=== PATIENT | female | born 1945 | race African-American/Black ===

== ENCOUNTER 2017-04-30 15:54 | Inpatient (IN) | payer OTHER ==
[~2017-04-30] VITALS: Ht 167.6 cm; Wt 57.2 kg
[2017-04-30 18:45] VITALS: BP 140/44; PULSE 41; TEMP 36.5; O2SAT 94
[2017-04-30 19:00] VITALS: BP 134/41; PULSE 39; O2SAT 93
--- NOTE | 2017-04-30 19:41 | History and Physical ---
History & Physical Date & Time of Service: Apr 30, 2017 at 19:41 Chief Complaint: Respiratory Failure Primary Care Physician: Alan Kelley M.D. History of Present Illness Source: patient Mrs Nicole Up is a 71 year old female with CKD, on dialysis, CHF, hypertension , and history of aortic valve replacement 3 years ago who initially presented to [facility] on 04/29/17, and was transferred to our facility by ambulance this evening. She reports she initially presented to the hospital after having two days of fatigue, shortness of breath, and just "not feeling right". She reports the shortness of breath started gradually, was more noticeable when walking around, and she would walk about 50 feet before feeling short of breath , to the point where she had to stop the rest. She denied any chest pain during that time. The fatigue occurred on its own throughout the day over the weekend, and she felt she could not get up to do the activities she usually does. Yesterday, she noticed her chest had a very heavy sensation, which concerned her , so she went to the hospital. She denied fevers, chills, abdominal pain, or leg swelling at this time. At [facility], she was found to be bradycardic, which she reports is new for her. She denies any syncopal events from this. She was told she needed a pacemaker, but cardiology there said she could be managed medically. She was transferred here for further evaluation by both Pulmonary and Cardiology. She also reports a 1 year history of cough, which is non-productive, which has been going on for a year after she got a flu shot. She did not get a flu shot this year. Per records, the pt had a PET CT scan which showed inflammation changes on the chest wall. She had a CT scan which showed concern for pneumonia vs malignancy in the right middle lobe. The patient denies any previous history of lung cancer. Currently, she reports feeling ok. She denies shortness of breath, chest pain, but reports the fatigue is still persistent. Past Medical/Surgical History PMHx: - Hypertension - End-stage renal failure, on dialysis - usually this is Mon/Sat/Fri, due to holiday she is Sun//Fri but missed it today - Congestive heart failure - Type 2 DM, on Lantus 4 units at night - Depression / Anxiety - Hypothyroidism PSHx: - Aortic valve replacement 3 years ago Family History No pertinent FHx Social History Lives at home with her , is the primary caregiver for her son who is quadriplegic. 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 She has never smoked. She used to primarily drink beer, but stopped drinking 25 years ago. She ambulates independently, feels she is doing ok at home since she has caregivers for her son. Allergies Coded Allergies: Fentanyl (Verified Allergy, Intermediate, HIVES, 04/30/17) Home Medications Scheduled Amiodarone Hcl (Cordarone), 200 MG PO DAILY Amlodipine (Norvasc), 10 MG PO BID Aspirin (Aspirin Ec), 81 MG PO DAILY Atorvastatin (Lipitor), 20 MG PO DAILY Benzonatate (Tessalon Perles), 100 MG PO TID Calcium Acetate (Phoslo 667 Mg), 1 CAP PO TIDM Cholecalciferol (Vitamin D3), 1 TAB PO DAILY Citalopram (Citalopram Hydrobromide), 1.5 TAB PO DAILY Clopidogrel (Plavix), 75 MG PO DAILY Furosemide (Lasix), 40 MG PO HS Furosemide (Lasix), 80 MG PO DAILY Hydralazine Hcl (Apresoline), 25 MG PO TID Insulin Glargine (Lantus), 4 UNITS SC QPM Levothyroxine Sodium (Synthroid), 50 MCG PO DAILY Lorazepam (Ativan), 1 MG PO BID Metoprolol Tartrate (Lopressor) (Lopressor), 25 MG PO BID Montelukast Sodium (Montelukast Sodium), 1 TAB PO DAILY Review of Systems See HPI for pertinent positives & negatives. A total of 10 systems reviewed and were otherwise negative. Physical Exam Vital Signs VS per EMR. On monitoring, her HR was ranging from 40 - 44. General Appearance: WD/WN, no apparent distress Head: normocephalic, atraumatic Eyes: normal inspection, PERRL ENT: hearing grossly normal Neck: supple, no JVD Respiratory/Chest: + crackles (faint crackles L base. No wheeze or rales.) Cardiovascular: regular rate, rhythm, no murmur, normal peripheral pulses Abdomen/GI: normal bowel sounds, non tender, soft Back: normal inspection, no CVA tenderness, no muscle spasm Extremities/Musculoskelatal: no calf tenderness, normal capillary refill, no pedal edema Neurologic/Psych: alert, normal mood/affect, normal reflexes, oriented x 3 Skin: warm/dry, no rash Diagnostics Laboratory Results Results Past 24 Hours Test 04/30/17 19:33 Range/Units Microbiology Results 04/30/17 MRSA DNA Surveillance Screen, Ordered Pending Diagnostic Radiology Pending final radiologist report. Has consolidation to L base and RML. Impression Assessment and Plan 71 yo F, primarily transferred here for further evaluation / treatment of right middle lobe consolidation with bronchoscopy, also has bradycardia. RML Consolidation - effusion vs infection vs neoplasm - Pulmonary consult. - NPO after midnight in case of bronchoscopy tomorrow. Pt is weary / hesitant since she was told she would need a pacemaker prior to this procedure. Agrees to prepare for it regardless and discuss w/Pulm in AM. Bradycardia - Cardiology consult - Hold anti-hypertensives for now End stage renal disease, on dialysis - Nephrology consult for dialysis tomorrow CHF - Unclear of her home medication dose - Lasix listed in computer but unclear if pt takes it, will defer to day team. Hypertension - Will hold her metoprolol, hydralazine, and amlodipine tonight - PRN Hydralazine IV for SBP > 170 or DBP > 110 Hx of TIA - Holding aspirin and plavix in case of bronch tomorrow Hypothyroidism - Continue Synthroid 50mcg Code status: Full Dispo: Admitted to ICU VTE: SCDs Resident Physician Supervision Note: Pt seen independently in the ICU following discussion with resident. I discussed the case with the resident and agree with the findings and plan as documented in the note. Any exceptions or clarifications are listed here: 71 y/o F Hx ESRD, CHF, HTN - initially presented to [facility] with bradycardia and SOB - imaging was obtained and a CT was suspicious for a RML malignancy. She was transferred directly to the ICU at [facility] and will likely undergo AM bronchoscopy. She is bradycardic on admission although she does not appear to have any related symptoms OE Pt had received a sedative - somnolent at time of eval S1,2 cole/reg CTA - no clear crackles or wheezing NT, ND, bS+ No CCE P: Pt to be evaluated by pulmonology and will likely undergo bronchoscopy/biopsy for her suspected mass We will contact the dialysis service if she is to remain in the hospital She will be evaluated by cardiology for her bradycardia - her B caleb has been held in the interim which will hopefully lead to improvement She can likely be transferred to telemetry if he is stable post-procedure Documented By: Joseph Thomas Level of Care Critical Care Resuscitation Status FULL RESUSCITATION VTE Prophylaxis VTE Risk Assessment Done? Y/N: Yes Risk Level: Moderate Resident Tracking Resident Involvement: Resident Care Provided Care Provided: Adult Hospital Medicine
[2017-04-30] MEDS ORDERED: MoRPHine SULFATE 2 MG/ML CARP IV PRN (19:45)
[2017-04-30] MEDS ORDERED: LORAZEPAM 2 MG/ML 1 ML VIAL IV PRN (19:45)
[2017-04-30] MEDS ORDERED: CLOP1TAB15 PO (19:55)
--- NOTE | 2017-04-30 19:57 | Critical Care Consultation ---
Critical Care Consultation Date of Consultation: Apr 30, 2017. Attending Physician: Joseph Thomas M.D. Reason for Consultation: Bradycardia & Increased Shortness of breath History of Present Illness Patient is a 71-year-old -Mac[place] female who transferred from [facility] this evening for bradycardia. While patient denies prior knowledge of bradycardic events. I do note outpatient EKG on 12/05/2016, that demonstrated a heart rate of 44. Upon speaking with her her main complaint is a progressively getting shortness of breath. She states that she has never smoked but has had significant exposure by both her (quit 30 years ago) and son (current smoker, though now outside home). She states that for the past year she has had a dry nagging cough, with occasional coughing fits but mainly complains of wheezing and shortness of breath when laying on her left side at night. She states that she is seen a progressive decline in the last 3 weeks at which point she was placed on 2 L nasal cannula home oxygen. She describes 3 different units in her home however, does not use any limb while transitioning about the house. Her most recent incident that led her to hospitalization began on Saturday when she was a day late for her normally scheduled hemodialysis. Patient states that while descending her 13 steps she fell due to shortness of breath. She states that she just could not get her legs under her and was having trouble moving about her home. She described an incident of using the restroom where she had to stop midway back to her room due to shortness of breath. She states that at times she finds herself leaning forward to help breathing. According to a home pulse ox, she was in the 70 percentile at one point on Saturday. On Saturday she stated that she made it to her living room and did not move about much. She relented and went to bed by 4: 30 PM only to wake up and feel short of breath again on Saturday. At this time she told her that she needed to go to the hospital immediately. She did state that during this period time she was having right-sided chest pressure that was radiating to her back. She did attempt to use prescribed nebulizer treatments without relief. [facility] patient was found to be bradycardic in the 40s with a bumped troponin of 0.06. Otherwise patient's past medical history is positive for end-stage renal disease requiring dialysis Saturday. Aortic valve replacement 3 years ago, diabetes mellitus, hypertension, hypothyroidism, past medical history of hep C. He states many years ago she was a heavy beer drinker, but is probably been 20+ years since her last drink. She denies any illicit drug use, smoking history, or current alcohol use. As for other possible in-home pulmonary triggers, patient does state that she does have mold/mildew in her basement; but does not go to that area of her home. She states that with this recent decline in pulmonary status; linens and window treatments have been removed and washed to reduce dust and smoke residue in the home. Patient has 2 dogs, these are not recent additions to the family. Patient underwent a 6 minute walking test in March 2017 with desaturations at 87% at 2 minutes and required 2 L supplemental oxygen prior to ambulating an additional minute. Per outpatient records from Dr. Palafox had ordered pulmonary function tests for 12/2016; however I do not see completion of this order. PET scan (04/13/17) of her pulmonary nodules demonstrated no suspicion of hypermetabolic foci. Persisting cough has been treated using Benadryl, Tessalon Perles, Singulair, cough medicine with codeine. Patient denies relief using any of these medications. Patient denies current malaise, weakness, change in vision, lightheadedness or dizziness. Patient denies feeling short of breath at rest, chest pain, palpitations, awareness of tachyarrhythmia. The patient denies current nausea/ vomiting/diarrhea. Denies change in bowel or bladder habits. Denies numbness or tingling of all extremities. 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 Cough Depression Hypertension Long QT Surgical history: Bilateral cataracts 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 Umbilical hernia repair Aortic valve replacement Biopsy of the kidney, right breast and axillary node, and liver Family History Noncontributory Social History Smoking Status: Never Smoker (significant secondhand exposure secondary to and son's smoking history) Smokeless Tobacco Use: No Alcohol Use: none (20+ years ago, heavy beer use) Drug Use: none Marital Status: Housing Status: lives with significant other (75-year-old and quadriplegic son) 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) Allergies Coded Allergies: Fentanyl (Verified Allergy, Intermediate, HIVES, 04/30/17) Home Medications Scheduled Amiodarone Hcl (Cordarone), 200 MG PO DAILY Amlodipine (Norvasc), 10 MG PO BID Aspirin (Aspirin Ec), 81 MG PO DAILY Atorvastatin (Lipitor), 20 MG PO DAILY Benzonatate (Tessalon Perles), 100 MG PO TID Calcium Acetate (Phoslo 667 Mg), 1 CAP PO TIDM Cholecalciferol (Vitamin D3), 1 TAB PO DAILY Citalopram (Citalopram Hydrobromide), 1.5 TAB PO DAILY Clopidogrel (Plavix), 75 MG PO DAILY Furosemide (Lasix), 40 MG PO HS Furosemide (Lasix), 80 MG PO DAILY Hydralazine Hcl (Apresoline), 25 MG PO TID Insulin Glargine (Lantus), 4 UNITS SC QPM Levothyroxine Sodium (Synthroid), 50 MCG PO DAILY Lorazepam (Ativan), 1 MG PO BID Metoprolol Tartrate (Lopressor) (Lopressor), 25 MG PO BID Montelukast Sodium (Montelukast Sodium), 1 TAB PO DAILY Current Inpatient Medications Current Inpatient Medications Medications (Trade) Dose Ordered Sig/Janice Route Start Time Stop Time Status Last Admin Dose Admin Acetaminophen (Tylenol Tab) 650 mg Q4H PRN PO 04/30/17 19:45 05/30/17 19:44 Lorazepam (Ativan Inj) 0.5 mg Q4H PRN IV 04/30/17 19:45 05/30/17 19:44 Morphine Sulfate (MoRPHine SULFATE INJ) 2 mg Q2H PRN IV 04/30/17 19:45 05/14/17 19:44 Lorazepam 0.5 mg/ Syringe 1 ml @ 1 mls/min Q4H PRN IV 04/30/17 20:00 05/30/17 19:59 Review of Systems 12 systems reviewed and negative other than previously mentioned in the HPI. Physical Exam Vital Signs - as noted Laboratory Data - as noted Physical Exam: General - NAD, 4L nasal cannula in place, speaking without dyspnea Eyes - PERRL, EOMI No icterus, gaze conjugate ENT - Mucosa moist, no lesions or candidiasis Neck - Supple, trachea midline, no masses or lymphadenopathy, no JVD or bruits Lungs - No paradoxical chest wall movement, clear to auscultation bilaterally, no wheezes, rales, or rhonchi Heart - Bradycardia @ 44bpm, Systolic murmur 3/6 present, No rubs, clicks, or gallops appreciated Abdomen - BS present, no bruits noted, tympanic to percussion, soft, nontender, nondistended, no organomegaly Extremities - No edema, pedal pulses intact Neuro - A&OX4 Strength extremities equal and appropriate bilaterally Reflexes: Bicep, patellar, and plantar normal and equal CN:PERRL, EOMI, no facial asymmetry, uvula/tongue midline Laboratory Results Last 24 Hours Test 04/30/17 19:48 Diagnostic Results CHEST ONE VIEW PORTABLE CLINICAL HISTORY: Evaluate for pleural effusion. COMPARISON STUDY: Chest radiograph and chest CT April 29, 2017. FINDINGS: A prosthetic aortic valve is noted. Moderate cardiomegaly is noted. Small right pleural effusion is present. Mild interstitial thickening is noted with mild bilateral airspace opacities. There is no pneumothorax. IMPRESSION: 1. No significant change in mild interstitial thickening and bilateral airspace opacities which favor pulmonary edema. Pneumonia could appear similar although is considered less likely. 2. Small right pleural effusion. Electronically signed by: Zev Hooks M.D. 04/30/2017 8:55 PM Dictated Date/Time: 04/30/2017 8:53 PM Assessment & Plan (1) Dyspnea (2) Hypothyroidism (3) Diabetes (4) Diastolic CHF (5) Pulmonary nodules (6) History of CVA (cerebrovascular accident) (7) Hypertension (8) On home oxygen therapy (9) Pleural effusion (10) Chronic kidney disease (11) Hemodialysis patient (12) Bradycardia Reason Critically Ill: Patient is an 71-year-old female who is transferred to the ICU for bradycardia and increased dyspnea x 2 days with weakness and fall reported. Pt is alert and a good historian. She reports improvement of symptoms since hospitalization. PLAN: CV: * Bradycardia without symptomatic complaint @ 44 bpm * Prior outpt EKG demonstrates similar rate and rhythm * Recheck Troponin; trend if indicated * Cardiology consulted; appreciate Dr. Mcwilliams's input * Consulted for possible need for pacemaker * Known diastolic dysfunction, AVR, * Will continue home Amiodarone and Lasix tx * Hold all rate lowering medications; such as Metoprolol and Amlodipine * ASA and Plavix held currently; Resume when appropriate * Monitor on telemetry Resp: * Supplemental oxygen as required * 4L nasal cannula with adequate saturations currently, wean as indicated * Follows with Dr. Palafox; Pulmonology * Continue Outpt regimen * Singulair 10mg Daily * Outpt PFTs not yet complete, encouraged upon discharge * Possible Bronch with Sputum Culture tomorrow * No wheezing on exam, monitor for change in respiratory status * Pt full code in event of respiratory distress/arrest * Monitor on telemetry Fluids/Renal: * Chronic Kidney Disease * GFR: 6 ( Stage 5) * Cockcroft-Gault/CrCl: 7ml/min * Nephrology Consulted: Appreciate Dr. Pham's Input * Pt missed HD: Electrolytes and Fluids stable at this time * Pt urinates 1-2/day. None today * Bladder scanned for 17mL after pt could not urinate * Monitor. * No mclean at this time. Pt tolerated bedside commode. O2 dipped to 90% * Avoid Nephro toxic agents * Continue Renale replacement medications * No fluids at this time, pt eating & drinking ID: * No signs/sx of infection at this time: No current indication for Abx * Dry nagging cough, afebrile * 1 pt for age: CURB-66 * No leukocytosis * Check Procalcitonin * Trend Fever Curve Neuro: * Denies pain * Ativan 1mg BID Continue * A&O x 4 * Monitor for changes, no unilateral changes noted on exam GI/Nutrition: * Pt eating/drinking * AST/ALT: 50/42 * No indication for GI prophylaxis Heme: * Anemia of Chronic Dz * H&H: 10.3/32.0; Plts: 213' * No reports/signs of gross bleeding, * Daily CBC * DVT Prophylaxis: * Heparin 5k units q12h * SCDs Ordered Endocrine: * Diabetes: Diet Controlled * Accu-Checks per protocol, started insulin infusion for 2 blood sugars greater than 180 * Hemoglobin A1C 09/10/16: 5.5 * Lantus 4u HS * Hypothyroidism: * TSH 09/10/16 1.39 * Continue Levothyroxine 50mcg CCT: 0 Minutes; Level 3 Inpt Consult Billing. This time is exclusive of all separately billable procedures. Thank you for involving us in the care of this patient. Please refer to Dr. Khurram Jama addendum for further recommendations. I have personally evaluated and examined this patient. I agree with assessment and plan of Jonathon Morales PA-C. Pacer pads placed upon arrival, await cardiology consultation; however hemodynamically stable during transportation from [facility]
[2017-04-30] MEDS ORDERED: ATOR-54 PO (19:59)
[2017-04-30 20:00] VITALS: BP 144/54; PULSE 41; O2SAT 95
[2017-04-30] MEDS ORDERED: LORAZEPAM INJ 0.5 MG in SYRINGE 0.75 ML IV PRN (20:00)
[2017-04-30 20:01] LABS: BASO % 1.8 %; COMPLETE YES; EOS % 4.8 %; IG% 0.2 %; LYMPH % 16.9 %; LYMPH ABS # 0.96 K/uL (1.2-3.4); MEAN CELL VOLUME 82.9 fL (80-100); MEAN CORPUSCULAR HEMOGLOBIN 26.7 pg (25-34); MEAN CORPUSCULAR HGB CONC 32.2 g/dl (32-36); MEAN PLATELET VOLUME 9.5 fL (7.4-10.4); MONO % 13.1 %; NEUT % 63.2 %; PLATELET COUNT 213 K/uL (130-400); RED BLOOD COUNT 3.86 M/uL (4.2-5.4); WHITE BLOOD COUNT 5.67 K/uL (4.8-10.8)
[2017-04-30 20:12] LABS: INR 1.3 (0.9-1.1); PROTHROMBIN TIME (PATIENT) 13.7 SECONDS (9.0-12.0)
[2017-04-30] MEDS ORDERED: ATV/1 PO (20:15)
[2017-04-30] MEDS ORDERED: INSDGI SC (20:15)
[2017-04-30] MEDS ORDERED: BENZ100C84 PO (20:15)
[2017-04-30] MEDS ORDERED: METO25TA56 PO (20:15)
[2017-04-30] MEDS ORDERED: MONT1TAB5 PO (20:15)
[2017-04-30] MEDS ORDERED: CALC667C4 PO (20:15)
[2017-04-30] MEDS ORDERED: LEVO50TA PO (20:15)
[2017-04-30] MEDS ORDERED: AMIO200T4 PO (20:15)
[2017-04-30] MEDS ORDERED: HYDR-4717 PO (20:15)
[2017-04-30] MEDS ORDERED: AMLO-114 PO (20:15)
[2017-04-30] MEDS ORDERED: FURO80TA63 PO (20:15)
[2017-04-30] MEDS ORDERED: ASPI81TA28 PO (20:15)
[2017-04-30] MEDS ORDERED: CITA40TA4 PO (20:15)
[2017-04-30] MEDS ORDERED: CHOL1000 PO (20:15)
[2017-04-30] MEDS ORDERED: FRS/40 PO (20:15)
[2017-04-30 20:16] VITALS: BP 140/44; PULSE 49; TEMP 36.5; O2SAT 96; Ht 167.6 cm; Wt 57.2 kg
[2017-04-30 20:32] LABS: ALB/GLOB RATIO 0.9 (0.9-2); ALKALINE PHOSPHATASE 78 U/L (45-117); ALT/SGPT 42 U/L (12-78); AST/SGOT 50 U/L (15-37); BLOOD UREA NITROGEN 55 mg/dl (7-18); BUN/CREATININE RATIO 7.8 (10-20); CALCIUM 9.3 mg/dl (8.5-10.1); CARBON DIOXIDE 23 mmol/L (21-32); CHLORIDE 94 mmol/L (98-107); CREATININE 6.95 mg/dl (0.60-1.20); GLUCOSE 129 mg/dl (70-99); POTASSIUM 4.4 mmol/L (3.5-5.1); SODIUM 130 mmol/L (136-145)
[2017-04-30] MEDS ORDERED: PATIENT'S HEIGHT AND/OR WEIGHT NEEDED SCH (20:45)
[2017-04-30] MEDS ORDERED: HydrALAZINE HCL 20 MG/ML VIAL IV. PRN (20:45)
--- NOTE | 2017-04-30 20:56 | DIAGNOSTIC IMAGING REPORT ---
CHEST ONE VIEW PORTABLE CLINICAL HISTORY: Evaluate for pleural effusion. COMPARISON STUDY: Chest radiograph and chest CT April 29, 2017. FINDINGS: A prosthetic aortic valve is noted. Moderate cardiomegaly is noted. Small right pleural effusion is present. Mild interstitial thickening is noted with mild bilateral airspace opacities. There is no pneumothorax. IMPRESSION: 1. No significant change in mild interstitial thickening and bilateral airspace opacities which favor pulmonary edema. Pneumonia could appear similar although is considered less likely. 2. Small right pleural effusion. Electronically signed by: Zev Hooks M.D. 04/30/2017 8:55 PM Dictated Date/Time: 04/30/2017 8:53 PM
[2017-04-30 21:00] VITALS: BP 154/84; PULSE 45; O2SAT 93
[2017-04-30] MEDS ORDERED: GLUCAGON FOR INJ 1 MG VIAL SQ PRN (21:00)
[2017-04-30] MEDS ORDERED: GLUCOSE 40% GEL 15 GM TUBE PO PRN (21:00)
[2017-04-30] MEDS ORDERED: DEXTROSE 50% 50 ML SYR IV PRN (21:00)
[2017-04-30] MEDS ORDERED: GLUCOSE 10 TABS/TUBE PO PRN (21:00)
[2017-04-30] MEDS: FUROSEMIDE 40 MG TAB PO SCH (21:35)
[2017-04-30] MEDS: LORAZEPAM 1 MG TAB PO SCH (21:35)
[2017-04-30] MEDS: INSULIN GLARGINE SOLOSTAR 100 UNITS/ML 3 ML PEN SC SCH (21:36)
[2017-04-30 23:59] VITALS: O2SAT 94
[2017-05-01] VITALS (22 sets, daily range): BP systolic 124–156; BP diastolic 44–81; PULSE 41–60; TEMP 36.5–36.9; O2SAT 93–99
[2017-05-01 05:48] LABS: BASO % 2.3 %; BASO ABS # 0.12 K/uL (0-0.2); COMPLETE YES; EOS % 5.5 %; HEMATOCRIT 29.9 % (37-47); IG% 0.4 %; LYMPH % 16.1 %; LYMPH ABS # 0.84 K/uL (1.2-3.4); MEAN CELL VOLUME 81.5 fL (80-100); MEAN CORPUSCULAR HEMOGLOBIN 27.2 pg (25-34); MEAN CORPUSCULAR HGB CONC 33.4 g/dl (32-36); MEAN PLATELET VOLUME 9.8 fL (7.4-10.4); MONO % 10.3 %; NEUT % 65.4 %; PLATELET COUNT 211 K/uL (130-400); RED BLOOD COUNT 3.67 M/uL (4.2-5.4); WHITE BLOOD COUNT 5.23 K/uL (4.8-10.8)
[2017-05-01] MEDS: LEVOTHYROXINE 50 MCG TAB PO SCH (05:52)
[2017-05-01 06:44] LABS: BUN/CREATININE RATIO 7.7 (10-20); CALCIUM 9.3 mg/dl (8.5-10.1); CREATININE 7.61 mg/dl (0.60-1.20); INR 1.3 (0.9-1.1); MAGNESIUM 2.1 mg/dl (1.8-2.4); PHOSPHORUS 6.8 mg/dl (2.5-4.9); POTASSIUM 4.2 mmol/L (3.5-5.1); PROTHROMBIN TIME (PATIENT) 13.6 SECONDS (9.0-12.0); THYROID STIMULATING HORMONE 0.423 uIu/ml (0.300-4.500)
[2017-05-01] MEDS: CHOLECALCIFEROL 1000 INTER.UNIT TAB PO SCH (07:53)
[2017-05-01] MEDS: ATORVASTATIN 20 MG TAB PO SCH (07:53)
[2017-05-01] MEDS: LORAZEPAM 1 MG TAB PO SCH ×2 (07:55→21:21)
[2017-05-01] MEDS: CITALOPRAM 40 MG TAB PO SCH (07:55)
[2017-05-01] MEDS: AMIODARONE 200 MG TAB PO SCH (07:55)
[2017-05-01] MEDS: CALCIUM ACETATE 667MG GELCAP PO SCH ×4 (07:55→17:25)
[2017-05-01] MEDS: HEPARIN SOD 5000 UNIT/0.5 ML CARP SQ SCH ×2 (07:56→21:26)
--- NOTE | 2017-05-01 09:48 | Pulmonary Consultation ---
History General Date of Service: May 01, 2017. Stated Complaint: Respiratory Failure HPI The patient is a 71 year old female who presents to [facility] with complaints of Respiratory Failure. The patient's primary care provider is Alan Kelley M.D.. Mrs. Up is a 71-year-old -[place] female with past medical history of end-stage renal disease on hemodialysis for the last 4 years. She also has history of hypertension, hypothyroidism, diabetes Type II, nonalcoholic steatohepatitis who presents as a direct admit from [facility]. Per patient she has had a chronic dry nonproductive cough for the last year. She states that on Saturday, she noticed that cough was more productive with whitish to yellowish sputum, associated with chest heaviness. She also noticed that she had nausea with 1 episode of nonbilious nonbloody vomitus. She had episode of fall on Saturday due bilateral lower extremity weakness and dyspnea. Apparently, missed dialysis due to change in days for holiday. When she presented to [facility] on Saturday04/30/2017, she was noted to bradycardic. She denies any diarrhea or genitourinary symptoms. She still makes urine. She denies fevers, chills, shortness of breath at rest, lightheadedness, dizziness, syncope, orthopnea, paroxysmal nocturnal dyspnea or lower extremity edema. Patient states that her son is a quadriplegic for who she is a primary caregiver had a recent upper respiratory infection. She states that she follows with Dr. Palafox in pulmonary clinic at [facility] on Tuesdays. She has been on 2L/min nasal canula for prn use after 6MWT showed desaturations to 87% with exertion. PFT is still pending. She had a PET scan done which showed after CT chest showed opacification of RML concerning for malignancy vs infectious etiology. PET scan (04/13/17) of her pulmonary nodules demonstrated no suspicion of hypermetabolic foci. She denies any rhinitis/sinusitis, GERD and is not an ACEI. She denies any nocturnal symptoms of chest tightness or wheezing. She states that she has noticed that for the last year she has not been able to vacuum the house due to dyspnea, but is able to perform all other activities of daily living. She denies any joint pains, skin rashes, but has had alopecia for the last year. She denies any history or family history of pulmonary embolism, has no history of coagulopathy and has not had any extended recent travel. She has had about 25 unintentional weight loss over the last year. She denies any changes in appetite. Persisting cough has been treated using Benadryl, Tessalon Perles, Singulair, cough medicine with codeine. Patient denies relief using any of these medications. She is a lifetime nonsmoker, but has secondhand smoke exposure from , who quit 30 years ago. Son still smokes, outside the home. She denies any recent known exposures to pet/birds, has two dogs. 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 She denies any occupational/ environmental exposures to fumes, organic or inorganic materials. Patient admitted to ICU for symptomatic bradycardia. Vital signs since admission show a MAXIMUM TEMPERATURE of 36.8, blood pressure 127/61 to 141/78 pulse between 41-45, respiratory rate between 14-20, saturating between 93-99% on 4 L nasal cannula. Chest x-ray showed mild interstitial thickening and bilateral airspace opacities which favor pulmonary edema. On my evaluation this morning, patient states that she is feeling well. She is sitting on edge of bed and denies any symptoms, other then feeling generalized malaise and fatigue. She denies any dyspnea or shortness of breath, still has intermittent dry cough. She denies any chest pain. Historian: patient Onset: last week Severity: moderate Complaint Status: improved Review of Systems Constitutional: reports: as stated in HPI Eyes: reports: as stated in HPI ENT: reports: as stated in HPI Cardiovascular: reports: as stated in HPI Respiratory: reports: as stated in HPI Gastrointestinal: reports: as stated in HPI Genitourinary - Female: reports: as stated in HPI Musculoskeletal: reports: as stated in HPI Integumentary: reports: as stated in HPI Neurologic: reports: as stated in HPI Psychiatric: reports: as stated in HPI Endocrine: as stated in HPI Hematologic / Lymphatic: as stated in HPI Allergic / Immunologic: no symptoms All Other Symptoms All Other Systems: Reviewed and Negative Past Medical History Past Medical History: Medical Problems: Bradycardia Pleural effusion Chronic DVT right upper extremity End-stage renal disease requiring hemodialysis Type 2 diabetes History of torsades de pointes Enlarged Mediastinal and hilar lymph nodes Right lung nodule (6mm) Left upper lobe lung nodule (5mm) History of stroke; without residual to right side History of cirrhosis secondary to hepatitis C Diastolic heart dysfunction (LVEF 65) Mild mitral and tricuspid regurgitation Fatty liver 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 Cough Depression Hypertension Long QT Surgical history: Bilateral cataracts Appendectomy hl7 interface developer surgery Umbilical hernia repair Aortic valve replacement Biopsy of the kidney, right breast and axillary node, and liver Past Surgical History: AV fistula TAVR Family History Father--aortic aneursym Mother-DM, HTN, HLD Son-quadriplegia, MRSA Social History See HPI Hx Tobacco Use In Past Year?: No Smoking Status: Never Smoker Marital status: Occupational Status: retired Allergies Coded Allergies: Fentanyl (Verified Allergy, Intermediate, HIVES, 04/30/17) Current Medications Reported Home Medications Medications Dose Route/Sig Max Daily Dose Days Date Category Montelukast Sodium 10 Mg Tab 1 Tab PO DAILY 30 04/30/17 Reported Lopressor (Metoprolol Tartrate) 25 Mg Tab 25 Mg PO BID 04/30/17 Reported Ativan (Lorazepam) 1 Mg Tab 1 Mg PO BID 04/30/17 Reported Synthroid (Levothyroxine Sodium) 50 Mcg Tab 50 Mcg PO DAILY 04/30/17 Reported Lantus (Insulin Glargine) 100 Unit/Ml Inj 4 Units SC QPM 04/30/17 Reported Apresoline (Hydralazine Hcl) 50 Mg Tab 25 Mg PO TID 04/30/17 Reported Lasix (Furosemide) 80 Mg Tab 80 Mg PO DAILY 04/30/17 Reported Lasix (Furosemide) 40 Mg Tab 40 Mg PO HS 04/30/17 Reported Citalopram Hydrobromide (Citalopram) 40 Mg Tab 1.5 Tab PO DAILY 90 04/30/17 Reported Phoslo 667 Mg (Calcium Acetate) 667 Mg Cap 1 Cap PO TIDM 04/30/17 Reported Vitamin D3 (Cholecalciferol) 1,000 Unit Tab 1 Tab PO DAILY 30 04/30/17 Reported Tessalon Perles (Benzonatate) 100 Mg Cap 100 Mg PO TID 04/30/17 Reported Aspirin Ec (Aspirin) 81 Mg Tab 81 Mg PO DAILY 04/30/17 Reported Norvasc (Amlodipine Besylate) 10 Mg Tab 10 Mg PO BID 04/30/17 Reported Cordarone (Amiodarone Hcl) 200 Mg Tab 200 Mg PO DAILY 04/30/17 Reported Lipitor (Atorvastatin) 20 Mg Tab 20 Mg PO DAILY 04/30/17 Reported Plavix (Clopidogrel Bisulfate) 75 Mg Tab 75 Mg PO DAILY 04/30/17 Reported Physical Physical Exam Vital Signs: Date Time Temp Pulse Resp B/P (MAP) Pulse Ox O2 Delivery O2 Flow Rate FiO2 05/01/17 06:00 45 14 127/61 (83) 93 Nasal Cannula 4.0 05/01/17 04:00 93 Nasal Cannula 4.0 05/01/17 04:00 36.5 43 19 136/49 (78) 93 Nasal Cannula 4.0 05/01/17 02:00 41 18 141/55 (83) 93 Nasal Cannula 4.0 05/01/17 00:01 36.6 43 16 137/81 (99) 94 Nasal Cannula 4.0 04/30/17 23:59 94 Nasal Cannula 4.0 04/30/17 21:00 45 20 154/84 (107) 93 Nasal Cannula 4.0 04/30/17 20:16 36.5 49 20 140/44 96 Nasal Cannula 4.0 04/30/17 20:00 41 20 144/54 (84) 95 Nasal Cannula 4.0 04/30/17 19:00 39 20 134/41 (72) 93 Nasal Cannula 4.0 04/30/17 18:45 36.5 41 20 140/44 (76) 94 Nasal Cannula 4.0 General Appearance: WD/WN, NO APPARENT DISTRESS, other (appears tired) Head: NORMOCEPHALIC Eyes: PERRLA, NO DISCHARGE, EOMI, SCLERAE NORMAL ENT: NORMAL THROAT EXAM, poor dentition Neck: NORMAL RANGE OF MOTION, NO TENDERNESS, TRACHEA MIDLINE, NO STRIDOR Respiratory: CLEAR TO AUSCULTATION Cardiovasular: REGULAR RATE/RHYTHM, NORMAL S1S2, NO M/G/R Abdomen: NON TENDER, NORMAL BOWEL SOUNDS Back: NORMAL INSPECTION, NO MIDLINE TENDERNESS, NO CVA TENDERNESS Upper Extremities: NO EDEMA, NO DEFORMITY, NORMAL ROM, other (no cyanosis, no clubbing, RUE AV fistula) Lower Extremities: NO EDEMA, NO DEFORMITY, NORMAL ROM Pulses: dorsalis pedis (R) (2+), dorsalis pedis (L) (2+) Neuro: ALERT, ORIENTED x 3, NORMAL MOTOR EXAM, NORMAL SENSATION, NORMAL CEREBELLAR EXAM, NORMAL SPEECH, NORMAL MEMORY Psychiatric: NORMAL AFFECT, NO SUICIDAL IDEATION, CONTRACTS FOR SAFETY Diagnostics Labs Results Past 24 Hours Test 04/30/17 19:48 04/30/17 20:48 05/01/17 05:33 05/01/17 06:03 Range/Units White Blood Count 5.67 5.23 4.8-10.8 K/uL Red Blood Count 3.86 3.67 4.2-5.4 M/uL Hemoglobin 10.3 10.0 12.0-16.0 g/dL Hematocrit 32.0 29.9 37-47 % Mean Corpuscular Volume 82.9 81.5 80-100 fL Mean Corpuscular Hemoglobin 26.7 27.2 25-34 pg Mean Corpuscular Hemoglobin Concent 32.2 33.4 32-36 g/dl Platelet Count 213 211 130-400 K/uL Mean Platelet Volume 9.5 9.8 7.4-10.4 fL Neutrophils (%) (Auto) 63.2 65.4 % Lymphocytes (%) (Auto) 16.9 16.1 % Monocytes (%) (Auto) 13.1 10.3 % Eosinophils (%) (Auto) 4.8 5.5 % Basophils (%) (Auto) 1.8 2.3 % Neutrophils # (Auto) 3.59 3.42 1.4-6.5 K/uL Lymphocytes # (Auto) 0.96 0.84 1.2-3.4 K/uL Monocytes # (Auto) 0.74 0.54 0.11-0.59 K/uL Eosinophils # (Auto) 0.27 0.29 0-0.5 K/uL Basophils # (Auto) 0.10 0.12 0-0.2 K/uL RDW Standard Deviation 54.4 52.3 36.4-46.3 fL RDW Coefficient of Variation 18.0 17.5 11.5-14.5 % Immature Granulocyte % (Auto) 0.2 0.4 % Immature Granulocyte # (Auto) 0.01 0.02 0.00-0.02 K/uL Prothrombin Time 13.7 13.6 9.0-12.0 SECONDS Prothromb Time International Ratio 1.3 1.3 0.9-1.1 Sodium Level 130 132 136-145 mmol/L Potassium Level 4.4 4.2 3.5-5.1 mmol/L Chloride Level 94 96 98-107 mmol/L Carbon Dioxide Level 23 23 21-32 mmol/L Anion Gap 12.0 13.0 3-11 mmol/L Blood Urea Nitrogen 55 59 7-18 mg/dl Creatinine 6.95 7.61 0.60-1.20 mg/dl Estimated GFR () 6.3 5.7 Estimated GFR (Non- 5.5 4.9 BUN/Creatinine Ratio 7.8 7.7 10-20 Random Glucose 129 88 70-99 mg/dl Calcium Level 9.3 9.3 8.5-10.1 mg/dl Total Bilirubin 0.4 0.4 0.2-1 mg/dl Direct Bilirubin 0.2 0.2 0-0.2 mg/dl Aspartate Amino Transf (AST/SGOT) 50 50 15-37 U/L Alanine Aminotransferase (ALT/SGPT) 42 44 12-78 U/L Alkaline Phosphatase 78 73 45-117 U/L Total Protein 7.1 6.7 6.4-8.2 gm/dl Albumin 3.4 3.3 3.4-5.0 gm/dl Globulin 3.7 2.5-4.0 gm/dl Albumin/Globulin Ratio 0.9 0.9-2 Bedside Glucose 158 98 70-90 mg/dl Est Creatinine Clear Calc Drug Dose 6.1 ml/min Phosphorus Level 6.8 2.5-4.9 mg/dl Magnesium Level 2.1 1.8-2.4 mg/dl Troponin I 0.132 0-0.045 ng/ml Procalcitonin 0.17 0-0.5 ng/ml Thyroid Stimulating Hormone (TSH) 0.423 0.300-4.500 uIu/ml Free Thyroxine 1.12 0.80-1.60 ng/dl Microbiology Results 04/30/17 MRSA DNA Surveillance Screen - Final, Complete Specimen Negative for MRSA by DNA Probe Diagnostic Radiology CHEST ONE VIEW PORTABLE 04/30/2017 CLINICAL HISTORY: Evaluate for pleural effusion. COMPARISON STUDY: Chest radiograph and chest CT April 29, 2017. FINDINGS: A prosthetic aortic valve is noted. Moderate cardiomegaly is noted. Small right pleural effusion is present. Mild interstitial thickening is noted with mild bilateral airspace opacities. There is no pneumothorax. IMPRESSION: 1. No significant change in mild interstitial thickening and bilateral airspace opacities which favor pulmonary edema. Pneumonia could appear similar although is considered less likely. Impression Assessment and Plan Dyspnea Acute on chronic hypoxic respiratory failure Bradycardia ESRD on HD Diastolic dysfunction Pleural effusions Patient shortness of breath and dyspnea is multifactorial in nature. She has end-stage renal disease on dialysis and missed dialysis sessions. She has diastolic dysfunction and may have component of pulmonary hypertension. She may have had upper respiratory infection exposure from her son which precipitated worsening of cough and lethargy however this seems to have resolved over the last few days. Most recent imaging shows evidence of pulmonary edema as well as small pleural effusions suggestive of diastolic CHF, although she does not appear overloaded from physical exam. She has anemia of chronic disease and has symptomatic bradycardia which are likely contributing. Recommendations Continue supplemental oxygen to maintain an SaO2 above 92%. Recommend cardiology consult for evaluation for pacemaker as this may be a strong contributor to her symptoms. Recommend TTE with bubble study to rule out pulmonary hypertension. Can also consider VQ scan to rule out chronic thromboembolic PH. Will also send ROBYN, ANCA, RF, ESR, CRP to rule out connective tissue disorders. I do not feel that bronchoscopy is warranted at this time until underlying cardiac issues are addressed. Continue with bronchodilators when necessary. She should have full PFT done as an outpatient. She should also has polysomnography done which may be contributing to lethargy. Lastly, amiodarone pulmonary toxicity is a consideration for chronic cough, dyspnea and CT changes, but this remains a diagnosis of exclusion. Continue with dialysis per nephrology. I appreciate the consult.
--- NOTE | 2017-05-01 11:19 | CARDIOLOGY CONSULTATION REPORT ---
DATE OF CONSULTATION: 04/30/2017 REASON FOR CONSULTATION: 1. Bradycardia. 2. Question need for pacemaker. HISTORY OF PRESENT ILLNESS: Mrs. Up is a very pleasant 71-year-old -[place] female with a past history of type 2 diabetes mellitus with complications, end-stage renal disease on hemodialysis, hypertension, dyslipidemia, LVH with diastolic dysfunction, hypothyroidism, autoimmune hepatitis, symptomatic PVCs, prior CVA, depression, anemia of chronic disease, aortic stenosis status post TAVR 4 years ago, minimal CAD on pre TAVR cardiac catheterization, question prolonged QT, and a history of wide complex tachycardia associated with unresponsiveness February 2017 (possibly torsades de pointes) who was admitted acutely to [facility] on 04/29/2017 complaining of generalized weakness, shortness of breath, and a very persistent cough. Admittedly, the patient has had a cough for the past year, although in recent months she has been admitted with cough, shortness of breath, and hypoxemia associated with respiratory failure. Because her gore inserter is on staff here, she was transferred to [facility] on 04/30/2017. Since being hospitalized, she has been noted to have a persistent bradycardia on telemetry monitoring with heart rates predominantly in the mid 40s, although her slowest heart rate was 39 beats per minute. She does have heart rate variability when she moves around, and her bradycardia does not appear to be new. She has had several hospitalizations and EKGs with consistent bradycardia in the 40s, usually sinus bradycardia, but occasionally junctional bradycardia. At the present time, the patient offers no complaints. She feels that her breathing is at baseline, and her cough has settled down. She has not had any lightheadedness, positional lightheadedness, syncope, loss of consciousness or any profound dizzy spells. Her shortness is improved today despite a heart rate in the 40s at rest. She feels like her usual self. Thus far her metoprolol and amlodipine has been held. She is also maintained on amiodarone 200 mg a day, and that was given today. MEDICATIONS: 1. Singulair 10 mg a day. 2. Amiodarone 200 mg daily. 3. Lipitor 20 mg daily. 4. Vitamin D 1000 units daily. 5. Celexa 60 mg daily. 6. Heparin 5000 unites subcutaneous injection q. 12 hours. 7. PhosLo 667 mg t.i.d. 8. Levothyroxine 50 mcg daily. 9. Lasix 40 mg at bed time. 10. Lantus insulin 4 units subcutaneous injection q.p.m. 11. Lorazepam 1 mg b.i.d. 12. Hydralazine 10 mg IV q. 8 hours p.r.n. for elevated blood pressure. 13. Lorazepam 0.5 mg IV q. 4 hours p.r.n. for anxiety. 14. Tylenol p.r.n. 15. Morphine sulfate 2 mg IV q. 2 hours p.r.n. for pain. ALLERGIES: FENTANYL. PAST MEDICAL HISTORY: 1. Insulin requiring type 2 diabetes mellitus. 2. Aortic stenosis status post TAVR 4 years ago. 3. Minimal CAD on pre TAVR cardiac catheterization 4 years ago. 4. Hypertension. 5. Dyslipidemia. 6. Hypothyroidism. 7. Normal LV systolic function on echocardiogram June 2016. 8. History of long QT interval. 9. Symptomatic PVCs. 10. History of CVA. 11. Lung nodule, workup is currently underway. 12. Hypertensive heart disease. 13. History of diastolic CHF. 14. History of respiratory failure. 15. End-stage renal disease on hemodialysis. 16. History of depression. 17. Anemia associated with chronic kidney disease. 18. Autoimmune hepatitis. 19. History of wide complex tachycardia associated with unresponsiveness, possibly torsades as reported in chart. We did not have any of those rhythm stripes available for review. 20. History of chronic DVT, right upper extremity. 21. Chronic cough. 22. Fatty liver. 23. History of bilateral cataracts. 24. Appendectomy. 25. History of C section. 26. History of hand surgery. 27. Umbilical hernia repair. 28. History of kidney biopsy. SOCIAL HISTORY: The patient is and lives with her . She has a newly quadriplegic son that she cares for. 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 She is a lifelong nonsmoker, but has significant secondhand smoke exposure. She previously drank beer, but has had none in the past 1 year. She does not use any [id number] or illicit drugs. FAMILY HISTORY: Is not contributory. PHYSICAL EXAMINATION: VITAL SIGNS: Temperature is 36.8 degrees Celsius, pulse is 43 and regular, respiratory rate is 16 and unlabored, blood pressure is 141/78. SpO2 is 99% on 4 liters of oxygen via nasal cannula. GENERAL: The patient is in no acute distress. HEENT: Head is atraumatic, normocephalic. EOMs intact. Sclerae are anicteric. Face is symmetric. No perioral cyanosis. Mucous membranes are moist. NECK: Without JVD. Jugular venous pressure is at the level of the clavicle sitting upright. CHEST AND LUNGS: Scattered crackles, some clear with coughing. No obvious wheezes. CARDIOVASCULAR SYSTEM: S1 and S2 are regular, bradycardic, at a rate of approximately 43 beats per minute. There is a grade 2/6 basal systolic murmur best heard over right second intercostal space, this radiates to the suprasternal notch and left sternal border. No diastolic murmur appreciated. PMI is nondisplaced. No lifts, heaves, or thrills. No abdominal, aortic or renal bruits. ABDOMEN: Bowel sounds present. No masses, organomegaly, or tenderness. EXTREMITIES: Without edema. Intact dorsalis pedis and posterior tibial pulses bilaterally. Normal radial pulses bilaterally. NEUROLOGIC: The patient is awake, alert and oriented. Pleasant and cooperative. Answers questions appropriately. Speech is clear. Normal movement in all 4 extremities. Gait pattern not assessed. EKG on admission shows sinus bradycardia at the rate of 45 beats per minute, voltage criteria for LVH, nonspecific T wave abnormality. Corrected QT interval is 460 milliseconds. Single PVC is present. No prior tracings for comparison. Telemetry monitoring in the ICU shows predominantly sinus bradycardia with rates ranging between 39 beats per minute and 60 beats per minute. No significant pauses. No ventricular arrhythmias. LABORATORY DATA: White blood cell count is 5.23, hemoglobin is 10.0 g/dL, hematocrit 29.9%, platelet count 211,000. INR is 1.3. Sodium is 132 mmol/L, potassium 4.2 mmol/L, BUN is 59 mg/dL, creatinine is 7.61 mg/dL, random glucose is 88 mg/dL. Magnesium level is normal at 2.1 mg/dL. Troponin I 0.132 ng/mL. TSH is 0.423 uIU/mL with a free T4 of 1.12 ng/dL. Amiodarone level is pending. ASSESSMENT: 1. Bradycardia, appears to be chronic. 2. History of wide complex tachycardia associated with unresponsiveness. Possibly torsades de pointes. 3. History of aortic stenosis status post transcatheter aortic valve replacement 4 years ago. 4. Minimal coronary artery disease on pre transcatheter aortic valve replacement cardiac catheterization 4 years ago. 5. History of left ventricular hypertrophy with diastolic congestive heart failure. 6. Insulin requiring type 2 diabetes mellitus. 7. Hypertension. 8. Dyslipidemia. 9. History of long QT internal. 10. History of symptomatic premature ventricular contractions. 11. Hypothyroidism. 12. Autoimmune hepatitis. 13. End-stage renal disease on dialysis. 14. Anemia. 15. History of depression. 16. Lung nodules. 17. History of acute respiratory failure. PLAN: 1. The patient presented with progressive shortness of breath, cough, and fatigue over the past several days. She initially was admitted to [facility], and subsequently transferred to [facility] for further pulmonology care with Dr. Palafox. The patient has been persistently bradycardic throughout this hospitalization (at least some of which is medication induced), but she appears to have some elevation in her heart rate with activities, and does not have any symptoms suggestive of profound bradycardia. She has not had any lightheaded spells, dizzy spells, or weak spells. Although, she was short of breath on admission, she feels back to baseline at the present time despite having a peristent sinus bradycardia with heart rates in the 40s. Additionally, we have evidence that she had slow heart rates in the past during various hospitalizations. I doubt that her bradycardia is a new finding anyway. 2. Would recommend holding metoprolol and amlodipine. 3. Would recommend continuing amiodarone 200 mg for the time being. We would check a serum amiodarone level. 4. Continue monitoring on telemetry. 5. The patient may be transferred to telemetry unit from the ICU as her condition has improved. 6. Recommend going forward with further evaluation of lung nodules including bronchoscopy. 7. Continue long-term statin therapy. 8. Continue usual allergy/aspirin regimen. 9. Continue hemodialysis on maintenance schedule. 10. Continue to monitor daily laboratories including electrolytes, renal function and serum magnesium level. 11. Continue to observe for the time being. She does not appear to need a pacemaker at this time. 12. We discussed this case with Dr. Muhammad who will also meet with the patient a little bit later on. Attending: Pt seen and examined. Agree with above. Narendra Muhammad MD [facility]
--- NOTE | 2017-05-01 12:09 | Nephrology Consultation ---
Nephrology Consultation Date & Providers Date of Consultation: May 01, 2017. Primary Care Provider: Alan Kelley M.D. Referring Provider: Reason for Consultation Management of end-stage renal disease on hemodialysis while in hospital. History of Present Illness Nicole is a 71-year-old female with past medical history significant for end- stage renal disease on hemodialysis, bradycardia, Hypertension admitted to the hospital with shortness of breath and persistent bradycardia. Nephrologic consult was requested to manage hemodialysis while in hospital. Electronic medical records were reviewed in detail during patient's visit. Nicole initially presented to [facility] with weakness and progressive shortness of breath. She was found to have bradycardia and transferred to [facility] for further evaluation management. Since admission she has been persistently bradycardic with heart rate around 40-46. Shortness of breath improve significantly. No chest pain. Blood pressure has been well controlled. She was continued on amiodarone, metoprolol and amlodipine was discontinued. Has history of aortic stenosis status post TVAR before and noncritical coronary artery disease. Has history of diastolic dysfunction. She was recently found to have lung nodule, workup is underway. 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 Her last dialysis was last Saturday. She still makes some urine. Has anemia and secondary hyperparathyroidism being managed at the dialysis unit. Currently she denies any shortness of breath or chest pain. Blood pressure well controlled. She is a nonsmoker. Allergies Coded Allergies: Fentanyl (Verified Allergy, Intermediate, HIVES, 04/30/17) Inpatient Medications Current Inpatient Medications Medications (Trade) Dose Ordered Sig/Janice Route Start Time Stop Time Status Last Admin Dose Admin Acetaminophen (Tylenol Tab) 650 mg Q4H PRN PO 04/30/17 19:45 05/30/17 19:44 Lorazepam (Ativan Inj) 0.5 mg Q4H PRN IV 04/30/17 19:45 05/30/17 19:44 Morphine Sulfate (MoRPHine SULFATE INJ) 2 mg Q2H PRN IV 04/30/17 19:45 05/14/17 19:44 Lorazepam 0.5 mg/ Syringe 1 ml @ 1 mls/min Q4H PRN IV 04/30/17 20:00 05/30/17 19:59 Amiodarone HCl (Cordarone Tab) 200 mg DAILY PO 05/01/17 09:00 05/31/17 08:59 Atorvastatin Calcium (Lipitor Tab) 20 mg DAILY PO 05/01/17 09:00 05/31/17 08:59 05/01/17 07:53 20 MG Calcium Acetate (Phoslo Cap) 667 mg TIDM PO 05/01/17 07:15 05/31/17 07:14 05/01/17 07:55 667 MG Cholecalciferol (Vitamin D Tab) 1,000 inter.unit DAILY PO 05/01/17 09:00 05/31/17 08:59 05/01/17 07:53 1,000 INTER.UNIT Citalopram Hydrobromide (celeXA TAB) 60 mg DAILY PO 05/01/17 09:00 05/31/17 08:59 05/01/17 07:55 60 MG Furosemide (Lasix Tab) 40 mg HS PO 04/30/17 21:00 05/30/17 20:59 04/30/17 21:35 40 MG Insulin Glargine (Lantus Solostar Pen) 4 units QPM SC 04/30/17 21:00 05/30/17 20:59 04/30/17 21:36 4 UNITS Levothyroxine Sodium (Synthroid Tab) 50 mcg DAILYBB PO 05/01/17 06:00 05/31/17 05:59 Lorazepam (Ativan Tab) 1 mg BID PO 04/30/17 21:00 05/30/17 20:59 05/01/17 07:55 1 MG Montelukast Sodium (Singulair Tab) 10 mg QPM PO 05/01/17 21:00 05/31/17 20:59 Hydralazine HCl (HydrALAZINE INJ) 10 mg Q8H PRN IV. 04/30/17 20:45 05/30/17 20:44 Glucose (Glucose 40% Gel) 15-30 GRAMS 15 GRAMS... UD PRN PO 04/30/17 21:00 05/30/17 20:59 Glucose (Glucose Chew Tab) 4-8 Tablets 4 Tabl... UD PRN PO 04/30/17 21:00 05/30/17 20:59 Dextrose (Dextrose 50% 50ML Syringe) 25-50ML OF 50% DW IV FOR... UD PRN IV 04/30/17 21:00 05/30/17 20:59 Glucagon (Glucagon Inj) 1 mg UD PRN SQ 04/30/17 21:00 05/30/17 20:59 Heparin Sodium (Porcine) (Heparin Sq 5000 Unit/0.5ml) 5,000 unit Q12 SQ 05/01/17 09:00 05/31/17 08:59 05/01/17 07:56 5,000 UNIT Social History Smoking Status: Never Smoker Smokeless Tobacco Use: No Alcohol Use: none Drug Use: none Marital Status: Occupation: retired Review of Systems A complete review of systems was performed. Pertinent positives are noted above. All other systems are negative. Physical Exam Date Time Temp Pulse Resp B/P (MAP) Pulse Ox O2 Delivery O2 Flow Rate FiO2 05/01/17 09:45 36.5 45 16 138/48 (78) 93 Nasal Cannula 4.0 05/01/17 08:00 Nasal Cannula 4.0 05/01/17 08:00 36.8 41 20 141/78 (99) 99 Nasal Cannula 4.0 05/01/17 06:00 45 14 127/61 (83) 93 Nasal Cannula 4.0 05/01/17 04:00 93 Nasal Cannula 4.0 05/01/17 04:00 36.5 43 19 136/49 (78) 93 Nasal Cannula 4.0 05/01/17 02:00 41 18 141/55 (83) 93 Nasal Cannula 4.0 05/01/17 00:01 36.6 43 16 137/81 (99) 94 Nasal Cannula 4.0 04/30/17 23:59 94 Nasal Cannula 4.0 04/30/17 21:00 45 20 154/84 (107) 93 Nasal Cannula 4.0 04/30/17 20:16 36.5 49 20 140/44 96 Nasal Cannula 4.0 04/30/17 20:00 41 20 144/54 (84) 95 Nasal Cannula 4.0 04/30/17 19:00 39 20 134/41 (72) 93 Nasal Cannula 4.0 04/30/17 18:45 36.5 41 20 140/44 (76) 94 Nasal Cannula 4.0 GENERAL: Elderly female AAA x 3, pleasant, healthy-appearing, not in any distress. HEENT: Atraumatic, normocephalic. NECK: Supple, no JVD, no carotid bruit appreciated. ENT: No sinus tenderness MOUTH and THROAT: Moist oral mucosa, no oral ulcer or pharyngeal erythema RESPIRATORY: Normal breathing efforts, no accessory muscle use, clear to auscultation bilaterally, no wheezes or rales. CARDIOVASCULAR: S1, S2 normal, rate rhythm regular. ABDOMEN: Soft, nontender, positive bowel sound. MUSCULOSKELETAL: No CVA tenderness. No joint swelling, erythema or tenderness. Normal range of motion. SKIN: No skin rash EXTREMITY: No lower extremity edema. 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 NEURO: No gross focal neurological deficit, speech fluent. PSYCHIATRY: Normal mood and judgment Laboratory Results Last 24 Hours Test 04/30/17 19:48 04/30/17 20:48 05/01/17 05:33 05/01/17 06:03 White Blood Count 5.67 K/uL 5.23 K/uL Red Blood Count 3.86 M/uL 3.67 M/uL Hemoglobin 10.3 g/dL 10.0 g/dL Hematocrit 32.0 % 29.9 % Mean Corpuscular Volume 82.9 fL 81.5 fL Mean Corpuscular Hemoglobin 26.7 pg 27.2 pg Mean Corpuscular Hemoglobin Concent 32.2 g/dl 33.4 g/dl Platelet Count 213 K/uL 211 K/uL Mean Platelet Volume 9.5 fL 9.8 fL Neutrophils (%) (Auto) 63.2 % 65.4 % Lymphocytes (%) (Auto) 16.9 % 16.1 % Monocytes (%) (Auto) 13.1 % 10.3 % Eosinophils (%) (Auto) 4.8 % 5.5 % Basophils (%) (Auto) 1.8 % 2.3 % Neutrophils # (Auto) 3.59 K/uL 3.42 K/uL Lymphocytes # (Auto) 0.96 K/uL 0.84 K/uL Monocytes # (Auto) 0.74 K/uL 0.54 K/uL Eosinophils # (Auto) 0.27 K/uL 0.29 K/uL Basophils # (Auto) 0.10 K/uL 0.12 K/uL RDW Standard Deviation 54.4 fL 52.3 fL RDW Coefficient of Variation 18.0 % 17.5 % Immature Granulocyte % (Auto) 0.2 % 0.4 % Immature Granulocyte # (Auto) 0.01 K/uL 0.02 K/uL Prothrombin Time 13.7 SECONDS 13.6 SECONDS Prothromb Time International Ratio 1.3 1.3 Sodium Level 130 mmol/L 132 mmol/L Potassium Level 4.4 mmol/L 4.2 mmol/L Chloride Level 94 mmol/L 96 mmol/L Carbon Dioxide Level 23 mmol/L 23 mmol/L Anion Gap 12.0 mmol/L 13.0 mmol/L Blood Urea Nitrogen 55 mg/dl 59 mg/dl Creatinine 6.95 mg/dl 7.61 mg/dl Estimated GFR () 6.3 5.7 Estimated GFR (Non- 5.5 4.9 BUN/Creatinine Ratio 7.8 7.7 Random Glucose 129 mg/dl 88 mg/dl Calcium Level 9.3 mg/dl 9.3 mg/dl Total Bilirubin 0.4 mg/dl 0.4 mg/dl Direct Bilirubin 0.2 mg/dl 0.2 mg/dl Aspartate Amino Transf (AST/SGOT) 50 U/L 50 U/L Alanine Aminotransferase (ALT/SGPT) 42 U/L 44 U/L Alkaline Phosphatase 78 U/L 73 U/L Total Protein 7.1 gm/dl 6.7 gm/dl Albumin 3.4 gm/dl 3.3 gm/dl Globulin 3.7 gm/dl Albumin/Globulin Ratio 0.9 Bedside Glucose 158 mg/dl 98 mg/dl Est Creatinine Clear Calc Drug Dose 6.1 ml/min Phosphorus Level 6.8 mg/dl Magnesium Level 2.1 mg/dl Troponin I 0.132 ng/ml Procalcitonin 0.17 ng/ml Thyroid Stimulating Hormone (TSH) 0.423 uIu/ml Free Thyroxine 1.12 ng/dl Test 05/01/17 10:38 Impression (1) End stage renal disease on dialysis (2) Secondary hyperparathyroidism of renal origin (3) Anemia (4) Diastolic CHF (5) Hypertension Luis A Is a 71-year-old female with 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 at [place]. Last dialysis was 3 days ago and she missed dialysis yesterday. Currently electrolyte and volume status acceptable. Blood pressure acceptable. She presented to the hospital with progressive shortness of breath and weakness. She was found to be bradycardic. Currently her shortness of breath totally resolved. She is being continued on amiodarone, metoprolol and amlodipine was discontinued. She was also recently found to have lung nodule, workup underway, pulmonary consulted for further management. Recommendations --plan for hemodialysis this afternoon with 3 K bath for 3 hours --next dialysis will be Saturday as her regular schedule --continue on renal diet --Nephrocaps 1 capsule daily --continue on PhosLo as phosphate binder --will give Epogen 4000 units today during dialysis --avoid IV fluid Thank you for allowing me to participate in your patient's care. It was a pleasure to see Nicole
[2017-05-01] MEDS ORDERED: EPOETIN ALFA 4000 UNITS/ML VIAL IV SCH (14:00)
--- NOTE | 2017-05-01 17:45 | Family Medicine Progress Note ---
Progress Note Date of Service May 01, 2017. Subjective Pt evaluation today including: conversation w/ patient, physical exam, chart review, lab review, review of studies Pain: patient denies any pain this morning Voiding: no voiding problems, no incontinence Patient is resting comfortably in bed this morning sitting upright. She denies any shortness of breath or chest pain at this time. She states that she has been having an ongoing cough for the last year that has been progressing. She is normally on 2L of oxygen at home and has required 4L over the last few weeks. She also has been coughing up yellow/clear sputum during this time. Constitutional: No fever, No chills, No sweats Respiratory: + cough, + sputum, + wheezing, No shortness of breath Cardiovascular: No chest pain, No palpitations Abdomen: No pain, No nausea, No vomiting, No diarrhea, No constipation Neurologic: No memory loss, No weakness Medications Current Inpatient Medications Medications (Trade) Dose Ordered Sig/Janice Route Start Time Stop Time Status Last Admin Dose Admin Acetaminophen (Tylenol Tab) 650 mg Q4H PRN PO 04/30/17 19:45 05/30/17 19:44 Lorazepam (Ativan Inj) 0.5 mg Q4H PRN IV 04/30/17 19:45 05/30/17 19:44 Morphine Sulfate (MoRPHine SULFATE INJ) 2 mg Q2H PRN IV 04/30/17 19:45 05/14/17 19:44 Lorazepam 0.5 mg/ Syringe 1 ml @ 1 mls/min Q4H PRN IV 04/30/17 20:00 05/30/17 19:59 Amiodarone HCl (Cordarone Tab) 200 mg DAILY PO 05/01/17 09:00 05/31/17 08:59 Atorvastatin Calcium (Lipitor Tab) 20 mg DAILY PO 05/01/17 09:00 05/31/17 08:59 05/01/17 07:53 20 MG Calcium Acetate (Phoslo Cap) 667 mg TIDM PO 05/01/17 07:15 05/31/17 07:14 05/01/17 13:27 667 MG Cholecalciferol (Vitamin D Tab) 1,000 inter.unit DAILY PO 05/01/17 09:00 05/31/17 08:59 05/01/17 07:53 1,000 INTER.UNIT Citalopram Hydrobromide (celeXA TAB) 60 mg DAILY PO 05/01/17 09:00 05/31/17 08:59 05/01/17 07:55 60 MG Furosemide (Lasix Tab) 40 mg HS PO 04/30/17 21:00 05/30/17 20:59 04/30/17 21:35 40 MG Insulin Glargine (Lantus Solostar Pen) 4 units QPM SC 04/30/17 21:00 05/30/17 20:59 04/30/17 21:36 4 UNITS Levothyroxine Sodium (Synthroid Tab) 50 mcg DAILYBB PO 05/01/17 06:00 05/31/17 05:59 Lorazepam (Ativan Tab) 1 mg BID PO 04/30/17 21:00 05/30/17 20:59 05/01/17 07:55 1 MG Montelukast Sodium (Singulair Tab) 10 mg QPM PO 05/01/17 21:00 05/31/17 20:59 Hydralazine HCl (HydrALAZINE INJ) 10 mg Q8H PRN IV. 04/30/17 20:45 05/30/17 20:44 Glucose (Glucose 40% Gel) 15-30 GRAMS 15 GRAMS... UD PRN PO 04/30/17 21:00 05/30/17 20:59 Glucose (Glucose Chew Tab) 4-8 Tablets 4 Tabl... UD PRN PO 04/30/17 21:00 05/30/17 20:59 Dextrose (Dextrose 50% 50ML Syringe) 25-50ML OF 50% DW IV FOR... UD PRN IV 04/30/17 21:00 05/30/17 20:59 Glucagon (Glucagon Inj) 1 mg UD PRN SQ 04/30/17 21:00 05/30/17 20:59 Heparin Sodium (Porcine) (Heparin Sq 5000 Unit/0.5ml) 5,000 unit Q12 SQ 05/01/17 09:00 05/31/17 08:59 05/01/17 07:56 5,000 UNIT Epoetin Ravi (Procrit Inj) 4,000 units TODAY@1400 IV 05/01/17 14:00 05/01/17 23:59 05/01/17 13:23 4,000 UNITS Vitamin B Complex/ Vit C/Folic Acid (Nephrocaps) 1 cap QAM PO 05/02/17 09:00 06/01/17 08:59 Objective Vital Signs Date Time Temp Pulse Resp B/P (MAP) Pulse Ox O2 Delivery O2 Flow Rate FiO2 05/01/17 15:29 36.5 50 16 136/46 (76) 97 Nasal Cannula 4.0 05/01/17 14:55 36.9 54 140/55 (83) 05/01/17 14:15 58 141/53 05/01/17 14:00 60 147/58 05/01/17 13:45 58 151/53 05/01/17 13:30 57 156/56 05/01/17 13:15 57 153/57 05/01/17 13:00 56 145/54 05/01/17 12:45 55 150/60 05/01/17 12:30 Nasal Cannula 4.0 05/01/17 12:30 53 150/57 05/01/17 12:15 50 124/61 05/01/17 12:00 50 144/52 05/01/17 11:45 48 153/68 05/01/17 11:30 46 141/54 05/01/17 11:04 36.8 46 133/65 (87) 05/01/17 09:45 36.5 45 16 138/48 (78) 93 Nasal Cannula 4.0 05/01/17 08:00 Nasal Cannula 4.0 05/01/17 08:00 36.8 41 20 141/78 (99) 99 Nasal Cannula 4.0 05/01/17 06:00 45 14 127/61 (83) 93 Nasal Cannula 4.0 05/01/17 04:00 93 Nasal Cannula 4.0 05/01/17 04:00 36.5 43 19 136/49 (78) 93 Nasal Cannula 4.0 05/01/17 02:00 41 18 141/55 (83) 93 Nasal Cannula 4.0 05/01/17 00:01 36.6 43 16 137/81 (99) 94 Nasal Cannula 4.0 04/30/17 23:59 94 Nasal Cannula 4.0 04/30/17 21:00 45 20 154/84 (107) 93 Nasal Cannula 4.0 04/30/17 20:16 36.5 49 20 140/44 96 Nasal Cannula 4.0 04/30/17 20:00 41 20 144/54 (84) 95 Nasal Cannula 4.0 04/30/17 19:00 39 20 134/41 (72) 93 Nasal Cannula 4.0 04/30/17 18:45 36.5 41 20 140/44 (76) 94 Nasal Cannula 4.0 Physical Exam General Appearance: WD/WN, no apparent distress Eyes: normal inspection, sclerae normal Neck: supple, no carotid bruits Respiratory/Chest: chest non-tender, no accessory muscle use, + pertinent finding (right middle/lower lobe decreased breath sounds) Cardiovascular: regular rate, rhythm, no edema, no gallop, + systolic murmur Abdomen: normal bowel sounds, non tender, soft Neurologic/Psychiatric: alert, normal mood/affect, oriented x 3 Laboratory Results Results Past 24 Hours Test 04/30/17 19:48 04/30/17 20:48 05/01/17 05:33 05/01/17 06:03 Range/Units White Blood Count 5.67 5.23 4.8-10.8 K/uL Red Blood Count 3.86 3.67 4.2-5.4 M/uL Hemoglobin 10.3 10.0 12.0-16.0 g/dL Hematocrit 32.0 29.9 37-47 % Mean Corpuscular Volume 82.9 81.5 80-100 fL Mean Corpuscular Hemoglobin 26.7 27.2 25-34 pg Mean Corpuscular Hemoglobin Concent 32.2 33.4 32-36 g/dl Platelet Count 213 211 130-400 K/uL Mean Platelet Volume 9.5 9.8 7.4-10.4 fL Neutrophils (%) (Auto) 63.2 65.4 % Lymphocytes (%) (Auto) 16.9 16.1 % Monocytes (%) (Auto) 13.1 10.3 % Eosinophils (%) (Auto) 4.8 5.5 % Basophils (%) (Auto) 1.8 2.3 % Neutrophils # (Auto) 3.59 3.42 1.4-6.5 K/uL Lymphocytes # (Auto) 0.96 0.84 1.2-3.4 K/uL Monocytes # (Auto) 0.74 0.54 0.11-0.59 K/uL Eosinophils # (Auto) 0.27 0.29 0-0.5 K/uL Basophils # (Auto) 0.10 0.12 0-0.2 K/uL RDW Standard Deviation 54.4 52.3 36.4-46.3 fL RDW Coefficient of Variation 18.0 17.5 11.5-14.5 % Immature Granulocyte % (Auto) 0.2 0.4 % Immature Granulocyte # (Auto) 0.01 0.02 0.00-0.02 K/uL Prothrombin Time 13.7 13.6 9.0-12.0 SECONDS Prothromb Time International Ratio 1.3 1.3 0.9-1.1 Sodium Level 130 132 136-145 mmol/L Potassium Level 4.4 4.2 3.5-5.1 mmol/L Chloride Level 94 96 98-107 mmol/L Carbon Dioxide Level 23 23 21-32 mmol/L Anion Gap 12.0 13.0 3-11 mmol/L Blood Urea Nitrogen 55 59 7-18 mg/dl Creatinine 6.95 7.61 0.60-1.20 mg/dl Estimated GFR () 6.3 5.7 Estimated GFR (Non- 5.5 4.9 BUN/Creatinine Ratio 7.8 7.7 10-20 Random Glucose 129 88 70-99 mg/dl Calcium Level 9.3 9.3 8.5-10.1 mg/dl Total Bilirubin 0.4 0.4 0.2-1 mg/dl Direct Bilirubin 0.2 0.2 0-0.2 mg/dl Aspartate Amino Transf (AST/SGOT) 50 50 15-37 U/L Alanine Aminotransferase (ALT/SGPT) 42 44 12-78 U/L Alkaline Phosphatase 78 73 45-117 U/L Total Protein 7.1 6.7 6.4-8.2 gm/dl Albumin 3.4 3.3 3.4-5.0 gm/dl Globulin 3.7 2.5-4.0 gm/dl Albumin/Globulin Ratio 0.9 0.9-2 Bedside Glucose 158 98 70-90 mg/dl Est Creatinine Clear Calc Drug Dose 6.1 ml/min Phosphorus Level 6.8 2.5-4.9 mg/dl Magnesium Level 2.1 1.8-2.4 mg/dl Troponin I 0.132 0-0.045 ng/ml Procalcitonin 0.17 0-0.5 ng/ml Thyroid Stimulating Hormone (TSH) 0.423 0.300-4.500 uIu/ml Free Thyroxine 1.12 0.80-1.60 ng/dl Test 05/01/17 10:38 05/01/17 11:34 05/01/17 16:27 Range/Units Bedside Glucose 94 124 70-90 mg/dl Microbiology Results 04/30/17 MRSA DNA Surveillance Screen - Final, Complete Specimen Negative for MRSA by DNA Probe Assessment and Plan Patient is a 71 year old female that was seen by Dr Palafox at [facility] and transferred to [facility] due to multiple issues including chronic cough with questionable findings on imaging including possible pneumonia/ pulm nodules, Dialysis management, and bradycardia 1) Chronic Cough - CXR: Right sided effusion/ consolidation - effusion vs infection vs neoplasm - Oxygen supplementation to maintain O2 > 92% - Pulmonary consult --> Do not recommend bronchoscopy at this time. Recommend first adressing bradycardia and consider bronchoscopy/ further management as an outpatient 2) Bradycardia - Currently asymptomatic - Discontinue home metoprolol and amlodipine - Cardiology recommends continuing amiodarone 200 mg --> Will check amiodarone level - No pacemaker placement indicated at this time --> Continue medical management for the time being 3) End stage renal disease, on dialysis - Nephrology consulted - Hemodialysis performed this afternoon -> Epogen 4000 units given during dialysis - Next Dialysis will be Saturday (resume normal schedule) - Avoid IV fluids - BMP and Mag level daily 4) Chronic Diastolic CHF - Lasix 40mg PO daily (Home medication) 5) Hypertension - Will hold her metoprolol, hydralazine, and amlodipine tonight - PRN Hydralazine IV for SBP > 170 or DBP > 110 6) Hx of TIA - Resume Aspirin and Plavix 7) Hypothyroidism - Continue Synthroid 50mcg Code status: Full Dispo: Admitted to ICU VTE: SCDs Resident Tracking Resident Involvement: Resident Care Provided Care Provided: Adult Hospital Medicine
--- NOTE | 2017-05-01 18:48 | DIAGNOSTIC IMAGING REPORT ---
CT SCAN OF THE CHEST WITHOUT IV CONTRAST CLINICAL HISTORY: Respiratory failure. COMPARISON STUDY: Chest CT dated 04/29/2017. Chest x-ray dated 04/30/2017. TECHNIQUE: CT scan of the thorax was performed from the thoracic inlet to the upper abdomen. Images are reviewed in the axial, sagittal, and coronal planes. IV contrast was not administered for this examination as per the referring clinician. Note that the examination was performed in suboptimal fashion without IV contrast. A dose lowering technique was utilized adhering to the principles of ALARA. CT DOSE: 320.12 mGy.cm FINDINGS: Thyroid: The thyroid gland is markedly enlarged and heterogeneous. Thoracic aorta: Postoperative change is noted in the ascending thoracic aorta. There is advanced atherosclerotic calcification of the thoracic aorta, which is normal in caliber and demonstrates bovine variant arch anatomy. Heart: The heart is markedly enlarged and without pericardial effusion. The mitral annulus is densely calcified. Postoperative change is seen at the aortic valve. Lungs and pleural spaces: There is a small to moderate right pleural effusion with right lower lobe airspace consolidation. Trace pleural effusion is seen on the left. Patchy groundglass opacities are present throughout the remainder of both lungs. Mild intralobular septal thickening is observed. The trachea and central airways are clear. Foci of linear atelectasis versus scarring are present in both lungs. A 4 mm left apical pulmonary nodule is seen on image #54. Mediastinum: There is mediastinal lymphadenopathy. A pretracheal node measures at least 2.2 cm in short axis. Bernadette: Not well assessed without IV contrast. Axillae: There are mildly enlarged right axillary lymph nodes. The largest node is seen on image #68 and measures 2.5 x 2.0 cm. No left axillary adenopathy is seen. Upper abdomen: Partially visualized upper abdominal viscera is within normal limits. Skeletal structures: The skeletal structures are osteopenic. Mild degenerative change is seen throughout the thoracic spine. No lytic or blastic bony lesions are seen. Soft tissues: There is marked edema identified within the right breast in the right chest wall which is asymmetric to the left. There is significant dermal thickening in the right breast. IMPRESSION: 1. Cardiomegaly with evidence of pulmonary artery hypertension. 2. There are small to moderate right and trace left pleural effusions with right basilar consolidation. The appearance suggests pneumonia. Clinical correlation will be required. 3. Additional patchy groundglass change is seen throughout the remainder of both lungs. There is also intralobular septal thickening. This likely represents congestive failure with interstitial edema. Again, clinical correlation will be required. 4. There is markedly asymmetric soft tissue edema and dermal thickening in the right breast as compared to the left. There are also enlarged right axillary lymph nodes. There is nonspecific, and could represent mastitis versus unilateral upper extremity edema. Inflammatory breast cancer could also have this appearance and clinical correlation will be required. 5. Mediastinal lymphadenopathy is identified. 6. There is an indeterminant but low suspicion 4 mm left apical pulmonary nodule. This can be followed if clinically warranted. 7. Additional findings as above. Please refer to below summary of Fleischner criteria recommendations for follow-up of incidental CT nodules ([place]ando [place], Guidelines for management of small pulmonary nodules detected on CT scans: A statement from the Fleischner Society, Radiology [id number]: [phone].) SOLID NODULES Solitary nodule size: <6 mm * low risk patients: no follow-up needed * high risk patients: optional CT at 12 months Solitary nodule size: 6-8 mm * low risk patients: follow-up at 6-12 months, then consider further follow-up at 18-24 months * high risk patients: initial follow-up CT at 6-12 months and then at 18-24 months if no change Solitary nodule size: >8 mm * either low or high risk patients - consider follow-up CT at 3 months, and/or CT-PET, and/or biopsy Multiple nodules size: <6 mm * low risk patients: no routine follow-up * high risk patients: optional CT at 12 months Multiple nodules size: 6-8 mm * low risk patients: follow-up at 3-6 months, then consider further follow-up at 18-24 months * high risk patients: follow-up at 3-6 months, then at 18-24 months if no change Multiple nodules size: >8 mm * low risk patients: follow-up at 3-6 months, then consider further follow-up at 18-24 months * high risk patients: follow-up at 3-6 months, then at 18-24 months if no change Note: newly detected indeterminate nodule in persons 35 years of age or older. * low risk patients: minimal or absent history of smoking and/or other known risk factors * high risk patients: history of smoking or of other known risk factors (e.g. first degree relative with lung cancer, or exposure to asbestos, radon, uranium) * if a nodule up to 8 mm is partly solid or is ground glass further follow-up is required after 24 months to exclude possible slow growing adenocarcinoma (LAURIE) SUBSOLID NODULES Solitary pure ground-glass nodule * nodule size <6 mm - no CT follow-up required * nodule size >=6 mm - follow-up CT at 6-12 months, then every 2 years until 5 years Solitary part-solid nodule * nodule size <6 mm - no CT follow-up required * nodule size >=6 mm - follow-up CT at 3-6 months. If unchanged, and solid component remains <6 mm, then annual follow-up for 5 years Multiple subsolid nodules * nodule size <6 mm - follow-up CT at 3-6 months, consider further follow-up at 2 and 4 years if stable * nodule size >=6 mm - follow-up CT at 3-6 months, subsequent management based on the most suspicious nodule(s) Electronically signed by: Joe Wayne M.D. 05/01/2017 6:46 PM Dictated Date/Time: 05/01/2017 6:36 PM
--- NOTE | 2017-05-01 20:41 | Critical Care Progress Note ---
Critical Care Progress Note Date of Service May 01, 2017. Attending Dr. Jama Subjective This is a 71-year-old -[place] female transferred to [facility] yesterday from [facility] for reported respiratory failure. Patient had a PET/CT scan on April 13, 2017 which showed inflammatory changes. CT scan of the chest showed a pulmonary nodule. Patient had shortness of breath for several days accompanied by a chronic cough of greater than one year. Patient had presented [facility] and was found to be bradycardic in the 30s and 40s. On arrival at [facility], patient was in no apparent distress. Oxygenation was adequate with nasal cannula. Heart rate was at 47 with some ectopy on telemetry. A cardiology consult as well as a pulmonary consult were placed. Patient was seen by both services today. At this time it is felt that there is no need for pacemaker as amlodipine and metoprolol are being held. Pulmonary is deferring on bronchoscopy at this time pending resolution of cardiac issues. Patient was seen at bedside status post dialysis. She had no acute complaints. She denies shortness of breath or chest pain. She was unaware of any arrhythmias or bradycardia. She had no syncope or presyncope. She had no dizziness or lightheadedness. She had no acute complaints. I did discuss plan with specialists and confirmed findings on their notes. Objective GENERAL : No acute distress EYES: No icterus, gaze conjugate NOSE: No evidence of epistaxis MOUTH: No lesions or candidiasis NECK: Supple LUNGS: CTA B/L, no wheezes, rales or rhonchi HEART: Regular, rate controlled ABDOMEN: Soft, NT, ND, BS Present EXTREMITIES: No LE edema, pedal pulses intact NEURO: A&OX3 Current SOFA Score SOFA Score Response (Comments) Value Platelets (x10) > 150 0 Bilirubin (mg/dL) < 1.2 0 Maile Coma Score 15 0 Level of Hypotension No Hypotension 0 Creatinine (mg/dL) > 5.0 4 Total 4 Assessment & Plan DYSPNEA No respiratory distress Oxygenation adequate with supplemental oxygen Pulmonary consulted - Appreciate Dr. Gruber's input Procalcitonin negative Continue supplemental oxygen at home rate Ambulate as tolerated Patient has no complaints today Outpatient PFTs No bronchoscopy planned at this time per Dr. Gruber ? PNEUMONIA Patient with no productive cough or sputum No fever, chills, rigors No hemoptysis CT scan showed patchy groundglass changes in both lungs with intralobar septal thickening with right basilar consolidation Although this could represent a pneumonia clinical findings do not support pneumonia In addition laboratory findings showed no leukocytosis and a negative Pro calcitonin No antibiotics at this time but continue to monitor clinically BRADYCARDIA Rate of 47 on telemetry today with no arrhythmias Cardiology consulted - appreciate their input No indication for pacemaker at this time Amlodipine as well as metoprolol held Continue amiodarone for history of paradoxical atrial fibrillation Normal sinus rhythm on telemetry this morning PLEURAL EFFUSION Pulmonary consulted No indication for thoracentesis at this time as effusion is relatively small on CT scan Further management by pulmonary PULMONARY NODULE CT scan shows an indeterminate but low suspicion for millimeter left apical pulmonary nodule Place pulmonary nodule consult History of breast cancer There is evidence of mediastinal lymphadenopathy with some bilateral small pleural effusions No bronchoscopy this time per Dr. Gruber Patient to continue to follow with Dr. Palafox END-STAGE RENAL DISEASE Creatinine 7.61 Hemodialysis Saturday Nephrology consulted Dialysis today AV fistula right upper extremity - continue limb restriction ENDOCRINE History of diabetes mellitus type 2 insulin-dependent Continue Lantus and sliding scale insulin History of hypothyroidism - continue levothyroxine HISTORY OF TIA No residual neurological deficits per patient No clinical findings of neurological deficit Continue clopidogrel and aspirin DVT PROPHYLAXIS Continue heparin subq Q12H CCT: 0 minutes. Level I inpatient bill Follow-up: * Outpatient follow-up with Dr. Palafox at the pulmonary clinic at [facility] * Referral made to pulmonary nodule clinic - follow up per protocol * Further consideration for bronchoscopy for diagnostic purposes per pulmonary service Thank you for including us in the care of this patient. Please refer to Dr. Jama's addendum for further recommendations I have personally evaluated and examined this patient. I agree with assessment and plan of Ailyn Dawson PA-C. Consults & Procedures Consultants: Cardiology Pulmonary Procedures: Infusion of IV medications CT chest without contrast Chest x-ray Data Medications: Current Inpatient Medications Medications (Trade) Dose Ordered Sig/Janice Route Start Time Stop Time Status Last Admin Dose Admin Acetaminophen (Tylenol Tab) 650 mg Q4H PRN PO 04/30/17 19:45 05/30/17 19:44 Lorazepam (Ativan Inj) 0.5 mg Q4H PRN IV 04/30/17 19:45 05/30/17 19:44 Morphine Sulfate (MoRPHine SULFATE INJ) 2 mg Q2H PRN IV 04/30/17 19:45 05/14/17 19:44 Lorazepam 0.5 mg/ Syringe 1 ml @ 1 mls/min Q4H PRN IV 04/30/17 20:00 05/30/17 19:59 Amiodarone HCl (Cordarone Tab) 200 mg DAILY PO 05/01/17 09:00 05/31/17 08:59 Atorvastatin Calcium (Lipitor Tab) 20 mg DAILY PO 05/01/17 09:00 05/31/17 08:59 05/01/17 07:53 20 MG Calcium Acetate (Phoslo Cap) 667 mg TIDM PO 05/01/17 07:15 05/31/17 07:14 05/01/17 17:25 667 MG Cholecalciferol (Vitamin D Tab) 1,000 inter.unit DAILY PO 05/01/17 09:00 05/31/17 08:59 05/01/17 07:53 1,000 INTER.UNIT Citalopram Hydrobromide (celeXA TAB) 60 mg DAILY PO 05/01/17 09:00 05/31/17 08:59 05/01/17 07:55 60 MG Furosemide (Lasix Tab) 40 mg HS PO 04/30/17 21:00 05/30/17 20:59 04/30/17 21:35 40 MG Insulin Glargine (Lantus Solostar Pen) 4 units QPM SC 04/30/17 21:00 05/30/17 20:59 04/30/17 21:36 4 UNITS Levothyroxine Sodium (Synthroid Tab) 50 mcg DAILYBB PO 05/01/17 06:00 05/31/17 05:59 Lorazepam (Ativan Tab) 1 mg BID PO 04/30/17 21:00 05/30/17 20:59 05/01/17 07:55 1 MG Montelukast Sodium (Singulair Tab) 10 mg QPM PO 05/01/17 21:00 05/31/17 20:59 Hydralazine HCl (HydrALAZINE INJ) 10 mg Q8H PRN IV. 04/30/17 20:45 05/30/17 20:44 Glucose (Glucose 40% Gel) 15-30 GRAMS 15 GRAMS... UD PRN PO 04/30/17 21:00 05/30/17 20:59 Glucose (Glucose Chew Tab) 4-8 Tablets 4 Tabl... UD PRN PO 04/30/17 21:00 05/30/17 20:59 Dextrose (Dextrose 50% 50ML Syringe) 25-50ML OF 50% DW IV FOR... UD PRN IV 04/30/17 21:00 05/30/17 20:59 Glucagon (Glucagon Inj) 1 mg UD PRN SQ 04/30/17 21:00 05/30/17 20:59 Heparin Sodium (Porcine) (Heparin Sq 5000 Unit/0.5ml) 5,000 unit Q12 SQ 05/01/17 09:00 05/31/17 08:59 05/01/17 07:56 5,000 UNIT Epoetin Ravi (Procrit Inj) 4,000 units TODAY@1400 IV 05/01/17 14:00 05/01/17 23:59 05/01/17 13:23 4,000 UNITS Vitamin B Complex/ Vit C/Folic Acid (Nephrocaps) 1 cap QAM PO 05/02/17 09:00 06/01/17 08:59 Aspirin (Ecotrin Tab) 81 mg DAILY PO 05/02/17 09:00 06/01/17 08:59 Clopidogrel Bisulfate (plAVix TAB) 75 mg DAILY PO 05/02/17 09:00 06/01/17 08:59 I & O: 24-Hour Column 05/02/17 08:00 Intake Total 100 ml Output Total 1000 ml Balance -900 ml Vital Signs: Date Time Temp Pulse Resp B/P (MAP) Pulse Ox O2 Delivery O2 Flow Rate FiO2 05/01/17 19:20 36.7 53 18 133/44 (73) 97 Room Air 2.0 05/01/17 16:00 Nasal Cannula 4.0 05/01/17 15:29 36.5 50 16 136/46 (76) 97 Nasal Cannula 4.0 05/01/17 14:55 36.9 54 140/55 (83) 05/01/17 14:15 58 141/53 05/01/17 14:00 60 147/58 05/01/17 13:45 58 151/53 05/01/17 13:30 57 156/56 05/01/17 13:15 57 153/57 05/01/17 13:00 56 145/54 05/01/17 12:45 55 150/60 05/01/17 12:30 Nasal Cannula 4.0 05/01/17 12:30 53 150/57 05/01/17 12:15 50 124/61 05/01/17 12:00 50 144/52 05/01/17 11:45 48 153/68 05/01/17 11:30 46 141/54 05/01/17 11:04 36.8 46 133/65 (87) 05/01/17 09:45 36.5 45 16 138/48 (78) 93 Nasal Cannula 4.0 05/01/17 08:00 Nasal Cannula 4.0 05/01/17 08:00 36.8 41 20 141/78 (99) 99 Nasal Cannula 4.0 05/01/17 06:00 45 14 127/61 (83) 93 Nasal Cannula 4.0 05/01/17 04:00 93 Nasal Cannula 4.0 05/01/17 04:00 36.5 43 19 136/49 (78) 93 Nasal Cannula 4.0 05/01/17 02:00 41 18 141/55 (83) 93 Nasal Cannula 4.0 05/01/17 00:01 36.6 43 16 137/81 (99) 94 Nasal Cannula 4.0 04/30/17 23:59 94 Nasal Cannula 4.0 04/30/17 21:00 45 20 154/84 (107) 93 Nasal Cannula 4.0 04/30/17 20:16 36.5 49 20 140/44 96 Nasal Cannula 4.0 04/30/17 20:00 41 20 144/54 (84) 95 Nasal Cannula 4.0 Laboratory Results: Last 24 Hours Test 04/30/17 20:48 05/01/17 05:33 05/01/17 06:03 05/01/17 10:38 Bedside Glucose 158 mg/dl 98 mg/dl White Blood Count 5.23 K/uL Red Blood Count 3.67 M/uL Hemoglobin 10.0 g/dL Hematocrit 29.9 % Mean Corpuscular Volume 81.5 fL Mean Corpuscular Hemoglobin 27.2 pg Mean Corpuscular Hemoglobin Concent 33.4 g/dl Platelet Count 211 K/uL Mean Platelet Volume 9.8 fL Neutrophils (%) (Auto) 65.4 % Lymphocytes (%) (Auto) 16.1 % Monocytes (%) (Auto) 10.3 % Eosinophils (%) (Auto) 5.5 % Basophils (%) (Auto) 2.3 % Neutrophils # (Auto) 3.42 K/uL Lymphocytes # (Auto) 0.84 K/uL Monocytes # (Auto) 0.54 K/uL Eosinophils # (Auto) 0.29 K/uL Basophils # (Auto) 0.12 K/uL RDW Standard Deviation 52.3 fL RDW Coefficient of Variation 17.5 % Immature Granulocyte % (Auto) 0.4 % Immature Granulocyte # (Auto) 0.02 K/uL Prothrombin Time 13.6 SECONDS Prothromb Time International Ratio 1.3 Sodium Level 132 mmol/L Potassium Level 4.2 mmol/L Chloride Level 96 mmol/L Carbon Dioxide Level 23 mmol/L Anion Gap 13.0 mmol/L Blood Urea Nitrogen 59 mg/dl Creatinine 7.61 mg/dl Est Creatinine Clear Calc Drug Dose 6.1 ml/min Estimated GFR () 5.7 Estimated GFR (Non- 4.9 BUN/Creatinine Ratio 7.7 Random Glucose 88 mg/dl Calcium Level 9.3 mg/dl Phosphorus Level 6.8 mg/dl Magnesium Level 2.1 mg/dl Total Bilirubin 0.4 mg/dl Direct Bilirubin 0.2 mg/dl Aspartate Amino Transf (AST/SGOT) 50 U/L Alanine Aminotransferase (ALT/SGPT) 44 U/L Alkaline Phosphatase 73 U/L Troponin I 0.132 ng/ml Total Protein 6.7 gm/dl Albumin 3.3 gm/dl Procalcitonin 0.17 ng/ml Thyroid Stimulating Hormone (TSH) 0.423 uIu/ml Free Thyroxine 1.12 ng/dl Test 05/01/17 11:34 05/01/17 16:27 Bedside Glucose 94 mg/dl 124 mg/dl
[2017-05-01] MEDS: FUROSEMIDE 40 MG TAB PO SCH (21:22)
[2017-05-01] MEDS: MONTELUKAST SOD 10 MG TAB PO SCH (21:22)
[2017-05-01] MEDS: INSULIN GLARGINE SOLOSTAR 100 UNITS/ML 3 ML PEN SC SCH (21:25)
[2017-05-02] VITALS (9 sets, daily range): BP systolic 132–165; BP diastolic 42–75; PULSE 50–56; TEMP 36.6–37.1; O2SAT 91–98
[2017-05-02 05:56] LABS: BASO % 1.4 %; BASO ABS # 0.09 K/uL (0-0.2); COMPLETE YES; EOS % 6.5 %; HEMATOCRIT 31.6 % (37-47); IG% 0.3 %; MEAN CELL VOLUME 83.4 fL (80-100); MEAN CORPUSCULAR HEMOGLOBIN 26.4 pg (25-34); MEAN CORPUSCULAR HGB CONC 31.6 g/dl (32-36); MEAN PLATELET VOLUME 9.8 fL (7.4-10.4); MONO % 10.1 %; NEUT % 62.7 %; PLATELET COUNT 224 K/uL (130-400); RED BLOOD COUNT 3.79 M/uL (4.2-5.4); WHITE BLOOD COUNT 6.33 K/uL (4.8-10.8)
[2017-05-02] MEDS: LEVOTHYROXINE 50 MCG TAB PO SCH (06:00)
[2017-05-02 06:03] LABS: INR 1.3 (0.9-1.1); PROTHROMBIN TIME (PATIENT) 13.8 SECONDS (9.0-12.0)
[2017-05-02 06:44] LABS: BUN/CREATININE RATIO 6.4 (10-20); CALCIUM 8.8 mg/dl (8.5-10.1); CREATININE 5.85 mg/dl (0.60-1.20); PHOSPHORUS 3.6 mg/dl (2.5-4.9); POTASSIUM 3.9 mmol/L (3.5-5.1)
[2017-05-02] MEDS: CLOPIDOGREL BISULFATE 75 MG TAB PO SCH (07:57)
[2017-05-02] MEDS: ASPIRIN 81 MG ECTAB PO SCH (07:57)
[2017-05-02] MEDS: LORAZEPAM 1 MG TAB PO SCH ×2 (07:57→20:48)
[2017-05-02] MEDS: CITALOPRAM 40 MG TAB PO SCH (07:57)
[2017-05-02] MEDS: NEPHROCAPS PO SCH (07:58)
[2017-05-02] MEDS: CALCIUM ACETATE 667MG GELCAP PO SCH ×3 (07:58→17:32)
[2017-05-02] MEDS: ATORVASTATIN 20 MG TAB PO SCH (07:58)
[2017-05-02] MEDS: CHOLECALCIFEROL 1000 INTER.UNIT TAB PO SCH (07:59)
[2017-05-02] MEDS: AMIODARONE 200 MG TAB PO SCH (08:00)
[2017-05-02] MEDS: HEPARIN SOD 5000 UNIT/0.5 ML CARP SQ SCH ×2 (08:04→20:51)
--- NOTE | 2017-05-02 09:10 | Cardiology Follow-Up ---
Subjective Date of Service: May 02, 2017. Pt evaluation today including: conversation w/ patient, physical exam, lab review, review of studies, review of inpatient medication list History of Present Illness She feels well today, she is not having lightheadedness or dizziness and is not aware of her heart rhythm. Social History Smoking Status: Never Smoker History of Alcohol Use: No Review of Systems Respiratory: + cough, + sputum, No shortness of breath Cardiac: No chest pain, No palpitations Medications Cardiovascular: Item Value Date Time Aspirin 81 mg 05/02/17 0900 (Ecotrin Tab) DAILY/PO 05/02/17 0757 Clopidogrel 75 mg 05/02/17 0900 Bisulfate DAILY/PO 05/02/17 075 (plAVix TAB) Amiodarone HCl 200 mg 05/01/17 0900 (Cordarone Tab) DAILY/PO Atorvastatin 20 mg 05/01/17 0900 Calcium DAILY/PO 05/02/17 0758 (Lipitor Tab) Furosemide 40 mg 04/30/172099 (Lasix Tab) HS/PO 05/01/172121 Objective Vital Signs Past 12 Hours Date Time Temp Pulse Resp B/P (MAP) Pulse Ox O2 Delivery O2 Flow Rate FiO2 05/02/17 08:00 Nasal Cannula 2.0 05/02/17 07:34 36.9 50 16 138/42 (74) 93 Nasal Cannula 4.0 05/02/17 04:22 37.0 50 18 152/51 (84) 92 Nasal Cannula 2.0 05/02/17 04:00 Nasal Cannula 2.0 05/02/17 00:21 37.1 54 18 132/45 (74) 91 Nasal Cannula 2.0 05/02/17 00:00 Nasal Cannula 2.0 Last Recorded Weight-Kilograms: 58.800 Physical Exam Constitutional: Level of Distress: NAD Lungs: Auscultation: breath sounds normal Cardiovascular: Heart Auscultation: RRR, bradycardia Extremities: no edema Data Laboratory Results: Last 24 Hours Test 05/01/17 10:38 05/01/17 11:34 05/01/17 16:27 05/01/17 20:26 Bedside Glucose 94 mg/dl 124 mg/dl 198 mg/dl Test 05/02/17 05:30 05/02/17 07:45 White Blood Count 6.33 K/uL Red Blood Count 3.79 M/uL Hemoglobin 10.0 g/dL Hematocrit 31.6 % Mean Corpuscular Volume 83.4 fL Mean Corpuscular Hemoglobin 26.4 pg Mean Corpuscular Hemoglobin Concent 31.6 g/dl Platelet Count 224 K/uL Mean Platelet Volume 9.8 fL Neutrophils (%) (Auto) 62.7 % Lymphocytes (%) (Auto) 19.0 % Monocytes (%) (Auto) 10.1 % Eosinophils (%) (Auto) 6.5 % Basophils (%) (Auto) 1.4 % Neutrophils # (Auto) 3.97 K/uL Lymphocytes # (Auto) 1.20 K/uL Monocytes # (Auto) 0.64 K/uL Eosinophils # (Auto) 0.41 K/uL Basophils # (Auto) 0.09 K/uL RDW Standard Deviation 53.6 fL RDW Coefficient of Variation 18.0 % Immature Granulocyte % (Auto) 0.3 % Immature Granulocyte # (Auto) 0.02 K/uL Prothrombin Time 13.8 SECONDS Prothromb Time International Ratio 1.3 Sodium Level 131 mmol/L Potassium Level 3.9 mmol/L Chloride Level 95 mmol/L Carbon Dioxide Level 26 mmol/L Anion Gap 10.0 mmol/L Blood Urea Nitrogen 37 mg/dl Creatinine 5.85 mg/dl Est Creatinine Clear Calc Drug Dose 8.4 ml/min Estimated GFR () 7.8 Estimated GFR (Non- 6.7 BUN/Creatinine Ratio 6.4 Random Glucose 75 mg/dl Calcium Level 8.8 mg/dl Phosphorus Level 3.6 mg/dl Magnesium Level 2.0 mg/dl Total Bilirubin 0.4 mg/dl Direct Bilirubin 0.2 mg/dl Aspartate Amino Transf (AST/SGOT) 41 U/L Alanine Aminotransferase (ALT/SGPT) 45 U/L Alkaline Phosphatase 71 U/L Total Protein 6.7 gm/dl Albumin 3.1 gm/dl Bedside Glucose 78 mg/dl Telemetry reviewed: Her heart rate has gradually increased since admission, currently in the mid 50s. Assessment and Plan #1. Bradycardia: On admission she was on metoprolol 25 mg twice a day as well as amiodarone 200 mg daily. Her bradycardia may well be due to medications, although component of sinus node dysfunction cannot be excluded. Her heart rate has improved to some extent with discontinuation of beta-blockade, and at this point I think her heart rate is acceptable and I would continue the current dose of amiodarone. I don't know that she needs to stay in for monitoring of her rhythm, but as long she is in the hospital I would recommend keeping her on telemetry. Thank you for allowing me to participate in her care.
--- NOTE | 2017-05-02 10:25 | Nephrology Progress Note ---
Nephrology Progress Note Date of Service May 02, 2017. Chief Complaint F/U for end-stage renal disease on hemodialysis while in hospital. Subjective Nicole was seen and examined in her room this am. Denies any further SOB. No CP. BP, volume status stable. Had HD yesterday with 1 L UF. Review of Systems A complete review of systems was performed. Pertinent positives are noted above. All other systems are negative. Vital Signs Last 8 Hrs Date Time Temp Pulse Resp B/P (MAP) Pulse Ox O2 Delivery O2 Flow Rate FiO2 05/02/17 08:00 Nasal Cannula 2.0 05/02/17 07:34 36.9 50 16 138/42 (74) 93 Nasal Cannula 4.0 05/02/17 04:22 37.0 50 18 152/51 (84) 92 Nasal Cannula 2.0 05/02/17 04:00 Nasal Cannula 2.0 Last Recorded Weight Weight (Kilograms): 58.800 Physical Exam GENERAL: Middle-aged female , AAA x 3, pleasant not in any distress. NECK: Supple, no JVD. RESPIRATORY: Normal breathing efforts, no accessory muscle use, clear to auscultation bilaterally, no wheezes or rales. CARDIOVASCULAR: S1, S2 normal, rate rhythm regular. EXTREMITY: No lower extremity edema NEURO: speech fluent. PSYCHIATRY: Normal mood and judgment Social History Smokeless Tobacco Use: No Alcohol Use: none Drug Use: none Marital Status: Occupation: retired Laboratory Results Past 24 Hours 05/02/17 05:30 Red Blood Count 3.79, Mean Corpuscular Volume 83.4, Mean Corpuscular Hemoglobin 26.4, Mean Corpuscular Hemoglobin Concent 31.6, Mean Platelet Volume 9.8, Neutrophils (%) (Auto) 62.7, Lymphocytes (%) (Auto) 19.0, Monocytes (%) (Auto) 10.1, Eosinophils (%) (Auto) 6.5, Basophils (%) (Auto) 1.4, Neutrophils # (Auto ) 3.97, Lymphocytes # (Auto) 1.20, Monocytes # (Auto) 0.64, Eosinophils # (Auto ) 0.41, Basophils # (Auto) 0.09 05/02/17 05:30 Test 05/01/17 10:38 05/01/17 11:34 05/01/17 16:27 05/01/17 20:26 Bedside Glucose 94 mg/dl (70-90) 124 mg/dl (70-90) 198 mg/dl (70-90) Test 05/02/17 05:30 05/02/17 07:45 White Blood Count 6.33 K/uL (4.8-10.8) Red Blood Count 3.79 M/uL (4.2-5.4) Hemoglobin 10.0 g/dL (12.0-16.0) Hematocrit 31.6 % (37-47) Mean Corpuscular Volume 83.4 fL (80-100) Mean Corpuscular Hemoglobin 26.4 pg (25-34) Mean Corpuscular Hemoglobin Concent 31.6 g/dl (32-36) Platelet Count 224 K/uL (130-400) Mean Platelet Volume 9.8 fL (7.4-10.4) Neutrophils (%) (Auto) 62.7 % Lymphocytes (%) (Auto) 19.0 % Monocytes (%) (Auto) 10.1 % Eosinophils (%) (Auto) 6.5 % Basophils (%) (Auto) 1.4 % Neutrophils # (Auto) 3.97 K/uL (1.4-6.5) Lymphocytes # (Auto) 1.20 K/uL (1.2-3.4) Monocytes # (Auto) 0.64 K/uL (0.11-0.59) Eosinophils # (Auto) 0.41 K/uL (0-0.5) Basophils # (Auto) 0.09 K/uL (0-0.2) RDW Standard Deviation 53.6 fL (36.4-46.3) RDW Coefficient of Variation 18.0 % (11.5-14.5) Immature Granulocyte % (Auto) 0.3 % Immature Granulocyte # (Auto) 0.02 K/uL (0.00-0.02) Prothrombin Time 13.8 SECONDS (9.0-12.0) Prothromb Time International Ratio 1.3 (0.9-1.1) Anion Gap 10.0 mmol/L (3-11) Est Creatinine Clear Calc Drug Dose 8.4 ml/min Estimated GFR () 7.8 Estimated GFR (Non- 6.7 BUN/Creatinine Ratio 6.4 (10-20) Calcium Level 8.8 mg/dl (8.5-10.1) Phosphorus Level 3.6 mg/dl (2.5-4.9) Magnesium Level 2.0 mg/dl (1.8-2.4) Total Bilirubin 0.4 mg/dl (0.2-1) Direct Bilirubin 0.2 mg/dl (0-0.2) Aspartate Amino Transf (AST/SGOT) 41 U/L (15-37) Alanine Aminotransferase (ALT/SGPT) 45 U/L (12-78) Alkaline Phosphatase 71 U/L (45-117) Total Protein 6.7 gm/dl (6.4-8.2) Albumin 3.1 gm/dl (3.4-5.0) Bedside Glucose 78 mg/dl (70-90) Allergies Coded Allergies: Fentanyl (Verified Allergy, Intermediate, HIVES, 04/30/17) Medications Current Inpatient Medications Medications (Trade) Dose Ordered Sig/Janice Route Start Time Stop Time Status Last Admin Dose Admin Acetaminophen (Tylenol Tab) 650 mg Q4H PRN PO 04/30/17 19:45 05/30/17 19:44 Lorazepam (Ativan Inj) 0.5 mg Q4H PRN IV 04/30/17 19:45 05/30/17 19:44 Morphine Sulfate (MoRPHine SULFATE INJ) 2 mg Q2H PRN IV 04/30/17 19:45 05/14/17 19:44 Lorazepam 0.5 mg/ Syringe 1 ml @ 1 mls/min Q4H PRN IV 04/30/17 20:00 05/30/17 19:59 Amiodarone HCl (Cordarone Tab) 200 mg DAILY PO 05/01/17 09:00 05/31/17 08:59 Atorvastatin Calcium (Lipitor Tab) 20 mg DAILY PO 05/01/17 09:00 05/31/17 08:59 05/02/17 07:58 20 MG Calcium Acetate (Phoslo Cap) 667 mg TIDM PO 05/01/17 07:15 05/31/17 07:14 05/02/17 07:58 667 MG Cholecalciferol (Vitamin D Tab) 1,000 inter.unit DAILY PO 05/01/17 09:00 05/31/17 08:59 05/02/17 07:59 1,000 INTER.UNIT Citalopram Hydrobromide (celeXA TAB) 60 mg DAILY PO 05/01/17 09:00 05/31/17 08:59 05/02/17 07:57 60 MG Furosemide (Lasix Tab) 40 mg HS PO 04/30/17 21:00 05/30/17 20:59 05/01/17 21:22 40 MG Insulin Glargine (Lantus Solostar Pen) 4 units QPM SC 04/30/17 21:00 05/30/17 20:59 05/01/17 21:25 4 UNITS Levothyroxine Sodium (Synthroid Tab) 50 mcg DAILYBB PO 05/01/17 06:00 05/31/17 05:59 05/02/17 06:00 50 MCG Lorazepam (Ativan Tab) 1 mg BID PO 04/30/17 21:00 05/30/17 20:59 05/02/17 07:57 1 MG Montelukast Sodium (Singulair Tab) 10 mg QPM PO 05/01/17 21:00 05/31/17 20:59 05/01/17 21:22 10 MG Hydralazine HCl (HydrALAZINE INJ) 10 mg Q8H PRN IV. 04/30/17 20:45 05/30/17 20:44 Glucose (Glucose 40% Gel) 15-30 GRAMS 15 GRAMS... UD PRN PO 04/30/17 21:00 05/30/17 20:59 Glucose (Glucose Chew Tab) 4-8 Tablets 4 Tabl... UD PRN PO 04/30/17 21:00 05/30/17 20:59 Dextrose (Dextrose 50% 50ML Syringe) 25-50ML OF 50% DW IV FOR... UD PRN IV 04/30/17 21:00 05/30/17 20:59 Glucagon (Glucagon Inj) 1 mg UD PRN SQ 04/30/17 21:00 05/30/17 20:59 Heparin Sodium (Porcine) (Heparin Sq 5000 Unit/0.5ml) 5,000 unit Q12 SQ 05/01/17 09:00 05/31/17 08:59 05/02/17 08:04 5,000 UNIT Vitamin B Complex/ Vit C/Folic Acid (Nephrocaps) 1 cap QAM PO 05/02/17 09:00 06/01/17 08:59 05/02/17 07:58 1 CAP Aspirin (Ecotrin Tab) 81 mg DAILY PO 05/02/17 09:00 06/01/17 08:59 05/02/17 07:57 81 MG Clopidogrel Bisulfate (plAVix TAB) 75 mg DAILY PO 05/02/17 09:00 06/01/17 08:59 05/02/17 07:57 75 MG Impression (1) End stage renal disease on dialysis (2) Secondary hyperparathyroidism of renal origin (3) Anemia (4) Diastolic CHF (5) Hypertension Luis A Is a 71-year-old female with 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 Last dialysis was 3 days ago and she missed dialysis yesterday. Currently electrolyte and volume status acceptable. Blood pressure acceptable. She presented to the hospital with progressive shortness of breath and weakness. She was found to be bradycardic. Currently her shortness of breath totally resolved. She is being continued on amiodarone, metoprolol and amlodipine was discontinued. She was also recently found to have lung nodule, workup underway, pulmonary consulted for further management. Recommendations - overall doing well, asymptomatic. --next dialysis will be tomorrow as her regular schedule, will try to increase UF and challenge EDW --continue on renal diet --Nephrocaps 1 capsule daily, PhosLo as phosphate binder --Epogen 4000 units given on 05/01/17 --avoid IV fluid Will follow
--- NOTE | 2017-05-02 12:10 | Pulmonology Progress Note ---
Pulmonary Progress Note Date of Service May 02, 2017. Attending Dr. Gruber Subjective Patient seen and examined at bedside. She is sitting on side of bed. She did not sleep well overnight. She is feeling tired. She denies any chest pain, shortness of breath or palpitations. She still has dry intermittent cough. She is status post 1 L of ultrafiltration yesterday. Objective Vital signs reviewed. MAXIMUM TEMPERATURE 37.1, blood pressure 132/45 to 152/51 , pulse 50-54, respiratory rate 16-18, pulse oximetry 91-93 on 2-4 L nasal cannula. Gen.: Awake alert oriented 3, pleasant, in no acute distress, no respiratory distress or use of accessory muscles of respiration. CVS, S1-S2, bradycardic, systolic murmur. Lungs: Decreased breath sounds at bilateral bases associated crackles otherwise good air entry bilaterally Abdomen, soft, nontender, nondistended, bowel sounds positive Extremities: Right upper extremity AV fistula intact, palpable thrill, no extremity edema Labs reviewed. Imaging reviewed. CT SCAN OF THE CHEST WITHOUT IV CONTRAST CLINICAL HISTORY: Respiratory failure. COMPARISON STUDY: Chest CT dated 04/29/2017. Chest x-ray dated 04/30/2017. TECHNIQUE: CT scan of the thorax was performed from the thoracic inlet to the upper abdomen. Images are reviewed in the axial, sagittal, and coronal planes. IV contrast was not administered for this examination as per the referring clinician. Note that the examination was performed in suboptimal fashion without IV contrast. A dose lowering technique was utilized adhering to the principles of ALARA. CT DOSE: 320.12 mGy.cm FINDINGS: Thyroid: The thyroid gland is markedly enlarged and heterogeneous. Thoracic aorta: Postoperative change is noted in the ascending thoracic aorta. There is advanced atherosclerotic calcification of the thoracic aorta, which is normal in caliber and demonstrates bovine variant arch anatomy. Heart: The heart is markedly enlarged and without pericardial effusion. The mitral annulus is densely calcified. Postoperative change is seen at the aortic valve. Lungs and pleural spaces: There is a small to moderate right pleural effusion with right lower lobe airspace consolidation. Trace pleural effusion is seen on the left. Patchy groundglass opacities are present throughout the remainder of both lungs. Mild intralobular septal thickening is observed. The trachea and central airways are clear. Foci of linear atelectasis versus scarring are present in both lungs. A 4 mm left apical pulmonary nodule is seen on image #[id number]. Mediastinum: There is mediastinal lymphadenopathy. A pretracheal node measures at least 2.2 cm in short axis. Bernadette: Not well assessed without IV contrast. Axillae: There are mildly enlarged right axillary lymph nodes. The largest node is seen on image #[id number] and measures 2.5 x 2.0 cm. No left axillary adenopathy is seen. Upper abdomen: Partially visualized upper abdominal viscera is within normal limits. Skeletal structures: The skeletal structures are osteopenic. Mild degenerative change is seen throughout the thoracic spine. No lytic or blastic bony lesions are seen. Soft tissues: There is marked edema identified within the right breast in the right chest wall which is asymmetric to the left. There is significant dermal thickening in the right breast. IMPRESSION: 1. Cardiomegaly with evidence of pulmonary artery hypertension. 2. There are small to moderate right and trace left pleural effusions with right basilar consolidation. The appearance suggests pneumonia. Clinical correlation will be required. 3. Additional patchy groundglass change is seen throughout the remainder of both lungs. There is also intralobular septal thickening. This likely represents congestive failure with interstitial edema. Again, clinical correlation will be required. 4. There is markedly asymmetric soft tissue edema and dermal thickening in the right breast as compared to the left. There are also enlarged right axillary lymph nodes. There is nonspecific, and could represent mastitis versus unilateral upper extremity edema. Inflammatory breast cancer could also have this appearance and clinical correlation will be required. 5. Mediastinal lymphadenopathy is identified. 6. There is an indeterminant but low suspicion 4 mm left apical pulmonary nodule. This can be followed if clinically warranted. Medication reviewed. Assessment & Plan Dyspnea Acute on chronic hypoxic respiratory failure Bradycardia ESRD on HD Diastolic dysfunction Bilateral pleural effusions Right lower lobe pneumonia 4 mm left apical pulmonary nodule Mediastinal lymphadenopathy Axillary lymphadenopathy Ms. Up appears to be improving from a respiratory standpoint she saturating well on between 0-2 L nasal cannula. Nonetheless she still complains of chronic nonproductive cough. CT chest done last evening shows a right lower lobe pneumonia as well as ground glass opacities and interseptal thickening suggestive of pulmonary edema. Bilateral pleural effusions are also consistent with diastolic dysfunction. She does not appear fluid overloaded from physical exam. Previous right middle lobe opacification seen on previous CT and PET scan no longer present. She does have a new pulmonary nodule in the left apical region of 4 mm. Recommendations At the current time I would treat for hospital-acquired pneumonia as patient has had recent hospitalization within the last month. I would add vancomycin as well as cefepime for now. Continue with hemodialysis per nephrology with goal to remove more fluid. I feel that the pleural effusions are met most likely secondary to CHF versus fluid overload. However if they do not resolve, consider thoracentesis. Discussed this option with patient however she would prefer to continue with conservative management at this time. Recommend TTE with bubble study to rule out pulmonary hypertension. Can also consider VQ scan to rule out chronic thromboembolic PH. Follow-up ROBYN, ANCA, RF, ESR, CRP to rule out connective tissue disorders. Continue with bronchodilators when necessary. I do not feel that bronchoscopy is warranted at this time. However, should be considered if pneumonia does not resolve. Mediastinal lymphadenopathy is most likely reactive. Left upper lobe nodule should be followed up in one year. She does not have any history of smoking and is relatively low risk patient. She should have full PFT done as an outpatient. She should also has polysomnography done , has JED may be contributing to lethargy. Lastly, amiodarone pulmonary toxicity is a consideration for chronic cough, dyspnea and CT changes, but this remains a diagnosis of exclusion. I will defer Axillary lymphadenopathy to management of primary team. Data Medications: Current Inpatient Medications Medications (Trade) Dose Ordered Sig/Janice Route Start Time Stop Time Status Last Admin Dose Admin Acetaminophen (Tylenol Tab) 650 mg Q4H PRN PO 04/30/17 19:45 05/30/17 19:44 Lorazepam (Ativan Inj) 0.5 mg Q4H PRN IV 04/30/17 19:45 05/30/17 19:44 Morphine Sulfate (MoRPHine SULFATE INJ) 2 mg Q2H PRN IV 04/30/17 19:45 05/14/17 19:44 Lorazepam 0.5 mg/ Syringe 1 ml @ 1 mls/min Q4H PRN IV 04/30/17 20:00 05/30/17 19:59 Amiodarone HCl (Cordarone Tab) 200 mg DAILY PO 05/01/17 09:00 05/31/17 08:59 Atorvastatin Calcium (Lipitor Tab) 20 mg DAILY PO 05/01/17 09:00 05/31/17 08:59 05/02/17 07:58 20 MG Calcium Acetate (Phoslo Cap) 667 mg TIDM PO 05/01/17 07:15 05/31/17 07:14 05/02/17 11:36 667 MG Cholecalciferol (Vitamin D Tab) 1,000 inter.unit DAILY PO 05/01/17 09:00 05/31/17 08:59 05/02/17 07:59 1,000 INTER.UNIT Citalopram Hydrobromide (celeXA TAB) 60 mg DAILY PO 05/01/17 09:00 05/31/17 08:59 05/02/17 07:57 60 MG Furosemide (Lasix Tab) 40 mg HS PO 04/30/17 21:00 05/30/17 20:59 05/01/17 21:22 40 MG Insulin Glargine (Lantus Solostar Pen) 4 units QPM SC 04/30/17 21:00 05/30/17 20:59 05/01/17 21:25 4 UNITS Levothyroxine Sodium (Synthroid Tab) 50 mcg DAILYBB PO 05/01/17 06:00 05/31/17 05:59 05/02/17 06:00 50 MCG Lorazepam (Ativan Tab) 1 mg BID PO 04/30/17 21:00 05/30/17 20:59 05/02/17 07:57 1 MG Montelukast Sodium (Singulair Tab) 10 mg QPM PO 05/01/17 21:00 05/31/17 20:59 05/01/17 21:22 10 MG Hydralazine HCl (HydrALAZINE INJ) 10 mg Q8H PRN IV. 04/30/17 20:45 05/30/17 20:44 Glucose (Glucose 40% Gel) 15-30 GRAMS 15 GRAMS... UD PRN PO 04/30/17 21:00 05/30/17 20:59 Glucose (Glucose Chew Tab) 4-8 Tablets 4 Tabl... UD PRN PO 04/30/17 21:00 05/30/17 20:59 Dextrose (Dextrose 50% 50ML Syringe) 25-50ML OF 50% DW IV FOR... UD PRN IV 04/30/17 21:00 05/30/17 20:59 Glucagon (Glucagon Inj) 1 mg UD PRN SQ 04/30/17 21:00 05/30/17 20:59 Heparin Sodium (Porcine) (Heparin Sq 5000 Unit/0.5ml) 5,000 unit Q12 SQ 05/01/17 09:00 05/31/17 08:59 05/02/17 08:04 5,000 UNIT Vitamin B Complex/ Vit C/Folic Acid (Nephrocaps) 1 cap QAM PO 05/02/17 09:00 06/01/17 08:59 05/02/17 07:58 1 CAP Aspirin (Ecotrin Tab) 81 mg DAILY PO 05/02/17 09:00 06/01/17 08:59 05/02/17 07:57 81 MG Clopidogrel Bisulfate (plAVix TAB) 75 mg DAILY PO 05/02/17 09:00 06/01/17 08:59 05/02/17 07:57 75 MG Vital Signs: Date Time Temp Pulse Resp B/P (MAP) Pulse Ox O2 Delivery O2 Flow Rate FiO2 05/02/17 08:00 Nasal Cannula 2.0 05/02/17 07:34 36.9 50 16 138/42 (74) 93 Nasal Cannula 4.0 05/02/17 04:22 37.0 50 18 152/51 (84) 92 Nasal Cannula 2.0 05/02/17 04:00 Nasal Cannula 2.0 05/02/17 00:21 37.1 54 18 132/45 (74) 91 Nasal Cannula 2.0 05/02/17 00:00 Nasal Cannula 2.0 05/01/17 20:00 Nasal Cannula 2.0 05/01/17 19:20 36.7 53 18 133/44 (73) 97 Room Air 2.0 05/01/17 16:00 Nasal Cannula 4.0 05/01/17 15:29 36.5 50 16 136/46 (76) 97 Nasal Cannula 4.0 05/01/17 14:55 36.9 54 140/55 (83) 05/01/17 14:15 58 141/53 05/01/17 14:00 60 147/58 05/01/17 13:45 58 151/53 05/01/17 13:30 57 156/56 05/01/17 13:15 57 153/57 05/01/17 13:00 56 145/54 05/01/17 12:45 55 150/60 05/01/17 12:30 Nasal Cannula 4.0 05/01/17 12:30 53 150/57 05/01/17 12:15 50 124/61 05/01/17 12:00 50 144/52 Laboratory Results: Last 24 Hours Test 05/01/17 16:27 05/01/17 20:26 05/02/17 05:30 05/02/17 07:45 Bedside Glucose 124 mg/dl 198 mg/dl 78 mg/dl White Blood Count 6.33 K/uL Red Blood Count 3.79 M/uL Hemoglobin 10.0 g/dL Hematocrit 31.6 % Mean Corpuscular Volume 83.4 fL Mean Corpuscular Hemoglobin 26.4 pg Mean Corpuscular Hemoglobin Concent 31.6 g/dl Platelet Count 224 K/uL Mean Platelet Volume 9.8 fL Neutrophils (%) (Auto) 62.7 % Lymphocytes (%) (Auto) 19.0 % Monocytes (%) (Auto) 10.1 % Eosinophils (%) (Auto) 6.5 % Basophils (%) (Auto) 1.4 % Neutrophils # (Auto) 3.97 K/uL Lymphocytes # (Auto) 1.20 K/uL Monocytes # (Auto) 0.64 K/uL Eosinophils # (Auto) 0.41 K/uL Basophils # (Auto) 0.09 K/uL RDW Standard Deviation 53.6 fL RDW Coefficient of Variation 18.0 % Immature Granulocyte % (Auto) 0.3 % Immature Granulocyte # (Auto) 0.02 K/uL Prothrombin Time 13.8 SECONDS Prothromb Time International Ratio 1.3 Sodium Level 131 mmol/L Potassium Level 3.9 mmol/L Chloride Level 95 mmol/L Carbon Dioxide Level 26 mmol/L Anion Gap 10.0 mmol/L Blood Urea Nitrogen 37 mg/dl Creatinine 5.85 mg/dl Est Creatinine Clear Calc Drug Dose 8.4 ml/min Estimated GFR () 7.8 Estimated GFR (Non- 6.7 BUN/Creatinine Ratio 6.4 Random Glucose 75 mg/dl Calcium Level 8.8 mg/dl Phosphorus Level 3.6 mg/dl Magnesium Level 2.0 mg/dl Total Bilirubin 0.4 mg/dl Direct Bilirubin 0.2 mg/dl Aspartate Amino Transf (AST/SGOT) 41 U/L Alanine Aminotransferase (ALT/SGPT) 45 U/L Alkaline Phosphatase 71 U/L Total Protein 6.7 gm/dl Albumin 3.1 gm/dl Test 05/02/17 11:34 Bedside Glucose 153 mg/dl
[2017-05-02] MEDS ORDERED: VANCOMYCIN CONSULT ACTIVE PRN (14:00)
[2017-05-02] MEDS ORDERED: CEFEPIME CONSULT ACTIVE PRN ×2 (14:00)
--- NOTE | 2017-05-02 14:18 | Pharmacy Progress Note ---
Pharmacy Abx Initial Consult Date of Service May 02, 2017. Pharmacy Dosing Scope Date of Consult: 05/02/17 Consultation requested by: Dr. Gruber Pharmacy is consulted to initiate Vancomycin and Cefepime IV dosing therapy, order appropriate labs and adjust drug dose/frequency. Subjective The patient is a 71 year old female admitted on Apr 30, 2017 at 19:39 with SOB, pt PMH signifcant for CKD on HD, DM, recent hospital stay last month. Objective Height (Feet): 5 Height (Inches): 6.00 Weight (Kilograms): 58.800 Vital Signs (Past 12Hrs) Vital Signs Past 12 Hours Date Time Temp Pulse Resp B/P (MAP) Pulse Ox O2 Delivery O2 Flow Rate FiO2 05/02/17 13:30 56 18 140/42 (74) 96 Nasal Cannula 2.0 05/02/17 12:00 Nasal Cannula 2.0 05/02/17 08:00 Nasal Cannula 2.0 05/02/17 07:34 36.9 50 16 138/42 (74) 93 Nasal Cannula 4.0 05/02/17 04:22 37.0 50 18 152/51 (84) 92 Nasal Cannula 2.0 05/02/17 04:00 Nasal Cannula 2.0 Lab Results (24Hrs) Test 04/30/17 19:48 05/01/17 05:33 05/01/17 10:38 05/02/17 05:30 Globulin 3.7 Albumin/Globulin Ratio 0.9 White Blood Count 5.23 6.33 Red Blood Count 3.67 3.79 Hemoglobin 10.0 10.0 Hematocrit 29.9 31.6 Mean Corpuscular Volume 81.5 83.4 Mean Corpuscular Hemoglobin 27.2 26.4 Mean Corpuscular Hemoglobin Concent 33.4 31.6 Platelet Count 211 224 Mean Platelet Volume 9.8 9.8 Neutrophils (%) (Auto) 65.4 62.7 Lymphocytes (%) (Auto) 16.1 19.0 Monocytes (%) (Auto) 10.3 10.1 Eosinophils (%) (Auto) 5.5 6.5 Basophils (%) (Auto) 2.3 1.4 Neutrophils # (Auto) 3.42 3.97 Lymphocytes # (Auto) 0.84 1.20 Monocytes # (Auto) 0.54 0.64 Eosinophils # (Auto) 0.29 0.41 Basophils # (Auto) 0.12 0.09 RDW Standard Deviation 52.3 53.6 RDW Coefficient of Variation 17.5 18.0 Immature Granulocyte % (Auto) 0.4 0.3 Immature Granulocyte # (Auto) 0.02 0.02 Prothrombin Time 13.6 13.8 Prothrombin Time INR 1.3 1.3 Sodium Level 132 131 Potassium Level 4.2 3.9 Chloride Level 96 95 Carbon Dioxide Level 23 26 Anion Gap 13.0 10.0 Blood Urea Nitrogen 59 37 Creatinine 7.61 5.85 Est Creatinine Clear Calc Drug Dose 6.1 8.4 Estimated GFR () 5.7 7.8 Estimated GFR (Non- 4.9 6.7 BUN/Creatinine Ratio 7.7 6.4 Random Glucose 88 75 Calcium Level 9.3 8.8 Phosphorus Level 6.8 3.6 Magnesium Level 2.1 2.0 Total Bilirubin 0.4 0.4 Direct Bilirubin 0.2 0.2 Aspartate Amino Transferase (AST) 50 41 Alanine Aminotransferase (ALT) 44 45 Alkaline Phosphatase 73 71 Troponin I 0.132 Total Protein 6.7 6.7 Albumin 3.3 3.1 Procalcitonin 0.17 Thyroid Stimulating Hormone (TSH) 0.423 Free Thyroxine 1.12 Amiodarone Level Pending Desmethylamiodarone Level Pending Test 05/02/17 07:45 05/02/17 11:34 POC Glucose 78 153 Micro Results Date/Time Source Procedure Growth Status 04/30/17 19:15 Nasal MRSA DNA Surveillance Screen - Final Specimen Negative for MRSA by DNA Probe Complete Risk Factors for Resistance * Recent hospitalization - direct admit from [facility] * Chronic dialysis within the past 30 days Assessment & Plan Assessment 71 year old female admitted with HAP on HD for CKD, pt had HD yesterday and will have it again tomorrow. Plan Vancomycin and Cefepime IV for treatment of HAP Vancomycin IV * Loading dose: 1000 mg (20 mg/kg) x 1 today at 1500 * Goal trough level for pulmonary source : 15 to 20 mcg/mL * Random level ordered for 05/03/17 with AM labs - NOTE Pt to have HD tomorrow * A less than traditional dose and extended dosing interval have been selected due to CKD; will dose empirically based on random Vancomycin levels. Cefepime * 1000mg IV for day one then 500mg IV daily for adult pt on HD Pharmacy will continue to follow and will adjust dose/frequency as necessary. Thank you.
[2017-05-02] MEDS ORDERED: CEFEPIME IV 1,000 MG in SYRINGE 0 ML IV SCH (14:30)
--- NOTE | 2017-05-02 14:44 | Family Medicine Progress Note ---
Progress Note Date of Service May 02, 2017. Subjective Pt evaluation today including: conversation w/ patient, physical exam, chart review, lab review, review of studies Pain: No pain reported Voiding: no voiding problems, no incontinence Patient resting comfortably in bed this morning and denies any shortness of breath, fevers, or chills. Is tired but has not slept well in the hospital. No acute complaints overnight. Constitutional: No fever, No chills, No sweats Respiratory: + cough, No sputum, No wheezing, No shortness of breath Cardiovascular: No chest pain, No palpitations Abdomen: No pain, No nausea, No vomiting, No diarrhea, No constipation Neurologic: No weakness, No numbness/tingling Medications Current Inpatient Medications Medications (Trade) Dose Ordered Sig/Janice Route Start Time Stop Time Status Last Admin Dose Admin Acetaminophen (Tylenol Tab) 650 mg Q4H PRN PO 04/30/17 19:45 05/30/17 19:44 Lorazepam (Ativan Inj) 0.5 mg Q4H PRN IV 04/30/17 19:45 05/30/17 19:44 Morphine Sulfate (MoRPHine SULFATE INJ) 2 mg Q2H PRN IV 04/30/17 19:45 05/14/17 19:44 Lorazepam 0.5 mg/ Syringe 1 ml @ 1 mls/min Q4H PRN IV 04/30/17 20:00 05/30/17 19:59 Amiodarone HCl (Cordarone Tab) 200 mg DAILY PO 05/01/17 09:00 05/31/17 08:59 Atorvastatin Calcium (Lipitor Tab) 20 mg DAILY PO 05/01/17 09:00 05/31/17 08:59 05/02/17 07:58 20 MG Calcium Acetate (Phoslo Cap) 667 mg TIDM PO 05/01/17 07:15 05/31/17 07:14 05/02/17 11:36 667 MG Cholecalciferol (Vitamin D Tab) 1,000 inter.unit DAILY PO 05/01/17 09:00 05/31/17 08:59 05/02/17 07:59 1,000 INTER.UNIT Citalopram Hydrobromide (celeXA TAB) 60 mg DAILY PO 05/01/17 09:00 05/31/17 08:59 05/02/17 07:57 60 MG Furosemide (Lasix Tab) 40 mg HS PO 04/30/17 21:00 05/30/17 20:59 05/01/17 21:22 40 MG Insulin Glargine (Lantus Solostar Pen) 4 units QPM SC 04/30/17 21:00 05/30/17 20:59 05/01/17 21:25 4 UNITS Levothyroxine Sodium (Synthroid Tab) 50 mcg DAILYBB PO 05/01/17 06:00 05/31/17 05:59 05/02/17 06:00 50 MCG Lorazepam (Ativan Tab) 1 mg BID PO 04/30/17 21:00 05/30/17 20:59 05/02/17 07:57 1 MG Montelukast Sodium (Singulair Tab) 10 mg QPM PO 05/01/17 21:00 05/31/17 20:59 05/01/17 21:22 10 MG Hydralazine HCl (HydrALAZINE INJ) 10 mg Q8H PRN IV. 04/30/17 20:45 05/30/17 20:44 Glucose (Glucose 40% Gel) 15-30 GRAMS 15 GRAMS... UD PRN PO 04/30/17 21:00 05/30/17 20:59 Glucose (Glucose Chew Tab) 4-8 Tablets 4 Tabl... UD PRN PO 04/30/17 21:00 05/30/17 20:59 Dextrose (Dextrose 50% 50ML Syringe) 25-50ML OF 50% DW IV FOR... UD PRN IV 04/30/17 21:00 05/30/17 20:59 Glucagon (Glucagon Inj) 1 mg UD PRN SQ 04/30/17 21:00 05/30/17 20:59 Heparin Sodium (Porcine) (Heparin Sq 5000 Unit/0.5ml) 5,000 unit Q12 SQ 05/01/17 09:00 05/31/17 08:59 05/02/17 08:04 5,000 UNIT Vitamin B Complex/ Vit C/Folic Acid (Nephrocaps) 1 cap QAM PO 05/02/17 09:00 06/01/17 08:59 05/02/17 07:58 1 CAP Aspirin (Ecotrin Tab) 81 mg DAILY PO 05/02/17 09:00 06/01/17 08:59 05/02/17 07:57 81 MG Clopidogrel Bisulfate (plAVix TAB) 75 mg DAILY PO 05/02/17 09:00 06/01/17 08:59 05/02/17 07:57 75 MG Cefepime HCl (Consult) 1 ea UD PRN N/A 05/02/17 14:00 06/01/17 13:59 Vancomycin HCl (Consult) 1 ea UD PRN N/A 05/02/17 14:00 06/01/17 13:59 Cefepime HCl 500 mg/Syringe 5.5 ml @ 5.5 mls/min DAILY@1400 IV 05/03/17 14:00 05/08/17 14:00 Vancomycin HCl 1000 mg/Sodium Chloride 270 ml @ 125 mls/hr TODAY@1500 ONCE IV 05/02/17 15:00 05/02/17 17:09 Objective Vital Signs Date Time Temp Pulse Resp B/P (MAP) Pulse Ox O2 Delivery O2 Flow Rate FiO2 05/02/17 13:30 56 18 140/42 (74) 96 Nasal Cannula 2.0 05/02/17 12:00 Nasal Cannula 2.0 05/02/17 08:00 Nasal Cannula 2.0 05/02/17 07:34 36.9 50 16 138/42 (74) 93 Nasal Cannula 4.0 05/02/17 04:22 37.0 50 18 152/51 (84) 92 Nasal Cannula 2.0 05/02/17 04:00 Nasal Cannula 2.0 05/02/17 00:21 37.1 54 18 132/45 (74) 91 Nasal Cannula 2.0 05/02/17 00:00 Nasal Cannula 2.0 05/01/17 20:00 Nasal Cannula 2.0 05/01/17 19:20 36.7 53 18 133/44 (73) 97 Room Air 2.0 05/01/17 16:00 Nasal Cannula 4.0 05/01/17 15:29 36.5 50 16 136/46 (76) 97 Nasal Cannula 4.0 05/01/17 14:55 36.9 54 140/55 (83) Physical Exam General Appearance: WD/WN, no apparent distress Eyes: normal inspection, sclerae normal Neck: supple, no carotid bruits Respiratory/Chest: chest non-tender, no respiratory distress, no accessory muscle use, + crackles (at the bases) Cardiovascular: + bradycardia, + systolic murmur Abdomen: normal bowel sounds, non tender, soft Extremities: non-tender, no pedal edema, no calf tenderness Neurologic/Psychiatric: alert, normal mood/affect, oriented x 3 Laboratory Results Results Past 24 Hours Test 05/01/17 16:27 05/01/17 20:26 05/02/17 05:30 05/02/17 07:45 Range/Units Bedside Glucose 124 198 78 70-90 mg/dl White Blood Count 6.33 4.8-10.8 K/uL Red Blood Count 3.79 4.2-5.4 M/uL Hemoglobin 10.0 12.0-16.0 g/dL Hematocrit 31.6 37-47 % Mean Corpuscular Volume 83.4 80-100 fL Mean Corpuscular Hemoglobin 26.4 25-34 pg Mean Corpuscular Hemoglobin Concent 31.6 32-36 g/dl Platelet Count 224 130-400 K/uL Mean Platelet Volume 9.8 7.4-10.4 fL Neutrophils (%) (Auto) 62.7 % Lymphocytes (%) (Auto) 19.0 % Monocytes (%) (Auto) 10.1 % Eosinophils (%) (Auto) 6.5 % Basophils (%) (Auto) 1.4 % Neutrophils # (Auto) 3.97 1.4-6.5 K/uL Lymphocytes # (Auto) 1.20 1.2-3.4 K/uL Monocytes # (Auto) 0.64 0.11-0.59 K/uL Eosinophils # (Auto) 0.41 0-0.5 K/uL Basophils # (Auto) 0.09 0-0.2 K/uL RDW Standard Deviation 53.6 36.4-46.3 fL RDW Coefficient of Variation 18.0 11.5-14.5 % Immature Granulocyte % (Auto) 0.3 % Immature Granulocyte # (Auto) 0.02 0.00-0.02 K/uL Prothrombin Time 13.8 9.0-12.0 SECONDS Prothromb Time International Ratio 1.3 0.9-1.1 Sodium Level 131 136-145 mmol/L Potassium Level 3.9 3.5-5.1 mmol/L Chloride Level 95 98-107 mmol/L Carbon Dioxide Level 26 21-32 mmol/L Anion Gap 10.0 3-11 mmol/L Blood Urea Nitrogen 37 7-18 mg/dl Creatinine 5.85 0.60-1.20 mg/dl Est Creatinine Clear Calc Drug Dose 8.4 ml/min Estimated GFR () 7.8 Estimated GFR (Non- 6.7 BUN/Creatinine Ratio 6.4 10-20 Random Glucose 75 70-99 mg/dl Calcium Level 8.8 8.5-10.1 mg/dl Phosphorus Level 3.6 2.5-4.9 mg/dl Magnesium Level 2.0 1.8-2.4 mg/dl Total Bilirubin 0.4 0.2-1 mg/dl Direct Bilirubin 0.2 0-0.2 mg/dl Aspartate Amino Transf (AST/SGOT) 41 15-37 U/L Alanine Aminotransferase (ALT/SGPT) 45 12-78 U/L Alkaline Phosphatase 71 45-117 U/L Total Protein 6.7 6.4-8.2 gm/dl Albumin 3.1 3.4-5.0 gm/dl Test 05/02/17 11:34 Range/Units Bedside Glucose 153 70-90 mg/dl Assessment and Plan Patient is a 71 year old female that was seen by Dr Palafox at [facility] and transferred to [facility] due to multiple issues including chronic cough with questionable findings on imaging including possible pneumonia/ pulm nodules, Dialysis management, and bradycardia 1) Hospital Acquired Pneumonia - Chest CT shows a right sided pneumonia - Vancomycin + Cefepime IV - CXR: Right sided effusion/ consolidation - effusion vs infection vs neoplasm - Oxygen supplementation to maintain O2 > 92% - Pulmonary consult --> Do not recommend bronchoscopy at this time. Recommend first adressing bradycardia and consider bronchoscopy/ further management as an outpatient 2) Bradycardia - Currently asymptomatic - Discontinue home metoprolol and amlodipine - Cardiology recommends continuing amiodarone 200 mg --> Will check amiodarone level - No pacemaker placement indicated at this time --> Continue medical management for the time being 3) End stage renal disease, on dialysis - CT scan shows fluid overload --> Increase ultrafiltrate tomorrow during dialysis - Nephrology consulted - Hemodialysis performed yesterday -> Epogen 4000 units given during dialysis - Avoid IV fluids - BMP and Mag level daily 4) Chronic Diastolic CHF - Lasix 40mg PO daily (Home medication) 5) Hypertension - Will hold her metoprolol, hydralazine, and amlodipine tonight - PRN Hydralazine IV for SBP > 170 or DBP > 110 6) Hx of TIA - Resume Aspirin and Plavix 7) Hypothyroidism - Continue Synthroid 50mcg Code status: Full Dispo: Admitted to ICU VTE: SCDs Resident Tracking Resident Involvement: Resident Care Provided Care Provided: Adult Hospital Medicine
[2017-05-02] MEDS ORDERED: VANCOMYCIN INJ 1,000 MG in SODIUM CHLORIDE 0.9% 250ML 250 ML IV ONE (15:00)
[2017-05-02] MEDS: MONTELUKAST SOD 10 MG TAB PO SCH (20:48)
[2017-05-02] MEDS: FUROSEMIDE 40 MG TAB PO SCH (20:48)
[2017-05-02] MEDS: INSULIN GLARGINE SOLOSTAR 100 UNITS/ML 3 ML PEN SC SCH (20:51)
--- NOTE | 2017-05-02 22:27 | Progress Note ---
Post ICU Progress Note Date & Time May 02, 2017 at 22:16 Vital Signs Vital Signs Past 12 Hours Date Time Temp Pulse Resp B/P (MAP) Pulse Ox O2 Delivery O2 Flow Rate FiO2 05/02/17 20:34 36.8 51 18 160/64 (96) 98 05/02/17 20:00 96 Nasal Cannula 2.0 05/02/17 16:14 36.9 55 16 152/75 (100) 96 05/02/17 16:00 96 Nasal Cannula 2.0 05/02/17 13:30 56 18 140/42 (74) 96 Nasal Cannula 2.0 05/02/17 12:00 Nasal Cannula 2.0 Notes Mental Status: alert / awake, participated in evaluation Nausea / Vomiting: adequately controlled Pain: adequately controlled Airway Patency, RR, SpO2: stable & adequate (Improved: Now on 2L Nasal Cannula) BP & HR: stable & adequate (Improved in the 50's) Nicole Up is a 71-year-old -[place] female who transferred to [facility] from [facility] for possible symptomatic bradycardia with consideration for pacemaker. Patient was admitted to the ICU with a heart rate of 44 without symptoms of bradycardia. Patient had been undergoing close pulmonary follow-up for increasing episodes of dyspnea and requirement of home oxygen. While in the ICU overnight patient did not require intubation or invasive monitoring. She remained stable on 4 L nasal cannula and was downgraded to telemetry the following day. Pulmonary continues to follow patient care and has multiple connective tissue labs outstanding. Bronchoscopy has been postponed secondary to continued bradycardia. Patient continues to be worked up for malignancy as well. Upon visiting her this evening patient was resting on 2 L nasal cannula, her prescribed home amount. She has no complaints of chest pain, continued lightheadedness or dizziness, weakness, dyspnea at rest. She did state that she had walked the halls today and has been given permission by the hospitalist team to ambulate as needed. She is happy with her care and is looking forward to discharge in the near future. Consider outpatient follow up in 1 to 2 weeks with: Dr. Palafox (Pulmonology) and Dr. Warren MD (Primary Care) Repeat imaging needed: Would recommend repeat chest x-ray to monitor for improvement of pulmonary status versus CHF versus fluid overload Follow up cultures: Not during this acute admission Reviewed progress notes, labs, and inpatient medication list Continue current management Additional recommendations: N/A Patient is stable thus critical care will sign off at this time. Thank you for including us in the care of this patient and please feel free to reconsult as needed Consults & Procedures Consultants: Cardiology: Dr. Ramirez Pulmonary: Dr. Gruber Nephrology: Dr. Pham Lung Nodule Program Procedures: Infusion of IV medications CT chest without contrast Chest x-ray
[2017-05-03] VITALS (19 sets, daily range): BP systolic 123–169; BP diastolic 49–83; PULSE 53–64; TEMP 36.3–37.2; O2SAT 90–98
[2017-05-03 05:57] LABS: BASO % 0.9 %; BASO ABS # 0.05 K/uL (0-0.2); COMPLETE YES; EOS % 8.4 %; HEMATOCRIT 31.5 % (37-47); IG% 0.2 %; LYMPH % 13.1 %; LYMPH ABS # 0.76 K/uL (1.2-3.4); MEAN CELL VOLUME 83.6 fL (80-100); MEAN CORPUSCULAR HEMOGLOBIN 27.1 pg (25-34); MEAN CORPUSCULAR HGB CONC 32.4 g/dl (32-36); MEAN PLATELET VOLUME 10.1 fL (7.4-10.4); MONO % 8.8 %; NEUT % 68.6 %; PLATELET COUNT 228 K/uL (130-400); RED BLOOD COUNT 3.77 M/uL (4.2-5.4); WHITE BLOOD COUNT 5.81 K/uL (4.8-10.8)
[2017-05-03 06:05] LABS: INR 1.2 (0.9-1.1); PROTHROMBIN TIME (PATIENT) 12.5 SECONDS (9.0-12.0)
[2017-05-03] MEDS: LEVOTHYROXINE 50 MCG TAB PO SCH (06:08)
[2017-05-03 06:45] LABS: BUN/CREATININE RATIO 6.3 (10-20); C-REACTIVE PROTEIN 0.67 mg/dl (0-0.29); CALCIUM 9.3 mg/dl (8.5-10.1); CREATININE 7.53 mg/dl (0.60-1.20); MAGNESIUM 1.9 mg/dl (1.8-2.4); PHOSPHORUS 4.1 mg/dl (2.5-4.9)
[2017-05-03 06:48] LABS: IMMUNOGLOBULN M 35.1 mg/dL (40-230); RHEUMATOID FACTOR < 10.0 U/mL (0-15)
[2017-05-03] MEDS: AMIODARONE 200 MG TAB PO SCH (07:43)
[2017-05-03] MEDS: CALCIUM ACETATE 667MG GELCAP PO SCH ×3 (07:45→17:25)
[2017-05-03] MEDS: CITALOPRAM 40 MG TAB PO SCH (07:45)
[2017-05-03] MEDS: LORAZEPAM 1 MG TAB PO SCH ×2 (07:45→20:38)
[2017-05-03] MEDS: CHOLECALCIFEROL 1000 INTER.UNIT TAB PO SCH (07:45)
[2017-05-03] MEDS: NEPHROCAPS PO SCH (07:45)
[2017-05-03] MEDS: CLOPIDOGREL BISULFATE 75 MG TAB PO SCH (07:45)
[2017-05-03] MEDS: ATORVASTATIN 20 MG TAB PO SCH (07:45)
[2017-05-03] MEDS: ASPIRIN 81 MG ECTAB PO SCH (07:45)
[2017-05-03] MEDS: HEPARIN SOD 5000 UNIT/0.5 ML CARP SQ SCH ×2 (07:50→20:42)
--- NOTE | 2017-05-03 10:42 | Nephrology Progress Note ---
Nephrology Progress Note Date of Service May 03, 2017. Chief Complaint F/U for end-stage renal disease on hemodialysis while in hospital. Silvano Rivera was seen and examined during HD this am. Tolerating HD well, denies SOB, CP. BP stable. Review of Systems A complete review of systems was performed. Pertinent positives are noted above. All other systems are negative. Vital Signs Last 8 Hrs Date Time Temp Pulse Resp B/P (MAP) Pulse Ox O2 Delivery O2 Flow Rate FiO2 05/03/17 07:45 Nasal Cannula 2.0 05/03/17 07:32 36.3 64 18 169/83 (111) 97 Nasal Cannula 3.0 05/03/17 06:59 37.2 58 20 150/63 (92) 90 05/03/17 04:30 36.8 56 18 144/54 (84) 93 Last Recorded Weight Weight (Kilograms): 57.800 Physical Exam GENERAL: Middle-aged female , AAA x 3, pleasant not in any distress. NECK: Supple, no JVD. RESPIRATORY: Normal breathing efforts, no accessory muscle use, clear to auscultation bilaterally, no wheezes or rales. CARDIOVASCULAR: S1, S2 normal, rate rhythm regular. EXTREMITY: No lower extremity edema NEURO: speech fluent. PSYCHIATRY: Normal mood and judgment Social History Smokeless Tobacco Use: No Alcohol Use: none Drug Use: none Marital Status: Occupation: retired Laboratory Results Past 24 Hours 05/03/17 05:30 Red Blood Count 3.77, Mean Corpuscular Volume 83.6, Mean Corpuscular Hemoglobin 27.1, Mean Corpuscular Hemoglobin Concent 32.4, Mean Platelet Volume 10.1, Neutrophils (%) (Auto) 68.6, Lymphocytes (%) (Auto) 13.1, Monocytes (%) (Auto) 8.8, Eosinophils (%) (Auto) 8.4, Basophils (%) (Auto) 0.9, Neutrophils # (Auto) 3.99, Lymphocytes # (Auto) 0.76, Monocytes # (Auto) 0.51, Eosinophils # (Auto) 0.49, Basophils # (Auto) 0.05 05/03/17 05:30 Test 05/02/17 11:34 05/02/17 16:25 05/02/17 20:15 05/03/17 05:30 Bedside Glucose 153 mg/dl (70-90) 148 mg/dl (70-90) 133 mg/dl (70-90) White Blood Count 5.81 K/uL (4.8-10.8) Red Blood Count 3.77 M/uL (4.2-5.4) Hemoglobin 10.2 g/dL (12.0-16.0) Hematocrit 31.5 % (37-47) Mean Corpuscular Volume 83.6 fL (80-100) Mean Corpuscular Hemoglobin 27.1 pg (25-34) Mean Corpuscular Hemoglobin Concent 32.4 g/dl (32-36) Platelet Count 228 K/uL (130-400) Mean Platelet Volume 10.1 fL (7.4-10.4) Neutrophils (%) (Auto) 68.6 % Lymphocytes (%) (Auto) 13.1 % Monocytes (%) (Auto) 8.8 % Eosinophils (%) (Auto) 8.4 % Basophils (%) (Auto) 0.9 % Neutrophils # (Auto) 3.99 K/uL (1.4-6.5) Lymphocytes # (Auto) 0.76 K/uL (1.2-3.4) Monocytes # (Auto) 0.51 K/uL (0.11-0.59) Eosinophils # (Auto) 0.49 K/uL (0-0.5) Basophils # (Auto) 0.05 K/uL (0-0.2) RDW Standard Deviation 55.4 fL (36.4-46.3) RDW Coefficient of Variation 18.3 % (11.5-14.5) Immature Granulocyte % (Auto) 0.2 % Immature Granulocyte # (Auto) 0.01 K/uL (0.00-0.02) Erythrocyte Sedimentation Rate 18 mm/hr (0-21) Prothrombin Time 12.5 SECONDS (9.0-12.0) Prothromb Time International Ratio 1.2 (0.9-1.1) Anion Gap 10.0 mmol/L (3-11) Est Creatinine Clear Calc Drug Dose 6.5 ml/min Estimated GFR () 5.8 Estimated GFR (Non- 5.0 BUN/Creatinine Ratio 6.3 (10-20) Calcium Level 9.3 mg/dl (8.5-10.1) Phosphorus Level 4.1 mg/dl (2.5-4.9) Magnesium Level 1.9 mg/dl (1.8-2.4) Total Bilirubin 0.5 mg/dl (0.2-1) Direct Bilirubin 0.1 mg/dl (0-0.2) Aspartate Amino Transf (AST/SGOT) 26 U/L (15-37) Alanine Aminotransferase (ALT/SGPT) 38 U/L (12-78) Alkaline Phosphatase 75 U/L (45-117) C-Reactive Protein 0.67 mg/dl (0-0.29) Total Protein 6.5 gm/dl (6.4-8.2) Albumin 3.0 gm/dl (3.4-5.0) Random Vancomycin Level 14.6 mcg/ml Immunoglobulin G 971.0 mg/dL (700-1600) Immunoglobulin A 135.0 mg/dL (70-400) Immunoglobulin M 35.1 mg/dL (40-230) Rheumatoid Factor < 10.0 U/mL (0-15) Test 05/03/17 07:25 Bedside Glucose 99 mg/dl (70-90) Allergies Coded Allergies: Fentanyl (Verified Allergy, Intermediate, HIVES, 04/30/17) Medications Current Inpatient Medications Medications (Trade) Dose Ordered Sig/Janice Route Start Time Stop Time Status Last Admin Dose Admin Acetaminophen (Tylenol Tab) 650 mg Q4H PRN PO 04/30/17 19:45 05/30/17 19:44 Lorazepam (Ativan Inj) 0.5 mg Q4H PRN IV 04/30/17 19:45 05/30/17 19:44 Morphine Sulfate (MoRPHine SULFATE INJ) 2 mg Q2H PRN IV 04/30/17 19:45 05/14/17 19:44 Lorazepam 0.5 mg/ Syringe 1 ml @ 1 mls/min Q4H PRN IV 04/30/17 20:00 05/30/17 19:59 Amiodarone HCl (Cordarone Tab) 200 mg DAILY PO 05/01/17 09:00 05/31/17 08:59 Atorvastatin Calcium (Lipitor Tab) 20 mg DAILY PO 05/01/17 09:00 05/31/17 08:59 05/03/17 07:45 20 MG Calcium Acetate (Phoslo Cap) 667 mg TIDM PO 05/01/17 07:15 05/31/17 07:14 05/03/17 07:45 667 MG Cholecalciferol (Vitamin D Tab) 1,000 inter.unit DAILY PO 05/01/17 09:00 05/31/17 08:59 05/03/17 07:45 1,000 INTER.UNIT Citalopram Hydrobromide (celeXA TAB) 60 mg DAILY PO 05/01/17 09:00 05/31/17 08:59 05/03/17 07:45 60 MG Furosemide (Lasix Tab) 40 mg HS PO 04/30/17 21:00 05/30/17 20:59 05/02/17 20:48 40 MG Insulin Glargine (Lantus Solostar Pen) 4 units QPM SC 04/30/17 21:00 05/30/17 20:59 05/02/17 20:51 4 UNITS Levothyroxine Sodium (Synthroid Tab) 50 mcg DAILYBB PO 05/01/17 06:00 05/31/17 05:59 05/03/17 06:08 50 MCG Lorazepam (Ativan Tab) 1 mg BID PO 04/30/17 21:00 05/30/17 20:59 05/03/17 07:45 1 MG Montelukast Sodium (Singulair Tab) 10 mg QPM PO 05/01/17 21:00 05/31/17 20:59 05/02/17 20:48 10 MG Hydralazine HCl (HydrALAZINE INJ) 10 mg Q8H PRN IV. 04/30/17 20:45 05/30/17 20:44 Glucose (Glucose 40% Gel) 15-30 GRAMS 15 GRAMS... UD PRN PO 04/30/17 21:00 05/30/17 20:59 Glucose (Glucose Chew Tab) 4-8 Tablets 4 Tabl... UD PRN PO 04/30/17 21:00 05/30/17 20:59 Dextrose (Dextrose 50% 50ML Syringe) 25-50ML OF 50% DW IV FOR... UD PRN IV 04/30/17 21:00 05/30/17 20:59 Glucagon (Glucagon Inj) 1 mg UD PRN SQ 04/30/17 21:00 05/30/17 20:59 Heparin Sodium (Porcine) (Heparin Sq 5000 Unit/0.5ml) 5,000 unit Q12 SQ 05/01/17 09:00 05/31/17 08:59 05/03/17 07:50 5,000 UNIT Vitamin B Complex/ Vit C/Folic Acid (Nephrocaps) 1 cap QAM PO 05/02/17 09:00 06/01/17 08:59 05/03/17 07:45 1 CAP Aspirin (Ecotrin Tab) 81 mg DAILY PO 05/02/17 09:00 06/01/17 08:59 05/03/17 07:45 81 MG Clopidogrel Bisulfate (plAVix TAB) 75 mg DAILY PO 05/02/17 09:00 06/01/17 08:59 05/03/17 07:45 75 MG Cefepime HCl (Consult) 1 ea UD PRN N/A 05/02/17 14:00 06/01/17 13:59 Vancomycin HCl (Consult) 1 ea UD PRN N/A 05/02/17 14:00 06/01/17 13:59 Cefepime HCl 500 mg/Syringe 5.5 ml @ 5.5 mls/min DAILY@1400 IV 05/03/17 14:00 05/08/17 14:00 Impression (1) End stage renal disease on dialysis (2) Secondary hyperparathyroidism of renal origin (3) Anemia (4) Diastolic CHF (5) Hypertension Luis A Is a 71-year-old female with 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 Last dialysis was 3 days ago and she missed dialysis yesterday. Currently electrolyte and volume status acceptable. Blood pressure acceptable. She presented to the hospital with progressive shortness of breath and weakness. She was found to be bradycardic. Currently her shortness of breath totally resolved. She is being continued on amiodarone, metoprolol and amlodipine was discontinued. She was also recently found to have lung nodule, workup underway, pulmonary consulted for further management. Recommendations - overall doing well, asymptomatic, tolerating dialysis, will try to increase UF to reach EDW 55 Kg --continue on renal diet --Nephrocaps 1 capsule daily, PhosLo as phosphate binder --Epogen 4000 units given on 05/01/17 --avoid IV fluid Will follow
--- NOTE | 2017-05-03 11:01 | ECHOCARDIOGRAM REPORT ---
*NOTICE TO RECEIVING LIBERTARIAN AGENCY This information is strictly Confidential and protected under [place] law. [place] law prohibits you from making any further disclosure of this information unless further disclosure is expressly permitted by the written consent of the person to whom it pertains or is authorized by law. A general authorization for the release of medical or other information is not sufficient for this purpose. Hospital accepts no responsibility if the information is made available to any other person, INCLUDING THE PATIENT. Interpretation Summary * Name: BRITNEY URBANO Study Date: 05/02/2017 01:26 PM BP: 138/42 mmHg * Patient Location: [facility]\S\N289\S\2 HR: 50 * : 1945 (M/d/yyyy) Gender: Female Height: 66 in * Age: 71 yrs Ethnicity: [place] Weight: 129 lb * Ordering Physician: Kate Gruber * Referring Physician: No Doctor, Assigned * Performed By: Sophia Mitchell RDCS * * Reason For Study: Pulmonary hypertension * BSA: 1.7 m2 * -- Conclusions -- * 1. Normal LV size, mild concentric LVH. * 2. Normal LV systolic function. LVEF 65-70%. No regional wall motion abnormalities. * 3. Borderline dilated RV with normal RV function. * 4. Well-seated, Bryce TAVR with mild to moderate paravalvular and valvular aortic regurgitation. Elevated transvalvular gradients (PV 4.0, MG 39.7). * 5. Severe mitral annular calcification with mild mitral stenosis and mild mitral regurgitation. * 6. Grade II diastolic dysfunction. * 7. Pulmonary hypertension. Est PASP 45-50 mmHg. Dilated IVC. Est RA 15 mmHg. * 8. No prior studies for comparison. Procedure Details * A complete two-dimensional transthoracic echocardiogram was performed (2D, M-mode, Doppler and color flow Doppler). Left Ventricle * The left ventricle is grossly normal size. * There is mild concentric left ventricular hypertrophy. * Ejection Fraction = 65-70%. * No regional wall motion abnormalities noted. Right Ventricle * The right ventricle is borderline dilated. * The right ventricular systolic function is normal as assessed by tricuspid annular plane systolic excursion (TAPSE) (normal >1.5 cm). Atria * The left atrium is severely dilated. * Right atrial size is normal. * No ASD detected; PFO is not assessed. Mitral Valve * The mitral valve leaflets appear thickened, but open well. * There is severe mitral annular calcification. * There is mild mitral stenosis. * There is mild mitral regurgitation. Tricuspid Valve * The tricuspid valve is not well visualized, but is grossly normal. * There is mild tricuspid regurgitation. Aortic Valve * Bryce TAVR in place. Mild paravalvular and valvular regurgitation. Elevated transvalvular velocities (PV 4.0, MG 39.7) Pulmonic Valve * The pulmonary valve is inadequately visualized, but the Doppler data is adequate for interpretation. * Pulmonic stenosis is absent. * Trace pulmonic valvular regurgitation. Great Vessels * The aortic root and proximal ascending aorta are normal sized. Pericardium/Pleural * There is no pericardial effusion. Left Ventricular Diastolic Function * Diastolic dysfunction, Grade II, consistent with elevated left atrial pressure. MMode 2D Measurements and Calculations IVSd 0.99 cm LVIDd 5.5 cm LVIDs 3.2 cm LVPWd 1.3 cm IVS/LVPW 0.77 FS 42.5 % EDV(Teich) 148.2 ml ESV(Teich) 40.1 ml EF(Teich) 73.0 % EDV(cubed) 167.5 ml ESV(cubed) 31.9 ml EF(cubed) 81.0 % LV mass(C)d 252.9 grams LV mass(C)dI 152.3 grams/m\S\2 SV(Teich) 108.1 ml SI(Teich) 65.1 ml/m\S\2 SV(cubed) 135.6 ml SI(cubed) 81.7 ml/m\S\2 Ao root diam 2.9 cm Ao root area 6.8 cm\S\2 asc Aorta Diam 1.9 cm LVOT diam 1.8 cm LVOT area 2.5 cm\S\2 LVAd ap4 25.6 cm\S\2 LVLd ap4 6.5 cm EDV(MOD-sp4) 82.8 ml EDV(sp4-el) 85.1 ml LVAs ap4 11.6 cm\S\2 LVLs ap4 5.5 cm ESV(MOD-sp4) 22.0 ml ESV(sp4-el) 20.7 ml EF(MOD-sp4) 73.5 % EF(sp4-el) 75.6 % LVAd ap2 37.1 cm\S\2 LVLd ap2 9.1 cm EDV(MOD-sp2) 124.9 ml EDV(sp2-el) 128.1 ml LVAs ap2 17.6 cm\S\2 LVLs ap2 6.9 cm ESV(MOD-sp2) 35.4 ml ESV(sp2-el) 37.9 ml EF(MOD-sp2) 71.6 % EF(sp2-el) 70.4 % LVLd %diff 28.6 % EDV(MOD-bp) 120.9 ml LVLs %diff 19.9 % ESV(MOD-bp) 30.2 ml EF(MOD-bp) 75.1 % SV(MOD-sp4) 60.8 ml SI(MOD-sp4) 36.7 ml/m\S\2 SV(MOD-sp2) 89.5 ml SI(MOD-sp2) 53.9 ml/m\S\2 SV(MOD-bp) 90.8 ml SI(MOD-bp) 54.7 ml/m\S\2 SV(sp4-el) 64.4 ml SI(sp4-el) 38.8 ml/m\S\2 SV(sp2-el) 90.2 ml SI(sp2-el) 54.4 ml/m\S\2 Doppler Measurements and Calculations MV E max michell 206.5 cm/sec MV A max mihcell 89.2 cm/sec MV E/A 2.3 MV V2 max 230.8 cm/sec MV max PG 21.5 mmHg MV V2 mean 105.5 cm/sec MV mean PG 5.7 mmHg MV V2 VTI 71.4 cm MV P1/2t max michell 201.6 cm/sec MV P1/2t 145.2 msec MVA(P1/2t) 1.5 cm\S\2 MV dec slope 406.7 cm/sec\S\2 MV dec time 0.42 sec Ao V2 max 404.3 cm/sec Ao max PG 65.4 mmHg Ao max PG (full) 61.8 mmHg Ao V2 mean 298.2 cm/sec Ao mean PG 39.7 mmHg Ao V2 VTI 114.4 cm LORY(V,A) 0.58 cm\S\2 LORY(V,D) 0.58 cm\S\2 AI max michell 319.1 cm/sec AI max PG 40.7 mmHg AI dec slope 196.7 cm/sec\S\2 AI P1/2t 475.2 msec LV V1 max PG 3.6 mmHg LV V1 max 94.5 cm/sec SV(Ao) 782.2 ml SI(Ao) 471.2 ml/m\S\2 PA V2 max 97.7 cm/sec PA max PG 3.8 mmHg PA acc slope 503.5 cm/sec\S\2 PA acc time 0.10 sec PI end-d michell 122.2 cm/sec TR max michell 282.3 cm/sec PA pr(Accel) 33.1 mmHg
--- NOTE | 2017-05-03 12:04 | Pulmonology Progress Note ---
Pulmonary Progress Note Date of Service May 03, 2017. Attending Subjective Patient seen and examined during HD. She less coughing today. She denies SOB, chest pain. She is still feeling tired. Objective Vital signs reviewed. MAXIMUM TEMPERATURE 37.2, blood pressure 126/51-169/83, pulse 53-64, respiratory rate 18-20, pulse oximetry 90-97 on 2- 3 L nasal cannula. Gen.: Awake alert oriented 3, pleasant, in no acute distress, no respiratory distress or use of accessory muscles of respiration. CVS, S1-S2, regular rate and rhythm, systolic murmur. Lungs: Decreased breath sounds at bilateral bases associated crackles otherwise good air entry bilaterally Abdomen, soft, nontender, nondistended, bowel sounds positive Extremities: Right upper extremity AV fistula intact, palpable thrill, no extremity edema Labs reviewed. Amiodarone level pending Imaging reviewed. Transthoracic echocardiogram 05/03/2017 * -- Conclusions -- * 1. Normal LV size, mild concentric LVH. * 2. Normal LV systolic function. LVEF 65-70%. No regional wall motion abnormalities. * 3. Borderline dilated RV with normal RV function. * 4. Well-seated, Bryce TAVR with mild to moderate paravalvular and valvular aortic regurgitation. Elevated transvalvular gradients (PV 4.0, MG 39.7). * 5. Severe mitral annular calcification with mild mitral stenosis and mild mitral regurgitation. * 6. Grade II diastolic dysfunction. * 7. Pulmonary hypertension. Est PASP 45-50 mmHg. Dilated IVC. Est RA 15 mmHg. * 8. No prior studies for comparison. CT SCAN OF THE CHEST WITHOUT IV CONTRAST 05/01/2017 CLINICAL HISTORY: Respiratory failure. COMPARISON STUDY: Chest CT dated 04/29/2017. Chest x-ray dated 04/30/2017. TECHNIQUE: CT scan of the thorax was performed from the thoracic inlet to the upper abdomen. Images are reviewed in the axial, sagittal, and coronal planes. IV contrast was not administered for this examination as per the referring clinician. Note that the examination was performed in suboptimal fashion without IV contrast. A dose lowering technique was utilized adhering to the principles of ALARA. CT DOSE: 320.12 mGy.cm FINDINGS: Thyroid: The thyroid gland is markedly enlarged and heterogeneous. Thoracic aorta: Postoperative change is noted in the ascending thoracic aorta. There is advanced atherosclerotic calcification of the thoracic aorta, which is normal in caliber and demonstrates bovine variant arch anatomy. Heart: The heart is markedly enlarged and without pericardial effusion. The mitral annulus is densely calcified. Postoperative change is seen at the aortic valve. Lungs and pleural spaces: There is a small to moderate right pleural effusion with right lower lobe airspace consolidation. Trace pleural effusion is seen on the left. Patchy groundglass opacities are present throughout the remainder of both lungs. Mild intralobular septal thickening is observed. The trachea and central airways are clear. Foci of linear atelectasis versus scarring are present in both lungs. A 4 mm left apical pulmonary nodule is seen on image #[id number]. Mediastinum: There is mediastinal lymphadenopathy. A pretracheal node measures at least 2.2 cm in short axis. Bernadette: Not well assessed without IV contrast. Axillae: There are mildly enlarged right axillary lymph nodes. The largest node is seen on image #68 and measures 2.5 x 2.0 cm. No left axillary adenopathy is seen. Upper abdomen: Partially visualized upper abdominal viscera is within normal limits. Skeletal structures: The skeletal structures are osteopenic. Mild degenerative change is seen throughout the thoracic spine. No lytic or blastic bony lesions are seen. Soft tissues: There is marked edema identified within the right breast in the right chest wall which is asymmetric to the left. There is significant dermal thickening in the right breast. IMPRESSION: 1. Cardiomegaly with evidence of pulmonary artery hypertension. 2. There are small to moderate right and trace left pleural effusions with right basilar consolidation. The appearance suggests pneumonia. Clinical correlation will be required. 3. Additional patchy groundglass change is seen throughout the remainder of both lungs. There is also intralobular septal thickening. This likely represents congestive failure with interstitial edema. Again, clinical correlation will be required. 4. There is markedly asymmetric soft tissue edema and dermal thickening in the right breast as compared to the left. There are also enlarged right axillary lymph nodes. There is nonspecific, and could represent mastitis versus unilateral upper extremity edema. Inflammatory breast cancer could also have this appearance and clinical correlation will be required. 5. Mediastinal lymphadenopathy is identified. 6. There is an indeterminant but low suspicion 4 mm left apical pulmonary nodule. This can be followed if clinically warranted. Medication reviewed. Assessment & Plan Dyspnea Acute on chronic hypoxic respiratory failure Bradycardia ESRD on HD Diastolic dysfunction Bilateral pleural effusions Right lower lobe pneumonia 4 mm left apical pulmonary nodule Mediastinal lymphadenopathy Axillary lymphadenopathy Ms. Walker appears to be improving from a respiratory standpoint she saturating well on between 0-2 L nasal cannula. She has less coughing today, since starting steroids and antibiotics. TTE shows grade 2 diastolic dysfunction with pulmonary hypertension. Recommendations At the current time I would treat for hospital-acquired pneumonia as patient has had recent hospitalization within the last month. Continue with vancomycin as well as cefepime for now. Continue with hemodialysis per nephrology with goal to remove more fluid. I feel that the pleural effusions are met most likely secondary to CHF versus fluid overload. However if they do not resolve, consider thoracentesis. Discussed this option with patient however she would prefer to continue with conservative management at this time. Can also consider VQ scan to rule out chronic thromboembolic PH. Follow-up ROBYN, ANCA, RF, ESR, CRP to rule out connective tissue disorders. Continue with bronchodilators when necessary. I do not feel that bronchoscopy is warranted at this time. However, should be considered if pneumonia does not resolve. Mediastinal lymphadenopathy is most likely reactive. Left upper lobe nodule should be followed up in one year. She does not have any history of smoking and is relatively low risk patient. She should have full PFT done as an outpatient. She should also has polysomnography done , has JED may be contributing to lethargy. Lastly, amiodarone pulmonary toxicity is a consideration for chronic cough, dyspnea and CT changes, but this remains a diagnosis of exclusion. I will defer Axillary lymphadenopathy to management of primary team. Data Medications: Current Inpatient Medications Medications (Trade) Dose Ordered Sig/Janice Route Start Time Stop Time Status Last Admin Dose Admin Acetaminophen (Tylenol Tab) 650 mg Q4H PRN PO 04/30/17 19:45 05/30/17 19:44 Lorazepam (Ativan Inj) 0.5 mg Q4H PRN IV 04/30/17 19:45 05/30/17 19:44 Morphine Sulfate (MoRPHine SULFATE INJ) 2 mg Q2H PRN IV 04/30/17 19:45 05/14/17 19:44 Lorazepam 0.5 mg/ Syringe 1 ml @ 1 mls/min Q4H PRN IV 04/30/17 20:00 05/30/17 19:59 Amiodarone HCl (Cordarone Tab) 200 mg DAILY PO 05/01/17 09:00 05/31/17 08:59 Atorvastatin Calcium (Lipitor Tab) 20 mg DAILY PO 05/01/17 09:00 05/31/17 08:59 05/03/17 07:45 20 MG Calcium Acetate (Phoslo Cap) 667 mg TIDM PO 05/01/17 07:15 05/31/17 07:14 05/03/17 07:45 667 MG Cholecalciferol (Vitamin D Tab) 1,000 inter.unit DAILY PO 05/01/17 09:00 05/31/17 08:59 05/03/17 07:45 1,000 INTER.UNIT Citalopram Hydrobromide (celeXA TAB) 60 mg DAILY PO 05/01/17 09:00 05/31/17 08:59 05/03/17 07:45 60 MG Furosemide (Lasix Tab) 40 mg HS PO 04/30/17 21:00 05/30/17 20:59 05/02/17 20:48 40 MG Insulin Glargine (Lantus Solostar Pen) 4 units QPM SC 04/30/17 21:00 05/30/17 20:59 05/02/17 20:51 4 UNITS Levothyroxine Sodium (Synthroid Tab) 50 mcg DAILYBB PO 05/01/17 06:00 05/31/17 05:59 05/03/17 06:08 50 MCG Lorazepam (Ativan Tab) 1 mg BID PO 04/30/17 21:00 05/30/17 20:59 05/03/17 07:45 1 MG Montelukast Sodium (Singulair Tab) 10 mg QPM PO 05/01/17 21:00 05/31/17 20:59 05/02/17 20:48 10 MG Hydralazine HCl (HydrALAZINE INJ) 10 mg Q8H PRN IV. 04/30/17 20:45 05/30/17 20:44 Glucose (Glucose 40% Gel) 15-30 GRAMS 15 GRAMS... UD PRN PO 04/30/17 21:00 05/30/17 20:59 Glucose (Glucose Chew Tab) 4-8 Tablets 4 Tabl... UD PRN PO 04/30/17 21:00 05/30/17 20:59 Dextrose (Dextrose 50% 50ML Syringe) 25-50ML OF 50% DW IV FOR... UD PRN IV 04/30/17 21:00 05/30/17 20:59 Glucagon (Glucagon Inj) 1 mg UD PRN SQ 04/30/17 21:00 05/30/17 20:59 Heparin Sodium (Porcine) (Heparin Sq 5000 Unit/0.5ml) 5,000 unit Q12 SQ 05/01/17 09:00 05/31/17 08:59 05/03/17 07:50 5,000 UNIT Vitamin B Complex/ Vit C/Folic Acid (Nephrocaps) 1 cap QAM PO 05/02/17 09:00 06/01/17 08:59 05/03/17 07:45 1 CAP Aspirin (Ecotrin Tab) 81 mg DAILY PO 05/02/17 09:00 06/01/17 08:59 05/03/17 07:45 81 MG Clopidogrel Bisulfate (plAVix TAB) 75 mg DAILY PO 05/02/17 09:00 06/01/17 08:59 05/03/17 07:45 75 MG Cefepime HCl (Consult) 1 ea UD PRN N/A 05/02/17 14:00 06/01/17 13:59 Vancomycin HCl (Consult) 1 ea UD PRN N/A 05/02/17 14:00 06/01/17 13:59 Cefepime HCl 500 mg/Syringe 5.5 ml @ 5.5 mls/min DAILY@1400 IV 05/03/17 14:00 05/08/17 14:00 Vital Signs: Date Time Temp Pulse Resp B/P (MAP) Pulse Ox O2 Delivery O2 Flow Rate FiO2 05/03/17 11:45 55 135/52 05/03/17 11:30 57 137/57 05/03/17 11:15 55 126/51 05/03/17 11:00 55 139/56 05/03/17 10:45 54 136/56 05/03/17 10:30 55 139/52 05/03/17 10:15 53 132/51 05/03/17 09:55 36.7 57 138/59 (85) 05/03/17 07:45 Nasal Cannula 2.0 05/03/17 07:32 36.3 64 18 169/83 (111) 97 Nasal Cannula 3.0 05/03/17 06:59 37.2 58 20 150/63 (92) 90 05/03/17 04:30 36.8 56 18 144/54 (84) 93 05/02/17 22:55 36.6 56 18 165/65 (98) 93 05/02/17 20:34 36.8 51 18 160/64 (96) 98 05/02/17 20:00 96 Nasal Cannula 2.0 05/02/17 16:14 36.9 55 16 152/75 (100) 96 05/02/17 16:00 96 Nasal Cannula 2.0 05/02/17 13:30 56 18 140/42 (74) 96 Nasal Cannula 2.0 05/02/17 12:00 Nasal Cannula 2.0 Laboratory Results: Last 24 Hours Test 05/02/17 16:25 05/02/17 20:15 05/03/17 05:30 05/03/17 07:25 Bedside Glucose 148 mg/dl 133 mg/dl 99 mg/dl White Blood Count 5.81 K/uL Red Blood Count 3.77 M/uL Hemoglobin 10.2 g/dL Hematocrit 31.5 % Mean Corpuscular Volume 83.6 fL Mean Corpuscular Hemoglobin 27.1 pg Mean Corpuscular Hemoglobin Concent 32.4 g/dl Platelet Count 228 K/uL Mean Platelet Volume 10.1 fL Neutrophils (%) (Auto) 68.6 % Lymphocytes (%) (Auto) 13.1 % Monocytes (%) (Auto) 8.8 % Eosinophils (%) (Auto) 8.4 % Basophils (%) (Auto) 0.9 % Neutrophils # (Auto) 3.99 K/uL Lymphocytes # (Auto) 0.76 K/uL Monocytes # (Auto) 0.51 K/uL Eosinophils # (Auto) 0.49 K/uL Basophils # (Auto) 0.05 K/uL RDW Standard Deviation 55.4 fL RDW Coefficient of Variation 18.3 % Immature Granulocyte % (Auto) 0.2 % Immature Granulocyte # (Auto) 0.01 K/uL Erythrocyte Sedimentation Rate 18 mm/hr Prothrombin Time 12.5 SECONDS Prothromb Time International Ratio 1.2 Sodium Level 128 mmol/L Potassium Level 4.0 mmol/L Chloride Level 94 mmol/L Carbon Dioxide Level 24 mmol/L Anion Gap 10.0 mmol/L Blood Urea Nitrogen 48 mg/dl Creatinine 7.53 mg/dl Est Creatinine Clear Calc Drug Dose 6.5 ml/min Estimated GFR () 5.8 Estimated GFR (Non- 5.0 BUN/Creatinine Ratio 6.3 Random Glucose 95 mg/dl Calcium Level 9.3 mg/dl Phosphorus Level 4.1 mg/dl Magnesium Level 1.9 mg/dl Total Bilirubin 0.5 mg/dl Direct Bilirubin 0.1 mg/dl Aspartate Amino Transf (AST/SGOT) 26 U/L Alanine Aminotransferase (ALT/SGPT) 38 U/L Alkaline Phosphatase 75 U/L C-Reactive Protein 0.67 mg/dl Total Protein 6.5 gm/dl Albumin 3.0 gm/dl Random Vancomycin Level 14.6 mcg/ml Immunoglobulin G 971.0 mg/dL Immunoglobulin A 135.0 mg/dL Immunoglobulin M 35.1 mg/dL Rheumatoid Factor < 10.0 U/mL Test 05/03/17 11:55
--- NOTE | 2017-05-03 13:06 | Family Medicine Progress Note ---
Progress Note Date of Service May 03, 2017. Subjective Pt evaluation today including: conversation w/ patient, physical exam, chart review, lab review, review of studies Voiding: no voiding problems, no incontinence Patient is resting comfortably in bed this morning with no acute complaints overnight. She denies any shortness of breath, chest pain, or any other acute complaints. Constitutional: + fatigue, No fever, No chills Respiratory: + cough, No sputum, No shortness of breath Cardiovascular: No chest pain, No palpitations Abdomen: No pain, No nausea, No vomiting, No diarrhea, No constipation Endo: No fatigue Medications Current Inpatient Medications Medications (Trade) Dose Ordered Sig/Janice Route Start Time Stop Time Status Last Admin Dose Admin Acetaminophen (Tylenol Tab) 650 mg Q4H PRN PO 04/30/17 19:45 05/30/17 19:44 Lorazepam (Ativan Inj) 0.5 mg Q4H PRN IV 04/30/17 19:45 05/30/17 19:44 Morphine Sulfate (MoRPHine SULFATE INJ) 2 mg Q2H PRN IV 04/30/17 19:45 05/14/17 19:44 Lorazepam 0.5 mg/ Syringe 1 ml @ 1 mls/min Q4H PRN IV 04/30/17 20:00 05/30/17 19:59 Amiodarone HCl (Cordarone Tab) 200 mg DAILY PO 05/01/17 09:00 05/31/17 08:59 Atorvastatin Calcium (Lipitor Tab) 20 mg DAILY PO 05/01/17 09:00 05/31/17 08:59 05/03/17 07:45 20 MG Calcium Acetate (Phoslo Cap) 667 mg TIDM PO 05/01/17 07:15 05/31/17 07:14 05/03/17 07:45 667 MG Cholecalciferol (Vitamin D Tab) 1,000 inter.unit DAILY PO 05/01/17 09:00 05/31/17 08:59 05/03/17 07:45 1,000 INTER.UNIT Citalopram Hydrobromide (celeXA TAB) 60 mg DAILY PO 05/01/17 09:00 05/31/17 08:59 05/03/17 07:45 60 MG Furosemide (Lasix Tab) 40 mg HS PO 04/30/17 21:00 05/30/17 20:59 05/02/17 20:48 40 MG Insulin Glargine (Lantus Solostar Pen) 4 units QPM SC 04/30/17 21:00 05/30/17 20:59 05/02/17 20:51 4 UNITS Levothyroxine Sodium (Synthroid Tab) 50 mcg DAILYBB PO 05/01/17 06:00 05/31/17 05:59 05/03/17 06:08 50 MCG Lorazepam (Ativan Tab) 1 mg BID PO 04/30/17 21:00 05/30/17 20:59 05/03/17 07:45 1 MG Montelukast Sodium (Singulair Tab) 10 mg QPM PO 05/01/17 21:00 05/31/17 20:59 05/02/17 20:48 10 MG Hydralazine HCl (HydrALAZINE INJ) 10 mg Q8H PRN IV. 04/30/17 20:45 05/30/17 20:44 Glucose (Glucose 40% Gel) 15-30 GRAMS 15 GRAMS... UD PRN PO 04/30/17 21:00 05/30/17 20:59 Glucose (Glucose Chew Tab) 4-8 Tablets 4 Tabl... UD PRN PO 04/30/17 21:00 05/30/17 20:59 Dextrose (Dextrose 50% 50ML Syringe) 25-50ML OF 50% DW IV FOR... UD PRN IV 04/30/17 21:00 05/30/17 20:59 Glucagon (Glucagon Inj) 1 mg UD PRN SQ 04/30/17 21:00 05/30/17 20:59 Heparin Sodium (Porcine) (Heparin Sq 5000 Unit/0.5ml) 5,000 unit Q12 SQ 05/01/17 09:00 05/31/17 08:59 05/03/17 07:50 5,000 UNIT Vitamin B Complex/ Vit C/Folic Acid (Nephrocaps) 1 cap QAM PO 05/02/17 09:00 06/01/17 08:59 05/03/17 07:45 1 CAP Aspirin (Ecotrin Tab) 81 mg DAILY PO 05/02/17 09:00 06/01/17 08:59 05/03/17 07:45 81 MG Clopidogrel Bisulfate (plAVix TAB) 75 mg DAILY PO 05/02/17 09:00 06/01/17 08:59 05/03/17 07:45 75 MG Cefepime HCl (Consult) 1 ea UD PRN N/A 05/02/17 14:00 06/01/17 13:59 Vancomycin HCl (Consult) 1 ea UD PRN N/A 05/02/17 14:00 06/01/17 13:59 Cefepime HCl 500 mg/Syringe 5.5 ml @ 5.5 mls/min DAILY@1400 IV 05/03/17 14:00 05/08/17 14:00 Objective Vital Signs Date Time Temp Pulse Resp B/P (MAP) Pulse Ox O2 Delivery O2 Flow Rate FiO2 05/03/17 12:00 55 130/54 05/03/17 11:45 55 135/52 05/03/17 11:30 57 137/57 05/03/17 11:15 55 126/51 05/03/17 11:00 55 139/56 05/03/17 10:45 54 136/56 05/03/17 10:30 55 139/52 05/03/17 10:15 53 132/51 05/03/17 09:55 36.7 57 138/59 (85) 05/03/17 07:45 Nasal Cannula 2.0 05/03/17 07:32 36.3 64 18 169/83 (111) 97 Nasal Cannula 3.0 05/03/17 06:59 37.2 58 20 150/63 (92) 90 05/03/17 04:30 36.8 56 18 144/54 (84) 93 05/02/17 22:55 36.6 56 18 165/65 (98) 93 05/02/17 20:34 36.8 51 18 160/64 (96) 98 05/02/17 20:00 96 Nasal Cannula 2.0 05/02/17 16:14 36.9 55 16 152/75 (100) 96 05/02/17 16:00 96 Nasal Cannula 2.0 05/02/17 13:30 56 18 140/42 (74) 96 Nasal Cannula 2.0 Physical Exam General Appearance: WD/WN, no apparent distress Eyes: normal inspection, sclerae normal Respiratory/Chest: chest non-tender, lungs clear, normal breath sounds, + crackles (mild at bases) Cardiovascular: + bradycardia, + systolic murmur Abdomen: normal bowel sounds, non tender, soft Extremities: no pedal edema, no calf tenderness Neurologic/Psychiatric: alert, normal mood/affect, oriented x 3 Laboratory Results Results Past 24 Hours Test 05/02/17 16:25 05/02/17 20:15 05/03/17 05:30 05/03/17 07:25 Range/Units Bedside Glucose 148 133 99 70-90 mg/dl White Blood Count 5.81 4.8-10.8 K/uL Red Blood Count 3.77 4.2-5.4 M/uL Hemoglobin 10.2 12.0-16.0 g/dL Hematocrit 31.5 37-47 % Mean Corpuscular Volume 83.6 80-100 fL Mean Corpuscular Hemoglobin 27.1 25-34 pg Mean Corpuscular Hemoglobin Concent 32.4 32-36 g/dl Platelet Count 228 130-400 K/uL Mean Platelet Volume 10.1 7.4-10.4 fL Neutrophils (%) (Auto) 68.6 % Lymphocytes (%) (Auto) 13.1 % Monocytes (%) (Auto) 8.8 % Eosinophils (%) (Auto) 8.4 % Basophils (%) (Auto) 0.9 % Neutrophils # (Auto) 3.99 1.4-6.5 K/uL Lymphocytes # (Auto) 0.76 1.2-3.4 K/uL Monocytes # (Auto) 0.51 0.11-0.59 K/uL Eosinophils # (Auto) 0.49 0-0.5 K/uL Basophils # (Auto) 0.05 0-0.2 K/uL RDW Standard Deviation 55.4 36.4-46.3 fL RDW Coefficient of Variation 18.3 11.5-14.5 % Immature Granulocyte % (Auto) 0.2 % Immature Granulocyte # (Auto) 0.01 0.00-0.02 K/uL Erythrocyte Sedimentation Rate 18 0-21 mm/hr Prothrombin Time 12.5 9.0-12.0 SECONDS Prothromb Time International Ratio 1.2 0.9-1.1 Sodium Level 128 136-145 mmol/L Potassium Level 4.0 3.5-5.1 mmol/L Chloride Level 94 98-107 mmol/L Carbon Dioxide Level 24 21-32 mmol/L Anion Gap 10.0 3-11 mmol/L Blood Urea Nitrogen 48 7-18 mg/dl Creatinine 7.53 0.60-1.20 mg/dl Est Creatinine Clear Calc Drug Dose 6.5 ml/min Estimated GFR () 5.8 Estimated GFR (Non- 5.0 BUN/Creatinine Ratio 6.3 10-20 Random Glucose 95 70-99 mg/dl Calcium Level 9.3 8.5-10.1 mg/dl Phosphorus Level 4.1 2.5-4.9 mg/dl Magnesium Level 1.9 1.8-2.4 mg/dl Total Bilirubin 0.5 0.2-1 mg/dl Direct Bilirubin 0.1 0-0.2 mg/dl Aspartate Amino Transf (AST/SGOT) 26 15-37 U/L Alanine Aminotransferase (ALT/SGPT) 38 12-78 U/L Alkaline Phosphatase 75 45-117 U/L C-Reactive Protein 0.67 0-0.29 mg/dl Total Protein 6.5 6.4-8.2 gm/dl Albumin 3.0 3.4-5.0 gm/dl Random Vancomycin Level 14.6 mcg/ml Immunoglobulin G 971.0 700-1600 mg/dL Immunoglobulin A 135.0 70-400 mg/dL Immunoglobulin M 35.1 40-230 mg/dL Rheumatoid Factor < 10.0 0-15 U/mL Test 05/03/17 11:55 Range/Units Assessment and Plan Patient is a 71 year old female that was seen by Dr Palafox at [facility] and transferred to [facility] due to multiple issues including chronic cough with questionable findings on imaging including possible pneumonia/ pulm nodules, Dialysis management, and bradycardia 1) Hospital Acquired Pneumonia - Chest CT shows a right sided pneumonia - Vancomycin + Cefepime IV - CXR: Right sided effusion/ consolidation - effusion vs infection vs neoplasm - Oxygen supplementation to maintain O2 > 92% - Pulmonary consult --> Do not recommend bronchoscopy at this time. Recommend first addressing bradycardia and consider bronchoscopy/ further management as an outpatient. Pleural effusion are most likely secondary to heart failure and should improve with diuresis, but if no improvement can consider thoracentesis ( patient would prefer medical management at this time). - Also recommend that patient has PFTs and polysomnography done as an outpatient 2) Bradycardia - Currently asymptomatic - Discontinue home metoprolol and amlodipine - Cardiology recommends continuing amiodarone 200 mg --> Will check amiodarone level (Pending) - No pacemaker placement indicated at this time --> Continue medical management for the time being 3) End stage renal disease, on dialysis - CT scan shows fluid overload --> Increase ultrafiltrate tomorrow during dialysis - Nephrology consulted - Hemodialysis performed today (also performed on Saturday) -> Epogen 4000 units given during dialysis - Avoid IV fluids - BMP and Mag level daily 4) Chronic Diastolic CHF - Lasix 40mg PO daily (Home medication) ECHO RESULTS reviewed and posted below: Transthoracic echocardiogram 05/03/2017 * -- Conclusions -- * 1. Normal LV size, mild concentric LVH. * 2. Normal LV systolic function. LVEF 65-70%. No regional wall motion abnormalities. * 3. Borderline dilated RV with normal RV function. * 4. Well-seated, Bryce TAVR with mild to moderate paravalvular and valvular aortic regurgitation. Elevated transvalvular gradients (PV 4.0, MG 39.7). * 5. Severe mitral annular calcification with mild mitral stenosis and mild mitral regurgitation. * 6. Grade II diastolic dysfunction. * 7. Pulmonary hypertension. Est PASP 45-50 mmHg. Dilated IVC. Est RA 15 mmHg. * 8. No prior studies for comparison. 5) Hypertension - Will hold her metoprolol, hydralazine, and amlodipine tonight - PRN Hydralazine IV for SBP > 170 or DBP > 110 6) Hx of TIA - Resume Aspirin and Plavix 7) Hypothyroidism - Continue Synthroid 50mcg 8) Left upper lobe nodule - Follow up in 1 year Code status: Full Dispo: Admitted to ICU VTE: SCDs Resident Tracking Resident Involvement: Resident Care Provided Care Provided: Adult Hospital Medicine
[2017-05-03] MEDS: ACETAMINOPHEN 325 MG TAB PO PRN (13:39)
[2017-05-03] MEDS: CEFEPIME IV 500 MG in SYRINGE 0 ML IV SCH (13:57)
[2017-05-03] MEDS ORDERED: VANCOMYCIN INJ 750 MG in SODIUM CHLORIDE 0.9% 250ML 250 ML IV SCH (15:00)
--- NOTE | 2017-05-03 16:30 | Pharmacy Progress Note ---
Pharmacy Abx Dose Progress Nt Date of Service May 03, 2017. Pharmacy Dosing Scope The patient is currently receiving the following antimicrobial agents per Pharmacy consult: Vancomycin 1000mg IV loading dose given 05/02 at 15:00 and cefepime 1000mg IV x 1 then cefepime 500mg every 24 hours Objective Height (Feet): 5 Height (Inches): 6.00 Weight (Kilograms): 57.200 Vital Signs (Past 12Hrs) Vital Signs Past 12 Hours Date Time Temp Pulse Resp B/P (MAP) Pulse Ox O2 Delivery O2 Flow Rate FiO2 05/03/17 16:14 36.8 56 18 144/57 (86) 98 Nasal Cannula 2.0 05/03/17 13:38 Nasal Cannula 2.0 05/03/17 13:10 36.7 57 144/59 (87) 05/03/17 13:00 57 132/51 05/03/17 12:45 59 131/49 05/03/17 12:30 55 123/49 05/03/17 12:15 55 128/53 05/03/17 12:00 55 130/54 05/03/17 11:45 55 135/52 05/03/17 11:30 57 137/57 05/03/17 11:15 55 126/51 05/03/17 11:00 55 139/56 05/03/17 10:45 54 136/56 05/03/17 10:30 55 139/52 05/03/17 10:15 53 132/51 05/03/17 09:55 36.7 57 138/59 (85) 05/03/17 07:45 Nasal Cannula 2.0 05/03/17 07:32 36.3 64 18 169/83 (111) 97 Nasal Cannula 3.0 05/03/17 06:59 37.2 58 20 150/63 (92) 90 05/03/17 04:30 36.8 56 18 144/54 (84) 93 Lab Results (24Hrs) Item Value Date Time Creatinine 7.53 mg/dl *H # 05/03/17 0530 Est Creatinine Clear Calc Drug Dose 6.5 ml/min 05/03/17 0530 Estimated GFR () 5.8 05/03/17 0530 Estimated GFR (Non- 5.0 05/03/17 0530 Laboratory Tests (24 Hours) Test 05/03/17 05:30 C-Reactive Protein 0.67 mg/dl (0-0.29) H Erythrocyte Sedimentation Rate 18 mm/hr (0-21) White Blood Count 5.81 K/uL (4.8-10.8) Red Blood Count 3.77 M/uL (4.2-5.4) L Hemoglobin 10.2 g/dL (12.0-16.0) L Hematocrit 31.5 % (37-47) L Mean Corpuscular Volume 83.6 fL (80-100) Mean Corpuscular Hemoglobin 27.1 pg (25-34) Mean Corpuscular Hemoglobin Concent 32.4 g/dl (32-36) Platelet Count 228 K/uL (130-400) Mean Platelet Volume 10.1 fL (7.4-10.4) Neutrophils (%) (Auto) 68.6 % Lymphocytes (%) (Auto) 13.1 % Monocytes (%) (Auto) 8.8 % Eosinophils (%) (Auto) 8.4 % Basophils (%) (Auto) 0.9 % Neutrophils # (Auto) 3.99 K/uL (1.4-6.5) Lymphocytes # (Auto) 0.76 K/uL (1.2-3.4) L Monocytes # (Auto) 0.51 K/uL (0.11-0.59) Eosinophils # (Auto) 0.49 K/uL (0-0.5) Basophils # (Auto) 0.05 K/uL (0-0.2) Micro Results Date/Time Source Procedure Growth Status 04/30/17 19:15 Nasal MRSA DNA Surveillance Screen - Final Specimen Negative for MRSA by DNA Probe Complete Risk Factors for Resistance * Recent Hospitalization direct admit from [facility] * Chronic dialysis within the past 30 days Assessment & Plan Assessment 71 year old female receiving Vancomycin and Cefepime for treatment of HAP Day # 2/7 of antimicrobial therapy Patient received vancomycin 1 gram x 1 on 05/02 @16 and Cefepime 1 gram x 1 on 05/02. Cefepime 500mg IV q 24hrs will continue dosing based on HD recommendations. Plan Vancomycin IV * Trough level of 14.6 mcg/mL is subtherapeutic (level before HD) * Give additional dose of Vancomycin 750mg (13mg/kg) today 05/03 @15:00 after HD * Goal trough level for HAP : 15 to 20 mcg/mL * Trough or random level ordered for: 05/05/17 with am labs prior to HD on Saturday * Less than traditional dose and/or extended dosing interval selected due to likelihood of drug accumulation in CKD. . Pharmacy will continue to follow and will adjust dose/frequency as necessary. Thank you.
[2017-05-03] MEDS: FUROSEMIDE 40 MG TAB PO SCH (20:38)
[2017-05-03] MEDS: MONTELUKAST SOD 10 MG TAB PO SCH (20:38)
[2017-05-03] MEDS: INSULIN GLARGINE SOLOSTAR 100 UNITS/ML 3 ML PEN SC SCH (20:41)
[2017-05-04 00:28] VITALS: BP 148/49; PULSE 59; TEMP 37.1; O2SAT 92
[2017-05-04] MEDS: ACETAMINOPHEN 325 MG TAB PO PRN (01:45)
[2017-05-04 04:00] VITALS: BP 151/57; PULSE 61; TEMP 36.6; O2SAT 90
[2017-05-04] MEDS: LEVOTHYROXINE 50 MCG TAB PO SCH (06:05)
[2017-05-04 06:12] LABS: BASO % 1.4 %; BASO ABS # 0.07 K/uL (0-0.2); COMPLETE YES; EOS % 10.6 %; HEMATOCRIT 31.9 % (37-47); IG% 0.2 %; LYMPH ABS # 0.87 K/uL (1.2-3.4); MEAN CELL VOLUME 83.5 fL (80-100); MEAN CORPUSCULAR HGB CONC 32.3 g/dl (32-36); MEAN PLATELET VOLUME 9.7 fL (7.4-10.4); MONO % 12.1 %; NEUT % 58.7 %; PLATELET COUNT 211 K/uL (130-400); RED BLOOD COUNT 3.82 M/uL (4.2-5.4); WHITE BLOOD COUNT 5.11 K/uL (4.8-10.8)
[2017-05-04 06:21] LABS: INR 1.2 (0.9-1.1); PROTHROMBIN TIME (PATIENT) 12.6 SECONDS (9.0-12.0)
[2017-05-04 06:48] LABS: BUN/CREATININE RATIO 5.7 (10-20); CALCIUM 8.4 mg/dl (8.5-10.1); CREATININE 5.76 mg/dl (0.60-1.20); MAGNESIUM 1.8 mg/dl (1.8-2.4); PHOSPHORUS 3.7 mg/dl (2.5-4.9); POTASSIUM 3.8 mmol/L (3.5-5.1)
[2017-05-04 07:40] VITALS: BP 156/56; PULSE 66; TEMP 36.7; O2SAT 90
[2017-05-04] MEDS: HEPARIN SOD 5000 UNIT/0.5 ML CARP SQ SCH (07:41)
[2017-05-04] MEDS: LORAZEPAM 1 MG TAB PO SCH (07:42)
[2017-05-04] MEDS: CEFEPIME IV 500 MG in SYRINGE 0 ML IV SCH (07:42)
[2017-05-04] MEDS: ASPIRIN 81 MG ECTAB PO SCH (07:42)
[2017-05-04] MEDS: NEPHROCAPS PO SCH (07:43)
[2017-05-04] MEDS: AMIODARONE 200 MG TAB PO SCH (07:43)
[2017-05-04] MEDS: ATORVASTATIN 20 MG TAB PO SCH (07:43)
[2017-05-04] MEDS: CHOLECALCIFEROL 1000 INTER.UNIT TAB PO SCH (07:43)
[2017-05-04] MEDS: CALCIUM ACETATE 667MG GELCAP PO SCH ×2 (07:43→12:10)
[2017-05-04] MEDS: CITALOPRAM 40 MG TAB PO SCH (07:43)
[2017-05-04] MEDS: CLOPIDOGREL BISULFATE 75 MG TAB PO SCH (07:43)
--- NOTE | 2017-05-04 08:16 | DIAGNOSTIC IMAGING REPORT ---
CHEST ONE VIEW PORTABLE CLINICAL HISTORY: Pleural effusions. COMPARISON STUDY: Chest radiograph April 30, [address] April 30, 2017. FINDINGS: Prosthetic aortic valve is noted. Moderate cardiomegaly is unchanged. There is no pneumothorax. Small bilateral pleural effusions are again noted. Interstitial alveolar opacities within the lungs have slightly improved. IMPRESSION: 1. Interval improvement in interstitial and alveolar opacities which could reflect improving pulmonary edema or pneumonia. 2. Small bilateral pleural effusions. Electronically signed by: Zev Hooks M.D. 05/04/2017 8:15 AM Dictated Date/Time: 05/04/2017 8:14 AM
--- NOTE | 2017-05-04 10:44 | Nephrology Progress Note ---
Nephrology Progress Note Date of Service May 04, 2017. Chief Complaint F/U for end-stage renal disease on hemodialysis while in hospital. Silvano Rivera Was seen and examined in her room this morning. Overall she is feeling much better, denies any shortness of breath or chest pain. Had dialysis yesterday, 3 liters ultra filtration. Currently blood pressure, volume status and electrolyte acceptable. Review of Systems A complete review of systems was performed. Pertinent positives are noted above. All other systems are negative. Vital Signs Last 8 Hrs Date Time Temp Pulse Resp B/P (MAP) Pulse Ox O2 Delivery O2 Flow Rate FiO2 05/04/17 08:00 Room Air 05/04/17 07:40 36.7 66 16 156/56 (89) 90 Room Air 05/04/17 04:00 Room Air 05/04/17 04:00 36.6 61 18 151/57 (88) 90 Room Air Last Recorded Weight Weight (Kilograms): 57.200 Physical Exam GENERAL: Middle-aged female , AAA x 3, pleasant not in any distress. NECK: Supple, no JVD. RESPIRATORY: Normal breathing efforts, no accessory muscle use, clear to auscultation bilaterally, no wheezes or rales. CARDIOVASCULAR: S1, S2 normal, rate rhythm regular. EXTREMITY: No lower extremity edema NEURO: speech fluent. PSYCHIATRY: Normal mood and judgment Social History Smokeless Tobacco Use: No Alcohol Use: none Drug Use: none Marital Status: Occupation: retired Laboratory Results Past 24 Hours 05/04/17 05:54 Red Blood Count 3.82, Mean Corpuscular Volume 83.5, Mean Corpuscular Hemoglobin 27.0, Mean Corpuscular Hemoglobin Concent 32.3, Mean Platelet Volume 9.7, Neutrophils (%) (Auto) 58.7, Lymphocytes (%) (Auto) 17.0, Monocytes (%) (Auto) 12.1, Eosinophils (%) (Auto) 10.6, Basophils (%) (Auto) 1.4, Neutrophils # (Auto ) 3.00, Lymphocytes # (Auto) 0.87, Monocytes # (Auto) 0.62, Eosinophils # (Auto ) 0.54, Basophils # (Auto) 0.07 05/04/17 05:54 Test 05/03/17 16:20 05/03/17 20:34 05/04/17 05:54 05/04/17 07:28 Bedside Glucose 140 mg/dl (70-90) 86 mg/dl (70-90) White Blood Count 5.11 K/uL (4.8-10.8) Red Blood Count 3.82 M/uL (4.2-5.4) Hemoglobin 10.3 g/dL (12.0-16.0) Hematocrit 31.9 % (37-47) Mean Corpuscular Volume 83.5 fL (80-100) Mean Corpuscular Hemoglobin 27.0 pg (25-34) Mean Corpuscular Hemoglobin Concent 32.3 g/dl (32-36) Platelet Count 211 K/uL (130-400) Mean Platelet Volume 9.7 fL (7.4-10.4) Neutrophils (%) (Auto) 58.7 % Lymphocytes (%) (Auto) 17.0 % Monocytes (%) (Auto) 12.1 % Eosinophils (%) (Auto) 10.6 % Basophils (%) (Auto) 1.4 % Neutrophils # (Auto) 3.00 K/uL (1.4-6.5) Lymphocytes # (Auto) 0.87 K/uL (1.2-3.4) Monocytes # (Auto) 0.62 K/uL (0.11-0.59) Eosinophils # (Auto) 0.54 K/uL (0-0.5) Basophils # (Auto) 0.07 K/uL (0-0.2) RDW Standard Deviation 55.2 fL (36.4-46.3) RDW Coefficient of Variation 18.6 % (11.5-14.5) Immature Granulocyte % (Auto) 0.2 % Immature Granulocyte # (Auto) 0.01 K/uL (0.00-0.02) Prothrombin Time 12.6 SECONDS (9.0-12.0) Prothromb Time International Ratio 1.2 (0.9-1.1) Anion Gap 9.0 mmol/L (3-11) Est Creatinine Clear Calc Drug Dose 8.2 ml/min Estimated GFR () 8.0 Estimated GFR (Non- 6.9 BUN/Creatinine Ratio 5.7 (10-20) Calcium Level 8.4 mg/dl (8.5-10.1) Phosphorus Level 3.7 mg/dl (2.5-4.9) Magnesium Level 1.8 mg/dl (1.8-2.4) Total Bilirubin 0.5 mg/dl (0.2-1) Direct Bilirubin 0.2 mg/dl (0-0.2) Aspartate Amino Transf (AST/SGOT) 31 U/L (15-37) Alanine Aminotransferase (ALT/SGPT) 40 U/L (12-78) Alkaline Phosphatase 70 U/L (45-117) Total Protein 6.5 gm/dl (6.4-8.2) Albumin 2.9 gm/dl (3.4-5.0) Allergies Coded Allergies: Fentanyl (Verified Allergy, Intermediate, HIVES, 04/30/17) Medications Current Inpatient Medications Medications (Trade) Dose Ordered Sig/Janice Route Start Time Stop Time Status Last Admin Dose Admin Acetaminophen (Tylenol Tab) 650 mg Q4H PRN PO 04/30/17 19:45 05/30/17 19:44 05/04/17 01:45 650 MG Lorazepam (Ativan Inj) 0.5 mg Q4H PRN IV 04/30/17 19:45 05/30/17 19:44 Morphine Sulfate (MoRPHine SULFATE INJ) 2 mg Q2H PRN IV 04/30/17 19:45 05/14/17 19:44 Lorazepam 0.5 mg/ Syringe 1 ml @ 1 mls/min Q4H PRN IV 04/30/17 20:00 05/30/17 19:59 Amiodarone HCl (Cordarone Tab) 200 mg DAILY PO 05/01/17 09:00 05/31/17 08:59 05/04/17 07:43 200 MG Atorvastatin Calcium (Lipitor Tab) 20 mg DAILY PO 05/01/17 09:00 05/31/17 08:59 05/04/17 07:43 20 MG Calcium Acetate (Phoslo Cap) 667 mg TIDM PO 05/01/17 07:15 05/31/17 07:14 05/04/17 07:43 667 MG Cholecalciferol (Vitamin D Tab) 1,000 inter.unit DAILY PO 05/01/17 09:00 05/31/17 08:59 05/04/17 07:43 1,000 INTER.UNIT Citalopram Hydrobromide (celeXA TAB) 60 mg DAILY PO 05/01/17 09:00 05/31/17 08:59 05/04/17 07:43 60 MG Furosemide (Lasix Tab) 40 mg HS PO 04/30/17 21:00 05/30/17 20:59 05/03/17 20:38 40 MG Insulin Glargine (Lantus Solostar Pen) 4 units QPM SC 04/30/17 21:00 05/30/17 20:59 05/03/17 20:41 4 UNITS Levothyroxine Sodium (Synthroid Tab) 50 mcg DAILYBB PO 05/01/17 06:00 05/31/17 05:59 05/04/17 06:05 50 MCG Lorazepam (Ativan Tab) 1 mg BID PO 04/30/17 21:00 05/30/17 20:59 05/04/17 07:42 1 MG Montelukast Sodium (Singulair Tab) 10 mg QPM PO 05/01/17 21:00 05/31/17 20:59 05/03/17 20:38 10 MG Hydralazine HCl (HydrALAZINE INJ) 10 mg Q8H PRN IV. 04/30/17 20:45 05/30/17 20:44 Glucose (Glucose 40% Gel) 15-30 GRAMS 15 GRAMS... UD PRN PO 04/30/17 21:00 05/30/17 20:59 Glucose (Glucose Chew Tab) 4-8 Tablets 4 Tabl... UD PRN PO 04/30/17 21:00 05/30/17 20:59 Dextrose (Dextrose 50% 50ML Syringe) 25-50ML OF 50% DW IV FOR... UD PRN IV 04/30/17 21:00 05/30/17 20:59 Glucagon (Glucagon Inj) 1 mg UD PRN SQ 04/30/17 21:00 05/30/17 20:59 Heparin Sodium (Porcine) (Heparin Sq 5000 Unit/0.5ml) 5,000 unit Q12 SQ 05/01/17 09:00 05/31/17 08:59 05/04/17 07:41 5,000 UNIT Vitamin B Complex/ Vit C/Folic Acid (Nephrocaps) 1 cap QAM PO 05/02/17 09:00 06/01/17 08:59 05/04/17 07:43 1 CAP Aspirin (Ecotrin Tab) 81 mg DAILY PO 05/02/17 09:00 06/01/17 08:59 05/04/17 07:42 81 MG Clopidogrel Bisulfate (plAVix TAB) 75 mg DAILY PO 05/02/17 09:00 06/01/17 08:59 05/04/17 07:43 75 MG Cefepime HCl (Consult) 1 ea UD PRN N/A 05/02/17 14:00 06/01/17 13:59 Vancomycin HCl (Consult) 1 ea UD PRN N/A 05/02/17 14:00 06/01/17 13:59 Cefepime HCl 500 mg/Syringe 5.5 ml @ 5.5 mls/min DAILY@1400 IV 05/03/17 14:00 05/08/17 14:00 05/04/17 07:42 5.5 MLS/MIN Impression (1) End stage renal disease on dialysis (2) Secondary hyperparathyroidism of renal origin (3) Anemia (4) Diastolic CHF (5) Hypertension uLis A Is a 71-year-old female with 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 Last dialysis was 3 days ago and she missed dialysis yesterday. Currently electrolyte and volume status acceptable. Blood pressure acceptable. She presented to the hospital with progressive shortness of breath and weakness. She was found to be bradycardic. Currently her shortness of breath totally resolved. She is being continued on amiodarone, metoprolol and amlodipine was discontinued. She was also recently found to have lung nodule, workup underway, pulmonary consulted for further management. Recommendations - overall doing well, asymptomatic, tolerated hemodialysis well, tolerated UF 3 liters. --continue on renal diet --Nephrocaps 1 capsule daily, PhosLo as phosphate binder --Epogen 4000 units given on 05/01/17 --avoid IV fluid --okay to be discharged, her next dialysis will be on Saturday at outpatient unit Will follow
[2017-05-04] MEDS ORDERED: LEVO1TAB35 PO (11:11)
--- NOTE | 2017-05-04 11:32 | Discharge Instructions ---
Discharge Instructions Date of Service May 04, 2017. Admission Reason for Admission: Respiratory Failure Discharge Discharge Diagnosis / Problem: Hospital Acquired Pneumonia Discharge Goals Goal(s): Improve function, Therapeutic intervention Activity Recommendations Activity Limitations: as noted below Lifting Limitations: gradually increase as tolerated Exercise/Sports Limitations: gradually increase as tolerated Shower/Bathe: no limitations . Instructions / Follow-Up Instructions / Follow-Up You were treated in the hospital for multiple problems listed below: 1) Cough and shortness of breath - This was found to be due to a pneumonia that was treated with IV antibiotics. You cough and breathing improved and you no longer required oxygen. You will be sent home with an oral antibiotic to take for 7 days 2) Slow Heart Rate: We stopped your home Metoprolol and your heart rate improved 3) Excess fluid in your lungs - We treated you with a diuretic (Lasix) and also dialysis Medications: - STOP TAKING METOPROLOL - this is the medication that was slowing your heart rate - Levaquin 750mg Tablet - Take 1 Tablet daily for the next 7 days - Continue taking Amiodarone at your previous dose - Resume your remaining home medications - Please follow up with your primary care doctor in 2-3 days for a recheck of your condition - Please follow up with Dr. Palafox as an outpatient- Case management will schedule this appointment for you - If you present with any worsening symptoms including cough, shortness of breath, chest pain, lightheadedness, confusion, or any other confusing symptoms please return to the emergency department or be evaluated by a doctor Current Hospital Diet Patient's current hospital diet: AHA Diet (Heart Healthy), Renal Diet Discharge Diet Recommended Diet: Diabetes Type 2 Diet Pending Studies Studies pending at discharge: no Medical Emergencies . Who to Call and When: Medical Emergencies: If at any time you feel your situation is an emergency, please call 911 immediately. . Non-Emergent Contact Non-Emergency issues call your: Primary Care Provider, [facility] . . "Provider Documentation" section prepared by Yao Barkley. . VTE Core Measure Inpt VTE Proph given/why not?: Unfractionated heparin SQ Resident Tracking Resident Involvement: Resident Care Provided Care Provided: Adult Hospital Medicine
[2017-05-04 11:37] VITALS: BP 156/56; PULSE 66; TEMP 36.7; O2SAT 90
--- NOTE | 2017-05-04 16:03 | Discharge Summary ---
Discharge Summary Date of Service May 04, 2017. (Yao Barkley MD) Discharge Summary Admission Date: Apr 30, 2017 at 19:39 Discharge Date: May 04, 2017 Discharge Disposition: Home Principal Diagnosis: Hospital Acquired Pneumonia Problems/Secondary Diagnoses: Bradycardia, Acute on Chronic Renal Failure, Congestive Heart Failure (Yao Barkley MD) Medication Reconciliation New Medications: Levofloxacin (Levaquin) 750 Mg Tab 750 MG PO DAILY for 7 Days, #7 TAB Continued Medications: Amiodarone Hcl (Cordarone) 200 Mg Tab 200 MG PO DAILY, TAB Amlodipine (Norvasc) 10 Mg Tab 10 MG PO BID, TAB Aspirin (Aspirin Ec) 81 Mg Tab 81 MG PO DAILY Atorvastatin (Lipitor) 20 Mg Tab 20 MG PO DAILY, TAB Benzonatate (Tessalon Perles) 100 Mg Cap 100 MG PO TID, CAP Calcium Acetate (Phoslo 667 Mg) 667 Mg Cap 1 CAP PO TIDM, CAP Cholecalciferol (Vitamin D3) 1,000 Unit Tab 1 TAB PO DAILY for 30 Days, #30 TAB 5 Refills Citalopram (Citalopram Hydrobromide) 40 Mg Tab 1.5 TAB PO DAILY for 90 Days, #135 TAB 1 Refill Clopidogrel (Plavix) 75 Mg Tab 75 MG PO DAILY, TAB Furosemide (Lasix) 40 Mg Tab 40 MG PO HS, TAB Hydralazine Hcl (Apresoline) 50 Mg Tab 25 MG PO TID, TAB Insulin Glargine (Lantus) 100 Unit/Ml Inj 4 UNITS SC QPM, VIAL Levothyroxine Sodium (Synthroid) 50 Mcg Tab 50 MCG PO DAILY, TAB Lorazepam (Ativan) 1 Mg Tab 1 MG PO BID, TAB Montelukast Sodium (Montelukast Sodium) 10 Mg Tab 1 TAB PO DAILY for 30 Days, #30 TAB 5 Refills Discontinued Medications: Furosemide (Lasix) 80 Mg Tab 80 MG PO DAILY, TAB Metoprolol Tartrate (Lopressor) (Lopressor) 25 Mg Tab 25 MG PO BID, TAB Discharge Exam Review of Systems: Constitutional: No fever, No chills, No fatigue Respiratory: No cough, No sputum, No wheezing, No shortness of breath, No dyspnea on exertion, No dyspnea at rest Cardiovascular: No chest pain, No palpitations Abdomen: No pain, No nausea, No vomiting, No diarrhea, No constipation Genitourinary - Female: No dysuria Physical Exam: General Appearance: WD/WN, no apparent distress, + thin Eyes: normal inspection, sclerae normal Neck: supple, no carotid bruits Respiratory/Chest: chest non-tender, lungs clear, normal breath sounds Cardiovascular: regular rate, rhythm, no edema, no gallop, + systolic murmur Abdomen / GI: normal bowel sounds, non tender, soft Extremities: no calf tenderness, no pedal edema Neurologic/Psychiatric: alert, normal mood/affect, oriented x 3 (Yao Barkley MD) Hospital Course Patient is a 71 year old female that was seen by Dr Palafox at [facility] and transferred to [facility] due to multiple issues including chronic cough with questionable findings on imaging including possible pneumonia/ pulm nodules, Dialysis management, and bradycardia 1) Hospital Acquired Pneumonia - The patient was initially complaining of shortness of breath that improved throughout hospital admission after both diuresis and IV antibiotics. There appeared to be some fluid on the CT scan concerning for fluid overload in addition to a pneumonia. After the patient was treated for 4 days with IV antibiotics including vancomycin and cefepime, the patient will be discharged home on an additional 7 days of Levaquin. The patient was also treated Lasix as an inpatient, will be discharged under home Lasix dosing. -On admission the patient was initially requiring 4 L of oxygen to maintain an O2 sat of greater than 90%, although on discharge the patient was able to ambulate well without requiring any oxygen and was discharged home on room air. - Chest CT shows a right sided pneumonia - Vancomycin + Cefepime IV --> Received 4 days of IV antibiotics - CXR: Right sided effusion/ consolidation - effusion vs infection vs neoplasm - Pulmonary consult --> Do not recommend bronchoscopy at this time. Recommend first addressing bradycardia and consider bronchoscopy/ further management as an outpatient. Pleural effusion are most likely secondary to heart failure and should improve with diuresis, but if no improvement can consider thoracentesis ( patient would prefer medical management at this time). - Also recommend that patient has PFTs and polysomnography done as an outpatient 2) Bradycardia - The patient was initially bradycardic with heart rates in the 50s and on admission had her home metoprolol as well as other blood sugar medications held. While these medications were held her heart rate consistently improved until discharge at which point her heart rate was regularly in the 60s. Therefore a discharge we will continue to hold her home metoprolol, but resume her home amlodipine and amlodipine. - Currently asymptomatic - Cardiology recommends continuing amiodarone 200 mg - No pacemaker placement indicated at this time --> Continue medical management for the time being 3) End stage renal disease, on dialysis - When the patient arrived she had a creatinine above 7, and participated in her regular dialysis on both Saturday as well as Saturday. She was also in fluid overload so the hand booked folder and stitcher increased the ultrafiltrate on the dialysis machine adding to her improvement. The patient will resume her normal dialysis schedule on Saturday. - CT scan shows fluid overload --> Increase ultrafiltrate tomorrow during dialysis - Nephrology consulted - Hemodialysis performed today (on both Saturday and Saturday) -> Epogen 4000 units given during dialysis 4) Chronic Diastolic CHF - Lasix 40mg PO daily (Home medication) ECHO RESULTS reviewed and posted below: Transthoracic echocardiogram 05/03/2017 * -- Conclusions -- * 1. Normal LV size, mild concentric LVH. * 2. Normal LV systolic function. LVEF 65-70%. No regional wall motion abnormalities. * 3. Borderline dilated RV with normal RV function. * 4. Well-seated, Bryce TAVR with mild to moderate paravalvular and valvular aortic regurgitation. Elevated transvalvular gradients (PV 4.0, MG 39.7). * 5. Severe mitral annular calcification with mild mitral stenosis and mild mitral regurgitation. * 6. Grade II diastolic dysfunction. * 7. Pulmonary hypertension. Est PASP 45-50 mmHg. Dilated IVC. Est RA 15 mmHg. * 8. No prior studies for comparison. 5) Hypertension -Metoprolol, hydralazine, and amlodipine were held throughout her admission, although we will restart the hydralazine and amlodipine on discharge the metoprolol will be discontinued - PRN Hydralazine IV for SBP > 170 or DBP > 110 6) Hx of TIA - Resume Aspirin and Plavix 7) Hypothyroidism - Continue Synthroid 50mcg 8) Left upper lobe nodule - Follow up in 1 year Code status: Full Dispo: Admitted to ICU VTE: SCDs Total Time Spent: Greater than 30 minutes This includes examination of the patient, discharge planning, medication reconciliation, and communication with other providers. (Yao Barkley MD) I agree with resident assessment and plan and have seen and examined pt myself Resting comfortably in bed Noted bradycardia although asymptomatic Labs reviewed Cont amio at this time, DC metoprolol Appreciate pulm and cards recs Cont antibx for HCAP, levaquin on DC ESRD - HD per nephro (Fredy Pruett D.OTorito) Discharge Instructions Please refer to the electronic Patient Visit Report (Discharge Instructions) for additional information. (Yao Barkley MD) Additional Copies To Alan Kelley M.D. Resident Tracking Resident Involvement: Resident Care Provided Care Provided: Adult Hospital Medicine (Yao Barkley MD)
[2017-05-05 02:36] LABS: AMIODARONE 0.4 mcg/mL (1.5-2.5); DESMETHYLAMIODARONE 0.5 mcg/mL (1.5-2.5)
[2017-05-06 23:31] LABS: MYELOPEROXIDASE AB <1.0 AI (<1.0)
== END 2017-05-04 12:58 | disposition home or self-care (01) | DRG 193 ==
LOC: UNDOADMIN 18:45 → C.MSICU 18:45 → C.MED 05-01 08:12 → EDBEDREQSVC 05-01 08:45 → ENRESERV 05-01 08:48
PROVIDERS: ADMIT Family Medicine; ATTEND Hospitalist
DX: J18.9 Pneumonia, unspecified organism (principal); N18.6 End stage renal disease; I13.2 Hypertensive heart and chronic kidney disease with heart failure and with stage 5 chronic kidney disease, or end stage renal disease; I50.32 Chronic diastolic (congestive) heart failure; J96.10 Chronic respiratory failure, unspecified whether with hypoxia or hypercapnia; R00.1 Bradycardia, unspecified; Z99.2 Dependence on renal dialysis; Z79.4 Long term (current) use of insulin; F32.9 Major depressive disorder, single episode, unspecified; F41.9 Anxiety disorder, unspecified; E03.9 Hypothyroidism, unspecified; Z95.2 Presence of prosthetic heart valve; Z79.82 Long term (current) use of aspirin; Z86.73 Personal history of transient ischemic attack (TIA), and cerebral infarction without residual deficits; Z86.718 Personal history of other venous thrombosis and embolism; E11.22 Type 2 diabetes mellitus with diabetic chronic kidney disease; I50.9 Heart failure, unspecified; R91.1 Solitary pulmonary nodule

== ENCOUNTER 2017-05-12 16:51 | Inpatient (IN) | payer OTHER ==
[~2017-05-12] VITALS: Ht 167.6 cm; Wt 52.3 kg
[~2017-05-12 16:51] MED LIST: AMIO200T4 PO; AMLO-114 PO; ASPI81TA28 PO; ATOR-54 PO; ATV/1 PO; BENZ100C84 PO; CALC667C4 PO; CHOL1000 PO; CITA40TA4 PO; CLOP1TAB15 PO; FRS/40 PO; HYDR-4717 PO; INSDGI SC; LEVO1TAB35 PO; LEVO50TA PO; MONT1TAB5 PO
[2017-05-12 19:11] VITALS: Ht 167.6 cm; Wt 52.3 kg
[2017-05-12 19:12] VITALS: BP 123/43; PULSE 62; TEMP 36.8; O2SAT 91
[2017-05-12 20:00] VITALS: O2SAT 91
--- NOTE | 2017-05-12 20:35 | History and Physical ---
History & Physical Date & Time of Service: May 12, 2017 at 20:35 Chief Complaint: Acute Chf Primary Care Physician: Alan Kelley M.D. History of Present Illness Source: patient, hospital records Mrs Nicole Up is a 71 year old female with CKD, on dialysis, diastolic CHF, hypertension, and history of aortic valve replacement 3 years ago who initially presented to [facility] earlier today with severe shortness of breath. She was recently discharged from our facility after an admission 04/30 to . She was found to have a hospital-acquired pneumonia at that time, received 4 days of IV abx then was switched to PO Levaquin, and was discharged home on room air. During that time she was also bradycardic, and so her metoprolol was stopped. She reports she has recently been wearing 2L of oxygen at home daily, and reports worsening shortness of breath the last 2-3 days. She would require leaning on her for support to walk. She went to [facility] and required 4L of oxygen. She also receives dialsysis Sat/Sat/Sat. She was found to have an acute on chronic CHF exacerbation, given 40mg Lasix IV, and was transferred here for further management of these conditions. She currently feels ok, and is saturating around 90% on 4L. Past Medical/Surgical History Medical Problems: (1) Anemia (2) Bradycardia (3) Chronic kidney disease (4) Chronic kidney disease, stage V requiring chronic dialysis (5) Congestive heart failure (6) Diabetes (7) Diastolic CHF (8) Dyspnea (9) End stage renal disease on dialysis (10) Hemodialysis patient (11) History of CVA (cerebrovascular accident) (12) Hypertension (13) Hypothyroidism (14) On home oxygen therapy (15) Pleural effusion (16) Pleural effusion (17) Pulmonary nodules (18) Secondary hyperparathyroidism of renal origin (19) Shortness of breath Family History No pertinent FHx Social History - Lives at home with , takes care of her quadriplegic son - Nonsmoker - Ex-drinker, stopped 25 years ago - 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 Smoking Status: Never Smoker Smokeless Tobacco Use: No Alcohol Use: none Drug Use: none Marital Status: Housing status: lives with family Occupational Status: retired Immunizations History of Influenza Vaccine: Unknown History of Tetanus Vaccine?: Unknown History of Pneumococcal: Unknown History of Hepatitis B Vaccine: Unknown Multi-Drug Resistant Organisms History of MDRO: No Allergies Coded Allergies: Fentanyl (Verified Allergy, Intermediate, HIVES, 04/30/17) Home Medications Scheduled Amiodarone Hcl (Cordarone), 200 MG PO DAILY Amlodipine (Norvasc), 10 MG PO BID Aspirin (Aspirin Ec), 81 MG PO DAILY Atorvastatin (Lipitor), 20 MG PO DAILY Benzonatate (Tessalon Perles), 100 MG PO TID Calcium Acetate (Phoslo 667 Mg), 1 CAP PO TIDM Cholecalciferol (Vitamin D3), 1 TAB PO DAILY Citalopram (Citalopram Hydrobromide), 1.5 TAB PO DAILY Clopidogrel (Plavix), 75 MG PO DAILY Furosemide (Lasix), 40 MG PO HS Hydralazine Hcl (Apresoline), 25 MG PO TID Insulin Glargine (Lantus), 4 UNITS SC QPM Levothyroxine Sodium (Synthroid), 50 MCG PO DAILY Lorazepam (Ativan), 1 MG PO BID Montelukast Sodium (Montelukast Sodium), 1 TAB PO DAILY Review of Systems See HPI for pertinent positives & negatives. A total of 10 systems reviewed and were otherwise negative. Physical Exam Vital Signs Date Time Temp Pulse Resp B/P (MAP) Pulse Ox O2 Delivery O2 Flow Rate FiO2 05/12/17 19:12 36.8 62 20 123/43 91 Nasal Cannula 4.0 General Appearance: WD/WN, no apparent distress, + thin Head: normocephalic, atraumatic Eyes: normal inspection, PERRL ENT: hearing grossly normal Neck: supple, no JVD Respiratory/Chest: lungs clear, normal breath sounds, no respiratory distress, no accessory muscle use Cardiovascular: regular rate, rhythm, no murmur, normal peripheral pulses Abdomen/GI: normal bowel sounds, non tender, soft Back: normal inspection, no CVA tenderness, no muscle spasm, normal range of motion Extremities/Musculoskelatal: normal inspection, no calf tenderness, no pedal edema Neurologic/Psych: alert, normal mood/affect, oriented x 3 Skin: warm/dry, no rash Diagnostics Laboratory Results Results Past 24 Hours Test 05/12/17 20:20 Range/Units Impression Assessment and Plan 71 yo F, transferred from [facility] for evaluation and management of acute on chronic diastolic congestive heart failure. Acute on chronic diastolic heart failure - Received 40mg IV Lasix prior to now. She is anuric, the mclean placed at [facility] has now been removed. Will repeat CXR and evaluate. - Cardiology consult. - Continue NADIRA-I, Aspirin, Statin. She is not on a beta caleb due to bradycardia last admission. - Echo completed last admission, will not repeat now Chronic kidney disease, on dialysis - Nephrology consult for dialysis. Home regime Sat/Sat/Sat Troponin elevation - Repeat troponin now, pt has been asymptomatic Hx of TIA - Continue plavix / aspirin Chronic anemia - Continue to monitor Acute hypoxic respiratory failure - Repeat CXR to evaluate - Wean O2 as tolerated Type 2 DM - Continue Lantus 4 units HS VTE: Heparin Dispo: Admit to Tele Code status: Full Attending Addendum: I have physically seen and examined this patient, have directed the resident's medical activities, and agree with the H&P as noted above with the following exceptions as noted. The patient is awake, alert and oriented 3, well-developed and well-nourished , normocephalic and atraumatic, lying in bed and in no acute distress. HEENT--PERRL, EOMI, mucous membranes and oropharynx dry. Neck--supple, no JVD or bruits, thyroid normal, trachea midline, no adenopathy. Heart--normal S1 and S2, no extra beats, no murmurs, rubs or gallops. Lungs--clear bilaterally with good air movement, no respiratory distress, no accessory muscle use. Abdomen--normal bowel sounds and soft, nontender and nondistended, no hernias or masses, no organomegaly. Extremities--no cyanosis, clubbing or edema. There are good distal pulses b/l. Dermatologic--normal skin turgor, normal color, warm and dry, no abnormal lymph nodes, no rash. Neurologic--cranial nerves II through XII grossly intact. Rheumatologic--normal range of motion. Psychiatric--normal affect. Assessment and Plan: 1. Acute on chronic diastolic heart failure/elevated troponin/chronic kidney disease on hemodialysis-- Admitted to the telemetry unit Serial cardiac enzymes Received Lasix 40 mg IV at [facility] Repeat chest x-ray now Looks clinically stable Due for dialysis tomorrow, Saturday. Continue nasal cannula oxygen, titrated to keep pulse ox greater than or equal to 92%. Continue all current medications 2. Diabetes mellitus-- Continue Lantus [address] on Accu-Cheks before meals and at bedtime with NovoLog coverage per scale. 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 Y/N: Yes Risk Level: Moderate Given or contraindicated: SCD's
[2017-05-12 21:29] LABS: CALCIUM 9.5 mg/dl (8.5-10.1); CREATININE 7.16 mg/dl (0.60-1.20); POTASSIUM 4.3 mmol/L (3.5-5.1)
[2017-05-12] MEDS ORDERED: DEXTROSE 50% 50 ML SYR IV PRN (21:45)
[2017-05-12] MEDS ORDERED: GLUCOSE 10 TABS/TUBE PO PRN (21:45)
[2017-05-12] MEDS ORDERED: GLUCAGON FOR INJ 1 MG VIAL SQ PRN (21:45)
[2017-05-12] MEDS ORDERED: GLUCOSE 40% GEL 15 GM TUBE PO PRN (21:45)
[2017-05-12 22:48] VITALS: BP 128/59; PULSE 63; O2SAT 91
--- NOTE | 2017-05-12 22:57 | DIAGNOSTIC IMAGING REPORT ---
SINGLE VIEW CHEST CLINICAL HISTORY: Dyspnea. FINDINGS: An AP, portable, upright chest radiograph is compared to study dated 05/04/2017 and correlated with chest CT dated 05/01/2017. The examination is degraded by portable technique and patient rotation. The heart is enlarged and there is atherosclerotic calcification of the thoracic aorta. Postoperative change is noted at the aortic valve. There is pulmonary vascular congestion. Bilateral airspace opacities are observed. Trace pleural effusions are identified. No pneumothorax is seen. The skeletal structures are osteopenic. The bony thorax is grossly intact. IMPRESSION: 1. Cardiomegaly with pulmonary vascular congestion. 2. There are bilateral patchy airspace opacities, similar to recent prior studies. This could represent pulmonary edema and/or multifocal pneumonia. Clinical correlation will be essential. 3. Small pleural effusions. Electronically signed by: Joe Wayne M.D. 05/12/2017 10:56 PM Dictated Date/Time: 05/12/2017 10:54 PM
[2017-05-12] MEDS ORDERED: LORAZEPAM 1 MG TAB PO SCH (23:30)
[2017-05-13] VITALS (25 sets, daily range): BP systolic 95–145; BP diastolic 36–65; PULSE 55–71; TEMP 36.3–36.9; O2SAT 89–100
[2017-05-13] MEDS: ACETAMINOPHEN 325 MG TAB PO PRN ×4 (02:06→19:37)
[2017-05-13 05:46] LABS: BASO % 1.5 %; EOS % 1.8 %; EOS ABS # 0.12 K/uL (0-0.5); HEMATOCRIT 27.3 % (37-47); HEMOGLOBIN 9.3 g/dL (12.0-16.0); IG# 0.03 K/uL (0.00-0.02); LYMPH % 10.4 %; LYMPH ABS # 0.68 K/uL (1.2-3.4); MEAN CELL VOLUME 80.8 fL (80-100); MEAN CORPUSCULAR HEMOGLOBIN 27.5 pg (25-34); MEAN CORPUSCULAR HGB CONC 34.1 g/dl (32-36); MEAN PLATELET VOLUME 9.9 fL (7.4-10.4); MONO % 13.5 %; MONO ABS # 0.88 K/uL (0.11-0.59); NEUT % 72.3 %; PLATELET COUNT 178 K/uL (130-400); RED CELL DISTRIBUTION WIDTH CV 18.5 % (11.5-14.5); RED CELL DISTRIBUTION WIDTH SD 54.8 fL (36.4-46.3); WHITE BLOOD COUNT 6.51 K/uL (4.8-10.8)
[2017-05-13] MEDS: LEVOTHYROXINE 50 MCG TAB PO SCH (06:16)
[2017-05-13 06:33] LABS: CREATININE 7.5 mg/dl (0.60-1.20); POTASSIUM 4.5 mmol/L (3.5-5.1)
[2017-05-13] MEDS: BENZONATATE 100MG CAP PO SCH ×3 (08:04→21:00)
[2017-05-13] MEDS: CITALOPRAM 40 MG TAB PO SCH (08:04)
[2017-05-13] MEDS: CALCIUM ACETATE 667MG GELCAP PO SCH ×3 (08:05→17:19)
[2017-05-13] MEDS: ATORVASTATIN 20 MG TAB PO SCH (08:05)
[2017-05-13] MEDS: CHOLECALCIFEROL 1000 INTER.UNIT TAB PO SCH (08:05)
[2017-05-13] MEDS: ASPIRIN 81 MG ECTAB PO SCH (08:05)
[2017-05-13] MEDS: CLOPIDOGREL BISULFATE 75 MG TAB PO SCH (08:05)
[2017-05-13] MEDS: MONTELUKAST SOD 10 MG TAB PO SCH (08:05)
[2017-05-13] MEDS: LORAZEPAM 1 MG TAB PO SCH ×2 (08:09→21:27)
[2017-05-13] MEDS ORDERED: AMLODIPINE BESYLATE 5 MG TAB PO SCH (09:00)
[2017-05-13] MEDS ORDERED: METOPROLOL SUCC 25MG EXT REL TAB PO ONE (10:00)
--- NOTE | 2017-05-13 10:37 | CARDIOLOGY CONSULTATION REPORT ---
DATE OF CONSULTATION: 05/13/2017 REASON FOR CONSULTATION: Acute on chronic diastolic CHF. HISTORY OF PRESENT ILLNESS: Mrs. Up is a very pleasant 71-year-old -[place] female with a history of Type 2 DM with multiple complications, End-Stage Renal Disease on hemodialysis, Hypertension, Dyslipidemia, LVH with Diastolic Dysfunction, Hypothyroidism, Autoimmune Hepatitis, Symptomatic PVCs, prior CVA, Depression, Anemia of Chronic Disease, Severe Aortic Stenosis s/p TAVR 4 years ago, Minimal CAD on pre TAVR Cardiac Catheterization, Prolonged QT Interval, and a history of a Wide Complex Tachycardia associated with unresponsiveness February 2017 (possibly Torsades de pointes) who was admitted acutely to our facility on 05/12/2017 after developing progressive shortness of breath, dyspnea on exertion, chest congestion and orthopnea. This began 2 days ago, and got worse yesterday which is what prompted her visit to the hospital. The patient does receive hemodialysis every Saturday, Saturday and Saturday. She has Oliguric Renal Failure, and is typically maintained on furosemide 40 mg by mouth daily. At her last visit (at the end of April 2017), she was markedly bradycardic. We discontinued her metoprolol at that time, but continued on her usual doses of Amiodarone 200 mg a day, Hydralazine, and Norvasc 10 mg a day. The patient cannot think of any triggers which brought this on. She denies any recent salt loads in her diet, and her body weight has been stable (body weights are actually down from when she was last hospitalized). The patient offers no other complaints. She denies any chest pain, heaviness, tightness, pressure, or discomfort. She denies any neck, jaw, back, or arm pain. She denies any palpitations, tachy palpitations, syncope, or near syncope. MEDICATIONS: 1. Lantus insulin 4 units subcutaneous injection q. p.m. 2. Amiodarone 200 mg daily. 3. Aspirin 81 mg daily. 4. Lipitor 20 mg daily. 5. Tessalon Perles 100 mg t.i.d. 6. Vitamin D 1000 international units daily. 7. Celexa 60 mg daily. 8. Plavix 75 mg daily. 9. Hydralazine 25 mg p.o. t.i.d. 10. Lorazepam 1 mg b.i.d. 11. Singulair 10 mg daily. 12. Norvasc 10 mg daily. 13. PhosLo 667 mg t.i.d. 14. Levothyroxine 50 mcg daily. 15. Tylenol 650 mg p.o. q.4 hours p.r.n. ALLERGIES: FENTANYL. PAST MEDICAL HISTORY: 1. Insulin requiring type 2 diabetes mellitus. 2. Aortic Stenosis s/p TAVR 4 years ago. 3. Minimal CAD on pre TAVR cardiac catheterization 4 years ago. 4. Hypertension. 5. Dyslipidemia. 6. Hypothyroidism. 7. History of long QT interval. 8. History of symptomatic PVCs. 9. History of CVA. 10. 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 11. Lung nodule, workup is currently underway. 12. Hypertensive heart disease. 13. History of diastolic CHF. 14. History of respiratory failure. 15. Depression. 16. Anemia associated with chronic kidney disease. 17. Autoimmune hepatitis. 18. History of wide complex tachycardia associated with unresponsiveness, possibly torsades as reported on chart. 19. History of chronic DVT, right upper extremity. 20. Chronic cough. 21. Fatty liver. 22. History of bilateral cataracts. 23. Status post appendectomy. 24. History of C section. 25. History of hand surgery. 26. Umbilical hernia repair. 27. History of kidney biopsy. SOCIAL HISTORY: The patient is and lives with her . She has a newly quadriplegic son that she and her care for. 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 The patient is a lifelong nonsmoker but has had significant secondhand smoke exposure. Previously drank beer, but has not had any for the past year. Does not use any over the counter medications. FAMILY HISTORY: Noncontributory. PHYSICAL EXAMINATION: VITAL SIGNS: Temperature 36.9 degrees Celsius, pulse is 69 and regular, respiratory rate 22, blood pressure is 124/55, SpO2 is 96% on 6 liters of oxygen via nasal cannula. I&O's - positive 222 mL so far overnight. Body weight 55.9 kilograms, this is down 1.2 kilograms since her discharge on 05/04/2017. GENERAL: Chronically ill appearing female in no acute distress. HEENT: Head is atraumatic, normocephalic. EOMs intact. Sclerae are anicteric. Face is symmetric. No perioral cyanosis. NECK: Jugular venous pressure is elevated, approximately 1/[address] to the angle of jaw lying at a 45 degree angle. Positive hepatojugular reflux. CHEST AND LUNGS: With diminished breath sounds throughout, occasional crackles in the lower lung toro. No obvious wheezes at this time. CARDIOVASCULAR: S1 and S2 are regular with a grade 2/6 basal systolic murmur heard best over the right second intercostal space, radiating to the suprasternal notch and left sternal border. No diastolic murmur appreciated. PMI is nondisplaced. No lifts, heaves, or thrills. No abdominal aortic or renal bruits. ABDOMEN: Bowel sounds are present. No masses, organomegaly, or tenderness. EXTREMITIES: No edema. Intact dorsalis pedis posterior tibial pulses bilaterally. Normal radial pulses bilaterally. There is a palpable thrill over her AV fistula in the right upper extremity. NEUROLOGIC: The patient is awake, alert and interactive. Pleasant and cooperative. Answers questions appropriately. Speech is clear. Normal movement of all 4 extremities. Gait pattern not assessed. EKG on admission shows normal sinus rhythm at 68 beats per minute, possible left atrial enlargement, LVH by voltage criteria and lateral T wave abnormality most notable in V5. V6 has a lot of baseline wander, difficult to assess. Telemetry monitoring reveals sinus rhythm to sinus bradycardia throughout her hospitalization. ECHOCARDIOGRAM, 05/02/2017: 1. Normal LV size with mild concentric LVH. 2. LVEF 65%-70%, no regional wall motion abnormalities. 3. Borderline dilated RV with normal RV systolic function. 4. Well seated SHYLA TAVR with mild to moderate paravalvular and valvular aortic regurgitation. Elevated transvalvular gradient. 5. Severe mitral annular calcification with mild mitral stenosis and mild mitral regurgitation. 6. Grade 2 diastolic dysfunction. 7. Pulmonary hypertension with an estimated pulmonary artery systolic pressure of 45-50 mmHg, dilated IVC. LABORATORY DATA: White blood cell count of 6.51, hemoglobin is 9.3 g/dL, hematocrit 27.3%, platelet count 178,000. Sodium is 130 mmol/L, potassium 4.5 mmol/L, BUN is 65 mg/dL, creatinine is 7.50 mg/dL, random glucose of 95 mg/dL. Magnesium level on admission was 2.2 mg/dL. Initial troponin I 0.536 ng/mL. ASSESSMENT: 1. Acute on Chronic Diastolic CHF. 2. Left ventricular hypertrophy with grade 2 diastolic dysfunction. 3. History of aortic stenosis, status post transcatheter aortic valve replacement with paravalvular and valvular aortic insufficiency. 4. End-stage renal disease on hemodialysis. 5. Hypertension. 6. Dyslipidemia. 7. Type 2 diabetes mellitus. 8. Prior cerebrovascular accident. 9. History of depression. 10. Anemia associated with chronic kidney disease. 11. History of prolonged QT. 12. History of wide complex tachycardia February 2017, possibly Torsades. 13. Chronic obstructive pulmonary disease/chronic respiratory failure. 14. Lung nodule. 15. Chronic deep venous thrombosis, left upper extremity. PLAN: 1. The patient has ongoing evidence of hypervolemia as evidenced by elevated jugular venous pressure. This could potentially represent both diastolic heart failure as well as right ventricular failure in light of her pulmonary hypertension. 2. Recommend continuing Amiodarone 200 mg daily. 3. Continue Hydralazine. 4. Continue Amlodipine 10 mg daily. 5. Trial of low dose Toprol XL 12.5 mg daily -- to allow for increased left ventricular diastolic filling time. 6. Management of Lasix as per nephrology. 7. Recommend that volume status be adjusted through ultrafiltration/dialysis. 8. Monitor daily I&O's, body weights. 9. Continue supplemental oxygen. 10. We will continue to follow along while hospitalized. MTDD
--- NOTE | 2017-05-13 10:58 | Nephrology Consultation ---
Nephrology Consultation Date & Providers Date of Consultation: May 13, 2017. Primary Care Provider: Alan Kelley M.D. Referring Provider: Reason for Consultation Management of ESRD while inpatient History of Present Illness Nicole is a 71-year-old female with past medical history significant for end- stage renal disease on hemodialysis, bradycardia, Hypertension admitted to the hospital with shortness of breath. Nephrologic consult was requested to manage hemodialysis while in hospital. Electronic medical records were reviewed in detail during patient's visit. Nicole initially presented to [facility] on Saturday with progressive shortness of breath. She was given IV Lasix and transferred to [facility] for further evaluation. She was recently admitted to the hospital with progressive weakness and shortness of breath and at that time she was diagnosed with possible pneumonia given IV antibiotic for 4 days and completed course with outpatient oral antibiotic. During last visit she was also bradycardic, metoprolol was discontinued and she was continued on amiodarone. After discharge she was feeling fine. She had dialysis last Saturday and by Saturday evening she started having progressive shortness of breath. She denied any chest pain, any episode of fever, chills, cough or congestion. She still makes urine however did not have any urine output since she received 40 IV Lasix yesterday. Has history of aortic stenosis status post TVAR before and noncritical coronary artery disease. Has history of diastolic dysfunction. She was recently found to have lung nodule, workup is underway. 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 [facility] [place], on Saturday, Saturday, Saturday via right brachiocephalic AV fistula. Her last dialysis was last Saturday. She still makes some urine. Has anemia and secondary hyperparathyroidism being managed at the dialysis unit. Currently she denies any shortness of breath or chest pain. Blood pressure well controlled. She is a nonsmoker. She has been using nasal cannula oxygen, shortness of Breath now seems to be slightly better. Allergies Coded Allergies: Fentanyl (Verified Allergy, Intermediate, HIVES, 04/30/17) Inpatient Medications Current Inpatient Medications Medications (Trade) Dose Ordered Sig/Janice Route Start Time Stop Time Status Last Admin Dose Admin Amiodarone HCl (Cordarone Tab) 200 mg DAILY PO 05/13/17 09:00 06/12/17 08:59 Aspirin (Ecotrin Tab) 81 mg DAILY PO 05/13/17 09:00 06/12/17 08:59 Atorvastatin Calcium (Lipitor Tab) 20 mg DAILY PO 05/13/17 09:00 06/12/17 08:59 Benzonatate (Tessalon Perles Cap) 100 mg TID PO 05/13/17 09:00 06/12/17 08:59 Calcium Acetate (Phoslo Cap) 667 mg TIDM PO 05/13/17 07:30 06/12/17 07:29 Cholecalciferol (Vitamin D Tab) 1,000 inter.unit DAILY PO 05/13/17 09:00 06/12/17 08:59 Citalopram Hydrobromide (celeXA TAB) 60 mg DAILY PO 05/13/17 09:00 06/12/17 08:59 Clopidogrel Bisulfate (plAVix TAB) 75 mg DAILY PO 05/13/17 09:00 06/12/17 08:59 Hydralazine HCl (Apresoline Tab) 25 mg TID PO 05/13/17 09:00 06/12/17 08:59 Insulin Glargine (Lantus Solostar Pen) 4 units QPM SC 05/13/17 21:00 06/12/17 20:59 Levothyroxine Sodium (Synthroid Tab) 50 mcg DAILYBB PO 05/13/17 06:00 06/12/17 05:59 05/13/17 06:16 50 MCG Lorazepam (Ativan Tab) 1 mg BID PO 05/13/17 09:00 06/12/17 08:59 Montelukast Sodium (Singulair Tab) 10 mg DAILY PO 05/13/17 09:00 06/12/17 08:59 Glucose (Glucose 40% Gel) 15-30 GRAMS 15 GRAMS... UD PRN PO 05/12/17 21:45 06/11/17 21:44 Glucose (Glucose Chew Tab) 4-8 Tablets 4 Tabl... UD PRN PO 05/12/17 21:45 06/11/17 21:44 Dextrose (Dextrose 50% 50ML Syringe) 25-50ML OF 50% DW IV FOR... UD PRN IV 05/12/17 21:45 06/11/17 21:44 Glucagon (Glucagon Inj) 1 mg UD PRN SQ 05/12/17 21:45 06/11/17 21:44 Acetaminophen (Tylenol Tab) 650 mg Q4H PRN PO 05/13/17 01:45 06/12/17 01:44 05/13/17 08:01 650 MG Amlodipine Besylate (Norvasc Tab) 10 mg DAILY PO 05/13/17 09:00 06/12/17 08:59 Social History Smoking Status: Never Smoker Smokeless Tobacco Use: No Alcohol Use: none Drug Use: none Marital Status: Housing Status: lives with family Occupation: retired Review of Systems A complete review of systems was performed. Pertinent positives are noted above. All other systems are negative. Physical Exam Date Time Temp Pulse Resp B/P (MAP) Pulse Ox O2 Delivery O2 Flow Rate FiO2 05/13/17 07:39 36.9 69 24 124/55 (78) 96 Nasal Cannula 6.0 05/13/17 04:00 Nasal Cannula 4.0 05/13/17 03:53 36.3 61 20 105/36 (59) 92 Nasal Cannula 4.0 05/12/17 23:59 Nasal Cannula 4.0 05/12/17 22:48 63 128/59 (82) 91 Room Air 4.0 05/12/17 20:00 91 Nasal Cannula 4.0 05/12/17 19:12 36.8 62 20 123/43 91 Nasal Cannula 4.0 GENERAL: Elderly female, AAA x 3, pleasant, healthy-appearing, in mild distress. HEENT: Atraumatic, normocephalic. NECK: Supple, no JVD, no carotid bruit appreciated. ENT: No sinus tenderness MOUTH and THROAT: Moist oral mucosa, no oral ulcer or pharyngeal erythema RESPIRATORY: Normal breathing efforts, no accessory muscle use, rales bilaterally at bases. CARDIOVASCULAR: S1, S2 normal, rate rhythm regular. ABDOMEN: Soft, nontender, positive bowel sound. MUSCULOSKELETAL: No joint swelling, erythema or tenderness. Normal range of motion. SKIN: No skin rash EXTREMITY: No lower extremity edema NEURO: No gross focal neurological deficit, speech fluent. PSYCHIATRY: Normal mood and judgment Laboratory Results Last 24 Hours Test 05/12/17 20:20 05/13/17 05:25 05/13/17 06:36 Sodium Level 130 mmol/L 130 mmol/L Potassium Level 4.3 mmol/L 4.5 mmol/L Chloride Level 94 mmol/L 95 mmol/L Carbon Dioxide Level 23 mmol/L 22 mmol/L Anion Gap 13.0 mmol/L 13.0 mmol/L Blood Urea Nitrogen 59 mg/dl 65 mg/dl Creatinine 7.16 mg/dl 7.50 mg/dl Est Creatinine Clear Calc Drug Dose 6.5 ml/min 6.2 ml/min Estimated GFR () 6.1 5.8 Estimated GFR (Non- 5.3 5.0 BUN/Creatinine Ratio 8.3 8.6 Random Glucose 120 mg/dl 94 mg/dl Calcium Level 9.5 mg/dl 9.0 mg/dl Magnesium Level 2.2 mg/dl Troponin I 0.536 ng/ml White Blood Count 6.51 K/uL Red Blood Count 3.38 M/uL Hemoglobin 9.3 g/dL Hematocrit 27.3 % Mean Corpuscular Volume 80.8 fL Mean Corpuscular Hemoglobin 27.5 pg Mean Corpuscular Hemoglobin Concent 34.1 g/dl Platelet Count 178 K/uL Mean Platelet Volume 9.9 fL Neutrophils (%) (Auto) 72.3 % Lymphocytes (%) (Auto) 10.4 % Monocytes (%) (Auto) 13.5 % Eosinophils (%) (Auto) 1.8 % Basophils (%) (Auto) 1.5 % Neutrophils # (Auto) 4.70 K/uL Lymphocytes # (Auto) 0.68 K/uL Monocytes # (Auto) 0.88 K/uL Eosinophils # (Auto) 0.12 K/uL Basophils # (Auto) 0.10 K/uL RDW Standard Deviation 54.8 fL RDW Coefficient of Variation 18.5 % Immature Granulocyte % (Auto) 0.5 % Immature Granulocyte # (Auto) 0.03 K/uL Bedside Glucose 95 mg/dl Impression (1) End stage renal disease on dialysis (2) Anemia (3) Secondary hyperparathyroidism of renal origin (4) Diastolic CHF (5) Shortness of breath (6) Hypertension Luis A Is a 71-year-old female with 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 Last dialysis was Saturday and she is due for dialysis today. Currently electrolyte and volume status acceptable. Blood pressure acceptable. She presented to the hospital with progressive shortness of breath. She was found to have pulmonary congestion. She had recent hospital admission for weakness and shortness of breath that time she was found to have pneumonia, bradycardia and volume overload. She received IV antibiotic and then completed a course of antibiotic with outpatient oral antibiotic on discharge. Metoprolol was discontinued. Her estimated dry weight 55. She is being continued on amiodarone. She was also recently found to have lung nodule, workup underway. Recommendations --Will schedule for dialysis today as her regular schedule, will try to challenge her dry weight and decreased from 55-54 kg. Aim for 3 liters ultrafiltration, on 2 K bath --follow low-salt, low-potassium diet --continue on phosphate binder with meal and Nephrocaps daily --avoid IV fluid - Epogen 02804 unit IV x 1 dose today Thank you for allowing me to participate in your patient's care. It was a pleasure to see Nicole
[2017-05-13] MEDS ORDERED: EPOETIN ALFA 10,000 UNITS/ML VIAL IV SCH (11:30)
--- NOTE | 2017-05-13 14:19 | Family Medicine Progress Note ---
Progress Note Date of Service May 13, 2017. Subjective Pt evaluation today including: conversation w/ patient, physical exam, chart review, lab review, review of studies Found patient sitting up at the side of the bed this morning, stating she could not get any sleep overnight and has a history of the same while an inpatient. Says very low dose trazodone has worked for this in the past. Otherwise she says she's "stronger than yesterday" but still her breathing is "rough". Has no other acute concerns. Medications Current Inpatient Medications Medications (Trade) Dose Ordered Sig/Janice Route Start Time Stop Time Status Last Admin Dose Admin Amiodarone HCl (Cordarone Tab) 200 mg DAILY PO 05/13/17 09:00 06/12/17 08:59 Aspirin (Ecotrin Tab) 81 mg DAILY PO 05/13/17 09:00 06/12/17 08:59 05/13/17 08:05 81 MG Atorvastatin Calcium (Lipitor Tab) 20 mg DAILY PO 05/13/17 09:00 06/12/17 08:59 05/13/17 08:05 20 MG Benzonatate (Tessalon Perles Cap) 100 mg TID PO 05/13/17 09:00 06/12/17 08:59 05/13/17 08:04 100 MG Calcium Acetate (Phoslo Cap) 667 mg TIDM PO 05/13/17 07:30 06/12/17 07:29 05/13/17 08:05 667 MG Cholecalciferol (Vitamin D Tab) 1,000 inter.unit DAILY PO 05/13/17 09:00 06/12/17 08:59 05/13/17 08:05 1,000 INTER.UNIT Citalopram Hydrobromide (celeXA TAB) 60 mg DAILY PO 05/13/17 09:00 06/12/17 08:59 05/13/17 08:04 60 MG Clopidogrel Bisulfate (plAVix TAB) 75 mg DAILY PO 05/13/17 09:00 06/12/17 08:59 05/13/17 08:05 75 MG Hydralazine HCl (Apresoline Tab) 25 mg TID PO 05/13/17 09:00 06/12/17 08:59 Insulin Glargine (Lantus Solostar Pen) 4 units QPM SC 05/13/17 21:00 1/3/18 20:59 Levothyroxine Sodium (Synthroid Tab) 50 mcg DAILYBB PO 05/13/17 06:00 06/12/17 05:59 05/13/17 06:16 50 MCG Lorazepam (Ativan Tab) 1 mg BID PO 05/13/17 09:00 06/12/17 08:59 05/13/17 08:09 1 MG Montelukast Sodium (Singulair Tab) 10 mg DAILY PO 05/13/17 09:00 06/12/17 08:59 05/13/17 08:05 10 MG Glucose (Glucose 40% Gel) 15-30 GRAMS 15 GRAMS... UD PRN PO 05/12/17 21:45 06/11/17 21:44 Glucose (Glucose Chew Tab) 4-8 Tablets 4 Tabl... UD PRN PO 05/12/17 21:45 06/11/17 21:44 Dextrose (Dextrose 50% 50ML Syringe) 25-50ML OF 50% DW IV FOR... UD PRN IV 05/12/17 21:45 06/11/17 21:44 Glucagon (Glucagon Inj) 1 mg UD PRN SQ 05/12/17 21:45 06/11/17 21:44 Acetaminophen (Tylenol Tab) 650 mg Q4H PRN PO 05/13/17 01:45 06/12/17 01:44 05/13/17 13:45 650 MG Amlodipine Besylate (Norvasc Tab) 10 mg DAILY PO 05/13/17 09:00 06/12/17 08:59 Metoprolol Succinate (Toprol Xl Tab) 12.5 mg QAM PO 05/14/17 09:00 06/13/17 08:59 Objective Vital Signs Date Time Temp Pulse Resp B/P (MAP) Pulse Ox O2 Delivery O2 Flow Rate FiO2 05/13/17 14:00 65 119/49 05/13/17 13:45 65 126/57 05/13/17 13:30 66 133/49 05/13/17 13:15 68 126/52 05/13/17 13:00 65 122/65 05/13/17 12:45 63 124/52 05/13/17 12:30 60 118/49 05/13/17 12:15 62 117/54 05/13/17 12:00 71 120/55 05/13/17 11:45 62 125/57 05/13/17 11:37 36.8 58 18 113/61 (78) 95 Nasal Cannula 6.0 05/13/17 11:26 36.7 62 127/57 (80) 05/13/17 08:00 Nasal Cannula 6.0 05/13/17 07:39 36.9 69 24 124/55 (78) 96 Nasal Cannula 6.0 05/13/17 04:00 Nasal Cannula 4.0 05/13/17 03:53 36.3 61 20 105/36 (59) 92 Nasal Cannula 4.0 05/12/17 23:59 Nasal Cannula 4.0 05/12/17 22:48 63 128/59 (82) 91 Room Air 4.0 05/12/17 20:00 91 Nasal Cannula 4.0 05/12/17 19:12 36.8 62 20 123/43 91 Nasal Cannula 4.0 Physical Exam General Appearance: no apparent distress, + pertinent finding (but appears a bit tired) Respiratory/Chest: no respiratory distress, + pertinent finding (diminished breath sounds throughout) Cardiovascular: regular rate, rhythm, no murmur Extremities: no pedal edema Laboratory Results 05/13/17 05:25 Red Blood Count 3.38, Mean Corpuscular Volume 80.8, Mean Corpuscular Hemoglobin 27.5, Mean Corpuscular Hemoglobin Concent 34.1, Mean Platelet Volume 9.9, Neutrophils (%) (Auto) 72.3, Lymphocytes (%) (Auto) 10.4, Monocytes (%) (Auto) 13.5, Eosinophils (%) (Auto) 1.8, Basophils (%) (Auto) 1.5, Neutrophils # (Auto ) 4.70, Lymphocytes # (Auto) 0.68, Monocytes # (Auto) 0.88, Eosinophils # (Auto ) 0.12, Basophils # (Auto) 0.10 05/13/17 05:25 Test 05/12/17 20:20 05/13/17 05:25 05/13/17 06:36 05/13/17 10:03 Magnesium Level 2.2 mg/dl (1.8-2.4) White Blood Count 6.51 K/uL (4.8-10.8) Red Blood Count 3.38 M/uL (4.2-5.4) Hemoglobin 9.3 g/dL (12.0-16.0) Hematocrit 27.3 % (37-47) Mean Corpuscular Volume 80.8 fL (80-100) Mean Corpuscular Hemoglobin 27.5 pg (25-34) Mean Corpuscular Hemoglobin Concent 34.1 g/dl (32-36) Platelet Count 178 K/uL (130-400) Mean Platelet Volume 9.9 fL (7.4-10.4) Neutrophils (%) (Auto) 72.3 % Lymphocytes (%) (Auto) 10.4 % Monocytes (%) (Auto) 13.5 % Eosinophils (%) (Auto) 1.8 % Basophils (%) (Auto) 1.5 % Neutrophils # (Auto) 4.70 K/uL (1.4-6.5) Lymphocytes # (Auto) 0.68 K/uL (1.2-3.4) Monocytes # (Auto) 0.88 K/uL (0.11-0.59) Eosinophils # (Auto) 0.12 K/uL (0-0.5) Basophils # (Auto) 0.10 K/uL (0-0.2) RDW Standard Deviation 54.8 fL (36.4-46.3) RDW Coefficient of Variation 18.5 % (11.5-14.5) Immature Granulocyte % (Auto) 0.5 % Immature Granulocyte # (Auto) 0.03 K/uL (0.00-0.02) Anion Gap 13.0 mmol/L (3-11) Est Creatinine Clear Calc Drug Dose 6.2 ml/min Estimated GFR () 5.8 Estimated GFR (Non- 5.0 BUN/Creatinine Ratio 8.6 (10-20) Calcium Level 9.0 mg/dl (8.5-10.1) Bedside Glucose 95 mg/dl (70-90) Troponin I 0.533 ng/ml (0-0.045) Date/Time Source Procedure Growth Status 05/12/17 23:06 Nasal MRSA DNA Surveillance Screen - Final Specimen Negative for MRSA by DNA Probe Complete Assessment and Plan Ms. Up is a 71 yo female with PMH DM2, ESRD on dialysis, HTN, HLD, LVH, Hypothyroidism, Anemia of chronic disease, CVA, severe aortic stenosis post-TAVR , prior arrhythmias, that was transferred from [facility], admitted here on , for evaluation and management of acute on chronic diastolic congestive heart failure. Acute on chronic diastolic heart failure - At home she is on Amiodarone 200 mg a day, Hydralazine 25 mg TID, and Norvasc 10 mg a day - Echo on [id number]: LVEF 65-70%, no regional wall abnormalities, severe mitral calcification, mild MS, mild MR, pulm HTN, dilated IVC [this is an abbreviated report - see full report for details]. - Cardiology consulted (greatly appreciated). Rec's on included: 1. The patient has ongoing evidence of hypervolemia as evidenced by elevated jugular venous pressure. This could potentially represent both diastolic heart failure as well as right ventricular failure in light of her pulmonary hypertension. 2. Recommend continuing Amiodarone 200 mg daily. 3. Continue Hydralazine. 4. Continue Amlodipine 10 mg daily. 5. Trial of low dose Toprol XL 12.5 mg daily -- to allow for increased left ventricular diastolic filling time. 6. Management of Lasix as per nephrology. 7. Recommend that volume status be adjusted through ultrafiltration/dialysis. 8. Monitor daily I&O's, body weights. 9. Continue supplemental oxygen. 10. We will continue to follow along while hospitalized. Chronic kidney disease, on dialysis - Reportedly still makes a little urine at baseline. - Hx hemodialysis for > 3 years at . [facility] [place], on MWF via right brachiocephalic AV fistula. - Nephrology consulted (greatly appreciated). Rec's on included: 1) Will schedule for dialysis today as her regular schedule, will try to challenge her dry weight and decreased from 55-54 kg. Aim for 3 liters ultrafiltration, on 2 K bath 2) Follow low-salt, low-potassium diet 3) Continue on phosphate binder with meal and Nephrocaps daily 4) Avoid IV fluid 5) Epogen 53318 unit IV x 1 dose today Troponin elevation - On admit was 0.536. Trended to 0.533, third level pending. No clear evidence of an acute ischemic event otherwise. Likely related to some fluid overload. Hx of TIA - Continue plavix / aspirin Chronic anemia - H/H stable on admit thus far. Continue to monitor. Acute hypoxic respiratory failure - Patient says she's on a baseline 2L NC at home for oxygen requirement. - Origin of SOB likely combo recent PNA (treated at [facility] with abx x 4 days then outpt PO abx) as well as some fluid overload. - 03Dec CXR noted some cardiomegaly, pulmonary vascular congestion, bilateral patchy airspace opacities, similar to recent prior studies, and small pleural effusions. It is difficult to tell if these imaging findings are partially holdovers from prior treated PNA. Afebrile here, not tachypnic, and not on a significantly higher oxygen requirement thus far as inpatient than at home, so acute infectious issue less likely. Thus, holding on abx coverage for now, but will closely monitor. - Will recheck CXR in am 05Dec. - Goal remains to wear oxygen requirement to her baseline. Type 2 DM - Continue home dose of Lantus 4 units HS Hypothyroidism - Continue home synthroid 50 mcg daily. MRSA screening - Nasal swab negative on this inpatient eval. VTE: Heparin Dispo: Admit to Tele Code status: Full Resident Physician Supervision Note: I was present with Dr. Waggoner during the history and exam. I discussed the case with the resident and agree with the findings and plan as documented in the note. Cardiology and nephrology input is appreciated. Documented By: Cheng Posadas Resident Tracking Resident Involvement: Resident Care Provided Care Provided: Adult Hospital Medicine (inpt rounds)
[2017-05-13] MEDS: AMIODARONE 200 MG TAB PO SCH (17:19)
[2017-05-13] MEDS: AMLODIPINE BESYLATE 5 MG TAB PO SCH (17:21)
[2017-05-13] MEDS ORDERED: TRAZODONE HCL 50 MG TAB PO PRN (18:00)
[2017-05-13] MEDS: INSULIN GLARGINE SOLOSTAR 100 UNITS/ML 3 ML PEN SC SCH (21:20)
[2017-05-14] VITALS (11 sets, daily range): BP systolic 90–119; BP diastolic 36–52; PULSE 43–99; TEMP 36.4–36.9; O2SAT 90–99
[2017-05-14] MEDS ORDERED: OXYCODONE/ACETAMINOPHEN 5-325 TAB PO PRN (04:30)
[2017-05-14 05:50] LABS: BASO % 1.8 %; EOS % 2.7 %; EOS ABS # 0.15 K/uL (0-0.5); HEMATOCRIT 28.3 % (37-47); HEMOGLOBIN 9.1 g/dL (12.0-16.0); IG# 0.02 K/uL (0.00-0.02); LYMPH % 15.3 %; LYMPH ABS # 0.86 K/uL (1.2-3.4); MEAN CELL VOLUME 81.6 fL (80-100); MEAN CORPUSCULAR HEMOGLOBIN 26.2 pg (25-34); MEAN CORPUSCULAR HGB CONC 32.2 g/dl (32-36); MEAN PLATELET VOLUME 9.5 fL (7.4-10.4); MONO % 12.3 %; MONO ABS # 0.69 K/uL (0.11-0.59); NEUT % 67.5 %; NEUT ABS # 3.79 K/uL (1.4-6.5); NUCLEATED RED BLOOD CELL ABS 0.02 K/uL (0-0); PLATELET COUNT 163 K/uL (130-400); RED CELL DISTRIBUTION WIDTH CV 18.5 % (11.5-14.5); RED CELL DISTRIBUTION WIDTH SD 55.4 fL (36.4-46.3); WHITE BLOOD COUNT 5.61 K/uL (4.8-10.8)
[2017-05-14] MEDS: LEVOTHYROXINE 50 MCG TAB PO SCH (05:55)
[2017-05-14] MEDS: CALCIUM CARBONATE 500 MG CHEWABLE PO PRN ×2 (05:58→11:07)
[2017-05-14 06:28] LABS: CALCIUM 8.3 mg/dl (8.5-10.1); CREATININE 4.33 mg/dl (0.60-1.20); POTASSIUM 3.6 mmol/L (3.5-5.1)
[2017-05-14] MEDS: LORAZEPAM 1 MG TAB PO SCH ×2 (07:53→20:46)
[2017-05-14] MEDS: ATORVASTATIN 20 MG TAB PO SCH (07:53)
[2017-05-14] MEDS: BENZONATATE 100MG CAP PO SCH ×3 (07:53→20:46)
[2017-05-14] MEDS: CITALOPRAM 40 MG TAB PO SCH (07:54)
[2017-05-14] MEDS: CHOLECALCIFEROL 1000 INTER.UNIT TAB PO SCH (07:54)
[2017-05-14] MEDS: ASPIRIN 81 MG ECTAB PO SCH (07:54)
[2017-05-14] MEDS: CALCIUM ACETATE 667MG GELCAP PO SCH ×3 (07:54→19:28)
[2017-05-14] MEDS: MONTELUKAST SOD 10 MG TAB PO SCH (07:55)
[2017-05-14] MEDS: CLOPIDOGREL BISULFATE 75 MG TAB PO SCH (07:55)
[2017-05-14] MEDS ORDERED: METOPROLOL SUCC 25MG EXT REL TAB PO SCH (09:00)
--- NOTE | 2017-05-14 09:00 | Family Medicine Progress Note ---
Progress Note Date of Service May 14, 2017. Subjective Pt evaluation today including: conversation w/ patient, physical exam, chart review, lab review Early this morning found patient sitting on edge of bed. Says she got more sleep overnight s/p taking trazodone. Did wake early childhood assistant with some chest discomfort. Was given some tums and then percocet with no relief. Then she says she had to belch which immediately relieved the discomfort. She denies any similar feeling right now. Says dialysis yesterday was tiring but her breathing has since much improved and is presently "good". Denies any particular acute concerns but would like to have some physical therapy to help keep her baseline mobility/activity up upon hospital d/c. This afternoon, patient had a repeat episode of similar right lower pectoral chest discomfort after trip to radiology. Patient thinks may be related to food at lunch. Symptoms much improved after single non-bloody emesis. She specifically denies thinking she aspirated and denies any SOB at that time. No other acute c/o. Constitutional: No fever, No chills Respiratory: No cough, No shortness of breath Cardiovascular: + chest pain (as discussed), No edema Abdomen: No pain, No nausea Medications Current Inpatient Medications Medications (Trade) Dose Ordered Sig/Janice Route Start Time Stop Time Status Last Admin Dose Admin Amiodarone HCl (Cordarone Tab) 200 mg DAILY PO 05/13/17 09:00 06/12/17 08:59 05/13/17 17:19 200 MG Aspirin (Ecotrin Tab) 81 mg DAILY PO 05/13/17 09:00 06/12/17 08:59 05/14/17 07:54 81 MG Atorvastatin Calcium (Lipitor Tab) 20 mg DAILY PO 05/13/17 09:00 06/12/17 08:59 05/14/17 07:53 20 MG Benzonatate (Tessalon Perles Cap) 100 mg TID PO 05/13/17 09:00 06/12/17 08:59 05/14/17 07:53 100 MG Calcium Acetate (Phoslo Cap) 667 mg TIDM PO 05/13/17 07:30 06/12/17 07:29 05/14/17 07:54 667 MG Cholecalciferol (Vitamin D Tab) 1,000 inter.unit DAILY PO 05/13/17 09:00 06/12/17 08:59 05/14/17 07:54 1,000 INTER.UNIT Citalopram Hydrobromide (celeXA TAB) 60 mg DAILY PO 05/13/17 09:00 06/12/17 08:59 05/14/17 07:54 60 MG Clopidogrel Bisulfate (plAVix TAB) 75 mg DAILY PO 05/13/17 09:00 06/12/17 08:59 05/14/17 07:55 75 MG Hydralazine HCl (Apresoline Tab) 25 mg TID PO 05/13/17 09:00 06/12/17 08:59 05/14/17 07:55 25 MG Insulin Glargine (Lantus Solostar Pen) 4 units QPM SC 05/13/17 21:00 06/12/17 20:59 05/13/17 21:20 4 UNITS Levothyroxine Sodium (Synthroid Tab) 50 mcg DAILYBB PO 05/13/17 06:00 06/12/17 05:59 05/14/17 05:55 50 MCG Lorazepam (Ativan Tab) 1 mg BID PO 05/13/17 09:00 06/12/17 08:59 05/14/17 07:53 1 MG Montelukast Sodium (Singulair Tab) 10 mg DAILY PO 05/13/17 09:00 06/12/17 08:59 05/14/17 07:55 10 MG Glucose (Glucose 40% Gel) 15-30 GRAMS 15 GRAMS... UD PRN PO 05/12/17 21:45 06/11/17 21:44 Glucose (Glucose Chew Tab) 4-8 Tablets 4 Tabl... UD PRN PO 05/12/17 21:45 06/11/17 21:44 Dextrose (Dextrose 50% 50ML Syringe) 25-50ML OF 50% DW IV FOR... UD PRN IV 05/12/17 21:45 06/11/17 21:44 Glucagon (Glucagon Inj) 1 mg UD PRN SQ 05/12/17 21:45 06/11/17 21:44 Acetaminophen (Tylenol Tab) 650 mg Q4H PRN PO 05/13/17 01:45 06/12/17 01:44 05/13/17 19:37 650 MG Amlodipine Besylate (Norvasc Tab) 10 mg DAILY PO 05/13/17 09:00 06/12/17 08:59 05/13/17 17:21 10 MG Metoprolol Succinate (Toprol Xl Tab) 12.5 mg QAM PO 05/14/17 09:00 06/13/17 08:59 05/14/17 07:56 12.5 MG Trazodone HCl (Desyrel Tab) 25 mg QPM PRN PO 05/13/17 18:00 06/12/17 17:59 05/13/17 21:27 25 MG Calcium Carbonate (Tums Chew Tab) 500 mg Q1H PRN PO 05/14/17 04:30 06/13/17 04:29 05/14/17 05:58 500 MG Oxycodone/ Acetaminophen (Percocet 5-325mg Tab) 1 tab Q4H PRN PO 05/14/17 04:30 05/28/17 04:29 05/14/17 04:41 1 TAB Objective Vital Signs Date Time Temp Pulse Resp B/P (MAP) Pulse Ox O2 Delivery O2 Flow Rate FiO2 05/14/17 07:12 36.9 78 16 105/42 (63) 92 Nasal Cannula 4.5 05/14/17 04:06 36.6 51 16 115/52 (73) 98 Nasal Cannula 4.0 05/14/17 04:00 Nasal Cannula 4.0 05/13/17 23:59 Nasal Cannula 4.0 05/13/17 23:46 36.6 55 16 112/51 (71) 92 Nasal Cannula 4.0 05/13/17 21:11 36.8 64 18 95/41 (59) 89 Nasal Cannula 4.0 Humidified Oxygen 05/13/17 21:07 36.8 64 95/41 (59) 05/13/17 20:00 95 Nasal Cannula 4.0 Humidified Oxygen 05/13/17 17:16 67 121/50 (73) 100 Nasal Cannula 4.0 Humidified Oxygen 05/13/17 16:00 95 Nasal Cannula 4.0 Humidified Oxygen 05/13/17 15:35 36.7 68 130/53 (78) 05/13/17 15:00 66 145/55 05/13/17 14:45 67 125/54 05/13/17 14:30 66 126/49 05/13/17 14:15 69 120/52 05/13/17 14:00 65 119/49 05/13/17 13:45 65 126/57 05/13/17 13:30 66 133/49 05/13/17 13:15 68 126/52 05/13/17 13:00 65 122/65 05/13/17 12:45 63 124/52 05/13/17 12:30 60 118/49 05/13/17 12:15 62 117/54 05/13/17 12:00 71 120/55 05/13/17 11:45 62 125/57 05/13/17 11:37 36.8 58 18 113/61 (78) 95 Nasal Cannula 6.0 05/13/17 11:26 36.7 62 127/57 (80) Physical Exam General Appearance: no apparent distress Respiratory/Chest: lungs clear (greatly improved compared to yest 04Dec), normal breath sounds, no respiratory distress Cardiovascular: regular rate, rhythm, no murmur Abdomen: normal bowel sounds, non tender, soft Extremities: no pedal edema Laboratory Results 05/14/17 05:28 Red Blood Count 3.47, Mean Corpuscular Volume 81.6, Mean Corpuscular Hemoglobin 26.2, Mean Corpuscular Hemoglobin Concent 32.2, Mean Platelet Volume 9.5, Neutrophils (%) (Auto) 67.5, Lymphocytes (%) (Auto) 15.3, Monocytes (%) (Auto) 12.3, Eosinophils (%) (Auto) 2.7, Basophils (%) (Auto) 1.8, Neutrophils # (Auto ) 3.79, Lymphocytes # (Auto) 0.86, Monocytes # (Auto) 0.69, Eosinophils # (Auto ) 0.15, Basophils # (Auto) 0.10 05/14/17 05:28 Test 05/13/17 17:10 05/14/17 05:28 05/14/17 06:02 Troponin I 0.507 ng/ml (0-0.045) White Blood Count 5.61 K/uL (4.8-10.8) Red Blood Count 3.47 M/uL (4.2-5.4) Hemoglobin 9.1 g/dL (12.0-16.0) Hematocrit 28.3 % (37-47) Mean Corpuscular Volume 81.6 fL (80-100) Mean Corpuscular Hemoglobin 26.2 pg (25-34) Mean Corpuscular Hemoglobin Concent 32.2 g/dl (32-36) Platelet Count 163 K/uL (130-400) Mean Platelet Volume 9.5 fL (7.4-10.4) Neutrophils (%) (Auto) 67.5 % Lymphocytes (%) (Auto) 15.3 % Monocytes (%) (Auto) 12.3 % Eosinophils (%) (Auto) 2.7 % Basophils (%) (Auto) 1.8 % Neutrophils # (Auto) 3.79 K/uL (1.4-6.5) Lymphocytes # (Auto) 0.86 K/uL (1.2-3.4) Monocytes # (Auto) 0.69 K/uL (0.11-0.59) Eosinophils # (Auto) 0.15 K/uL (0-0.5) Basophils # (Auto) 0.10 K/uL (0-0.2) RDW Standard Deviation 55.4 fL (36.4-46.3) RDW Coefficient of Variation 18.5 % (11.5-14.5) Immature Granulocyte % (Auto) 0.4 % Immature Granulocyte # (Auto) 0.02 K/uL (0.00-0.02) Nucleated RBC Absolute Count (auto) 0.02 K/uL (0-0) Nucleated Red Blood Cells % 0.3 % Anion Gap 7.0 mmol/L (3-11) Est Creatinine Clear Calc Drug Dose 10.5 ml/min Estimated GFR () 11.2 Estimated GFR (Non- 9.7 BUN/Creatinine Ratio 7.9 (10-20) Calcium Level 8.3 mg/dl (8.5-10.1) Hepatitis B Surface Antigen NEG (NEG) Hepatitis B Surface Antibody NEG Bedside Glucose 82 mg/dl (70-90) Assessment and Plan Ms. Up is a 71 yo female with PMH DM2, ESRD on dialysis, HTN, HLD, LVH, Hypothyroidism, Anemia of chronic disease, CVA, severe aortic stenosis post-TAVR , prior arrhythmias, that was transferred from [facility], admitted here on , for evaluation and management of acute on chronic diastolic congestive heart failure. Acute on chronic diastolic heart failure - At home she is on Amiodarone 200 mg a day, Hydralazine 25 mg TID, and Norvasc 10 mg a day - Echo on [id number]: LVEF 65-70%, no regional wall abnormalities, severe mitral calcification, mild MS, mild MR, pulm HTN, dilated IVC [this is an abbreviated report - see full report for details]. - Cardiology consulted (greatly appreciated). Rec's on included: 1. The patient has ongoing evidence of hypervolemia as evidenced by elevated jugular venous pressure. This could potentially represent both diastolic heart failure as well as right ventricular failure in light of her pulmonary hypertension. 2. Recommend continuing Amiodarone 200 mg daily. 3. Continue Hydralazine. 4. Continue Amlodipine 10 mg daily. 5. Trial of low dose Toprol XL 12.5 mg daily -- to allow for increased left ventricular diastolic filling time. 6. Management of Lasix as per nephrology. 7. Recommend that volume status be adjusted through ultrafiltration/dialysis. 8. Monitor daily I&O's, body weights. 9. Continue supplemental oxygen. 10. We will continue to follow along while hospitalized. Chronic kidney disease, on dialysis - Reportedly still makes a little urine at baseline. - Hx hemodialysis for > 3 years at [facility] [place], on MWF via right brachiocephalic AV fistula. On track for same MWF schedule while inpatient. - Nephrology consulted (greatly appreciated). Rec's on included: 1) HD tomorrow for 3 h, EDW 54 kg. 2) follow low-salt, low-potassium diet 3) continue on phosphate binder with meal and Nephrocaps daily 4) avoid IV fluid 5) Epogen [id number] unit IV x 1 dose given on 05/13/17 Chest discomfort / indigestion / emesis - Patient noted to have episode of same early am on . EKG at that time was relatively normal, at worst perhaps some mild ST depression in lateral leads. No resolution of symptoms with tums or percocet, however complete resolution with large burp. - Patient developed similar right lower pectoral discomfort radiating directly into her right lower back in early afternoon on , just s/p a trip to radiology for CXR. Patient attributed it to adding butter to lunch. Had single episode of non-bloody emesis (after the CXR was taken) and had great symptom relief from same. Given zofran and protonix as well. EKG at that time was grossly unchanged, perhaps some slight resolution of the ST depressions laterally. - Do not suspect a cardiac source at this time due to characteristics of pain, alleviating factors, lack of any concurrent SOB or diaphoresis, or severity. Will continue to monitor for this (and would appreciate cards input on their next patient eval). - For now, due to patient's prior history of pancreatitis, will check RUQ u/s for stones as well as LFTs and lipase in the AM (Dec). - Dec began scheduled protonix 40 mg PO BID. Troponin elevation - On admit was 0.536. Trended to 0.493 on third set. No clear evidence of an acute ischemic event otherwise. Likely related to some fluid overload. Hx of TIA - Continue plavix / aspirin Chronic anemia - H/H stable on admit thus far. Continue to monitor. - Given epogen on c as discussed in nephro notes. Acute hypoxic respiratory failure - Patient says she's on a baseline 2L NC at home for oxygen requirement. Here has been successful around 3-4L NC thus far. - Origin of SOB likely combo recent PNA (treated at [facility] with abx x 4 days then outpt PO abx) as well as some fluid overload. - 03Dec CXR noted some cardiomegaly, pulmonary vascular congestion, bilateral patchy airspace opacities, similar to recent prior studies, and small pleural effusions. 05Dec CXR showed improved edema but an increase in a small right effusion with associated opacity. - It is difficult to tell if these imaging findings are partially holdovers from prior treated PNA. Afebrile here, not tachypnic, and not on a significantly higher oxygen requirement thus far as inpatient than at home, so acute infectious issue less likely. Thus, holding on abx coverage for now, but will closely monitor. - Goal remains to wear oxygen requirement to her baseline. Type 2 DM - Continue home dose of Lantus 4 units HS. Hypothyroidism - Continue home synthroid 50 mcg daily. MRSA screening - Nasal swab negative on this inpatient eval. Mild insomnia - Added trazodone prn for same. VTE: Heparin Code status: Full Dispo: Admit to Tele - 05Dec PT consulted, appreciate recs - 05Dec OT consulted, appreciate recs Resident Physician Supervision Note: I was present with Dr. Waggoner during the history and exam. I discussed the case with the resident and agree with the findings and plan as documented in the note. The patient describes a discomfort in the right anterior chest wall with associated discomfort along the right posterior rib cage and along the medial border of the right scapula. She had an episode of pain last night and again this morning, the first of which was relieved with "belching." Continue Protonix Check CMP and lipase Check ultrasound of the right upper quadrant Appreciate recommendations from cardiology and nephrology Documented By: Cheng Posadas Resident Tracking Resident Involvement: Resident Care Provided Care Provided: Adult Hospital Medicine (inpt rounds)
[2017-05-14] MEDS: AMIODARONE 200 MG TAB PO SCH (09:17)
[2017-05-14] MEDS: AMLODIPINE BESYLATE 5 MG TAB PO SCH (09:17)
--- NOTE | 2017-05-14 10:58 | Nephrology Progress Note ---
Nephrology Progress Note Date of Service May 14, 2017. Chief Complaint f/u for ESRD while inpatient Subjective Nicole was seen and examined in her room this am. Overall feels better now, no SOB. Yesterday she had 4 h HD with 2.5 L UF. She had back pain due to long duration of HD as normally she gets 3 h. Explained that it was done to do extra UF to decrease EDW to 54 Review of Systems A complete review of systems was performed. Pertinent positives are noted above. All other systems are negative. Vital Signs Last 8 Hrs Date Time Temp Pulse Resp B/P (MAP) Pulse Ox O2 Delivery O2 Flow Rate FiO2 05/14/17 07:12 36.9 78 16 105/42 (63) 92 Nasal Cannula 4.5 05/14/17 04:06 36.6 51 16 115/52 (73) 98 Nasal Cannula 4.0 05/14/17 04:00 Nasal Cannula 4.0 Last Recorded Weight Weight (Kilograms): 55.200 Physical Exam GENERAL: elderly female, AAA x 3, pleasant, ill-appearing, not in any distress. NECK: Supple, no JVD. RESPIRATORY: Normal breathing efforts, no accessory muscle use, clear to auscultation bilaterally, no wheezes or rales. CARDIOVASCULAR: S1, S2 normal, rate rhythm regular. EXTREMITY: No lower extremity edema NEURO: speech fluent. PSYCHIATRY: Normal mood and judgment Social History Smokeless Tobacco Use: No Alcohol Use: none Drug Use: none Marital Status: Housing Status: lives with family Occupation: retired Laboratory Results Past 24 Hours 05/14/17 05:28 Red Blood Count 3.47, Mean Corpuscular Volume 81.6, Mean Corpuscular Hemoglobin 26.2, Mean Corpuscular Hemoglobin Concent 32.2, Mean Platelet Volume 9.5, Neutrophils (%) (Auto) 67.5, Lymphocytes (%) (Auto) 15.3, Monocytes (%) (Auto) 12.3, Eosinophils (%) (Auto) 2.7, Basophils (%) (Auto) 1.8, Neutrophils # (Auto ) 3.79, Lymphocytes # (Auto) 0.86, Monocytes # (Auto) 0.69, Eosinophils # (Auto ) 0.15, Basophils # (Auto) 0.10 05/14/17 05:28 Test 05/13/17 16:16 05/13/17 17:10 05/13/17 20:19 05/14/17 05:28 Bedside Glucose 88 mg/dl (70-90) 154 mg/dl (70-90) Troponin I 0.507 ng/ml (0-0.045) White Blood Count 5.61 K/uL (4.8-10.8) Red Blood Count 3.47 M/uL (4.2-5.4) Hemoglobin 9.1 g/dL (12.0-16.0) Hematocrit 28.3 % (37-47) Mean Corpuscular Volume 81.6 fL (80-100) Mean Corpuscular Hemoglobin 26.2 pg (25-34) Mean Corpuscular Hemoglobin Concent 32.2 g/dl (32-36) Platelet Count 163 K/uL (130-400) Mean Platelet Volume 9.5 fL (7.4-10.4) Neutrophils (%) (Auto) 67.5 % Lymphocytes (%) (Auto) 15.3 % Monocytes (%) (Auto) 12.3 % Eosinophils (%) (Auto) 2.7 % Basophils (%) (Auto) 1.8 % Neutrophils # (Auto) 3.79 K/uL (1.4-6.5) Lymphocytes # (Auto) 0.86 K/uL (1.2-3.4) Monocytes # (Auto) 0.69 K/uL (0.11-0.59) Eosinophils # (Auto) 0.15 K/uL (0-0.5) Basophils # (Auto) 0.10 K/uL (0-0.2) RDW Standard Deviation 55.4 fL (36.4-46.3) RDW Coefficient of Variation 18.5 % (11.5-14.5) Immature Granulocyte % (Auto) 0.4 % Immature Granulocyte # (Auto) 0.02 K/uL (0.00-0.02) Nucleated RBC Absolute Count (auto) 0.02 K/uL (0-0) Nucleated Red Blood Cells % 0.3 % Anion Gap 7.0 mmol/L (3-11) Est Creatinine Clear Calc Drug Dose 10.5 ml/min Estimated GFR () 11.2 Estimated GFR (Non- 9.7 BUN/Creatinine Ratio 7.9 (10-20) Calcium Level 8.3 mg/dl (8.5-10.1) Hepatitis B Surface Antigen NEG (NEG) Hepatitis B Surface Antibody NEG Test 05/14/17 06:02 Bedside Glucose 82 mg/dl (70-90) Allergies Coded Allergies: Fentanyl (Verified Allergy, Intermediate, HIVES, 04/30/17) Medications Current Inpatient Medications Medications (Trade) Dose Ordered Sig/Janice Route Start Time Stop Time Status Last Admin Dose Admin Amiodarone HCl (Cordarone Tab) 200 mg DAILY PO 05/13/17 09:00 06/12/17 08:59 05/14/17 09:17 200 MG Aspirin (Ecotrin Tab) 81 mg DAILY PO 05/13/17 09:00 06/12/17 08:59 05/14/17 07:54 81 MG Atorvastatin Calcium (Lipitor Tab) 20 mg DAILY PO 05/13/17 09:00 06/12/17 08:59 05/14/17 07:53 20 MG Benzonatate (Tessalon Perles Cap) 100 mg TID PO 05/13/17 09:00 06/12/17 08:59 05/14/17 07:53 100 MG Calcium Acetate (Phoslo Cap) 667 mg TIDM PO 05/13/17 07:30 06/12/17 07:29 05/14/17 07:54 667 MG Cholecalciferol (Vitamin D Tab) 1,000 inter.unit DAILY PO 05/13/17 09:00 06/12/17 08:59 05/14/17 07:54 1,000 INTER.UNIT Citalopram Hydrobromide (celeXA TAB) 60 mg DAILY PO 05/13/17 09:00 06/12/17 08:59 05/14/17 07:54 60 MG Clopidogrel Bisulfate (plAVix TAB) 75 mg DAILY PO 05/13/17 09:00 06/12/17 08:59 05/14/17 07:55 75 MG Hydralazine HCl (Apresoline Tab) 25 mg TID PO 05/13/17 09:00 06/12/17 08:59 05/14/17 07:55 25 MG Insulin Glargine (Lantus Solostar Pen) 4 units QPM SC 05/13/17 21:00 06/12/17 20:59 05/13/17 21:20 4 UNITS Levothyroxine Sodium (Synthroid Tab) 50 mcg DAILYBB PO 05/13/17 06:00 06/12/17 05:59 05/14/17 05:55 50 MCG Lorazepam (Ativan Tab) 1 mg BID PO 05/13/17 09:00 18 08:59 05/14/17 07:53 1 MG Montelukast Sodium (Singulair Tab) 10 mg DAILY PO 05/13/17 09:00 06/12/17 08:59 05/14/17 07:55 10 MG Glucose (Glucose 40% Gel) 15-30 GRAMS 15 GRAMS... UD PRN PO 05/12/17 21:45 06/11/17 21:44 Glucose (Glucose Chew Tab) 4-8 Tablets 4 Tabl... UD PRN PO 05/12/17 21:45 06/11/17 21:44 Dextrose (Dextrose 50% 50ML Syringe) 25-50ML OF 50% DW IV FOR... UD PRN IV 05/12/17 21:45 06/11/17 21:44 Glucagon (Glucagon Inj) 1 mg UD PRN SQ 05/12/17 21:45 06/11/17 21:44 Acetaminophen (Tylenol Tab) 650 mg Q4H PRN PO 05/13/17 01:45 06/12/17 01:44 05/13/17 19:37 650 MG Amlodipine Besylate (Norvasc Tab) 10 mg DAILY PO 05/13/17 09:00 06/12/17 08:59 05/14/17 09:17 10 MG Metoprolol Succinate (Toprol Xl Tab) 12.5 mg QAM PO 05/14/17 09:00 06/13/17 08:59 05/14/17 07:56 12.5 MG Trazodone HCl (Desyrel Tab) 25 mg QPM PRN PO 05/13/17 18:00 06/12/17 17:59 05/13/17 21:27 25 MG Calcium Carbonate (Tums Chew Tab) 500 mg Q1H PRN PO 05/14/17 04:30 06/13/17 04:29 05/14/17 05:58 500 MG Oxycodone/ Acetaminophen (Percocet 5-325mg Tab) 1 tab Q4H PRN PO 05/14/17 04:30 05/28/17 04:29 05/14/17 04:41 1 TAB Impression (1) End stage renal disease on dialysis (2) Anemia (3) Secondary hyperparathyroidism of renal origin (4) Diastolic CHF (5) Shortness of breath (6) Hypertension Luis A Is a 71-year-old female with 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 Last dialysis was Saturday and she is due for dialysis today. Currently electrolyte and volume status acceptable. Blood pressure acceptable. She presented to the hospital with progressive shortness of breath. She was found to have pulmonary congestion. She had recent hospital admission for weakness and shortness of breath that time she was found to have pneumonia, bradycardia and volume overload. She received IV antibiotic and then completed a course of antibiotic with outpatient oral antibiotic on discharge. Metoprolol was discontinued. Her estimated dry weight 55. She is being continued on amiodarone. She was also recently found to have lung nodule, workup underway. Recommendations --HD tomorrow for 3 h, EDW 54 kg. --follow low-salt, low-potassium diet --continue on phosphate binder with meal and Nephrocaps daily --avoid IV fluid - Epogen 19824 unit IV x 1 dose given on 05/13/17 Will follow
[2017-05-14] MEDS: ACETAMINOPHEN 325 MG TAB PO PRN ×3 (11:07→20:58)
--- NOTE | 2017-05-14 13:41 | DIAGNOSTIC IMAGING REPORT ---
CHEST 2 VIEWS ROUTINE CLINICAL HISTORY: Dyspnea. Acute congestive heart failure. COMPARISON STUDY: Chest CT May 01, 2017 and chest radiograph May 12, 2017. FINDINGS: Moderate cardiomegaly is unchanged. A prosthetic aortic valve is noted. There is no pneumothorax. A small right pleural effusion has slightly increased since prior exam. There is a trace left pleural effusion. Right lower lung airspace opacity is slightly increased. Interstitial thickening has slightly improved. IMPRESSION: 1. Persistent, but mildly improved, pulmonary edema. 2. Slight increase in a small right pleural effusion with right basilar opacity. Electronically signed by: Zev Hooks M.D. 05/14/2017 1:39 PM Dictated Date/Time: 05/14/2017 1:37 PM
[2017-05-14] MEDS ORDERED: ONDANSETRON INJ 2 MG/ML 2 ML VIAL ONE (13:43)
[2017-05-14] MEDS ORDERED: ONDANSETRON INJ 2 MG/ML 2 ML VIAL IV ONE (14:00)
[2017-05-14] MEDS ORDERED: PANTOprazole INJ 40 MG in SYRINGE 0 ML IV ONE (14:30)
--- NOTE | 2017-05-14 19:13 | DIAGNOSTIC IMAGING REPORT ---
GALLBLADDER-ABD LIMITED CLINICAL HISTORY: R low chest/back pain, hx pancreatitis, eval for stone pain. Nausea. TECHNIQUE: Ultrasound COMPARISON STUDY: FINDINGS: Right pleural effusion. Normal gallbladder. No shadowing gallstones. Common bile duct 4 mm. Liver is uniform. Pancreas is poorly seen. Right kidney appears to be moderately atrophic. No evidence for hydronephrosis. 2 cm upper pole cyst. IMPRESSION: 1. Right pleural effusion. 2. Atrophic change right kidney. 3. Otherwise negative study. The above report was generated using voice recognition software. It may contain grammatical, syntax or spelling errors. Electronically signed by: Curtis Torres M.D. 05/14/2017 7:12 PM Dictated Date/Time: 05/14/2017 7:11 PM
[2017-05-14] MEDS: INSULIN GLARGINE SOLOSTAR 100 UNITS/ML 3 ML PEN SC SCH (20:46)
[2017-05-14] MEDS ORDERED: RAPID SEQUENCE INDUCTION BAG ONE (22:48)
--- NOTE | 2017-05-14 23:05 | EMERGENCY ROOM VISIT NOTE ---
ED Visit Note I did respond to a CODE BLUE in this patient's room. Dr. Sosa was running the code. The patient had bradycardia without a pulse. CPR was initiated and the patient was given epinephrine 2. She did have ROSC. Dr. Thomas requested that I intubate the patient for transfer to the ICU. I did perform RSI. Procedure note. Rapid sequence intubation performed by myself. The patient was preoxygenated with hundred percent oxygen via nonrebreather mask. He was medicated with etomidate 12 mg IV push and vecuronium 8 mg IV push. I did use a laryngoscope MAC 4 blade and intubated patient with a 7 1/2 ET tube. I did visualize the tube passing through the vocal cords. The ET tube was at 19 at the lips. We had good color change on capnography. Breath sounds were equal bilaterally. The patient's ET tube was secured. Dr. Thomas will review the chest x-ray and continue care.
[2017-05-14 23:33] LABS: BASO ABS # 0.14 K/uL (0-0.2); EOS % 2.7 %; EOS ABS # 0.19 K/uL (0-0.5); HEMATOCRIT 31.2 % (37-47); HEMOGLOBIN 10.1 g/dL (12.0-16.0); IG# 0.08 K/uL (0.00-0.02); LYMPH % 18.9 %; LYMPH ABS # 1.32 K/uL (1.2-3.4); MEAN CORPUSCULAR HEMOGLOBIN 26.9 pg (25-34); MONO % 9.6 %; MONO ABS # 0.67 K/uL (0.11-0.59); NEUT % 65.7 %; NEUT ABS # 4.58 K/uL (1.4-6.5); PLATELET COUNT 204 K/uL (130-400); RED CELL DISTRIBUTION WIDTH CV 18.4 % (11.5-14.5); RED CELL DISTRIBUTION WIDTH SD 56.4 fL (36.4-46.3); WHITE BLOOD COUNT 6.98 K/uL (4.8-10.8)
--- NOTE | 2017-05-14 23:34 | Progress Note ---
Progress Note Date of Service May 14, 2017. Progress Note RESIDENT NIGHT COVERAGE - CODE BLUE I had been called by the patient's RN earlier in the evening that her heart rate had been in the 40-50's. She was asymptomatic and talking on the phone to her son. We decided to continue monitoring her. Around 1040PM, per RN, the patient was sitting on the phone, doing well, and then fainted and became unresponsive and pulses were unable to be felt. A code blue was called. Upon my arrival, chest compressions were continuing, the patient was in PEA. 2 rounds of epinephrine were given, then a pulse was obtained. The patient's eyes had opened but she did not respond. During this time, Dr. Thomas arrived as well, Dr. Barreto arrived, and Destinee of the ICU arrived as well. The pt was intubated by Dr. Barreto. She in total had about 15 minutes of chest compressions. Dr. Jama arrived, the pt's case was discussed, and the patient was transferred down to the ICU. Around 11:25PM I called the patient's son Gildardo and explained the situation, answered all questions, and provided my pager number in case of further queries.
[2017-05-14 23:44] LABS: INR 1.2 (0.9-1.1)
[2017-05-14 23:47] LABS: MEAN CORPUSCULAR HGB CONC 32.4 g/dl (32-36)
[2017-05-15] VITALS (35 sets, daily range): BP systolic 66–138; BP diastolic 26–57; PULSE 44–70; TEMP 36.3–36.7; O2SAT 35–100
[2017-05-15 00:02] LABS: CALCIUM 9.4 mg/dl (8.5-10.1); CREATININE 5.59 mg/dl (0.60-1.20); TOTAL PROTEIN 6.9 gm/dl (6.4-8.2)
[2017-05-15] MEDS ORDERED: FENTANYL CITRATE INJ 50 MCG/1 ML 2 ML VIAL ONE (00:02)
[2017-05-15] MEDS ORDERED: MIDAZOLAM HCL 1 MG/ML 2ML VIAL ONE (00:03)
--- NOTE | 2017-05-15 00:28 | Critical Care Consultation ---
Critical Care Consultation Date of Consultation: May 15, 2017. Attending Physician: Cheng Posadas D.O. Reason for Consultation: Code Blue: Bradycardic Arrest History of Present Illness Nicole Up is a 71yo AA female who is being admitted here [facility] for severe shortness of [facility]. She had previously been admitted here after transfer from the same hospital and was treated for hospital-acquired pneumonia and discharged home. During that visit patient had been asymptomatic during bradycardic periods. Today, I was alerted to Nicole after a Code Kamaljit was called overhead. I arrived to her room to find CPR initiated, her unresponsive, with PEA (rates 30-50's). Patient received 2 rounds of epinephrine, approximately 5- 7 minutes CPR and was intubated by emergency room physician using etomidate and vecuronium. Intubation did require 2 attempts as patient was found to be anterior and difficult to intubate. Patient did achieve ROSC; however, was not completely aware of her surroundings or able to follow directions. For her safety she was intubated as stated previously. Patient underwent EKG which appeared to be unchanged from prior and in the setting of downtrending troponin ; it was deemed unlikely to be a myocardial infarction. Patient was started on a beta caleb on this admission. Prior in the evening the patient had complained to hospital medicine about RUQ pain then improved with burping. Patient was transferred to the ICU. Past medical history for this patient is significant. She is an end-stage renal patient requiring dialysis Saturday, Saturday and Saturday. Previous TVAR 3 years ago, diastolic heart failure, diabetes mellitus, hypertension, hypothyroidism, past history of hepatitis C. Patient was currently being worked up by Dr. Palafox for pulmonary nodules. A bronchoscopy had been postponed during last admission secondary to cardiac concern. Pt is intubated and receiving bolus sedation of Fentanyl and Versed. She is able to answer a small portion of question before dosing again by nodding her head. She denies pain at this time and is comfortable. 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 consultant surgery Umbilical hernia repair Aortic valve replacement Biopsy of the kidney, right breast and axillary node, and liver Family History Noncontributory Social History Smoking Status: Never Smoker Smokeless Tobacco Use: No Alcohol Use: none Drug Use: none Marital Status: Housing Status: lives with significant other Occupation Status: retired Allergies Coded Allergies: NO KNOWN DRUG ALLERGIES (Verified Allergy, Unknown, ., 05/15/17) Home Medications Scheduled Amiodarone Hcl (Cordarone), 200 MG PO DAILY Amlodipine (Norvasc), 10 MG PO BID Aspirin (Aspirin Ec), 81 MG PO DAILY Atorvastatin (Lipitor), 20 MG PO DAILY Benzonatate (Tessalon Perles), 100 MG PO TID Calcium Acetate (Phoslo 667 Mg), 1 CAP PO TIDM Cholecalciferol (Vitamin D3), 1 TAB PO DAILY Citalopram (Citalopram Hydrobromide), 1.5 TAB PO DAILY Clopidogrel (Plavix), 75 MG PO DAILY Furosemide (Lasix), 40 MG PO HS Hydralazine Hcl (Apresoline), 25 MG PO TID Insulin Glargine (Lantus), 4 UNITS SC QPM Levothyroxine Sodium (Synthroid), 50 MCG PO DAILY Lorazepam (Ativan), 1 MG PO BID Montelukast Sodium (Montelukast Sodium), 1 TAB PO DAILY Current Inpatient Medications Current Inpatient Medications Medications (Trade) Dose Ordered Sig/Janice Route Start Time Stop Time Status Last Admin Dose Admin Amiodarone HCl (Cordarone Tab) 200 mg DAILY PO 05/13/17 09:00 06/12/17 08:59 05/14/17 09:17 200 MG Aspirin (Ecotrin Tab) 81 mg DAILY PO 05/13/17 09:00 06/12/17 08:59 05/14/17 07:54 81 MG Atorvastatin Calcium (Lipitor Tab) 20 mg DAILY PO 05/13/17 09:00 06/12/17 08:59 05/14/17 07:53 20 MG Benzonatate (Tessalon Perles Cap) 100 mg TID PO 05/13/17 09:00 06/12/17 08:59 05/14/17 07:53 100 MG Calcium Acetate (Phoslo Cap) 667 mg TIDM PO 05/13/17 07:30 06/12/17 07:29 05/14/17 19:28 667 MG Cholecalciferol (Vitamin D Tab) 1,000 inter.unit DAILY PO 05/13/17 09:00 06/12/17 08:59 05/14/17 07:54 1,000 INTER.UNIT Citalopram Hydrobromide (celeXA TAB) 60 mg DAILY PO 05/13/17 09:00 06/12/17 08:59 05/14/17 07:54 60 MG Clopidogrel Bisulfate (plAVix TAB) 75 mg DAILY PO 05/13/17 09:00 06/12/17 08:59 05/14/17 07:55 75 MG Hydralazine HCl (Apresoline Tab) 25 mg TID PO 05/13/17 09:00 06/12/17 08:59 05/14/17 07:55 25 MG Insulin Glargine (Lantus Solostar Pen) 4 units QPM SC 05/13/17 21:00 06/12/17 20:59 05/14/17 20:46 4 UNITS Levothyroxine Sodium (Synthroid Tab) 50 mcg DAILYBB PO 05/13/17 06:00 06/12/17 05:59 05/14/17 05:55 50 MCG Lorazepam (Ativan Tab) 1 mg BID PO 05/13/17 09:00 06/12/17 08:59 05/14/17 20:46 1 MG Montelukast Sodium (Singulair Tab) 10 mg DAILY PO 05/13/17 09:00 06/12/17 08:59 05/14/17 07:55 10 MG Glucose (Glucose 40% Gel) 15-30 GRAMS 15 GRAMS... UD PRN PO 05/12/17 21:45 06/11/17 21:44 Glucose (Glucose Chew Tab) 4-8 Tablets 4 Tabl... UD PRN PO 05/12/17 21:45 06/11/17 21:44 Dextrose (Dextrose 50% 50ML Syringe) 25-50ML OF 50% DW IV FOR... UD PRN IV 05/12/17 21:45 06/11/17 21:44 Glucagon (Glucagon Inj) 1 mg UD PRN SQ 05/12/17 21:45 06/11/17 21:44 Acetaminophen (Tylenol Tab) 650 mg Q4H PRN PO 05/13/17 01:45 06/12/17 01:44 05/14/17 20:58 650 MG Amlodipine Besylate (Norvasc Tab) 10 mg DAILY PO 05/13/17 09:00 06/12/17 08:59 05/14/17 09:17 10 MG Trazodone HCl (Desyrel Tab) 25 mg QPM PRN PO 05/13/17 18:00 06/12/17 17:59 05/13/17 21:27 25 MG Calcium Carbonate (Tums Chew Tab) 500 mg Q1H PRN PO 05/14/17 04:30 06/13/17 04:29 05/14/17 11:07 500 MG Oxycodone/ Acetaminophen (Percocet 5-325mg Tab) 1 tab Q4H PRN PO 05/14/17 04:30 05/28/17 04:29 05/14/17 04:41 1 TAB Pantoprazole Sodium (Protonix Tab) 40 mg BID PO 05/15/17 09:00 06/14/17 08:59 Review of Systems ROS is limited secondary to sedation and intubation . Physical Exam Date Time Temp Pulse Resp B/P (MAP) Pulse Ox O2 Delivery O2 Flow Rate FiO2 05/14/17 23:49 100 05/14/17 23:46 59 16 111/41 (64) 94 Mechanical Ventilator 60 05/14/17 23:30 58 14 119/46 (70) 98 Mechanical Ventilator 60 05/14/17 23:16 58 21 90/36 (54) 96 Mechanical Ventilator 05/14/17 23:13 59 7 98/38 (58) 93 Mechanical Ventilator 100 05/14/17 21:13 43 16 114/44 (67) 05/14/17 20:00 Nasal Cannula 2.0 05/14/17 19:35 36.4 99 21 98/46 (63) 99 Nasal Cannula 5.0 05/14/17 16:00 99 Nasal Cannula 3.0 Humidified Oxygen 05/14/17 15:34 36.4 48 18 104/44 (64) 96 Nasal Cannula 5.0 05/14/17 12:00 Nasal Cannula 3.0 Humidified Oxygen 05/14/17 11:32 36.5 49 16 104/48 (66) 90 Nasal Cannula 3.0 05/14/17 08:00 Nasal Cannula 3.0 Humidified Oxygen 05/14/17 07:12 36.9 78 16 105/42 (63) 92 Nasal Cannula 4.5 05/14/17 04:06 36.6 51 16 115/52 (73) 98 Nasal Cannula 4.0 05/14/17 04:00 Nasal Cannula 4.0 Vital Signs - as noted Laboratory Data - as noted Physical Exam: General - Intubated RASS -1 to 0 Eyes - PERRL, EOMI No icterus, gaze conjugate ENT - Mucosa moist, no lesions or candidiasis Neck - Supple, trachea midline, no masses or lymphadenopathy, no JVD or bruits Lungs - No paradoxical chest wall movement, coarse auscultation bilaterally, no wheezes, rales, or rhonchi Heart - Sinus bradycardia, No murmur, rubs, clicks, or gallops appreciated Abdomen - BS present, no bruits noted, tympanic to percussion, soft, nontender, nondistended, no organomegaly Extremities - No edema, pedal pulses intact Neuro - RASS -1 during exam Strength extremities equal and appropriate bilaterally Reflexes: Bicep, brachioradialis, patellar, and plantar normal and equal CN:PERRL, EOMI, no facial asymmetry, uvula/tongue midline Laboratory Results Last 24 Hours Test 05/14/17 05:28 05/14/17 06:02 05/14/17 11:21 05/14/17 14:04 White Blood Count 5.61 K/uL Red Blood Count 3.47 M/uL Hemoglobin 9.1 g/dL Hematocrit 28.3 % Mean Corpuscular Volume 81.6 fL Mean Corpuscular Hemoglobin 26.2 pg Mean Corpuscular Hemoglobin Concent 32.2 g/dl Platelet Count 163 K/uL Mean Platelet Volume 9.5 fL Neutrophils (%) (Auto) 67.5 % Lymphocytes (%) (Auto) 15.3 % Monocytes (%) (Auto) 12.3 % Eosinophils (%) (Auto) 2.7 % Basophils (%) (Auto) 1.8 % Neutrophils # (Auto) 3.79 K/uL Lymphocytes # (Auto) 0.86 K/uL Monocytes # (Auto) 0.69 K/uL Eosinophils # (Auto) 0.15 K/uL Basophils # (Auto) 0.10 K/uL RDW Standard Deviation 55.4 fL RDW Coefficient of Variation 18.5 % Immature Granulocyte % (Auto) 0.4 % Immature Granulocyte # (Auto) 0.02 K/uL Nucleated RBC Absolute Count (auto) 0.02 K/uL Nucleated Red Blood Cells % 0.3 % Sodium Level 130 mmol/L Potassium Level 3.6 mmol/L Chloride Level 95 mmol/L Carbon Dioxide Level 28 mmol/L Anion Gap 7.0 mmol/L Blood Urea Nitrogen 34 mg/dl Creatinine 4.33 mg/dl Est Creatinine Clear Calc Drug Dose 10.5 ml/min Estimated GFR () 11.2 Estimated GFR (Non- 9.7 BUN/Creatinine Ratio 7.9 Random Glucose 77 mg/dl Calcium Level 8.3 mg/dl Hepatitis B Surface Antigen NEG Hepatitis B Surface Antibody NEG Bedside Glucose 82 mg/dl 107 mg/dl Troponin I 0.495 ng/ml Test 05/14/17 16:35 05/14/17 18:54 05/14/17 20:14 05/14/17 23:24 Bedside Glucose 130 mg/dl 131 mg/dl 145 mg/dl White Blood Count 6.98 K/uL Red Blood Count 3.76 M/uL Hemoglobin 10.1 g/dL Hematocrit 31.2 % Mean Corpuscular Volume 83.0 fL Mean Corpuscular Hemoglobin 26.9 pg Mean Corpuscular Hemoglobin Concent 32.4 g/dl Platelet Count 204 K/uL Mean Platelet Volume 10.0 fL Neutrophils (%) (Auto) 65.7 % Lymphocytes (%) (Auto) 18.9 % Monocytes (%) (Auto) 9.6 % Eosinophils (%) (Auto) 2.7 % Basophils (%) (Auto) 2.0 % Neutrophils # (Auto) 4.58 K/uL Lymphocytes # (Auto) 1.32 K/uL Monocytes # (Auto) 0.67 K/uL Eosinophils # (Auto) 0.19 K/uL Basophils # (Auto) 0.14 K/uL RDW Standard Deviation 56.4 fL RDW Coefficient of Variation 18.4 % Immature Granulocyte % (Auto) 1.1 % Immature Granulocyte # (Auto) 0.08 K/uL Nucleated RBC Absolute Count (auto) 0.10 K/uL Nucleated Red Blood Cells % 1.5 % Prothrombin Time 12.9 SECONDS Prothromb Time International Ratio 1.2 Sodium Level 128 mmol/L Potassium Level 4.0 mmol/L Chloride Level 92 mmol/L Carbon Dioxide Level 24 mmol/L Anion Gap 12.0 mmol/L Blood Urea Nitrogen 47 mg/dl Creatinine 5.59 mg/dl Est Creatinine Clear Calc Drug Dose 8.2 ml/min Estimated GFR () 8.3 Estimated GFR (Non- 7.1 BUN/Creatinine Ratio 8.4 Random Glucose 187 mg/dl Calcium Level 9.4 mg/dl Total Bilirubin 0.6 mg/dl Aspartate Amino Transf (AST/SGOT) 73 U/L Alanine Aminotransferase (ALT/SGPT) 50 U/L Alkaline Phosphatase 87 U/L Total Protein 6.9 gm/dl Albumin 3.0 gm/dl Globulin 3.9 gm/dl Albumin/Globulin Ratio 0.8 Diagnostic Results GALLBLADDER-ABD LIMITED CLINICAL HISTORY: R low chest/back pain, hx pancreatitis, eval for stone pain. Nausea. TECHNIQUE: Ultrasound COMPARISON STUDY: FINDINGS: Right pleural effusion. Normal gallbladder. No shadowing gallstones. Common bile duct 4 mm. Liver is uniform. Pancreas is poorly seen. Right kidney appears to be moderately atrophic. No evidence for hydronephrosis. 2 cm upper pole cyst. IMPRESSION: 1. Right pleural effusion. 2. Atrophic change right kidney. 3. Otherwise negative study. The above report was generated using voice recognition software. It may contain grammatical, syntax or spelling errors. Electronically signed by: Curtis Torres M.D. 05/14/2017 7:12 PM Dictated Date/Time: 05/14/2017 7:11 PM CHEST 2 VIEWS ROUTINE CLINICAL HISTORY: Dyspnea. Acute congestive heart failure. COMPARISON STUDY: Chest CT May 01, 2017 and chest radiograph May 12, 2017. FINDINGS: Moderate cardiomegaly is unchanged. A prosthetic aortic valve is noted. There is no pneumothorax. A small right pleural effusion has slightly increased since prior exam. There is a trace left pleural effusion. Right lower lung airspace opacity is slightly increased. Interstitial thickening has slightly improved. IMPRESSION: 1. Persistent, but mildly improved, pulmonary edema. 2. Slight increase in a small right pleural effusion with right basilar opacity. Electronically signed by: Zev Hooks M.D. 05/14/2017 1:39 PM Dictated Date/Time: 05/14/2017 1:37 PM SINGLE VIEW CHEST CLINICAL HISTORY: Dyspnea. FINDINGS: An AP, portable, upright chest radiograph is compared to study dated 05/04/2017 and correlated with chest CT dated 05/01/2017. The examination is degraded by portable technique and patient rotation. The heart is enlarged and there is atherosclerotic calcification of the thoracic aorta. Postoperative change is noted at the aortic valve. There is pulmonary vascular congestion. Bilateral airspace opacities are observed. Trace pleural effusions are identified. No pneumothorax is seen. The skeletal structures are osteopenic. The bony thorax is grossly intact. IMPRESSION: 1. Cardiomegaly with pulmonary vascular congestion. 2. There are bilateral patchy airspace opacities, similar to recent prior studies. This could represent pulmonary edema and/or multifocal pneumonia. Clinical correlation will be essential. 3. Small pleural effusions. Electronically signed by: Joe Wayne M.D. 05/12/2017 10:56 PM Dictated Date/Time: 05/12/2017 10:54 PM Assessment & Plan (1) Bradycardia (2) Pleural effusion (3) Diabetes (4) Dyspnea (5) Hypothyroidism (6) Chronic kidney disease (7) Pulmonary nodules (8) Hemodialysis patient (9) Hypertension (10) Diastolic CHF (11) End stage renal disease on dialysis (12) Shortness of breath Reason Critically Ill: Patient is an 71-year-old female who is transferred to the ICU for post Bradycardic Arrest with PEA and intubation. Pt is currently being worked up for multiple pulmonary nodules. Pt has demonstrate asymptomatic bradycardia in the past. 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 500cc bolus given Neuro: * PRN Fentanyl & Versed per order * Wean in AM for SBT Resp: * 1 episode of acute hypoxia. Pt suction for small amounts of blood clot, demonstrated improvements of saturations * SBT in AM * Consider Bronch this admission if Pacemaker is inserted * Pleural Effusion: Thoracentesis by Wiley 05/15; Please see his separate note * 300cc removed * Cytology/Cultures on pleural fluid ordered * pH: 7.3 Fluids/Renal: * ESRD: HD today * Monitor labs closely ID: * No current signs. Monitor for changes * Afebrile, without leukocytosis GI/Nutrition: * Prophylaxis in place * monitor closely * NPO currently Heme: * H&H/Plts WNL * Minimal bleeding within ET system * No gross bleeding Endocrine: * Accu-Checks per protocol, started insulin infusion for 2 blood sugars greater than 180 * Sliding Scale Insulin in place CCT: 50 Minutes; This time is exclusive of all separately billable procedures. Thank you for involving us in the care of this patient. Please refer to Dr. Khurram Jama's addendum for further recommendations. I have personally evaluated and examined this patient. I agree with assessment and plan of Jonathon Morales PA-C. Holding amiodarone, completed thoracentesis to facilitate malignancy workup.
--- NOTE | 2017-05-15 00:36 | Procedure Note ---
Procedure Note Date of Service May 14, 2017. Procedure Note Critical Care Medicine Procedure Date: 05/14/17 Procedure: Thoracentesis Pre-procedure Diagnosis: right pleural effusion, concern for loculation Post-procedure Diagnosis: same as above Prior to Procedure: Informed Consent: The risks, benefits, indications, potential complications, and alternatives were explained to the patient/family and informed consent obtained from Gildardo via telephone Attending Staff: Wiley Resident/Physician Faith Healer: Carmen Indications: Nicole Up is a 71 year old female patient with right pleural effusion and respiratory failure. Limited bedside chest ultrasound revealed type b profile of the right lung and type a of the lung. There is a pleural effusion of the right lung with possible loculation. The identity of the patient was confirmed and a bedside time out was performed. Description of Procedure: Patient positioned, prepped and draped in usual sterile fashion. Fluid collection identified at bedside by US on the right side. 1% Lidocaine without epinephrine was used to anesthetize the area. An arrow thoracentesis kit was used to enter the plural space and the catheter introduced over the needle. Pleural fluid was then aspirated. Post procedure chest x-ray has been reviewed. No apical PTX, ET tube needs advancement, CVL in adequate position. Complications: None Findings: 300 mL of fluid removed. Total Fluid Removed: 300 mL Color of Fluid: serosanguineous Sent for: Gram Stain, culture, cell count, glucose, protein, LDH, pleural pH, cytology Estimated blood loss: trace
[2017-05-15] MEDS ORDERED: FENTANYL CITRATE INJ 50 MCG/1 ML 2 ML VIAL IV ONE (00:45)
[2017-05-15] MEDS ORDERED: RANITIDINE IV 50 MG in DEXTROSE 5% 100ML 100 ML IV SCH (00:45)
[2017-05-15] MEDS ORDERED: MIDAZOLAM HCL 5 MG/ML 1 ML VIAL IV PRN (00:45)
[2017-05-15] MEDS ORDERED: MIDAZOLAM HCL 1 MG/ML 2ML VIAL IV ONE (00:45)
--- NOTE | 2017-05-15 01:17 | Procedure Note ---
Procedure Note Procedure Date May 15, 2017. Procedure Description Procedure Name: Right Introducer Catheter Insertion Central Line Procedure time out: side/site verified, patient ID confirmed, sterile procedure used Consent obtained: emergent consent implied Time of procedure: 00:01 Performed by: physician environmental compliance officer Indications: other (Possible need for transvenous pacer secondary to ) Prep: chlorhexadine prep, sterile drape, sterile procedures used Anesthesia: local injection, lidocaine 1% without epi Volume anesthetic (ml's): 5 Central line lumen: triple Central line location: internal jugular (R) Additional details: percutaneous placement, ultrasound guidance, line sutured, good blood return CXR: appropriate position, no pneumothorax Complications: none Patient tolerated procedure: well Post-procedure vital signs: reviewed and stable Comments: Consent was obtained prior to procedure. Indication, risks, and benefits were explained at length. Procedure: Procedure was performed under strict sterile field in O.R. fashion. The right neck and chest were cleaned with chloroprep scrub and the pt was draped in sterile fashion. The internal jugular vein was identified using ultrasound. After anesthetizing the area with 5cc of lidocaine, venous blood was withdrawn after accessing the vein under ultrasound guidance. The syringe was removed and a guide wire was advanced into the introducer needle. The dilator within the introducer unit was advanced after being exchanged for the introducer needle. The wire and internal dilator were removed and the catheter was sutured at the hub. A surgical dressing was placed over the catheter with a biofilm shield in place. At the time of the procedure each port was aspirated and then flushed properly. Pt tolerated the procedure well with no complications. Post procedure x-ray was completed, placement was appropriate and no pneumothorax was noted.
[2017-05-15] MEDS: MIDAZOLAM HCL 1 MG/ML 2ML VIAL IV PRN ×4 (01:25→13:38)
[2017-05-15] MEDS: FENTANYL CITRATE INJ 50 MCG/1 ML 2 ML VIAL IV PRN ×6 (01:34→13:38)
[2017-05-15] MEDS ORDERED: DOPamine 400MG / D5W 400 MG IV PRN (01:50)
[2017-05-15] MEDS ORDERED: NURSING VERBAL MED ORDER ONE ×3 (01:50→19:00)
[2017-05-15 01:56] LABS: PLEURAL FLUID TOTAL PROTEIN 2.1 g/dl
[2017-05-15] MEDS ORDERED: FAMOTIDINE IV INJ 20 MG in SYRINGE 3 ML IV SCH ×2 (02:00→16:00)
[2017-05-15] MEDS ORDERED: SODIUM CHLORIDE 0.9% 1000ML 500 ML IV SCH (04:45)
[2017-05-15 06:04] LABS: BASO % 0.7 %; BASO ABS # 0.06 K/uL (0-0.2); EOS % 0.2 %; EOS ABS # 0.02 K/uL (0-0.5); HEMATOCRIT 26.6 % (37-47); HEMOGLOBIN 8.5 g/dL (12.0-16.0); IG# 0.02 K/uL (0.00-0.02); LYMPH % 7.2 %; LYMPH ABS # 0.65 K/uL (1.2-3.4); MEAN CELL VOLUME 82.4 fL (80-100); MEAN CORPUSCULAR HEMOGLOBIN 26.3 pg (25-34); MEAN PLATELET VOLUME 10.7 fL (7.4-10.4); MONO % 12.2 %; NEUT % 79.5 %; NUCLEATED RED BLOOD CELL ABS 0.03 K/uL (0-0); PLATELET COUNT 147 K/uL (130-400); RED CELL DISTRIBUTION WIDTH CV 18.3 % (11.5-14.5); RED CELL DISTRIBUTION WIDTH SD 54.5 fL (36.4-46.3); WHITE BLOOD COUNT 9.05 K/uL (4.8-10.8)
[2017-05-15 06:12] LABS: ALBUMIN 2.8 gm/dl (3.4-5.0); CALCIUM 8.6 mg/dl (8.5-10.1); CREATININE 5.6 mg/dl (0.60-1.20); PHOSPHORUS 6.1 mg/dl (2.5-4.9); TOTAL PROTEIN 6.3 gm/dl (6.4-8.2)
--- NOTE | 2017-05-15 06:34 | DIAGNOSTIC IMAGING REPORT ---
CHEST ONE VIEW PORTABLE CLINICAL HISTORY: Respiratory failure COMPARISON STUDY: 05/14/2017 FINDINGS: The heart is mildly enlarged. Aortic valve replacement is visualized. There is an endotracheal tube 9.6 cm above the han. There is a right internal jugular introducer sheath projected over the confluence of the right internal jugular vein and right subclavian vein. There are overlying electrodes. There is a catheter overlying the upper abdomen and right chest which likely is extraneous to the patient. There are bilateral pulmonary airspace opacities, likely are presenting pulmonary edema.[ IMPRESSION: 1. Bilateral pulmonary airspace opacities, likely represent pulmonary edema 2. Endotracheal tube 9.6 cm above the han 3. Right internal jugular introducer sheath projected over the confluence of the right internal jugular vein and right subclavian vein 4. No pneumothorax identified 5.Unspecified catheter/electrode projected over the upper abdomen and right lower chest Electronically signed by: Jeronimo Edmonds M.D. 05/15/2017 6:32 AM Dictated Date/Time: 05/15/2017 6:29 AM
--- NOTE | 2017-05-15 06:51 | DIAGNOSTIC IMAGING REPORT ---
CHEST ONE VIEW PORTABLE CLINICAL HISTORY: S/P PleurX Catheter Placement COMPARISON STUDY: Chest radiograph May 15, 2017 at 12:31 AM. FINDINGS: The endotracheal tube has been advanced. The tip is 2.8 cm above the han. Cardiomegaly is unchanged. Prosthetic aortic valve is noted. Tip of right internal jugular introducer sheath projects over the confluence of the right internal jugular and subclavian veins. This is unchanged. Note is again made of a catheter projecting over the right lower hemithorax which may reflect pleural catheter. There is a small left pleural effusion. No pneumothorax is present. Left basilar opacity is noted. Diffuse interstitial thickening is noted. IMPRESSION: 1. Tip of endotracheal tube 2.8 cm above the han. 2. Catheter projecting over the right lower hemithorax. This may reflect a pleural catheter. Small left pleural effusion. 3. Diffuse interstitial thickening and bilateral opacities which favors pulmonary edema although an infectious process could appear similar. Electronically signed by: Zev Hooks M.D. 05/15/2017 6:49 AM Dictated Date/Time: 05/15/2017 6:45 AM
--- NOTE | 2017-05-15 06:53 | DIAGNOSTIC IMAGING REPORT ---
CHEST ONE VIEW PORTABLE HISTORY: 71 years-old Female check ETT placement status post endotracheal tube placement COMPARISON: Chest radiograph 05/15/2017 at 12:39 AM, chest radiographs 05/14/2017, chest CT 05/01/2017 TECHNIQUE: Portable AP view of the chest FINDINGS: Cardiac silhouette is moderately enlarged. Prosthetic aortic valve is noted. There is atherosclerosis of the aorta. Calcifications of the aortic annulus are noted. There is no pneumothorax. Mild blunting of the costophrenic angles is suspicious for trace effusions. Persistent interstitial thickening is noted with patchy perihilar and bibasilar opacities. Endotracheal tube overlies the midline terminating 3.5 cm superior to the han. Enteric tube courses below the diaphragm with distal tip outside the [id number] within the region of the left upper abdomen. Right internal jugular central venous catheter appears unchanged. Bones appear grossly intact. IMPRESSION: 1. Cardiomegaly with persistent stable appearing pulmonary edema with bibasilar opacities suggesting atelectasis or pneumonitis. 2. Mild blunting of the costophrenic angles suggests trace effusions. 3. Endotracheal tube terminates 3.5 cm superior to the han. The above report was generated using voice recognition software. It may contain grammatical, syntax or spelling errors. Electronically signed by: Lul Hussein M.D. 05/15/2017 6:52 AM Dictated Date/Time: 05/15/2017 6:48 AM
--- NOTE | 2017-05-15 07:01 | DIAGNOSTIC IMAGING REPORT ---
BILATERAL LOWER EXTREMITY VENOUS DOPPLER CLINICAL HISTORY: Acute Hypoxia. COMPARISON STUDY: No previous studies for comparison. TECHNIQUE: Sonography of the deep venous system of the bilateral lower extremities was performed. Compression and augmentation were evaluated. FINDINGS: The bilateral common femoral, superficial femoral and popliteal veins were compressible. Augmentation was normal. Flow was shown within the deep calf vessels. IMPRESSION: No evidence of deep venous thrombus within the bilateral lower extremities. Electronically signed by: Zev Hooks M.D. 05/15/2017 7:00 AM Dictated Date/Time: 05/15/2017 6:59 AM
[2017-05-15] MEDS: CALCIUM ACETATE 667MG GELCAP PO SCH ×3 (07:15→16:30)
--- NOTE | 2017-05-15 07:50 | Family Medicine Progress Note ---
Progress Note Date of Service May 15, 2017. Subjective Pt evaluation today including: conversation w/ patient, physical exam, chart review, lab review, review of studies, conversation w/ image consultant Patient was transferred to the ICU overnight for PEA/cole arrest. Please see related code note and subsequent ICU transfer notes. Found pt sitting up in bed , still intubated, but nods her head to say she's overall comfortable. Responds to commands, but did get some sedation in the ICU. Additional Comments: Unable to obtain this morning due to patient's being intubated. Medications Current Inpatient Medications Medications (Trade) Dose Ordered Sig/Janice Route Start Time Stop Time Status Last Admin Dose Admin Amiodarone HCl (Cordarone Tab) 200 mg DAILY PO 05/13/17 09:00 06/12/17 08:59 05/14/17 09:17 200 MG Aspirin (Ecotrin Tab) 81 mg DAILY PO 05/13/17 09:00 06/12/17 08:59 05/14/17 07:54 81 MG Atorvastatin Calcium (Lipitor Tab) 20 mg DAILY PO 05/13/17 09:00 06/12/17 08:59 05/14/17 07:53 20 MG Benzonatate (Tessalon Perles Cap) 100 mg TID PO 05/13/17 09:00 06/12/17 08:59 05/14/17 07:53 100 MG Calcium Acetate (Phoslo Cap) 667 mg TIDM PO 05/13/17 07:30 06/12/17 07:29 05/14/17 19:28 667 MG Cholecalciferol (Vitamin D Tab) 1,000 inter.unit DAILY PO 05/13/17 09:00 06/12/17 08:59 05/14/17 07:54 1,000 INTER.UNIT Citalopram Hydrobromide (celeXA TAB) 60 mg DAILY PO 05/13/17 09:00 06/12/17 08:59 05/14/17 07:54 60 MG Clopidogrel Bisulfate (plAVix TAB) 75 mg DAILY PO 05/13/17 09:00 06/12/17 08:59 05/14/17 07:55 75 MG Hydralazine HCl (Apresoline Tab) 25 mg TID PO 05/13/17 09:00 06/12/17 08:59 05/14/17 07:55 25 MG Insulin Glargine (Lantus Solostar Pen) 4 units QPM SC 05/13/17 21:00 06/12/17 20:59 05/14/17 20:46 4 UNITS Levothyroxine Sodium (Synthroid Tab) 50 mcg DAILYBB PO 05/13/17 06:00 06/12/17 05:59 05/14/17 05:55 50 MCG Lorazepam (Ativan Tab) 1 mg BID PO 05/13/17 09:00 06/12/17 08:59 05/14/17 20:46 1 MG Montelukast Sodium (Singulair Tab) 10 mg DAILY PO 05/13/17 09:00 06/12/17 08:59 05/14/17 07:55 10 MG Glucose (Glucose 40% Gel) 15-30 GRAMS 15 GRAMS... UD PRN PO 05/12/17 21:45 06/11/17 21:44 Glucose (Glucose Chew Tab) 4-8 Tablets 4 Tabl... UD PRN PO 05/12/17 21:45 06/11/17 21:44 Dextrose (Dextrose 50% 50ML Syringe) 25-50ML OF 50% DW IV FOR... UD PRN IV 05/12/17 21:45 06/11/17 21:44 Glucagon (Glucagon Inj) 1 mg UD PRN SQ 05/12/17 21:45 06/11/17 21:44 Acetaminophen (Tylenol Tab) 650 mg Q4H PRN PO 05/13/17 01:45 06/12/17 01:44 05/14/17 20:58 650 MG Amlodipine Besylate (Norvasc Tab) 10 mg DAILY PO 05/13/17 09:00 06/12/17 08:59 05/14/17 09:17 10 MG Trazodone HCl (Desyrel Tab) 25 mg QPM PRN PO 05/13/17 18:00 06/12/17 17:59 05/13/17 21:27 25 MG Calcium Carbonate (Tums Chew Tab) 500 mg Q1H PRN PO 05/14/17 04:30 06/13/17 04:29 05/14/17 11:07 500 MG Oxycodone/ Acetaminophen (Percocet 5-325mg Tab) 1 tab Q4H PRN PO 05/14/17 04:30 05/28/17 04:29 05/14/17 04:41 1 TAB Pantoprazole Sodium (Protonix Tab) 40 mg BID PO 05/15/17 09:00 06/14/17 08:59 Fentanyl Citrate (Fentanyl Inj) 50 mcg Q1H PRN IV 05/15/17 00:45 05/29/17 00:44 05/15/17 07:21 25 MCG Famotidine 20 mg/ Syringe 5 ml @ 2.5 mls/min Q12H IV 05/15/17 02:00 06/14/17 01:59 05/15/17 02:17 2.5 MLS/MIN Midazolam HCl (Versed Inj) 2 mg Q2H PRN IV 05/15/17 01:30 06/14/17 01:29 05/15/17 07:20 2 MG Dopamine HCl/ Dextrose 0 ml @ 0 mls/hr Q0M PRN IV 05/15/17 01:50 06/14/17 01:49 Objective Vital Signs Date Time Temp Pulse Resp B/P (MAP) Pulse Ox O2 Delivery O2 Flow Rate FiO2 05/15/17 07:45 35 05/15/17 06:00 51 22 114/39 (64) 100 Mechanical Ventilator 35 05/15/17 05:15 50 05/15/17 05:00 46 15 110/33 (58) 100 Mechanical Ventilator 50 05/15/17 04:08 50 05/15/17 04:00 50 Mechanical Ventilator 05/15/17 04:00 36.3 44 14 104/34 (57) 100 Mechanical Ventilator 50 05/15/17 04:00 50 05/15/17 03:00 45 14 103/32 (55) 100 Mechanical Ventilator 60 05/15/17 02:10 60 05/15/17 02:00 36.5 47 14 121/40 (67) 100 Mechanical Ventilator 60 05/15/17 01:51 51 17 90/37 (54) 97 Mechanical Ventilator 100 05/15/17 01:47 45 0 66/26 (39) 85 Mechanical Ventilator 100 05/15/17 01:46 45 0 67/27 (40) 82 Mechanical Ventilator 100 05/15/17 01:31 50 12 118/35 (62) 100 Mechanical Ventilator 60 05/15/17 01:17 55 14 138/47 (77) 100 Mechanical Ventilator 60 05/15/17 01:00 56 16 86/47 (60) 100 Mechanical Ventilator 60 05/15/17 00:46 58 11 129/56 (80) 100 Mechanical Ventilator 60 05/15/17 00:16 57 12 129/47 (74) 100 Mechanical Ventilator 60 05/15/17 00:00 60 05/15/17 00:00 60 Mechanical Ventilator 05/15/17 00:00 36.5 58 15 113/45 (67) 94 Mechanical Ventilator 60 05/14/17 23:49 100 05/14/17 23:46 59 16 111/41 (64) 94 Mechanical Ventilator 60 05/14/17 23:30 58 14 119/46 (70) 98 Mechanical Ventilator 60 05/14/17 23:16 58 21 90/36 (54) 96 Mechanical Ventilator 05/14/17 23:13 59 7 98/38 (58) 93 Mechanical Ventilator 100 05/14/17 21:13 43 16 114/44 (67) 05/14/17 20:00 Nasal Cannula 2.0 05/14/17 19:35 36.4 99 21 98/46 (63) 99 Nasal Cannula 5.0 05/14/17 16:00 99 Nasal Cannula 3.0 Humidified Oxygen 05/14/17 15:34 36.4 48 18 104/44 (64) 96 Nasal Cannula 5.0 05/14/17 12:00 Nasal Cannula 3.0 Humidified Oxygen 05/14/17 11:32 36.5 49 16 104/48 (66) 90 Nasal Cannula 3.0 05/14/17 08:00 Nasal Cannula 3.0 Humidified Oxygen Physical Exam General Appearance: no apparent distress (intubated, but nods head to questions ) Respiratory/Chest: lungs clear, normal breath sounds (but ET tube in place) Cardiovascular: no murmur, + bradycardia (40-50's) Abdomen: normal bowel sounds, non tender, soft Extremities: no pedal edema Laboratory Results 05/15/17 04:56 Red Blood Count 3.23, Mean Corpuscular Volume 82.4, Mean Corpuscular Hemoglobin 26.3, Mean Corpuscular Hemoglobin Concent 32.0, Mean Platelet Volume 10.7, Neutrophils (%) (Auto) 79.5, Lymphocytes (%) (Auto) 7.2, Monocytes (%) (Auto) 12.2, Eosinophils (%) (Auto) 0.2, Basophils (%) (Auto) 0.7, Neutrophils # (Auto ) 7.20, Lymphocytes # (Auto) 0.65, Monocytes # (Auto) 1.10, Eosinophils # (Auto ) 0.02, Basophils # (Auto) 0.06 05/15/17 04:56 Test 05/14/17 14:04 05/14/17 20:14 05/14/17 23:24 05/14/17 23:29 Troponin I 0.495 ng/ml (0-0.045) Bedside Glucose 145 mg/dl (70-90) Prothrombin Time 12.9 SECONDS (9.0-12.0) Prothromb Time International Ratio 1.2 (0.9-1.1) Globulin 3.9 gm/dl (2.5-4.0) Albumin/Globulin Ratio 0.8 (0.9-2) Lactate Dehydrogenase 344 U/L (84-246) Test 05/15/17 00:25 05/15/17 04:56 05/15/17 05:40 Pleural Fluid Source RIGHT LUNG Pleural Fluid Color RED Pleural Fluid Appearance BLOODY Pleural Fluid WBC 382 /uL Pleural Fluid RBC 46403 /uL Pleural Fluid Polynuclear WBCs % 35.8 % Pleural Fluid Mononuclear WBCs % 64.2 % Pleural Fluid Total Protein 2.1 g/dl Pleural Fluid LDH 87 IU Pleural Fluid Glucose 171 mg/dl White Blood Count 9.05 K/uL (4.8-10.8) Red Blood Count 3.23 M/uL (4.2-5.4) Hemoglobin 8.5 g/dL (12.0-16.0) Hematocrit 26.6 % (37-47) Mean Corpuscular Volume 82.4 fL (80-100) Mean Corpuscular Hemoglobin 26.3 pg (25-34) Mean Corpuscular Hemoglobin Concent 32.0 g/dl (32-36) Platelet Count 147 K/uL (130-400) Mean Platelet Volume 10.7 fL (7.4-10.4) Neutrophils (%) (Auto) 79.5 % Lymphocytes (%) (Auto) 7.2 % Monocytes (%) (Auto) 12.2 % Eosinophils (%) (Auto) 0.2 % Basophils (%) (Auto) 0.7 % Neutrophils # (Auto) 7.20 K/uL (1.4-6.5) Lymphocytes # (Auto) 0.65 K/uL (1.2-3.4) Monocytes # (Auto) 1.10 K/uL (0.11-0.59) Eosinophils # (Auto) 0.02 K/uL (0-0.5) Basophils # (Auto) 0.06 K/uL (0-0.2) RDW Standard Deviation 54.5 fL (36.4-46.3) RDW Coefficient of Variation 18.3 % (11.5-14.5) Immature Granulocyte % (Auto) 0.2 % Immature Granulocyte # (Auto) 0.02 K/uL (0.00-0.02) Nucleated RBC Absolute Count (auto) 0.03 K/uL (0-0) Nucleated Red Blood Cells % 0.3 % Toxic Vacuolation 1+ Anisocytosis PRESENT Acanthocytes 1+ Anion Gap 10.0 mmol/L (3-11) Est Creatinine Clear Calc Drug Dose 8.1 ml/min Estimated GFR () 8.2 Estimated GFR (Non- 7.1 BUN/Creatinine Ratio 8.8 (10-20) Calcium Level 8.6 mg/dl (8.5-10.1) Phosphorus Level 6.1 mg/dl (2.5-4.9) Magnesium Level 2.1 mg/dl (1.8-2.4) Total Bilirubin 0.6 mg/dl (0.2-1) Direct Bilirubin 0.3 mg/dl (0-0.2) Aspartate Amino Transf (AST/SGOT) 76 U/L (15-37) Alanine Aminotransferase (ALT/SGPT) 53 U/L (12-78) Alkaline Phosphatase 73 U/L (45-117) Total Protein 6.3 gm/dl (6.4-8.2) Albumin 2.8 gm/dl (3.4-5.0) Lipase 78 U/L (73-393) Blood Gas Sample Site L Radial Bedside Blood Gas pH (LAB) 7.53 (7.35-7.45) Bedside Blood Gas pCO2 (LAB) 29 mmHg (35-46) Bedside Blood Gas pO2 (LAB) 161 mmHg (80-95) Bedside Blood Gas HCO3 (LAB) 24 meq/L (19-24) Bedside Blood Gas Total CO2 25 mEq/l (24-31) Bedside Blood Gas Base Excess (LAB) 1.0 meq/L (-9-1.8) Bedside Blood Gas O2 Saturation 100.0 % (90-95) Roque Test Pass Oxygen Delivery Device Ventilator Bedside Oxygen Rate (breaths/min) 12 Blood Gas Minute Ventilation 14.4 Bedside FiO2 50 % Blood Gas Tidal Volume 450 Blood Gas PEEP 5 Date/Time Source Procedure Growth Status 05/15/17 00:25 Nasal MRSA DNA Surveillance Screen - Final Specimen Negative for MRSA by DNA Probe Complete Assessment and Plan Ms. Up is a 71 yo female with PMH DM2, ESRD on dialysis, HTN, HLD, LVH, Hypothyroidism, Anemia of chronic disease, CVA, severe aortic stenosis post-TAVR , prior arrhythmias, that was transferred from [facility], admitted here on , for evaluation and management of acute on chronic diastolic congestive heart failure. - overnight bradycardia/PEA arrest, compressions, intubated, ROSC, ICU transfer - Please see their associated event notes for full details. - Intubated overnight with plans for extubation this morning. - thoracentesis - Consideration for pacemaker and/or bronch - Held beta-caleb - Cardiology and nephrology still onboard Previous background notes (for eventual transfer back to floor): Acute on chronic diastolic heart failure - At home she is on Amiodarone 200 mg a day, Hydralazine 25 mg TID, and Norvasc 10 mg a day - Echo on [id number]: LVEF 65-70%, no regional wall abnormalities, severe mitral calcification, mild MS, mild MR, pulm HTN, dilated IVC [this is an abbreviated report - see full report for details]. - Cardiology consulted (greatly appreciated). Rec's on included: 1. The patient has ongoing evidence of hypervolemia as evidenced by elevated jugular venous pressure. This could potentially represent both diastolic heart failure as well as right ventricular failure in light of her pulmonary hypertension. 2. Recommend continuing Amiodarone 200 mg daily. 3. Continue Hydralazine. 4. Continue Amlodipine 10 mg daily. 5. Trial of low dose Toprol XL 12.5 mg daily -- to allow for increased left ventricular diastolic filling time. 6. Management of Lasix as per nephrology. 7. Recommend that volume status be adjusted through ultrafiltration/dialysis. 8. Monitor daily I&O's, body weights. 9. Continue supplemental oxygen. 10. We will continue to follow along while hospitalized. Chronic kidney disease, on dialysis - Reportedly still makes a little urine at baseline. - Hx hemodialysis for > 3 years at . [facility], on MWF via right brachiocephalic AV fistula. On track for same MWF schedule while inpatient. - Nephrology consulted (greatly appreciated). Rec's on included: 1) HD tomorrow for 3 h, EDW 54 kg. 2) follow low-salt, low-potassium diet 3) continue on phosphate binder with meal and Nephrocaps daily 4) avoid IV fluid 5) Epogen 91620 unit IV x 1 dose given on 05/13/17 Chest discomfort / indigestion / emesis - Patient noted to have episode of same early am on . EKG at that time was relatively normal, at worst perhaps some mild ST depression in lateral leads. No resolution of symptoms with tums or percocet, however complete resolution with large burp. - Patient developed similar right lower pectoral discomfort radiating directly into her right lower back in early afternoon on , just s/p a trip to radiology for CXR. Patient attributed it to adding butter to lunch. Had single episode of non-bloody emesis (after the CXR was taken) and had great symptom relief from same. Given zofran and protonix as well. EKG at that time was grossly unchanged, perhaps some slight resolution of the ST depressions laterally. - Do not suspect a cardiac source at this time due to characteristics of pain, alleviating factors, lack of any concurrent SOB or diaphoresis, or severity. Will continue to monitor for this (and would appreciate cards input on their next patient eval). - For now, due to patient's prior history of pancreatitis, will check RUQ u/s for stones as well as LFTs and lipase in the AM (). - began scheduled protonix 40 mg PO BID. Troponin elevation - On admit was 0.536. Trended to 0.493 on third set. No clear evidence of an acute ischemic event otherwise. Likely related to some fluid overload. Hx of TIA - Continue plavix / aspirin Chronic anemia - H/H stable on admit thus far. Continue to monitor. - Given epogen on as discussed in nephro notes. Acute hypoxic respiratory failure - Patient says she's on a baseline 2L NC at home for oxygen requirement. Here has been successful around 3-4L NC thus far. - Origin of SOB likely combo recent PNA (treated at [facility] with abx x 4 days then outpt PO abx) as well as some fluid overload. - 03Dec CXR noted some cardiomegaly, pulmonary vascular congestion, bilateral patchy airspace opacities, similar to recent prior studies, and small pleural effusions. 05Dec CXR showed improved edema but an increase in a small right effusion with associated opacity. - It is difficult to tell if these imaging findings are partially holdovers from prior treated PNA. Afebrile here, not tachypnic, and not on a significantly higher oxygen requirement thus far as inpatient than at home, so acute infectious issue less likely. Thus, holding on abx coverage for now, but will closely monitor. - Goal remains to wear oxygen requirement to her baseline. Type 2 DM - Continue home dose of Lantus 4 units HS. Hypothyroidism - Continue home synthroid 50 mcg daily. MRSA screening - Nasal swab negative on this inpatient eval. Mild insomnia - Added trazodone prn for same. VTE: Heparin Code status: Full Dispo: Admit to Tele - 05Dec PT consulted, appreciate recs - 05Dec OT consulted, appreciate recs Resident Physician Supervision Note: I interviewed and examined the patient. Discussed with the resident physician and agree with findings and plan as documented in the note. Also discussed the case with the critical care team as well as the cardiology and pulmonary consultants. 1) the patient will undergo dialysis this morning for 4 hours 2) bronchoscopy is planned subsequent to completion of dialysis 3) hopefully we'll be able to extubate the patient following the bronchoscopy Documented By: Cheng Posadas Resident Tracking Resident Involvement: Resident Care Provided (inpt rounds) Care Provided: Adult Hospital Medicine
[2017-05-15] MEDS ORDERED: OPTIRAY 320 IV PRN (08:15)
[2017-05-15] MEDS: AMLODIPINE BESYLATE 5 MG TAB PO SCH ×2 (09:00→10:12)
[2017-05-15] MEDS ORDERED: PANTOprazole SOD 40 MG TAB PO SCH (09:00)
[2017-05-15] MEDS: BENZONATATE 100MG CAP PO SCH ×2 (09:00→12:34)
--- NOTE | 2017-05-15 09:02 | DIAGNOSTIC IMAGING REPORT ---
CT ANGIOGRAM OF THE CHEST CLINICAL HISTORY: Hemoptysis. COMPARISON STUDY: Chest x-ray dated 05/15/2017 , CT scan dated 05/01/2017 TECHNIQUE: Following the IV administration of 120 mL of Optiray-320, CT angiogram of the thorax was performed from the thoracic inlet to the lung bases utilizing the pulmonary embolus protocol. Images are reviewed in the axial, sagittal, and coronal planes. IV contrast was administered without complication. MIP imaging was performed. A dose lowering technique was utilized adhering to the principles of ALARA. CT DOSE: 385.82 mGy.cm FINDINGS: There are persistent enlarged paratracheal lymph nodes. The heart is enlarged. There is reflux of contrast into the hepatic veins. There is aortic valve replacement. There are coronary artery calcifications. There is an endotracheal tube positioned approximately 3 cm above the han. There is a right internal jugular central venous catheter. The tip projects over the confluence of the right subclavian vein and right internal jugular vein there is a nasogastric tube which passes into the stomach There was no evidence of thoracic aortic dilatation. Examination is significantly degraded by motion artifact. No central emboli are visualized. There are trace bilateral pleural effusions There is subtle groundglass attenuation the lungs, likely secondary to edema. There is a new mixed solid and groundglass right apical opacity measuring 11 mm. There are bilateral dependent pulmonary airspace opacities. These could be atelectatic or secondary to pneumonia. IMPRESSION: 1. Technically limited study. No central emboli identified 2. Suspected pulmonary edema with cardiomegaly and trace bilateral pleural effusions 3. Bilateral dependent lower lobe airspace opacities, these could represent either pneumonia or atelectasis. Electronically signed by: Jeronimo Edmonds M.D. 05/15/2017 9:01 AM Dictated Date/Time: 05/15/2017 8:54 AM
--- NOTE | 2017-05-15 09:14 | Cardiology Follow-Up ---
Subjective Date of Service: May 15, 2017. Pt evaluation today including: conversation w/ patient, physical exam, lab review, review of studies, review of inpatient medication list, conversation w/ attending History of Present Illness This is a 71-year-old woman with diabetes, end-stage renal disease on dialysis, hypertension, aortic stenosis with a TAVR 4 years ago with an echocardiogram done about 2 weeks ago showing good valve function and normal left ventricular function. I believe she had no obstructive coronary disease prior to the valve replacement. She has a reported history of wide complex tachycardia and unresponsiveness in February 2017 at another institution and amiodarone was instituted, I have not reviewed those records. She was admitted here 04/30/2017 for what appeared to be primary pulmonary problems, she was however quite bradycardic on that admission while on amiodarone 200 mg daily and metoprolol 25 mg twice a day. With discontinuation of her beta blockade her heart rate improved and was acceptable. She remained on amiodarone as the exact reason for initiation of it was uncertain. She was discharged on 05/04/2017. She now presented on 05/12/2017 appearing to be in congestive heart failure for uncertain reasons, her troponins were borderline elevated in the descending pattern not suggestive of an acute cardiac event. She was placed on low-dose beta-blockade and last evening was bradycardic but not to the extent she was before. During the night however she had a CODE BLUE where she was found to be in PEA, but did not appear to be a primary arrhythmia as a cause. She did need CPR and intubation and is now in the ICU. At this time she is minimally responsive (she is sedated), she evidently was complaining of right upper quadrant pain yesterday. An echocardiogram is been done this morning but is unavailable to review as yet. At the time of my evaluation she is intubated but can respond by nodding. She seems alert. Social History Smoking Status: Never Smoker History of Alcohol Use: No Review of Systems Review of systems cannot be easily obtained Medications Cardiovascular: Item Value Date Time Amiodarone HCl 200 mg 05/13/17 09 (Cordarone Tab) DAILY/PO 05/14/17 09 Aspirin 81 mg 05/13/17899 (Ecotrin Tab) DAILY/PO 05/14/17 075 Atorvastatin 20 mg 05/13/17899 Calcium DAILY/PO 05/14/17 0753 (Lipitor Tab) Clopidogrel 75 mg 05/13/17 0900 Bisulfate DAILY/PO 05/14/17 0755 (plAVix TAB) Hydralazine HCl 25 mg 05/13/17 0900 (Apresoline Tab) TID/PO Amlodipine 10 mg 05/13/17 0900 Besylate DAILY/PO 05/14/17 09 (Norvasc Tab) Objective Vital Signs Past 12 Hours Date Time Temp Pulse Resp B/P (MAP) Pulse Ox O2 Delivery O2 Flow Rate FiO2 05/15/17 07:45 35 05/15/17 06:00 51 22 114/39 (64) 100 Mechanical Ventilator 35 05/15/17 05:15 50 05/15/17 05:00 46 15 110/33 (58) 100 Mechanical Ventilator 50 05/15/17 04:08 50 05/15/17 04:00 50 Mechanical Ventilator 05/15/17 04:00 36.3 44 14 104/34 (57) 100 Mechanical Ventilator 50 05/15/17 04:00 50 05/15/17 03:00 45 14 103/32 (55) 100 Mechanical Ventilator 60 05/15/17 02:10 60 05/15/17 02:00 36.5 47 14 121/40 (67) 100 Mechanical Ventilator 60 05/15/17 01:51 51 17 90/37 (54) 97 Mechanical Ventilator 100 05/15/17 01:47 45 0 66/26 (39) 85 Mechanical Ventilator 100 05/15/17 01:46 45 0 67/27 (40) 82 Mechanical Ventilator 100 05/15/17 01:31 50 12 118/35 (62) 100 Mechanical Ventilator 60 05/15/17 01:17 55 14 138/47 (77) 100 Mechanical Ventilator 60 05/15/17 01:00 56 16 86/47 (60) 100 Mechanical Ventilator 60 05/15/17 00:46 58 11 129/56 (80) 100 Mechanical Ventilator 60 05/15/17 00:16 57 12 129/47 (74) 100 Mechanical Ventilator 60 05/15/17 00:00 60 05/15/17 00:00 60 Mechanical Ventilator 05/15/17 00:00 36.5 58 15 113/45 (67) 94 Mechanical Ventilator 60 05/14/17 23:49 100 05/14/17 23:46 59 16 111/41 (64) 94 Mechanical Ventilator 60 05/14/17 23:30 58 14 119/46 (70) 98 Mechanical Ventilator 60 05/14/17 23:16 58 21 90/36 (54) 96 Mechanical Ventilator 05/14/17 23:13 59 7 98/38 (58) 93 Mechanical Ventilator 100 05/14/17 21:13 43 16 114/44 (67) Last Recorded Weight-Kilograms: 56.700 Physical Exam Constitutional: Level of Distress: acutely ill Lungs: Auscultation: breath sounds normal, no wheezing Cardiovascular: Heart Auscultation: RRR, II/ CONNIE, II/ WSM Extremities: no edema Data Laboratory Results: Last 24 Hours Test 05/14/17 11:21 05/14/17 14:04 05/14/17 16:35 05/14/17 18:54 Bedside Glucose 107 mg/dl 130 mg/dl 131 mg/dl Troponin I 0.495 ng/ml Test 05/14/17 20:14 05/14/17 23:24 05/14/17 23:29 05/15/17 00:22 Bedside Glucose 145 mg/dl White Blood Count 6.98 K/uL Red Blood Count 3.76 M/uL Hemoglobin 10.1 g/dL Hematocrit 31.2 % Mean Corpuscular Volume 83.0 fL Mean Corpuscular Hemoglobin 26.9 pg Mean Corpuscular Hemoglobin Concent 32.4 g/dl Platelet Count 204 K/uL Mean Platelet Volume 10.0 fL Neutrophils (%) (Auto) 65.7 % Lymphocytes (%) (Auto) 18.9 % Monocytes (%) (Auto) 9.6 % Eosinophils (%) (Auto) 2.7 % Basophils (%) (Auto) 2.0 % Neutrophils # (Auto) 4.58 K/uL Lymphocytes # (Auto) 1.32 K/uL Monocytes # (Auto) 0.67 K/uL Eosinophils # (Auto) 0.19 K/uL Basophils # (Auto) 0.14 K/uL RDW Standard Deviation 56.4 fL RDW Coefficient of Variation 18.4 % Immature Granulocyte % (Auto) 1.1 % Immature Granulocyte # (Auto) 0.08 K/uL Nucleated RBC Absolute Count (auto) 0.10 K/uL Nucleated Red Blood Cells % 1.5 % Prothrombin Time 12.9 SECONDS Prothromb Time International Ratio 1.2 Sodium Level 128 mmol/L Potassium Level 4.0 mmol/L Chloride Level 92 mmol/L Carbon Dioxide Level 24 mmol/L Anion Gap 12.0 mmol/L Blood Urea Nitrogen 47 mg/dl Creatinine 5.59 mg/dl Est Creatinine Clear Calc Drug Dose 8.2 ml/min Estimated GFR () 8.3 Estimated GFR (Non- 7.1 BUN/Creatinine Ratio 8.4 Random Glucose 187 mg/dl Calcium Level 9.4 mg/dl Total Bilirubin 0.6 mg/dl Aspartate Amino Transf (AST/SGOT) 73 U/L Alanine Aminotransferase (ALT/SGPT) 50 U/L Alkaline Phosphatase 87 U/L Total Protein 6.9 gm/dl Albumin 3.0 gm/dl Globulin 3.9 gm/dl Albumin/Globulin Ratio 0.8 Lactate Dehydrogenase 344 U/L Blood Gas Sample Site R Radial Bedside Blood Gas pH (LAB) 7.38 Bedside Blood Gas pCO2 (LAB) 41 mmHg Bedside Blood Gas pO2 (LAB) 128 mmHg Bedside Blood Gas HCO3 (LAB) 24 meq/L Bedside Blood Gas Total CO2 25 mEq/l Bedside Blood Gas Base Excess (LAB) -1.0 meq/L Bedside Blood Gas O2 Saturation 99.0 % Roque Test NA Test 05/15/17 00:25 05/15/17 04:56 05/15/17 05:40 Pleural Fluid Source RIGHT LUNG Pleural Fluid Color RED Pleural Fluid Appearance BLOODY Pleural Fluid WBC 382 /uL Pleural Fluid RBC 00966 /uL Pleural Fluid Polynuclear WBCs % 35.8 % Pleural Fluid Mononuclear WBCs % 64.2 % Pleural Fluid Total Protein 2.1 g/dl Pleural Fluid LDH 87 IU Pleural Fluid Glucose 171 mg/dl White Blood Count 9.05 K/uL Red Blood Count 3.23 M/uL Hemoglobin 8.5 g/dL Hematocrit 26.6 % Mean Corpuscular Volume 82.4 fL Mean Corpuscular Hemoglobin 26.3 pg Mean Corpuscular Hemoglobin Concent 32.0 g/dl Platelet Count 147 K/uL Mean Platelet Volume 10.7 fL Neutrophils (%) (Auto) 79.5 % Lymphocytes (%) (Auto) 7.2 % Monocytes (%) (Auto) 12.2 % Eosinophils (%) (Auto) 0.2 % Basophils (%) (Auto) 0.7 % Neutrophils # (Auto) 7.20 K/uL Lymphocytes # (Auto) 0.65 K/uL Monocytes # (Auto) 1.10 K/uL Eosinophils # (Auto) 0.02 K/uL Basophils # (Auto) 0.06 K/uL RDW Standard Deviation 54.5 fL RDW Coefficient of Variation 18.3 % Immature Granulocyte % (Auto) 0.2 % Immature Granulocyte # (Auto) 0.02 K/uL Nucleated RBC Absolute Count (auto) 0.03 K/uL Nucleated Red Blood Cells % 0.3 % Toxic Vacuolation 1+ Anisocytosis PRESENT Acanthocytes 1+ Sodium Level 129 mmol/L Potassium Level 4.0 mmol/L Chloride Level 95 mmol/L Carbon Dioxide Level 24 mmol/L Anion Gap 10.0 mmol/L Blood Urea Nitrogen 48 mg/dl Creatinine 5.60 mg/dl Est Creatinine Clear Calc Drug Dose 8.1 ml/min Estimated GFR () 8.2 Estimated GFR (Non- 7.1 BUN/Creatinine Ratio 8.8 Random Glucose 129 mg/dl Calcium Level 8.6 mg/dl Phosphorus Level 6.1 mg/dl Magnesium Level 2.1 mg/dl Total Bilirubin 0.6 mg/dl Direct Bilirubin 0.3 mg/dl Aspartate Amino Transf (AST/SGOT) 76 U/L Alanine Aminotransferase (ALT/SGPT) 53 U/L Alkaline Phosphatase 73 U/L Total Protein 6.3 gm/dl Albumin 2.8 gm/dl Lipase 78 U/L Blood Gas Sample Site L Radial Bedside Blood Gas pH (LAB) 7.53 Bedside Blood Gas pCO2 (LAB) 29 mmHg Bedside Blood Gas pO2 (LAB) 161 mmHg Bedside Blood Gas HCO3 (LAB) 24 meq/L Bedside Blood Gas Total CO2 25 mEq/l Bedside Blood Gas Base Excess (LAB) 1.0 meq/L Bedside Blood Gas O2 Saturation 100.0 % Roque Test Pass Oxygen Delivery Device Ventilator Bedside Oxygen Rate (breaths/min) 12 Blood Gas Minute Ventilation 14.4 Bedside FiO2 50 % Blood Gas Tidal Volume 450 Blood Gas PEEP 5 Imaging: Echocardiography is pending EKG: Electrocardiograms done during the event are reviewed, there is not one from this morning in the ICU. She does have lateral ST depression which could suggest ischemia, but there is no evidence of ST elevation. The rhythms are sinus bradycardia. Telemetry reviewed: Sinus bradycardia, some increase in sinus rate upon transfer to the ICU. No tachyarrhythmia identified. Currently in the ICU she is having what appears to be sinus pauses, possibly sinus node exit block, but with junctional escape beats. Assessment and Plan #1. CODE BLUE: The cause of this event remains unclear. It does not seem to be a primary cardiac event, we will need to trend troponins in review the echocardiogram but it does not seem that she had a significant enough coronary event to cause this presentation (no ST elevation) and her heart rate has been where it is now or lower in the past without an event. It may have been hypoxic. #2. Amiodarone therapy: I'm not sure exactly why she is on amiodarone, we can try to investigate that. At the moment however I would hold it with her bradycardia. #3. Bradycardia: I would keep her off of beta-blockade at this point, and Holter amiodarone for now. This morning she is having periods of what appeared to be sinus arrest with a junctional escape, this might be consistent with sinus node exit block either from medications or intrinsic sinus node dysfunction. So far her heart rate has remained in the 40s and I would not plan pacemaker implantation at this time. Possibly she'll need one in the future. #4. Aortic valve replacement: She does have a prosthetic aortic valve, at her echocardiogram 2 weeks ago that was functioning well. We will review today's echo for valve function but that does not seem to be a likely cause of her difficulty. Thank you for allowing me to participate in her care.
--- NOTE | 2017-05-15 09:44 | Nephrology Progress Note ---
Nephrology Progress Note Date of Service May 15, 2017. Chief Complaint f/u for ESRD while inpatient Subjective Nicole was seen and examined in ICU.She was transferred to ICU over night after she had bradycardic arrest and was intubated. Currently vitals stable without pressor. LE doppler and CTA was unremarkable. Review of Systems A complete review of systems was not possible due to pts status. Vital Signs Last 8 Hrs Date Time Temp Pulse Resp B/P (MAP) Pulse Ox O2 Delivery O2 Flow Rate FiO2 05/15/17 09:30 45 112/35 05/15/17 09:20 46 96/38 05/15/17 07:45 35 05/15/17 06:00 51 22 114/39 (64) 100 Mechanical Ventilator 35 05/15/17 05:15 50 05/15/17 05:00 46 15 110/33 (58) 100 Mechanical Ventilator 50 05/15/17 04:08 50 05/15/17 04:00 50 Mechanical Ventilator 05/15/17 04:00 36.3 44 14 104/34 (57) 100 Mechanical Ventilator 50 05/15/17 04:00 50 05/15/17 03:00 45 14 103/32 (55) 100 Mechanical Ventilator 60 05/15/17 02:10 60 05/15/17 02:00 36.5 47 14 121/40 (67) 100 Mechanical Ventilator 60 05/15/17 01:51 51 17 90/37 (54) 97 Mechanical Ventilator 100 05/15/17 01:47 45 0 66/26 (39) 85 Mechanical Ventilator 100 05/15/17 01:46 45 0 67/27 (40) 82 Mechanical Ventilator 100 Last Recorded Weight Weight (Kilograms): 56.700 Physical Exam GENERAL: elderly female, intubated, sedated. NECK: Supple, no JVD. RESPIRATORY: Normal breathing efforts, no accessory muscle use, clear to auscultation bilaterally, no wheezes or rales. CARDIOVASCULAR: S1, S2 normal, rate rhythm regular. EXTREMITY: No lower extremity edema NEURO: could not be assessed Social History Smokeless Tobacco Use: No Alcohol Use: none Drug Use: none Marital Status: Housing Status: lives with family Occupation: retired Laboratory Results Past 24 Hours 05/14/17 23:24 Red Blood Count 3.76, Mean Corpuscular Volume 83.0, Mean Corpuscular Hemoglobin 26.9, Mean Corpuscular Hemoglobin Concent 32.4, Mean Platelet Volume 10.0, Neutrophils (%) (Auto) 65.7, Lymphocytes (%) (Auto) 18.9, Monocytes (%) (Auto) 9.6, Eosinophils (%) (Auto) 2.7, Basophils (%) (Auto) 2.0, Neutrophils # (Auto) 4.58, Lymphocytes # (Auto) 1.32, Monocytes # (Auto) 0.67, Eosinophils # (Auto) 0.19, Basophils # (Auto) 0.14 05/15/17 04:56 Red Blood Count 3.23, Mean Corpuscular Volume 82.4, Mean Corpuscular Hemoglobin 26.3, Mean Corpuscular Hemoglobin Concent 32.0, Mean Platelet Volume 10.7, Neutrophils (%) (Auto) 79.5, Lymphocytes (%) (Auto) 7.2, Monocytes (%) (Auto) 12.2, Eosinophils (%) (Auto) 0.2, Basophils (%) (Auto) 0.7, Neutrophils # (Auto ) 7.20, Lymphocytes # (Auto) 0.65, Monocytes # (Auto) 1.10, Eosinophils # (Auto ) 0.02, Basophils # (Auto) 0.06 05/14/17 23:24 05/15/17 04:56 Test 05/14/17 11:21 05/14/17 14:04 05/14/17 16:35 05/14/17 18:54 Bedside Glucose 107 mg/dl (70-90) 130 mg/dl (70-90) 131 mg/dl (70-90) Troponin I 0.495 ng/ml (0-0.045) Test 05/14/17 20:14 05/14/17 23:24 05/14/17 23:29 05/15/17 00:22 Bedside Glucose 145 mg/dl (70-90) White Blood Count 6.98 K/uL (4.8-10.8) Red Blood Count 3.76 M/uL (4.2-5.4) Hemoglobin 10.1 g/dL (12.0-16.0) Hematocrit 31.2 % (37-47) Mean Corpuscular Volume 83.0 fL (80-100) Mean Corpuscular Hemoglobin 26.9 pg (25-34) Mean Corpuscular Hemoglobin Concent 32.4 g/dl (32-36) Platelet Count 204 K/uL (130-400) Mean Platelet Volume 10.0 fL (7.4-10.4) Neutrophils (%) (Auto) 65.7 % Lymphocytes (%) (Auto) 18.9 % Monocytes (%) (Auto) 9.6 % Eosinophils (%) (Auto) 2.7 % Basophils (%) (Auto) 2.0 % Neutrophils # (Auto) 4.58 K/uL (1.4-6.5) Lymphocytes # (Auto) 1.32 K/uL (1.2-3.4) Monocytes # (Auto) 0.67 K/uL (0.11-0.59) Eosinophils # (Auto) 0.19 K/uL (0-0.5) Basophils # (Auto) 0.14 K/uL (0-0.2) RDW Standard Deviation 56.4 fL (36.4-46.3) RDW Coefficient of Variation 18.4 % (11.5-14.5) Immature Granulocyte % (Auto) 1.1 % Immature Granulocyte # (Auto) 0.08 K/uL (0.00-0.02) Nucleated RBC Absolute Count (auto) 0.10 K/uL (0-0) Nucleated Red Blood Cells % 1.5 % Prothrombin Time 12.9 SECONDS (9.0-12.0) Prothromb Time International Ratio 1.2 (0.9-1.1) Anion Gap 12.0 mmol/L (3-11) Est Creatinine Clear Calc Drug Dose 8.2 ml/min Estimated GFR () 8.3 Estimated GFR (Non- 7.1 BUN/Creatinine Ratio 8.4 (10-20) Calcium Level 9.4 mg/dl (8.5-10.1) Total Bilirubin 0.6 mg/dl (0.2-1) Aspartate Amino Transf (AST/SGOT) 73 U/L (15-37) Alanine Aminotransferase (ALT/SGPT) 50 U/L (12-78) Alkaline Phosphatase 87 U/L (45-117) Total Protein 6.9 gm/dl (6.4-8.2) Albumin 3.0 gm/dl (3.4-5.0) Globulin 3.9 gm/dl (2.5-4.0) Albumin/Globulin Ratio 0.8 (0.9-2) Lactate Dehydrogenase 344 U/L (84-246) Blood Gas Sample Site R Radial Bedside Blood Gas pH (LAB) 7.38 (7.35-7.45) Bedside Blood Gas pCO2 (LAB) 41 mmHg (35-46) Bedside Blood Gas pO2 (LAB) 128 mmHg (80-95) Bedside Blood Gas HCO3 (LAB) 24 meq/L (19-24) Bedside Blood Gas Total CO2 25 mEq/l (24-31) Bedside Blood Gas Base Excess (LAB) -1.0 meq/L (-9-1.8) Bedside Blood Gas O2 Saturation 99.0 % (90-95) Roque Test NA Test 05/15/17 00:25 05/15/17 04:56 05/15/17 05:40 05/15/17 09:13 Pleural Fluid Source RIGHT LUNG Pleural Fluid Color RED Pleural Fluid Appearance BLOODY Pleural Fluid WBC 382 /uL Pleural Fluid RBC 98995 /uL Pleural Fluid Polynuclear WBCs % 35.8 % Pleural Fluid Mononuclear WBCs % 64.2 % Pleural Fluid Total Protein 2.1 g/dl Pleural Fluid LDH 87 IU Pleural Fluid Glucose 171 mg/dl White Blood Count 9.05 K/uL (4.8-10.8) Red Blood Count 3.23 M/uL (4.2-5.4) Hemoglobin 8.5 g/dL (12.0-16.0) Hematocrit 26.6 % (37-47) Mean Corpuscular Volume 82.4 fL (80-100) Mean Corpuscular Hemoglobin 26.3 pg (25-34) Mean Corpuscular Hemoglobin Concent 32.0 g/dl (32-36) Platelet Count 147 K/uL (130-400) Mean Platelet Volume 10.7 fL (7.4-10.4) Neutrophils (%) (Auto) 79.5 % Lymphocytes (%) (Auto) 7.2 % Monocytes (%) (Auto) 12.2 % Eosinophils (%) (Auto) 0.2 % Basophils (%) (Auto) 0.7 % Neutrophils # (Auto) 7.20 K/uL (1.4-6.5) Lymphocytes # (Auto) 0.65 K/uL (1.2-3.4) Monocytes # (Auto) 1.10 K/uL (0.11-0.59) Eosinophils # (Auto) 0.02 K/uL (0-0.5) Basophils # (Auto) 0.06 K/uL (0-0.2) RDW Standard Deviation 54.5 fL (36.4-46.3) RDW Coefficient of Variation 18.3 % (11.5-14.5) Immature Granulocyte % (Auto) 0.2 % Immature Granulocyte # (Auto) 0.02 K/uL (0.00-0.02) Nucleated RBC Absolute Count (auto) 0.03 K/uL (0-0) Nucleated Red Blood Cells % 0.3 % Toxic Vacuolation 1+ Anisocytosis PRESENT Acanthocytes 1+ Anion Gap 10.0 mmol/L (3-11) Est Creatinine Clear Calc Drug Dose 8.1 ml/min Estimated GFR () 8.2 Estimated GFR (Non- 7.1 BUN/Creatinine Ratio 8.8 (10-20) Calcium Level 8.6 mg/dl (8.5-10.1) Phosphorus Level 6.1 mg/dl (2.5-4.9) Magnesium Level 2.1 mg/dl (1.8-2.4) Total Bilirubin 0.6 mg/dl (0.2-1) Direct Bilirubin 0.3 mg/dl (0-0.2) Aspartate Amino Transf (AST/SGOT) 76 U/L (15-37) Alanine Aminotransferase (ALT/SGPT) 53 U/L (12-78) Alkaline Phosphatase 73 U/L (45-117) Total Protein 6.3 gm/dl (6.4-8.2) Albumin 2.8 gm/dl (3.4-5.0) Lipase 78 U/L (73-393) Blood Gas Sample Site L Radial Bedside Blood Gas pH (LAB) 7.53 (7.35-7.45) Bedside Blood Gas pCO2 (LAB) 29 mmHg (35-46) Bedside Blood Gas pO2 (LAB) 161 mmHg (80-95) Bedside Blood Gas HCO3 (LAB) 24 meq/L (19-24) Bedside Blood Gas Total CO2 25 mEq/l (24-31) Bedside Blood Gas Base Excess (LAB) 1.0 meq/L (-9-1.8) Bedside Blood Gas O2 Saturation 100.0 % (90-95) Roque Test Pass Oxygen Delivery Device Ventilator Bedside Oxygen Rate (breaths/min) 12 Blood Gas Minute Ventilation 14.4 Bedside FiO2 50 % Blood Gas Tidal Volume 450 Blood Gas PEEP 5 Date/Time Source Procedure Growth Status 05/15/17 00:25 Nasal MRSA DNA Surveillance Screen - Final Specimen Negative for MRSA by DNA Probe Complete Allergies Coded Allergies: Fentanyl (Verified Allergy, Intermediate, HIVES, 05/15/17) HAS TOLERATED MULTIPLE DOSES OF IV FENTANYL THIS ADMISSION NO KNOWN DRUG ALLERGIES (Verified Allergy, Unknown, ., 05/15/17) Medications Current Inpatient Medications Medications (Trade) Dose Ordered Sig/Janice Route Start Time Stop Time Status Last Admin Dose Admin Aspirin (Ecotrin Tab) 81 mg DAILY PO 05/13/17 09:00 06/12/17 08:59 05/14/17 07:54 81 MG Atorvastatin Calcium (Lipitor Tab) 20 mg DAILY PO 05/13/17 09:00 06/12/17 08:59 05/14/17 07:53 20 MG Benzonatate (Tessalon Perles Cap) 100 mg TID PO 05/13/17 09:00 06/12/17 08:59 05/14/17 07:53 100 MG Calcium Acetate (Phoslo Cap) 667 mg TIDM PO 05/13/17 07:30 06/12/17 07:29 05/14/17 19:28 667 MG Cholecalciferol (Vitamin D Tab) 1,000 inter.unit DAILY PO 05/13/17 09:00 06/12/17 08:59 05/14/17 07:54 1,000 INTER.UNIT Clopidogrel Bisulfate (plAVix TAB) 75 mg DAILY PO 05/13/17 09:00 06/12/17 08:59 05/14/17 07:55 75 MG Hydralazine HCl (Apresoline Tab) 25 mg TID PO 05/13/17 09:00 06/12/17 08:59 05/14/17 07:55 25 MG Insulin Glargine (Lantus Solostar Pen) 4 units QPM SC 05/13/17 21:00 06/12/17 20:59 05/14/17 20:46 4 UNITS Levothyroxine Sodium (Synthroid Tab) 50 mcg DAILYBB PO 05/13/17 06:00 06/12/17 05:59 05/14/17 05:55 50 MCG Montelukast Sodium (Singulair Tab) 10 mg DAILY PO 05/13/17 09:00 06/12/17 08:59 05/14/17 07:55 10 MG Glucose (Glucose 40% Gel) 15-30 GRAMS 15 GRAMS... UD PRN PO 05/12/17 21:45 06/11/17 21:44 Glucose (Glucose Chew Tab) 4-8 Tablets 4 Tabl... UD PRN PO 05/12/17 21:45 06/11/17 21:44 Dextrose (Dextrose 50% 50ML Syringe) 25-50ML OF 50% DW IV FOR... UD PRN IV 05/12/17 21:45 06/11/17 21:44 Glucagon (Glucagon Inj) 1 mg UD PRN SQ 05/12/17 21:45 06/11/17 21:44 Acetaminophen (Tylenol Tab) 650 mg Q4H PRN PO 05/13/17 01:45 06/12/17 01:44 05/14/17 20:58 650 MG Amlodipine Besylate (Norvasc Tab) 10 mg DAILY PO 05/13/17 09:00 06/12/17 08:59 05/14/17 09:17 10 MG Trazodone HCl (Desyrel Tab) 25 mg QPM PRN PO 05/13/17 18:00 06/12/17 17:59 05/13/17 21:27 25 MG Calcium Carbonate (Tums Chew Tab) 500 mg Q1H PRN PO 05/14/17 04:30 06/13/17 04:29 05/14/17 11:07 500 MG Oxycodone/ Acetaminophen (Percocet 5-325mg Tab) 1 tab Q4H PRN PO 05/14/17 04:30 05/28/17 04:29 05/14/17 04:41 1 TAB Fentanyl Citrate (Fentanyl Inj) 50 mcg Q1H PRN IV 05/15/17 00:45 05/29/17 00:44 05/15/17 07:21 25 MCG Midazolam HCl (Versed Inj) 2 mg Q2H PRN IV 05/15/17 01:30 06/14/17 01:29 05/15/17 07:20 2 MG Dopamine HCl/ Dextrose 0 ml @ 0 mls/hr Q0M PRN IV 05/15/17 01:50 06/14/17 01:49 Ioversol (Optiray 320) 100 ml UD PRN IV 05/15/17 08:15 05/19/17 08:14 Lorazepam (Ativan Tab) 0.5 mg BID PO 05/15/17 21:00 06/14/17 20:59 Famotidine 20 mg/ Syringe 5 ml @ 2.5 mls/min Q24H IV 05/15/17 16:00 06/14/17 15:59 Insulin Aspart (novoLOG ASPART) SLIDING SCALE Q6 SC 05/15/17 12:00 06/14/17 11:59 Impression (1) End stage renal disease on dialysis (2) Anemia (3) Secondary hyperparathyroidism of renal origin (4) Diastolic CHF (5) Shortness of breath (6) Hypertension Luis A Is a 71-year-old female with 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 Last dialysis was Saturday and she is due for dialysis today. Currently electrolyte and volume status acceptable. Blood pressure acceptable. She presented to the hospital with progressive shortness of breath. She was found to have pulmonary congestion. She had recent hospital admission for weakness and shortness of breath that time she was found to have pneumonia, bradycardia and volume overload. She received IV antibiotic and then completed a course of antibiotic with outpatient oral antibiotic on discharge. Metoprolol was discontinued. Her estimated dry weight 55. She is being continued on amiodarone. She was also recently found to have lung nodule, workup underway. Recommendations --HD tomorrow for 4 h, EDW 54 kg, UF as tolerated. --hold phosphate binder --avoid IV fluid - Epogen 00214 unit IV x 1 dose given on 05/13/17 Will follow
[2017-05-15] MEDS ORDERED: PHARMACY GLYCEMIC MGMT CONSULT PRN (10:00)
[2017-05-15] MEDS: CHOLECALCIFEROL 1000 INTER.UNIT TAB PO SCH (10:11)
[2017-05-15] MEDS: LEVOTHYROXINE 50 MCG TAB PO SCH (10:11)
[2017-05-15] MEDS: ATORVASTATIN 20 MG TAB PO SCH (10:12)
[2017-05-15] MEDS: MONTELUKAST SOD 10 MG TAB PO SCH (10:12)
[2017-05-15] MEDS: ASPIRIN 81 MG ECTAB PO SCH (10:12)
[2017-05-15] MEDS: INSULIN ASPART 100 UNITS/ML 3 ML PEN SC SCH ×2 (12:00→17:06)
[2017-05-15] MEDS: CLOPIDOGREL BISULFATE 75 MG TAB PO SCH (12:33)
--- NOTE | 2017-05-15 12:54 | Pharmacy Progress Note ---
Glycemic Control Intl Consult Date of Service May 15, 2017. Scope Glycemic Pharmacist consulted by Dr Jama on 05/15/17 for glycemic control and to write orders per [facility] inpatient glycemic control protocol Objective Weight (Kilograms): 56.700 Accuchecks BSG (last 24hrs): Test 05/14/17 16:35 05/14/17 18:54 05/14/17 20:14 05/14/17 23:24 Bedside Glucose 130 mg/dl (70-90) 131 mg/dl (70-90) 145 mg/dl (70-90) Random Glucose 187 mg/dl (70-99) Test 05/15/17 04:56 05/15/17 12:09 Random Glucose 129 mg/dl (70-99) Bedside Glucose 98 mg/dl (70-90) Laboratory Data (last 24hrs) Test 05/14/17 23:24 05/15/17 04:56 Anion Gap 12.0 mmol/L 10.0 mmol/L BUN/Creatinine Ratio 8.4 8.8 Blood Urea Nitrogen 47 mg/dl 48 mg/dl Creatinine 5.59 mg/dl 5.60 mg/dl Potassium Level 4.0 mmol/L 4.0 mmol/L Sodium Level 128 mmol/L 129 mmol/L White Blood Count 6.98 K/uL 9.05 K/uL Red Blood Count 3.76 M/uL 3.23 M/uL Hemoglobin 10.1 g/dL 8.5 g/dL Hematocrit 31.2 % 26.6 % Mean Corpuscular Volume 83.0 fL 82.4 fL Mean Corpuscular Hemoglobin 26.9 pg 26.3 pg Mean Corpuscular Hemoglobin Concent 32.4 g/dl 32.0 g/dl Platelet Count 204 K/uL 147 K/uL Mean Platelet Volume 10.0 fL 10.7 fL Neutrophils (%) (Auto) 65.7 % 79.5 % Lymphocytes (%) (Auto) 18.9 % 7.2 % Monocytes (%) (Auto) 9.6 % 12.2 % Eosinophils (%) (Auto) 2.7 % 0.2 % Basophils (%) (Auto) 2.0 % 0.7 % Neutrophils # (Auto) 4.58 K/uL 7.20 K/uL Lymphocytes # (Auto) 1.32 K/uL 0.65 K/uL Monocytes # (Auto) 0.67 K/uL 1.10 K/uL Eosinophils # (Auto) 0.19 K/uL 0.02 K/uL Basophils # (Auto) 0.14 K/uL 0.06 K/uL Recent Pertinent Medications Outpatient Anti-diabetic Regimen: * Lantus 4 units SQ Q HS * A1c = no checked secondary to ESRD on HD The patient is currently receiving: * Basal insulin: Lantus 4 units every 24 hours - dosed at bedtime Risk Factors for Insulin Resistance: * Pressors: Dopamine * Mechanical Ventilation: yes Assessment & Plan ASSESSMENT: 05/15/17 * Type 2 diabetic admitted following cardiac arrest preceded by bradycardia * She is typically managed with very low doses of basal insulin * Dopamine has been titrated off at this time * She remains intubated at this time, possibly extubate following hemodialysis today * BSGs currently at goal and dialysis likely to drive BSGs down somewhat * Only suggestion at this time would be to add rapid acting insulin for correction and prandial coverage, in small doses PLAN FOR INPATIENT GLYCEMIC CONTROL: * Continuing Lantus 4 units SQ Q HS * Novolog SQ Q 6 hrs while NPO * Correction factor 75 mg/dl/unit * Carb ratio 1 unit per 25 grams CHO consumed - may not be needed if well controlled with Lantus alone, will follow BSG trend when taking PO * Goal range Low 130 mg/dL - High 160 mg/dL * Please note that the plan above was derived based on current level of insulin resistance and hospital stress. These recommendations are appropriate for inpatient admission only. Plan of care upon discharge will need to be reassessed to avoid potential outpatient hypo/hyperglycemia. Thank you.
--- NOTE | 2017-05-15 13:36 | Pulmonary Consultation ---
History General Date of Service: May 15, 2017. Stated Complaint: Acute Chf HPI The patient is a 71 year old female who presents to [facility] with complaints of Acute Chf. The patient's primary care provider is Arya Liriano M.D.. Mrs. Up is a 71-year-old female who was transferred to [facility] from [facility] on 05/12/2017 for worsening shortness of breath, dyspnea on exertion, chest congestion and orthopnea. Her symptoms started 2 days prior to admission and which prompted her to seek further evaluation. She was being managed for CHF exacerbation and being followed by cardiology and nephrology. She is well known to the pulmonary service from last admission about 2 weeks ago and was treated for CHF and hospital-acquired pneumonia. She she was being evaluated by Dr. Palafox as an outpatient middle lobe pulmonary nodule. She had a PET scan which showed no hypermetabolic foci. Repeat CT done on 05/01/2017 showed small bilateral pleural effusions with right lower lobe airspace consolidation with a 4 mm apical nodules seen. There was interval resolution of previously seen nodule in the right middle lobe. Rheumatological workup was negative. Plan was to repeat imaging after adequate treatment with antibiotics to assess for interval resolution of left upper lobe subcentimeter nodule. At that time she also was bradycardic which was treated medically. Beta blockers were held and subsequently discharged home. Last evening, she had a bradycardic arrest. Initial EKG was PEA. CPR was performed for approximately 7 minutes. She received epinephrine 2 doses, intubated and had return of spontaneous circulation. She was subsequently transferred to ICU. She had a bilateral pleural effusion seen on chest x-ray and subsequently underwent right thoracentesis with removal of 300 mL of serosanguineous fluid. Pulmonary consult after patient was then admitted to have some hemoptysis post intubation. Repeat CT done on 05/15/2017 shows trace bilateral pleural effusions. Groundglass opacities with the new mixed solid groundglass right apical opacity of 1.1 cm. There are bilateral dependent pulmonary opacities. At the time of my evaluation, she is intubated and awake. She is pointing to RUQ of abdomen and chest pain. Review of Systems Unable to obtain ROS due to intubation. 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 She has a newly quadriplegic son that she and her care for. She is retired [employer]. The patient is a lifelong nonsmoker but has had significant secondhand smoke exposure. Previously drank beer, but has not had any for the past year. Does not use any over the counter medications. Hx Tobacco Use In Past Year?: No Smoking Status: Never Smoker Marital status: Housing status: lives with family Occupational Status: retired Immunizations History of Influenza Vaccine: Unknown History of Tetanus Vaccine?: Unknown History of Pneumococcal: Unknown History of Hepatitis B Vaccine: Unknown History of MDRO History of MDRO: No Allergies Coded Allergies: NO KNOWN DRUG ALLERGIES (Verified Allergy, Unknown, ., 05/15/17) Current Medications Reported Home Medications Medications Dose Route/Sig Max Daily Dose Days Date Category Montelukast Sodium 10 Mg Tab 1 Tab PO DAILY 30 04/30/17 Reported Ativan (Lorazepam) 1 Mg Tab 1 Mg PO BID 04/30/17 Reported Synthroid (Levothyroxine Sodium) 50 Mcg Tab 50 Mcg PO DAILY 04/30/17 Reported Lantus (Insulin Glargine) 100 Unit/Ml Inj 4 Units SC QPM 04/30/17 Reported Apresoline (Hydralazine Hcl) 50 Mg Tab 25 Mg PO TID 04/30/17 Reported Lasix (Furosemide) 40 Mg Tab 40 Mg PO HS 04/30/17 Reported Citalopram Hydrobromide (Citalopram) 40 Mg Tab 1.5 Tab PO DAILY 90 04/30/17 Reported Phoslo 667 Mg (Calcium Acetate) 667 Mg Cap 1 Cap PO TIDM 04/30/17 Reported Vitamin D3 (Cholecalciferol) 1,000 Unit Tab 1 Tab PO DAILY 30 04/30/17 Reported Tessalon Perles (Benzonatate) 100 Mg Cap 100 Mg PO TID 04/30/17 Reported Aspirin Ec (Aspirin) 81 Mg Tab 81 Mg PO DAILY 04/30/17 Reported Norvasc (Amlodipine Besylate) 10 Mg Tab 10 Mg PO BID 04/30/17 Reported Cordarone (Amiodarone Hcl) 200 Mg Tab 200 Mg PO DAILY 04/30/17 Reported Lipitor (Atorvastatin) 20 Mg Tab 20 Mg PO DAILY 04/30/17 Reported Plavix (Clopidogrel Bisulfate) 75 Mg Tab 75 Mg PO DAILY 04/30/17 Reported Physical Physical Exam Vital Signs: Date Time Temp Pulse Resp B/P (MAP) Pulse Ox O2 Delivery O2 Flow Rate FiO2 05/15/17 12:16 67 20 102/41 (61) 100 Mechanical Ventilator 35 05/15/17 12:15 68 102/41 05/15/17 12:00 66 121/44 05/15/17 12:00 35 Mechanical Ventilator 05/15/17 12:00 35 05/15/17 11:45 64 117/38 05/15/17 11:32 35 05/15/17 11:30 64 119/38 05/15/17 11:15 63 108/42 05/15/17 11:00 60 101/33 05/15/17 10:45 60 107/39 05/15/17 10:30 57 111/33 05/15/17 10:15 56 112/42 05/15/17 10:00 52 105/31 05/15/17 10:00 54 22 112/42 (65) 100 Mechanical Ventilator 35 05/15/17 09:45 49 104/39 05/15/17 09:30 45 112/35 05/15/17 09:20 46 96/38 05/15/17 09:15 36.3 49 103/57 (72) 05/15/17 08:00 35 05/15/17 08:00 49 16 104/39 (60) 100 Mechanical Ventilator 35 05/15/17 08:00 35 Mechanical Ventilator 05/15/17 07:45 35 05/15/17 06:00 51 22 114/39 (64) 100 Mechanical Ventilator 35 05/15/17 05:15 50 05/15/17 05:00 46 15 110/33 (58) 100 Mechanical Ventilator 50 05/15/17 04:08 50 12/6/17 04:00 50 Mechanical Ventilator 05/15/17 04:00 36.3 44 14 104/34 (57) 100 Mechanical Ventilator 50 05/15/17 04:00 50 05/15/17 03:00 45 14 103/32 (55) 100 Mechanical Ventilator 60 05/15/17 02:10 60 05/15/17 02:00 36.5 47 14 121/40 (67) 100 Mechanical Ventilator 60 05/15/17 01:51 51 17 90/37 (54) 97 Mechanical Ventilator 100 05/15/17 01:47 45 0 66/26 (39) 85 Mechanical Ventilator 100 05/15/17 01:46 45 0 67/27 (40) 82 Mechanical Ventilator 100 05/15/17 01:31 50 12 118/35 (62) 100 Mechanical Ventilator 60 05/15/17 01:17 55 14 138/47 (77) 100 Mechanical Ventilator 60 05/15/17 01:00 56 16 86/47 (60) 100 Mechanical Ventilator 60 05/15/17 00:46 58 11 129/56 (80) 100 Mechanical Ventilator 60 05/15/17 00:16 57 12 129/47 (74) 100 Mechanical Ventilator 60 05/15/17 00:00 60 05/15/17 00:00 60 Mechanical Ventilator 05/15/17 00:00 36.5 58 15 113/45 (67) 94 Mechanical Ventilator 60 05/14/17 23:49 100 05/14/17 23:46 59 16 111/41 (64) 94 Mechanical Ventilator 60 05/14/17 23:30 58 14 119/46 (70) 98 Mechanical Ventilator 60 05/14/17 23:16 58 21 90/36 (54) 96 Mechanical Ventilator 05/14/17 23:13 59 7 98/38 (58) 93 Mechanical Ventilator 100 05/14/17 21:13 43 16 114/44 (67) 05/14/17 20:00 Nasal Cannula 2.0 05/14/17 19:35 36.4 99 21 98/46 (63) 99 Nasal Cannula 5.0 05/14/17 16:00 99 Nasal Cannula 3.0 Humidified Oxygen 05/14/17 15:34 36.4 48 18 104/44 (64) 96 Nasal Cannula 5.0 General Appearance: uncomfortable, mild distress, other (intubated, awake alert.) Head: NORMOCEPHALIC, ATRAUMATIC Eyes: PERRLA, NO DISCHARGE, EOMI, SCLERAE NORMAL ENT: other (intubated) Neck: NORMAL RANGE OF MOTION, NO TENDERNESS, TRACHEA MIDLINE, NO STRIDOR, SUPPLE Respiratory: chest wall tenderness, other (coarse breath sound bilaterally) Cardiovasular: REGULAR RATE/RHYTHM (sinus bradycardia) Abdomen: NON TENDER, NORMAL BOWEL SOUNDS Back: NORMAL INSPECTION, NO MIDLINE TENDERNESS Upper Extremities: other (RUE AV fistula) Lower Extremities: NO EDEMA, NO DEFORMITY, NORMAL ROM Pulses: dorsalis pedis (R) (2+), dorsalis pedis (L) (2+) Psychiatric: other (unable to assess) Diagnostics Labs Results Past 24 Hours Test 05/14/17 14:04 05/14/17 16:35 05/14/17 18:54 05/14/17 20:14 Range/Units Troponin I 0.495 0-0.045 ng/ml Bedside Glucose 130 131 145 70-90 mg/dl Test 05/14/17 23:24 05/14/17 23:29 05/15/17 00:25 05/15/17 04:56 Range/Units White Blood Count 6.98 9.05 4.8-10.8 K/uL Red Blood Count 3.76 3.23 4.2-5.4 M/uL Hemoglobin 10.1 8.5 12.0-16.0 g/dL Hematocrit 31.2 26.6 37-47 % Mean Corpuscular Volume 83.0 82.4 80-100 fL Mean Corpuscular Hemoglobin 26.9 26.3 25-34 pg Mean Corpuscular Hemoglobin Concent 32.4 32.0 32-36 g/dl Platelet Count 204 147 130-400 K/uL Mean Platelet Volume 10.0 10.7 7.4-10.4 fL Neutrophils (%) (Auto) 65.7 79.5 % Lymphocytes (%) (Auto) 18.9 7.2 % Monocytes (%) (Auto) 9.6 12.2 % Eosinophils (%) (Auto) 2.7 0.2 % Basophils (%) (Auto) 2.0 0.7 % Neutrophils # (Auto) 4.58 7.20 1.4-6.5 K/uL Lymphocytes # (Auto) 1.32 0.65 1.2-3.4 K/uL Monocytes # (Auto) 0.67 1.10 0.11-0.59 K/uL Eosinophils # (Auto) 0.19 0.02 0-0.5 K/uL Basophils # (Auto) 0.14 0.06 0-0.2 K/uL RDW Standard Deviation 56.4 54.5 36.4-46.3 fL RDW Coefficient of Variation 18.4 18.3 11.5-14.5 % Immature Granulocyte % (Auto) 1.1 0.2 % Immature Granulocyte # (Auto) 0.08 0.02 0.00-0.02 K/uL Nucleated RBC Absolute Count (auto) 0.10 0.03 0-0 K/uL Nucleated Red Blood Cells % 1.5 0.3 % Prothrombin Time 12.9 9.0-12.0 SECONDS Prothromb Time International Ratio 1.2 0.9-1.1 Sodium Level 128 129 136-145 mmol/L Potassium Level 4.0 4.0 3.5-5.1 mmol/L Chloride Level 92 95 98-107 mmol/L Carbon Dioxide Level 24 24 21-32 mmol/L Anion Gap 12.0 10.0 3-11 mmol/L Blood Urea Nitrogen 47 48 7-18 mg/dl Creatinine 5.59 5.60 0.60-1.20 mg/dl Est Creatinine Clear Calc Drug Dose 8.2 8.1 ml/min Estimated GFR () 8.3 8.2 Estimated GFR (Non- 7.1 7.1 BUN/Creatinine Ratio 8.4 8.8 10-20 Random Glucose 187 129 70-99 mg/dl Calcium Level 9.4 8.6 8.5-10.1 mg/dl Total Bilirubin 0.6 0.6 0.2-1 mg/dl Aspartate Amino Transf (AST/SGOT) 73 76 15-37 U/L Alanine Aminotransferase (ALT/SGPT) 50 53 12-78 U/L Alkaline Phosphatase 87 73 45-117 U/L Total Protein 6.9 6.3 6.4-8.2 gm/dl Albumin 3.0 2.8 3.4-5.0 gm/dl Globulin 3.9 2.5-4.0 gm/dl Albumin/Globulin Ratio 0.8 0.9-2 Lactate Dehydrogenase 344 84-246 U/L Pleural Fluid Source RIGHT LUNG Pleural Fluid Color RED Pleural Fluid Appearance BLOODY Pleural Fluid WBC 382 /uL Pleural Fluid RBC 24287 /uL Pleural Fluid Polynuclear WBCs % 35.8 % Pleural Fluid Mononuclear WBCs % 64.2 % Pleural Fluid Total Protein 2.1 g/dl Pleural Fluid LDH 87 IU Pleural Fluid Glucose 171 mg/dl Toxic Vacuolation 1+ Anisocytosis PRESENT Acanthocytes 1+ Phosphorus Level 6.1 2.5-4.9 mg/dl Magnesium Level 2.1 1.8-2.4 mg/dl Direct Bilirubin 0.3 0-0.2 mg/dl Troponin I 0.546 0-0.045 ng/ml Lipase 78 73-393 U/L Test 05/15/17 05:40 05/15/17 10:04 05/15/17 12:09 Range/Units Blood Gas Sample Site L Radial Bedside Blood Gas pH (LAB) 7.53 7.35-7.45 Bedside Blood Gas pCO2 (LAB) 29 35-46 mmHg Bedside Blood Gas pO2 (LAB) 161 80-95 mmHg Bedside Blood Gas HCO3 (LAB) 24 19-24 meq/L Bedside Blood Gas Total CO2 25 24-31 mEq/l Bedside Blood Gas Base Excess (LAB) 1.0 -9-1.8 meq/L Bedside Blood Gas O2 Saturation 100.0 90-95 % Roque Test Pass Oxygen Delivery Device Ventilator Bedside Oxygen Rate (breaths/min) 12 Blood Gas Minute Ventilation 14.4 Bedside FiO2 50 % Blood Gas Tidal Volume 450 Blood Gas PEEP 5 Bedside Glucose 98 70-90 mg/dl Microbiology Results 05/15/17 MRSA DNA Surveillance Screen - Final, Complete Specimen Negative for MRSA by DNA Probe 05/15/17 Acid Fast Stain, Received Pending 05/15/17 Mycobacterial Culture, Received Pending 05/15/17 Gram Stain - Final, Resulted 05/15/17 Bacterial Culture, Resulted Pending Diagnostic Radiology CT ANGIOGRAM OF THE CHEST CLINICAL HISTORY: Hemoptysis. COMPARISON STUDY: Chest x-ray dated 05/15/2017 , CT scan dated 05/01/2017 TECHNIQUE: Following the IV administration of 120 mL of [id number]-[id number], CT angiogram of the thorax was performed from the thoracic inlet to the lung bases utilizing the pulmonary embolus protocol. Images are reviewed in the axial, sagittal, and coronal planes. IV contrast was administered without complication. MIP imaging was performed. A dose lowering technique was utilized adhering to the principles of ALARA. CT DOSE: 385.82 mGy.cm FINDINGS: There are persistent enlarged paratracheal lymph nodes. The heart is enlarged. There is reflux of contrast into the hepatic veins. There is aortic valve replacement. There are coronary artery calcifications. There is an endotracheal tube positioned approximately 3 cm above the han. There is a right internal jugular central venous catheter. The tip projects over the confluence of the right subclavian vein and right internal jugular vein there is a nasogastric tube which passes into the stomach There was no evidence of thoracic aortic dilatation. Examination is significantly degraded by motion artifact. No central emboli are visualized. There are trace bilateral pleural effusions There is subtle groundglass attenuation the lungs, likely secondary to edema. There is a new mixed solid and groundglass right apical opacity measuring 11 mm. There are bilateral dependent pulmonary airspace opacities. These could be atelectatic or secondary to pneumonia. IMPRESSION: 1. Technically limited study. No central emboli identified 2. Suspected pulmonary edema with cardiomegaly and trace bilateral pleural effusions 3. Bilateral dependent lower lobe airspace opacities, these could represent either pneumonia or atelectasis. BILATERAL LOWER EXTREMITY VENOUS DOPPLER CLINICAL HISTORY: Acute Hypoxia. COMPARISON STUDY: No previous studies for comparison. TECHNIQUE: Sonography of the deep venous system of the bilateral lower extremities was performed. Compression and augmentation were evaluated. FINDINGS: The bilateral common femoral, superficial femoral and popliteal veins were compressible. Augmentation was normal. Flow was shown within the deep calf vessels. IMPRESSION: No evidence of deep venous thrombus within the bilateral lower extremities. Electronically signed by: Zev Hooks M.D. 05/15/2017 7:00 AM Dictated Date/Time: 05/15/2017 6:59 AM GALLBLADDER-ABD LIMITED CLINICAL HISTORY: R low chest/back pain, hx pancreatitis, eval for stone pain. Nausea. TECHNIQUE: Ultrasound COMPARISON STUDY: FINDINGS: Right pleural effusion. Normal gallbladder. No shadowing gallstones. Common bile duct 4 mm. Liver is uniform. Pancreas is poorly seen. Right kidney appears to be moderately atrophic. No evidence for hydronephrosis. 2 cm upper pole cyst. IMPRESSION: 1. Right pleural effusion. 2. Atrophic change right kidney. 3. Otherwise negative study. The above report was generated using voice recognition software. It may contain grammatical, syntax or spelling errors. Electronically signed by: Curtis Torres M.D. 05/14/2017 7:12 PM Dictated Date/Time: 05/14/2017 7:11 PM CHEST 2 VIEWS ROUTINE CLINICAL HISTORY: Dyspnea. Acute congestive heart failure. COMPARISON STUDY: Chest CT May 01, 2017 and chest radiograph May 12, 2017. FINDINGS: Moderate cardiomegaly is unchanged. A prosthetic aortic valve is noted. There is no pneumothorax. A small right pleural effusion has slightly increased since prior exam. There is a trace left pleural effusion. Right lower lung airspace opacity is slightly increased. Interstitial thickening has slightly improved. IMPRESSION: 1. Persistent, but mildly improved, pulmonary edema. 2. Slight increase in a small right pleural effusion with right basilar opacity. Electronically signed by: Zev Hooks M.D. 05/14/2017 1:39 PM Dictated Date/Time: 05/14/2017 1:37 PM SINGLE VIEW CHEST CLINICAL HISTORY: Dyspnea. FINDINGS: An AP, portable, upright chest radiograph is compared to study dated 05/04/2017 and correlated with chest CT dated 05/01/2017. The examination is degraded by portable technique and patient rotation. The heart is enlarged and there is atherosclerotic calcification of the thoracic aorta. Postoperative change is noted at the aortic valve. There is pulmonary vascular congestion. Bilateral airspace opacities are observed. Trace pleural effusions are identified. No pneumothorax is seen. The skeletal structures are osteopenic. The bony thorax is grossly intact. IMPRESSION: 1. Cardiomegaly with pulmonary vascular congestion. 2. There are bilateral patchy airspace opacities, similar to recent prior studies. This could represent pulmonary edema and/or multifocal pneumonia. Clinical correlation will be essential. 3. Small pleural effusions. Electronically signed by: Joe Wayne M.D. 05/12/2017 10:56 PM Dictated Date/Time: 05/12/2017 10:54 PM ECHOCARDIOGRAM, 05/02/2017: 1. Normal LV size with mild concentric LVH. 2. LVEF 65%-70%, no regional wall motion abnormalities. 3. Borderline dilated RV with normal RV systolic function. 4. Well seated SHYLA TAVR with mild to moderate paravalvular and valvular aortic regurgitation. Elevated transvalvular gradient. 5. Severe mitral annular calcification with mild mitral stenosis and mild mitral regurgitation. 6. Grade 2 diastolic dysfunction. 7. Pulmonary hypertension with an estimated pulmonary artery systolic pressure of 45-50 mmHg, dilated IVC. EKG EKG 05/15/2017 Sinus bradycardia at [address] and T wave abnormality Abnormal ECG When compared with ECG of 15-MAY-2017 00:56, (unconfirmed) QRS duration has decreased Nonspecific T wave abnormality now evident in Inferior leads T wave inversion no longer evident in Lateral leads Impression Assessment and Plan ASSESSMENT: Vent dependent Respiratory failure Cardiac arrest COPD Pulmonary hypertension Acute on chronic diastolic CHF End-stage renal disease on hemodialysis 2/2 glomerulonephritis Hypertension Lung nodules Anemia of chronic disease Chronic DVT and left upper extremity is Hypertension Type 2 diabetes Mrs. Up has a complicated medical history. She was currently being managed for acute on chronic diastolic CHF exacerbation. Yesterday she had a bradycardic arrest and is now intubated. Patient noted to have some hemoptysis post intubation. This is likely traumatic. However due to patient long standing history of pulmonary nodules and recent infection will perform diagnostic and possibly therapeutic bronchoscopy at this time. Other etiologies such versus malignancy should also be ruled out. Workup for collagen vascular disease, vasculitis and lupus negative to date. Pleural effusions appear to be transudative in nature by light's criteria. Likely secondary to underlying CHF and fluid overload. Overload. I discussed plan with ICU team. Obtain consent from via telephone. She is currently not requiring large amounts of oxygenation and ventilating quite well. She is currently undergoing hemodialysis at the time of my evaluation with removal of about approximately 500 mL. Continue with aggressive fluid removal per nephrology. This will improve likelihood of successful extubation. Continue to optimize her cardiac function per cardiology's recommendations. I do not see the role for antibiotics at this time. I appreciate the consult. Please contact me if you have any other questions or concerns.
[2017-05-15] MEDS ORDERED: ETOMIDATE 2 MG/ML 20 ML VIAL IV ONE (13:39)
[2017-05-15] MEDS ORDERED: VECURONIUM BROMIDE 10 MG VIAL IV ONE (13:39)
[2017-05-15] MEDS ORDERED: PROPOFOL IV EMULSION 10 MG/ML 100 ML VIAL IV ONE (13:47)
[2017-05-15] MEDS ORDERED: HEPARIN SOD 5000 UNIT/0.5 ML CARP SQ SCH (14:00)
[2017-05-15] MEDS ORDERED: CITALOPRAM 20 MG TAB PO SCH (14:00)
--- NOTE | 2017-05-15 14:11 | Procedure Note ---
Procedure Note Date of Service May 15, 2017. Procedure Note Procedure: Bronchoscopy, conscious sedation Consent: Obtained through the patient placed into the chart Pre-procedural diagnosis: Post-procedural diagnosis: Start time:1350 End time: 1400 Total time: 10 minutes Analgesia: 2% liquid lidocaine: Via bronchoscopy Sedation: Versed IV: 2 mg Fentanyl IV: 50 g Procedure: The [employer] video bronchoscope was used for this procedure and passed down the ET tube. Trachea/An: Anatomically within normal limits Right bronchial tree: Right mainstem bronchus: Anatomically within normal limits Right upper lobe: Anatomically within normal limits Bronchus intermedius: Anatomically within normal limits Right middle lobe: Anatomically within normal limits, friable Right lower lobe: Anatomically within normal limits Findings: No significant findings noted Left bronchial tree: Left mainstem bronchus: Anatomically within normal limits Left upper lobe: Anatomically within normal limits Lingula: Anatomically within normal limits Left lower lobe: Anatomically within normal limits Findings: No significant findings noted Bronchial alveolar lavage done of RML. Serial lavage done of RML without rising RBC count in sequential BAL aliquots EBL: < 5 cc Complications: None
[2017-05-15] MEDS ORDERED: PROPOFOL IV EMULSION 10 MG/ML 100 ML VIAL IV PRN (14:15)
[2017-05-15] MEDS ORDERED: LIDODERM (LIDOCAINE) PATCH 5% TD ONE (15:15)
[2017-05-15 17:09] LABS: HEP C IGG 13 YRS+OLDER_RFLX NEG (NEG)
--- NOTE | 2017-05-15 17:33 | Critical Care Progress Note ---
Critical Care Progress Note Date of Service May 15, 2017. ICU Day ICU Day Number: [address] Jama Subjective Patient evaluated this afternoon after extubation. Currently on oxymask laying at the side of the bed in no acute distress. Complained of chest pain that is tender to touch, most likely secondary to multiple rib fractures from chest compressions. Objective GENERAL: Awake, alert, cachetic, in no acute respiratory distress HENT: Normocephalic, atraumatic. Oropharynx unremarkable. EYES: Normal conjunctiva. Sclera non-icteric. NECK: Supple. Trachea midline, Elevated JVD RESPIRATORY: Decreased breath sounds bilaterally CARDIAC: Bradycardia, normal rhythm. Extremities warm and well perfused. Pulses equal. ABDOMEN: Soft, non-distended. No tenderness to palpation. No rebound or guarding. No masses. MUSCULOSKELETAL: Tenderness to palpation over chest wall, most notably over the sternum LOWER EXTREMITIES: Calves are equal size bilaterally and non-tender. NEURO: Normal sensorium SKIN: No rash or jaundice noted. Current SOFA Score SOFA Score Response (Comments) Value Platelets (x10) < 150 1 Bilirubin (mg/dL) < 1.2 0 [place] Coma Score 15 0 Level of Hypotension No Hypotension 0 Creatinine (mg/dL) > 5.0 4 Total 5 Assessment & Plan Reason Critically Ill: Patient is an 71-year-old female who is transferred to the ICU for post Bradycardic Arrest with PEA and intubation. Patient has now been extubated and her heart rate has improved to being in the high 50's after stopping the Amiodarone and Metoprolol. Alert and oriented at this time Neuro: - CAM ICU Negative - Extubated and now alert and oriented, did previously receive Versed and Fentanyl 08/04 but appears to have worn off at this time, remains drowsy - Received 5 doses of Fentanyl this admission with no adverse reactions, taken off of allergy list - Decrease home Ativan to 0.5mg TID - Decrease home Celexa to 20mg (Previously 60mg and high risk for Torsades) CV: - Code Blue:Bradycardic Arrest in PEA - Evaluated by Cardiology this morning - ECHO pending --> Preliminary ready of EF approx 30% (lower than previously) - Holding Metoprolol and Amiodarone at this time - Further evaluate need for pacemaker going forward although along with other comorbidities including ESRD unlikely - Troponin 0.546 today (similar to troponin on presentation) --> Secondary to PEA and chest compressions --> Continue to trend enzymes q8 x 3 - Episode of hypotension overnight corrected with 500 cc bolus - Home Medications: - Aspirin 81mg PO Daily - Plavix 75mg PO Daily - Atorvastatin 20mg PO Daily - Norvasc 10mg PO Daily - Hydralazine 25mg TID Resp: - Extubated and currently on 4L oxygen mask, tolerating it well with no respiratory distress at this time - Bronch performed by Dr. Gruber --> No acute findings, BAL performed - CTA this AM: 1. Technically limited study. No central emboli identified 2. Suspected pulmonary edema with cardiomegaly and trace bilateral pleural effusions 3. Bilateral dependent lower lobe airspace opacities, these could represent either pneumonia or atelectasis. - Rib fractures noted over right ribs 1,4,7 and left 4th rib --> Lidocaine Patch - Pleural Effusion tap by Dr. Jama on 05/15 - 300 cc removed - Cytology and Cultures ordered - pH 7.3 Fluids/Renal: - ESRD: Underwent Hemodialysis today, got 0.5L removed today --> 3 hrs of treatment - Monitor labs closely - Renal US previously negative ID: - No current antibiotics on board - Afebrile, no leukocytosis GI/Nutrition: - IV Pepcid - Regular ADA Diet for tomorrow Heme: - Hgb 10.1 --> 8.5 - Heparin 5000 units TID - No gross bleeding Endocrine: - Accu-Checks per protocol - Lantus 4 units at bedtime - Sliding Scale Insulin - Synthroid 50mcg PO Daily GI PPx - Pepcid DVT PPx - Heparin Resident Physician Supervision Note: Dr. Barkley was resident physician during care of patient. I separately evaluated patient and did history and exam. I discussed the case with the resident and generally agree with the findings and plan. I concur with the events of the day leading up to approximately 1745. Approximately that time I was called to the room for bradycardia and decreased responsiveness. The patient was bradycardic into the 30s and had poor perfusion. Transcutaneous pacing was attempted to be initiated, the patient was also given 1 mg atropine and 0.5 mg epinephrine. Capture was not achieved until Max 200 mA output. There was improvement in patient's blood pressure and the patient remains spontaneously breathing. The patient's mental status did not improve despite having a blood pressure of approximately 120 and heart rate ranging from 90 to 120s. The decision was made to intubate with anesthesia. As the anesthetic was being administered the patient spontaneously sat up. We decided to hold R intubation as were easily able to bag valve mask the patient and allow the sedative to clear since her appeared to be significant improvement in the patient's mental status. As the patient was metabolizing the sedatives and again had return of spontaneous respirations the patient became bradycardic again requiring administration of aliquots of epinephrine and the patient was successfully intubated. Dopamine infusion was initiated. The patient had converted into what appeared to be a wide complex tachycardia with rate in approximately 140. The patient had an adequate blood pressure of 110 systolic however he continued to decrease with the tachycardia. The patient was cardioverted with one 200 J synchronized cardioversion, and normal sinus rhythm with a rate in the 90s was achieved. Dr. Mcwilliams of cardiology presented at approximately that time at the bedside. In consultation with him and review of the echo results were concerned of the stenotic bioprosthetic valve. We do not have cardiac surgery capabilities and the decision was made to transfer the patient to tertiary care center. Given 2 episodes of bradycardia 1 with pulseless electrical activity we attempted to place a transvenous pacemaker at the bedside given the poor capture of transcutaneous pacemaking. I was unsuccessful in bedside placement. Dr. Mcwilliams will take the patient to the [facility] and attempts transvenous pacemaker under fluoroscopy. I discussed the case with Dr. Dean of [facility] who is accepting the patient and transfer. Patient will be flown by [facility]. I have personally spent 100 minutes of critical care time in the direct management of this patient, time in 1744 time out 1914, time in: 1934 out: 1944 . This is a life/limb threatening event. This includes time spent evaluating patient, direct bedside care, chart review, placing orders, interpretation of diagnostic studies, discussion with consultants, patient, and family members, as well as other required patient management activities. This time is exclusive of all separately billable procedures, and teaching time and separate from and in addition to any other critical care service time. Documented By: Khurram Jama DO Consults & Procedures Consultants: Pulmonary - Dr. Gruber, Cariology - Dr. Muhammad, Nephrology - Dr. Nathan Procedures: Intubation, Bronchoscopy, Right IJ Introducer placement Data Medications: Current Inpatient Medications Medications (Trade) Dose Ordered Sig/Janice Route Start Time Stop Time Status Last Admin Dose Admin Aspirin (Ecotrin Tab) 81 mg DAILY PO 05/13/17 09:00 06/12/17 08:59 05/15/17 10:12 81 MG Atorvastatin Calcium (Lipitor Tab) 20 mg DAILY PO 05/13/17 09:00 06/12/17 08:59 05/15/17 10:12 20 MG Benzonatate (Tessalon Perles Cap) 100 mg TID PO 05/13/17 09:00 06/12/17 08:59 05/14/17 07:53 100 MG Calcium Acetate (Phoslo Cap) 667 mg TIDM PO 05/13/17 07:30 06/12/17 07:29 05/14/17 19:28 667 MG Cholecalciferol (Vitamin D Tab) 1,000 inter.unit DAILY PO 05/13/17 09:00 06/12/17 08:59 05/15/17 10:11 1,000 INTER.UNIT Clopidogrel Bisulfate (plAVix TAB) 75 mg DAILY PO 05/13/17 09:00 06/12/17 08:59 05/15/17 12:33 75 MG Hydralazine HCl (Apresoline Tab) 25 mg TID PO 05/13/17 09:00 06/12/17 08:59 05/15/17 12:34 25 MG Insulin Glargine (Lantus Solostar Pen) 4 units QPM SC 05/13/17 21:00 06/12/17 20:59 05/14/17 20:46 4 UNITS Levothyroxine Sodium (Synthroid Tab) 50 mcg DAILYBB PO 05/13/17 06:00 06/12/17 05:59 05/15/17 10:11 50 MCG Montelukast Sodium (Singulair Tab) 10 mg DAILY PO 05/13/17 09:00 06/12/17 08:59 05/15/17 10:12 10 MG Glucose (Glucose 40% Gel) 15-30 GRAMS 15 GRAMS... UD PRN PO 05/12/17 21:45 06/11/17 21:44 Glucose (Glucose Chew Tab) 4-8 Tablets 4 Tabl... UD PRN PO 05/12/17 21:45 06/11/17 21:44 Dextrose (Dextrose 50% 50ML Syringe) 25-50ML OF 50% DW IV FOR... UD PRN IV 05/12/17 21:45 06/11/17 21:44 Glucagon (Glucagon Inj) 1 mg UD PRN SQ 05/12/17 21:45 06/11/17 21:44 Acetaminophen (Tylenol Tab) 650 mg Q4H PRN PO 05/13/17 01:45 06/12/17 01:44 05/14/17 20:58 650 MG Amlodipine Besylate (Norvasc Tab) 10 mg DAILY PO 05/13/17 09:00 06/12/17 08:59 05/14/17 09:17 10 MG Trazodone HCl (Desyrel Tab) 25 mg QPM PRN PO 05/13/17 18:00 06/12/17 17:59 05/13/17 21:27 25 MG Calcium Carbonate (Tums Chew Tab) 500 mg Q1H PRN PO 05/14/17 04:30 06/13/17 04:29 05/14/17 11:07 500 MG Oxycodone/ Acetaminophen (Percocet 5-325mg Tab) 1 tab Q4H PRN PO 05/14/17 04:30 05/28/17 04:29 05/14/17 04:41 1 TAB Fentanyl Citrate (Fentanyl Inj) 50 mcg Q1H PRN IV 05/15/17 00:45 05/29/17 00:44 05/15/17 13:38 50 MCG Midazolam HCl (Versed Inj) 2 mg Q2H PRN IV 05/15/17 01:30 06/14/17 01:29 05/15/17 13:38 2 MG Dopamine HCl/ Dextrose 0 ml @ 0 mls/hr Q0M PRN IV 05/15/17 01:50 06/14/17 01:49 Ioversol (Optiray 320) 100 ml UD PRN IV 05/15/17 08:15 05/19/17 08:14 Lorazepam (Ativan Tab) 0.5 mg BID PO 05/15/17 21:00 06/14/17 20:59 Famotidine 20 mg/ Syringe 5 ml @ 2.5 mls/min Q24H IV 05/15/17 16:00 06/14/17 15:59 Insulin Aspart (novoLOG ASPART) SLIDING SCALE Q6 SC 05/15/17 12:00 06/14/17 11:59 Citalopram Hydrobromide (celeXA TAB) 20 mg QAM PO 05/15/17 14:00 06/14/17 13:59 05/15/17 12:34 20 MG Miscellaneous Information (Consult Glycemic Management Pharmacy) 1 ea UD PRN N/A 05/15/17 10:00 06/14/17 09:59 Heparin Sodium (Porcine) (Heparin Sq 5000 Unit/0.5ml) 5,000 unit Q8 SQ 05/15/17 14:00 06/14/17 13:59 05/15/17 12:36 5,000 UNIT Propofol (Diprivan Iv Emulsion 100ml Vial) 1 dose UD PRN IV 05/15/17 14:15 05/18/17 14:14 Lidocaine (Lidoderm Patch 5%) 1 patch QAM TD 05/16/17 09:00 06/15/17 08:59 Miscellaneous (Remove Lidoderm Patch) 1 ea DAILY@21 N/A 05/15/17 21:00 06/14/17 20:59 I & O: 24-Hour Column 05/16/17 08:00 Output Total 622 ml Balance -622 ml Vital Signs: Date Time Temp Pulse Resp B/P (MAP) Pulse Ox O2 Delivery O2 Flow Rate FiO2 05/15/17 14:02 64 14 105/38 (60) 99 Mechanical Ventilator 35 05/15/17 13:00 36.7 70 100/37 (58) 05/15/17 12:27 69 121/43 05/15/17 12:16 67 20 102/41 (61) 100 Mechanical Ventilator 35 05/15/17 12:15 68 102/41 05/15/17 12:00 66 121/44 05/15/17 12:00 35 Mechanical Ventilator 05/15/17 12:00 35 05/15/17 11:45 64 117/38 05/15/17 11:32 35 05/15/17 11:30 64 119/38 05/15/17 11:15 63 108/42 05/15/17 11:00 60 101/33 05/15/17 10:45 60 107/39 05/15/17 10:30 57 111/33 05/15/17 10:15 56 112/42 05/15/17 10:00 52 105/31 05/15/17 10:00 54 22 112/42 (65) 100 Mechanical Ventilator 35 05/15/17 09:45 49 104/39 05/15/17 09:30 45 112/35 05/15/17 09:20 46 96/38 05/15/17 09:15 36.3 49 103/57 (72) 05/15/17 08:00 35 05/15/17 08:00 49 16 104/39 (60) 100 Mechanical Ventilator 35 05/15/17 08:00 35 Mechanical Ventilator 05/15/17 07:45 35 05/15/17 06:00 51 22 114/39 (64) 100 Mechanical Ventilator 35 05/15/17 05:15 50 05/15/17 05:00 46 15 110/33 (58) 100 Mechanical Ventilator 50 05/15/17 04:08 50 05/15/17 04:00 50 Mechanical Ventilator 05/15/17 04:00 36.3 44 14 104/34 (57) 100 Mechanical Ventilator 50 05/15/17 04:00 50 05/15/17 03:00 45 14 103/32 (55) 100 Mechanical Ventilator 60 05/15/17 02:10 60 05/15/17 02:00 36.5 47 14 121/40 (67) 100 Mechanical Ventilator 60 05/15/17 01:51 51 17 90/37 (54) 97 Mechanical Ventilator 100 05/15/17 01:47 45 0 66/26 (39) 85 Mechanical Ventilator 100 05/15/17 01:46 45 0 67/27 (40) 82 Mechanical Ventilator 100 05/15/17 01:31 50 12 118/35 (62) 100 Mechanical Ventilator 60 05/15/17 01:17 55 14 138/47 (77) 100 Mechanical Ventilator 60 05/15/17 01:00 56 16 86/47 (60) 100 Mechanical Ventilator 60 05/15/17 00:46 58 11 129/56 (80) 100 Mechanical Ventilator 60 05/15/17 00:16 57 12 129/47 (74) 100 Mechanical Ventilator 60 05/15/17 00:00 60 05/15/17 00:00 60 Mechanical Ventilator 05/15/17 00:00 36.5 58 15 113/45 (67) 94 Mechanical Ventilator 60 05/14/17 23:49 100 05/14/17 23:46 59 16 111/41 (64) 94 Mechanical Ventilator 60 05/14/17 23:30 58 14 119/46 (70) 98 Mechanical Ventilator 60 05/14/17 23:16 58 21 90/36 (54) 96 Mechanical Ventilator 05/14/17 23:13 59 7 98/38 (58) 93 Mechanical Ventilator 100 05/14/17 21:13 43 16 114/44 (67) 05/14/17 20:00 Nasal Cannula 2.0 05/14/17 19:35 36.4 99 21 98/46 (63) 99 Nasal Cannula 5.0 Laboratory Results: Last 24 Hours Test 05/14/17 16:35 05/14/17 18:54 05/14/17 20:14 05/14/17 23:24 Bedside Glucose 130 mg/dl 131 mg/dl 145 mg/dl White Blood Count 6.98 K/uL Red Blood Count 3.76 M/uL Hemoglobin 10.1 g/dL Hematocrit 31.2 % Mean Corpuscular Volume 83.0 fL Mean Corpuscular Hemoglobin 26.9 pg Mean Corpuscular Hemoglobin Concent 32.4 g/dl Platelet Count 204 K/uL Mean Platelet Volume 10.0 fL Neutrophils (%) (Auto) 65.7 % Lymphocytes (%) (Auto) 18.9 % Monocytes (%) (Auto) 9.6 % Eosinophils (%) (Auto) 2.7 % Basophils (%) (Auto) 2.0 % Neutrophils # (Auto) 4.58 K/uL Lymphocytes # (Auto) 1.32 K/uL Monocytes # (Auto) 0.67 K/uL Eosinophils # (Auto) 0.19 K/uL Basophils # (Auto) 0.14 K/uL RDW Standard Deviation 56.4 fL RDW Coefficient of Variation 18.4 % Immature Granulocyte % (Auto) 1.1 % Immature Granulocyte # (Auto) 0.08 K/uL Nucleated RBC Absolute Count (auto) 0.10 K/uL Nucleated Red Blood Cells % 1.5 % Prothrombin Time 12.9 SECONDS Prothromb Time International Ratio 1.2 Sodium Level 128 mmol/L Potassium Level 4.0 mmol/L Chloride Level 92 mmol/L Carbon Dioxide Level 24 mmol/L Anion Gap 12.0 mmol/L Blood Urea Nitrogen 47 mg/dl Creatinine 5.59 mg/dl Est Creatinine Clear Calc Drug Dose 8.2 ml/min Estimated GFR () 8.3 Estimated GFR (Non- 7.1 BUN/Creatinine Ratio 8.4 Random Glucose 187 mg/dl Calcium Level 9.4 mg/dl Total Bilirubin 0.6 mg/dl Aspartate Amino Transf (AST/SGOT) 73 U/L Alanine Aminotransferase (ALT/SGPT) 50 U/L Alkaline Phosphatase 87 U/L Total Protein 6.9 gm/dl Albumin 3.0 gm/dl Globulin 3.9 gm/dl Albumin/Globulin Ratio 0.8 Test 05/14/17 23:29 05/15/17 00:25 05/15/17 04:56 05/15/17 05:40 Lactate Dehydrogenase 344 U/L Pleural Fluid Source RIGHT LUNG Pleural Fluid Color RED Pleural Fluid Appearance BLOODY Pleural Fluid WBC 382 /uL Pleural Fluid RBC 79893 /uL Pleural Fluid Polynuclear WBCs % 35.8 % Pleural Fluid Mononuclear WBCs % 64.2 % Pleural Fluid Total Protein 2.1 g/dl Pleural Fluid LDH 87 IU Pleural Fluid Glucose 171 mg/dl White Blood Count 9.05 K/uL Red Blood Count 3.23 M/uL Hemoglobin 8.5 g/dL Hematocrit 26.6 % Mean Corpuscular Volume 82.4 fL Mean Corpuscular Hemoglobin 26.3 pg Mean Corpuscular Hemoglobin Concent 32.0 g/dl Platelet Count 147 K/uL Mean Platelet Volume 10.7 fL Neutrophils (%) (Auto) 79.5 % Lymphocytes (%) (Auto) 7.2 % Monocytes (%) (Auto) 12.2 % Eosinophils (%) (Auto) 0.2 % Basophils (%) (Auto) 0.7 % Neutrophils # (Auto) 7.20 K/uL Lymphocytes # (Auto) 0.65 K/uL Monocytes # (Auto) 1.10 K/uL Eosinophils # (Auto) 0.02 K/uL Basophils # (Auto) 0.06 K/uL RDW Standard Deviation 54.5 fL RDW Coefficient of Variation 18.3 % Immature Granulocyte % (Auto) 0.2 % Immature Granulocyte # (Auto) 0.02 K/uL Nucleated RBC Absolute Count (auto) 0.03 K/uL Nucleated Red Blood Cells % 0.3 % Toxic Vacuolation 1+ Anisocytosis PRESENT Acanthocytes 1+ Sodium Level 129 mmol/L Potassium Level 4.0 mmol/L Chloride Level 95 mmol/L Carbon Dioxide Level 24 mmol/L Anion Gap 10.0 mmol/L Blood Urea Nitrogen 48 mg/dl Creatinine 5.60 mg/dl Est Creatinine Clear Calc Drug Dose 8.1 ml/min Estimated GFR () 8.2 Estimated GFR (Non- 7.1 BUN/Creatinine Ratio 8.8 Random Glucose 129 mg/dl Calcium Level 8.6 mg/dl Phosphorus Level 6.1 mg/dl Magnesium Level 2.1 mg/dl Total Bilirubin 0.6 mg/dl Direct Bilirubin 0.3 mg/dl Aspartate Amino Transf (AST/SGOT) 76 U/L Alanine Aminotransferase (ALT/SGPT) 53 U/L Alkaline Phosphatase 73 U/L Troponin I 0.546 ng/ml Total Protein 6.3 gm/dl Albumin 2.8 gm/dl Lipase 78 U/L Blood Gas Sample Site L Radial Bedside Blood Gas pH (LAB) 7.53 Bedside Blood Gas pCO2 (LAB) 29 mmHg Bedside Blood Gas pO2 (LAB) 161 mmHg Bedside Blood Gas HCO3 (LAB) 24 meq/L Bedside Blood Gas Total CO2 25 mEq/l Bedside Blood Gas Base Excess (LAB) 1.0 meq/L Bedside Blood Gas O2 Saturation 100.0 % Roque Test Pass Oxygen Delivery Device Ventilator Bedside Oxygen Rate (breaths/min) 12 Blood Gas Minute Ventilation 14.4 Bedside FiO2 50 % Blood Gas Tidal Volume 450 Blood Gas PEEP 5 Test 05/15/17 12:09 05/15/17 13:55 05/15/17 15:29 Bedside Glucose 98 mg/dl Resident Tracking Resident Involvement: Resident Care Provided Care Provided: Adult Hospital Medicine
[2017-05-15] MEDS ORDERED: RAPID SEQUENCE INDUCTION BAG ONE (17:55)
[2017-05-15] MEDS ORDERED: DOBUTamine 500MG / 250ML D5W ONE (18:25)
--- NOTE | 2017-05-15 18:30 | ECHOCARDIOGRAM REPORT ---
*NOTICE TO RECEIVING LIBERTARIAN AGENCY This information is strictly Confidential and protected under [place] law. [place] law prohibits you from making any further disclosure of this information unless further disclosure is expressly permitted by the written consent of the person to whom it pertains or is authorized by law. A general authorization for the release of medical or other information is not sufficient for this purpose. Hospital accepts no responsibility if the information is made available to any other person, INCLUDING THE PATIENT. Interpretation Summary * Name: BRITNEY URBANO Study Date: 05/15/2017 06:37 AM BP: 114/39 mmHg * Patient Location: [facility]\S\E108\S\1 HR: 50 * : 1945 (M/d/yyyy) Gender: Female Height: 66 in * Age: 71 yrs Ethnicity: AA Weight: 121 lb * Ordering Physician: Destinee Morales * Referring Physician: No Doctor, Assigned * Performed By: Louise Singleton RCS * * Reason For Study: CHF * BSA: 1.6 m2 * -- Conclusions -- * 1. Top-normal left ventricular size with mild to moderately reduced systolic function. Estimated EF 40-45% (visually). There is hypokinesis of the mid portions of the anterior, lateral, anteroseptal, septal, and inferior negro. The distal wall segments and apex appeared akinetic. No apical thrombus visualized. Mild concentric left ventricular hypertrophy. * 2. Right ventricular systolic function appears visually reduced. * 3. The left atrium is severely dilated. * 4. The right atrium is moderately dilated. * 5. Bioprosthetic aortic valve with elevated velocities and transvalvular gradients, suggesting significant stenosis. Mild aortic regurgitation. * 6. Mildly elevated right ventricular systolic pressure; RVSP 43 mmHg. * 7. Severe mitral annular calcification with mild mitral stenosis and mild regurgitation. (HR 50 bpm) * 8. Compared to prior study on 05/02/2017, LV systolic function is now reduced and wall motion are now present. Procedure Details * A complete two-dimensional transthoracic echocardiogram was performed (2D, M-mode, Doppler and color flow Doppler). * A contrast injection of Definity was performed to improve assessment of LV function. * Contrast was injected into an intravenous site in the left arm. * One vial of Definity ultrasound contrast was diluted in normal saline to a total volume of 10 ml. A total of '2' ml of solution was administered during imaging. * Lot # [id number] of Definity utilized for procedure. * Expiration date JUL 29. * The attending nurse who injected the contrast agent was GREG PLASENCIA, RN. Left Ventricle * Top-normal left ventricular size with mild to moderately reduced systolic function. Estimated EF 40-45% (visually). There is hypokinesis of the mid portions of the anterior, lateral, anteroseptal, septal, and inferior negro. The distal wall segments and apex appeared akinetic. No apical thrombus visualized. Mild concentric left ventricular hypertrophy. Right Ventricle * The right ventricle is normal size. * Right ventricular systolic function appears visually reduced. * The right ventricular systolic function is reduced as assessed by tricuspid annular plane systolic excursion (TAPSE) (TAPSE <1.6 cm). Atria * The left atrium is severely dilated. * The right atrium is moderately dilated. * There is no evidence of atrial septal defect, but resolution does not allow assessment for a patent foramen ovale. Mitral Valve * There is severe mitral annular calcification. * Mild mitral stenosis with mild regurgitation. (HR 50 bpm) Tricuspid Valve * The tricuspid valve is not well visualized, but is grossly normal. * There is no tricuspid stenosis. * There is mild tricuspid regurgitation. Aortic Valve * Bioprosthetic aortic valve with elevated velocities and transvalvular gradients, suggesting stenosis. Mild aortic regurgitation. Pulmonic Valve * The pulmonic valve is not well seen, but is grossly normal. * There is no pulmonic valvular stenosis. * Trace pulmonic valvular regurgitation. Great Vessels * The aortic root is normal size. Pericardium/Pleural * There is no pericardial effusion. Great Vessels * Mildly dilated IVC. MMode 2D Measurements and Calculations IVSd 1.2 cm IVSs 1.8 cm LVIDd 5.2 cm LVIDs 3.6 cm LVPWd 1.2 cm LVPWs 1.7 cm IVS/LVPW 0.98 FS 31.5 % EDV(Teich) 130.3 ml ESV(Teich) 53.3 ml EF(Teich) 59.1 % EDV(cubed) 141.8 ml ESV(cubed) 45.5 ml EF(cubed) 67.9 % % IVS thick 47.3 % % LVPW thick 33.7 % LV mass(C)d 259.2 grams LV mass(C)dI 160.4 grams/m\S\2 LV mass(C)s 251.7 grams LV mass(C)sI 155.8 grams/m\S\2 SV(Teich) 77.0 ml SI(Teich) 47.7 ml/m\S\2 SV(cubed) 96.3 ml SI(cubed) 59.6 ml/m\S\2 Ao root diam 3.1 cm Ao root area 7.5 cm\S\2 LA dimension 4.7 cm LA/Ao 1.5 LVOT diam 1.9 cm LVOT area 2.9 cm\S\2 LVAd ap4 37.5 cm\S\2 LVLd ap4 8.3 cm EDV(MOD-sp4) 141.9 ml EDV(sp4-el) 144.6 ml LVAs ap4 28.1 cm\S\2 LVLs ap4 8.3 cm ESV(MOD-sp4) 79.5 ml ESV(sp4-el) 80.5 ml EF(MOD-sp4) 44.0 % EF(sp4-el) 44.4 % LVAd ap2 46.1 cm\S\2 LVLd ap2 9.7 cm EDV(MOD-sp2) 182.4 ml EDV(sp2-el) 185.0 ml LVAs ap2 33.3 cm\S\2 LVLs ap2 8.9 cm ESV(MOD-sp2) 102.1 ml ESV(sp2-el) 105.4 ml EF(MOD-sp2) 44.0 % EF(sp2-el) 43.0 % LVLd %diff 15.0 % EDV(MOD-bp) 175.3 ml LVLs %diff 7.1 % ESV(MOD-bp) 93.2 ml EF(MOD-bp) 46.8 % SV(MOD-sp4) 62.4 ml SI(MOD-sp4) 38.6 ml/m\S\2 SV(MOD-sp2) 80.3 ml SI(MOD-sp2) 49.7 ml/m\S\2 SV(MOD-bp) 82.1 ml SI(MOD-bp) 50.8 ml/m\S\2 SV(sp4-el) 64.1 ml SI(sp4-el) 39.7 ml/m\S\2 SV(sp2-el) 79.6 ml SI(sp2-el) 49.3 ml/m\S\2 Doppler Measurements and Calculations MV E max michell 209.9 cm/sec MV A max michell 90.3 cm/sec MV E/A 2.3 MV V2 max 187.2 cm/sec MV max PG 14.0 mmHg MV V2 mean 83.2 cm/sec MV mean PG 3.6 mmHg MV V2 VTI 60.5 cm MVA(VTI) 1.1 cm\S\2 MV P1/2t max michell 191.5 cm/sec MV P1/2t 105.3 msec MVA(P1/2t) 2.1 cm\S\2 MV dec slope 532.8 cm/sec\S\2 MV dec time 0.29 sec Ao V2 max 423.7 cm/sec Ao max PG 71.8 mmHg Ao max PG (full) 69.0 mmHg Ao V2 mean 293.2 cm/sec Ao mean PG 39.5 mmHg Ao mean PG (full) 37.9 mmHg Ao V2 VTI 119.5 cm LORY(I,A) 0.55 cm\S\2 LORY(I,D) 0.55 cm\S\2 LORY(V,A) 0.56 cm\S\2 LORY(V,D) 0.56 cm\S\2 AI max michell 327.2 cm/sec AI max PG 42.8 mmHg AI dec slope 276.7 cm/sec\S\2 AI P1/2t 346.3 msec LV V1 max PG 2.8 mmHg LV V1 mean PG 1.7 mmHg LV V1 max 83.4 cm/sec LV V1 mean 61.6 cm/sec LV V1 VTI 23.1 cm SV(Ao) 899.0 ml SI(Ao) 556.5 ml/m\S\2 SV(LVOT) 65.9 ml SI(LVOT) 40.8 ml/m\S\2 PA V2 max 78.5 cm/sec PA max PG 2.5 mmHg TR max michell 327.4 cm/sec
[2017-05-15] MEDS ORDERED: PHENYLEPHRINE IV PUSH KIT FOR ED IV ONE (18:35)
[2017-05-15] MEDS ORDERED: PHENYLEPHRINE HCL INJ 20 MG in DEXTROSE 5% 500ML 500 ML IV PRN (19:00)
--- NOTE | 2017-05-15 19:26 | Procedure Note ---
Procedure Note Procedure Date May 15, 2017. Procedure Description Procedure Name: Intubation Procedure time out: side/site verified, patient ID confirmed, correct procedure Consent obtained: emergent consent implied Time of procedure: 18:25 Performed by: attending Indications: therapeutic Contraindications: none Description: A code blue was called for the patient. She is a 71 y/o female with a complex medical history. Dr. Jama was present and directing the code upon my arrival. The patient was not responsive although was spontaneously ventilating. The patient was hypotensive, but had a pulse. SpO2 was 100. The patient was lying still but would have intermittent convulsions. On initial attempt to open her mouth the patient's mouth was clenched. There was a concern that the patient needed transvenous pacing so Dr. Jama directed her to be intubated. As propofol was being given the patient became more active and briefly opened her eyes so Dr. Jama decided to hold off the intubation and wait for the propofol to wear off to reevaluate the patient. She was easily mask ventilated with an Ambu bag and had stable vitals signs for about fifteen minutes. She then began to spontaneously ventilate and would wince to jaw thrust. However, she abruptly became bradycardic and hypotensive and a code was called again. Dr. Jama directed me to intubate the patient. The patient was intubated with a Mac 3 blade 7.5 ETT. She was a grade 2 view. The patient's cords were rapidly opening and closing making the intubation difficult but the ETT was successfully placed on the first attempt. Placement was confirmed by EZ cap color change and bilateral breath sounds. The ETT was taped 22 cm at the lip. A CXR was later performed that confirmed placement. Dr. Jama continued to manage the patient's code throughout and after the intubation. Complications: none Post-procedure vital signs: other
[2017-05-15 19:28] LABS: PHOSPHORUS 5.4 mg/dl (2.5-4.9)
[2017-05-15 19:43] LABS: ISTAT POTASSIUM 3.9 mEq/L (3.3-5.0); ISTAT SODIUM 132 mEq/L (135-144)
--- NOTE | 2017-05-15 19:53 | Discharge Instructions ---
Discharge Instructions Date of Service May 15, 2017. Admission Reason for Admission: Acute Chf Discharge Discharge Diagnosis / Problem: Bradycardia, Cardiac Arrest, Severe Aortic Valve Stenosis Discharge Goals Goal(s): Decrease discomfort, Improve function, Therapeutic intervention Activity Recommendations Activity Level: Bedrest . Additional Information Patient informed of condition: Yes Advance Directives: No DNR: No Level of Care: Skilled Communicable Disease: No Prognosis: Deteriorating Instructions / Follow-Up Instructions / Follow-Up Mrs Nicole Up is a 71 year old female with CKD, on dialysis, diastolic CHF, hypertension, and history of aortic valve replacement 3 years ago who initially presented to [facility] earlier today with severe shortness of breath. She was recently discharged from our facility after an admission 04/30 to . She was found to have a hospital-acquired pneumonia at that time, received 4 days of IV abx then was switched to PO Levaquin, and was discharged home on room air. During that time she was also bradycardic, and so her metoprolol was stopped. She reports she has recently been wearing 2L of oxygen at home daily, and reports worsening shortness of breath the last 2-3 days. She would require leaning on her for support to walk. She went to [facility] and required 4L of oxygen. She also receives dialsysis Mon/Sat/Sat. She was found to have an acute on chronic CHF exacerbation, given 40mg Lasix IV, and was transferred here for further management of these conditions. Shortness of breath was initially believed to be due to dialysis which the patient underwent on 05/13. The patients shortness of breath improved significantly after dialysis, although on the evening of 05/14 the patient experienced bradycardic arrest with PEA requiring intubation and was subsequently transferred to the ICU. During the afternoon on 05/15, the patient was able to be extubated in the ICU with no acute events and tolerating 4 L on the oxygen mask. In approximately 1748 family alerted the staff that the patient was not breathing. Before that the patient was talked with the family and tried to sit upright on the bed when she immediately became unresponsive. Upon assessment the patient was bradycardic with a heart rate in the low 30s and was given a dose of 1 mg of atropine. The patient was then given 0.5 milligram of Epi and started having shallow respirations. Another dose of 0.5 mg of epi was given and the patient's heart rate increased above 100. She then began having deep breaths and it was decided that she would be then intubated. The patient was clenching her teeth and 80 mg of propofol was drawn. While getting the profile the patient was trying to sit up from the bed, although subsequently we were able to relax the patient. The patient was also getting infusion phenylephrine , dobutamine, and dopamine. A pacer was attempted to be introduced through the patient's right IJ introducer, although only atrial pacing was successful. Cardiology agreed to accept the patient in the slab grinder for temporary pacemaker placement, with transport arranged to [facility]. Neuro: - CAM ICU Negative - Extubated and now alert and oriented, did previously receive Versed and Fentanyl 08/04 but appears to have worn off at this time, remains drowsy - Received 5 doses of Fentanyl this admission with no adverse reactions, taken off of allergy list - Decrease home Ativan to 0.5mg TID - Decrease home Celexa to 20mg (Previously 60mg and high risk for Torsades) CV: - Code Blue:Bradycardic Arrest in PEA - Evaluated by Cardiology this morning - ECHO pending --> Preliminary ready of EF approx 30% (lower than previously) - Holding Metoprolol and Amiodarone at this time - Further evaluate need for pacemaker going forward although along with other comorbidities including ESRD unlikely - Troponin 0.546 today (similar to troponin on presentation) --> Secondary to PEA and chest compressions --> Continue to trend enzymes q8 x 3 - Episode of hypotension overnight corrected with 500 cc bolus - Home Medications: - Aspirin 81mg PO Daily - Plavix 75mg PO Daily - Atorvastatin 20mg PO Daily - Norvasc 10mg PO Daily - Hydralazine 25mg TID Resp: - Extubated and currently on 4L oxygen mask, tolerating it well with no respiratory distress at this time - Bronch performed by Dr. Gruber --> No acute findings, BAL performed - CTA this AM: 1. Technically limited study. No central emboli identified 2. Suspected pulmonary edema with cardiomegaly and trace bilateral pleural effusions 3. Bilateral dependent lower lobe airspace opacities, these could represent either pneumonia or atelectasis. - Rib fractures noted over right ribs 1,4,7 and left 4th rib --> Lidocaine Patch - Pleural Effusion tap by Dr. Jama on 05/15 - 300 cc removed - Cytology and Cultures ordered - pH 7.3 Fluids/Renal: - ESRD: Underwent Hemodialysis today, got 0.5L removed today --> 3 hrs of treatment - Monitor labs closely - Renal US previously negative ID: - No current antibiotics on board - Afebrile, no leukocytosis GI/Nutrition: - IV Pepcid - Regular ADA Diet for tomorrow Heme: - Hgb 10.1 --> 8.5 - Heparin 5000 units TID - No gross bleeding Endocrine: - Accu-Checks per protocol - Lantus 4 units at bedtime - Sliding Scale Insulin - Synthroid 50mcg PO Daily GI PPx - Pepcid DVT PPx - Heparin Current Hospital Diet Patient's current hospital diet: Low Sodium Diet (2gm Na), Diabetes Type 2 Diet Discharge Diet Recommended Diet: AHA Diet (Heart Healthy), Diabetes Type 2 Diet Pending Studies Studies pending at discharge: no Medical Emergencies . Who to Call and When: Medical Emergencies: If at any time you feel your situation is an emergency, please call 911 immediately. . Non-Emergent Contact Non-Emergency issues call your: Primary Care Provider . . "Provider Documentation" section prepared by Yao Barkley. . Core Measure Problem Core Measures: None Resident Tracking Resident Involvement: Resident Care Provided Care Provided: Adult Hospital Medicine
[2017-05-15] MEDS ORDERED: LORAZEPAM 0.5 MG TAB PO SCH (21:00)
--- NOTE | 2017-05-15 21:02 | Procedure Note ---
Procedure Note Procedure Date May 15, 2017. Procedure Description Procedure Name: Radial arterial line insertion Procedure time out: side/site verified, correct procedure Consent obtained: written Time of procedure: 20:30 Indications: other (Monitoring) Contraindications: none Description: Lidocaine administered 20 gauge Deirdre catheter placed in left radial artery No complications Catheter sutured in place Complications: none Patient tolerated procedure: well Post-procedure vital signs: reviewed and stable
--- NOTE | 2017-05-15 21:02 | PROGRESS NOTE ---
DATE: 05/15/2017 TIME: 19:49 p.m. SUBJECTIVE: Earlier this evening I was contacted by Dr. Muhammad that Mrs. Up had a code blue situation where she apparently had bradycardia. She also reportedly had a bradycardia issue event yesterday with PEA and underwent resuscitation. I presented at the bedside and Dr. Jama and Dr. Posadas were present as well as other critical care team and staff. At approximately 17:46, she was in a sinus bradycardia and then developed a junctional rhythm with heart rate in the 30s. She was attended to by Dr. Jama and a code blue was called and she was given epinephrine. Please see Dr. Jama's note for full details as this occurred prior to my arrival and notification. She eventually continued to have intermittent sinus and junctional episodes and then had a pause followed by 2 further junctional beats and another ventricular escape beat. At this point, it appears as though chest compression started which Dr. Jama estimates to be approximately 30 seconds as per our discussion. She was treated with epinephrine and eventually once again intubated. When I entered the room, she was in a wide complex tachycardia with heart rates in the high 140s up to 150 beats per minute but had a pulse and a systolic blood pressure in the 90s. This rhythm apparently occurred after receiving epinephrine. She was also started on dobutamine at 5 mcg per kilogram per minute. She maintained a pulse, but her blood pressure started to drop and she became more hypotensive. At this time, it was recommended that a cardioversion be performed. She was already sedated and then in a synchronized fashion cardioversion was performed successfully and she then regained sinus rhythm. She was sedated and intubated throughout the events while I was at the bedside. She was unable to provide any review of systems. OBJECTIVE: VITAL SIGNS: Temperature 36.7 degrees, heart rate currently in the 60s and sinus rhythm. Respiration rate last charted 18, last charted blood pressure was 109/45 mmHg; however, currently her systolic blood pressure is in the upper 80s. She mechanically ventilated. GENERAL: She is currently unresponsive while on mechanical ventilation and sedation. She has a central venous catheter in her right neck. NECK: No obvious hematoma. She has a palpable right carotid pulse. CARDIAC EXAM: No ventricular heave. Regular, normal S1, S2. 2/6 mid to late peaking systolic ejection murmur best heard at the right upper sternal border. No rubs or gallops. LUNGS: Clear to auscultation bilaterally. ABDOMEN: Soft, nondistended. EXTREMITIES: No cyanosis or edema. She has an 1+ left radial pulse. She has a right-sided upper extremity AV fistula with a palpable thrill. CURRENT MEDICATIONS: Include dobutamine at 10 mcg per kilogram per minute. Phenylephrine as being titrated by the critical care team. She has also received propofol, fentanyl and Versed. She is also on aspirin 81 mg daily, Lipitor 20 mg daily, hydralazine 25 mg p.o. t.i.d., last dose at 12:34 p.m., Plavix 75 mg daily, amlodipine was held today due to hypotension. LABORATORY DATA: Hemoglobin 9.9, sodium 132, potassium 3.9 AT 19:29 p.m. Her peak troponin throughout this hospitalization was 0.625 at 1715 tonight. ECG at 9:30 a.m. on 05/15/2017 demonstrated sinus bradycardia at 44 beats per minute with nonspecific ST/T wave abnormality and a prolonged QT. Repeat ECG was evaluated at the bedside and demonstrated sinus rhythm. Echocardiogram done earlier today demonstrated mildly to moderately reduced LV systolic function with an EF of 40-45%. There was hypokinesis of the mid portions of the left ventricle while the distal portions in the apex appeared akinetic. No thrombus. Mild LVH. Severe left atrial dilation. Moderate right atrial dilation. Bioprosthetic aortic valve with elevated velocities and transvalvular gradient suggesting significant stenosis. Mild AI. RVSP 43, severe MAC with mild mitral stenosis and mild MR. Compared to prior study on 05/02/2017, LV systolic function is now reduced with wall motion abnormalities as described. ASSESSMENT AND PLAN: 1. Code blue/pulseless electrical activity with bradycardia: Given the fact that she did have bradycardia on last nights event reportedly and also tonight. The decision is made for a temporary pacemaker. She has already been consented by Dr. Jama the previous day. Attempts were made at the bedside by Dr. Jama, however, without fluoroscopy, it was unable to be placed within the ventricle. It did capture within atrium. Decision was then made to take her to the labor relations analyst so that fluoroscopy could be used to help guide the placement of a temporary transvenous pacemaker. This was also described to the family members present including her . Any questions were answered. 2. Aortic stenosis: She has aortic stenosis of her bioprosthetic aortic valve. Given the fact that this has been a recurrent event, her significant stenosis of the aortic valve is likely playing a role in her hemodynamic instability, especially with the bradycardia. Recommend that she be transferred to a facility that has capabilities of aortic valve replacement if necessary. 3. Junctional bradycardia: This may be the event that is precipitating her hemodynamic compromise given her other comorbidities such as aortic stenosis and end-stage renal disease. Consideration for a permanent pacemaker, but more urgently the temporary pacemaker as noted above. This can be further decided upon when she arrives at [facility] where she has been accepted in transfer. 4. Cardiomyopathy: Her left ventricular systolic function has decreased. At the bedside while in the ICU, a bedside ultrasound was used and when personally viewed in the 4 chamber apical view only, it appears that her left ventricular systolic function is now severely reduced, which is different than her echo performed earlier today. Would recommend further echocardiogram, but this can be done at her [facility] as transport is already in motion. Would recommend that she continue with dobutamine. 5. Hypotension: Recommend continuation of dobutamine given her left ventricular systolic dysfunction and issues with bradycardia. Other pressors are being managed by the critical care team. Could also give fluids if necessary emergently; however, apparently she has been having issues with hypervolemia and had approximately 500 mL removed today with dialysis. 6. Wide complex tachycardia: It was recommended that a cardioversion be performed as she began to become unstable with this rhythm. This occurred after she received epinephrine, which may have precipitated the rhythm. It was likely an SVT as she had tolerated it for some time and QRS morphology was similar to baseline. She tolerated the cardioversion well. She had been on amiodarone in the past, but given her bradycardia would avoid such agents at this time. 7. Disposition: Critically ill. Recommended transfer to a tertiary care center where aortic valve replacement is available, if necessary. This was discussed with Dr. Jama and Dr. oPsadas. They were in agreement. Dr. Posadas and Dr. Jama had been arranging acceptance and transfer to [facility]. Today's events, especially from a cardiac perspective were discussed with family members that were present including her in detail. Any questions were answered. Ninety minutes critical care time was spent assisting in the treatment of her wide complex tachycardia, bradycardia, and recommendation of a temporary pacemaker. Time was also spent discussing with family members and also with Dr. Jama and Dr. Posadas. The 90 minutes spent did not involve pacemaker placement, which was later done in the labor relations analyst. Thank you for allowing me to participate in the care of Ms. Up. STEVIE
[2017-05-15] MEDS ORDERED: SODIUM CHLORIDE 0.9% 10ML FLUSH IV ONE (21:08)
[2017-05-15] MEDS ORDERED: SODIUM CHLORIDE 0.9% 250 ML BAG IV ONE (21:08)
[2017-05-15] MEDS ORDERED: SODIUM CHLORIDE 0.9% 500 ML BAG IV ONE (21:08)
[2017-05-15] MEDS ORDERED: ATROPINE SULFATE 0.1 MG/ML 10 ML SYR IV ONE (21:08)
--- NOTE | 2017-05-15 21:34 | Procedure Note ---
Procedure Note Procedure Date May 15, 2017. Procedure Description Procedure Name: 1. Placement of a 7 Azerbaijani right femoral venous sheath 2. Ultrasound guidance for venous access 3. Temporary transvenous pacemaker placement Procedure time out: side/site verified, patient ID confirmed, correct procedure Consent obtained: written Performed by: attending (Dr. Mcwilliams) Indications: therapeutic Contraindications: none Description: Attempts of bedside temporary transvenous pacemaker placement by Dr. Jama in the ICU were unsuccessful. The decision was made to take her to the cardiac catheterization lab to use fluoroscopy to help place temporary transvenous pacemaker. The decision was made to first prepped the right IJ sheath which had been placed by ICU team earlier this evening. This attempt was unsuccessful. There was difficulty in advancing the pacemaker. Attempt was then made to use a Logan wire, but the wire was unable to be advanced beyond the tip of the IJ catheter. The decision was made to use IV contrast under fluoroscopy to visualize the venous structures. This demonstrated what appeared to be an atretic right IJ. Could not rule out dissection. The decision was then made to proceed via the right femoral vein. Lidocaine was used to provide local anesthesia. Under ultrasound guidance the right femoral vein was easily cannulated. There was brisk flow and therefore the 7 Azerbaijani sheath was connected to pressure to visualize a venous waveform. A venous waveform was noted with a pressure in the low 20smmHg. A temporary transvenous pacemaker was then easily advanced into the right ventricle out toward the apex. Capture was lost at 0.4 milliamps. Settings were set at 60 beats per minute at 5 milliamps. The patient remained in sinus rhythm with a heart rate in the 70s. Medications were then switched from the right IJ position to the right femoral venous sheath. The decision was made to leave the right IJ sheath in place for transport. This was discussed with family members. They stated that they were told that there was some vascular structure with occlusion in her right chest but they were not certain if it was venous or arterial. Dr. Isaias Dean was in personally contacted via telephone at [facility] to notify him of the new events. He was also notified that a left radial arterial line was placed by Dr. Brambila prior to transfer. Sedation was not planned for this procedure as it was not necessary for placement of a temporary transvenous pacemaker through a remaining sheath. She was given a total of 3 mg of Versed intermittently while in the catheterization lab however as she is mechanically ventilated and was not on continuous sedation. The sedation was given to help her relax well being mechanically ventilated. Moderate sedation was not required for the procedure. No known complications of the temporary transvenous pacemaker placement. The sheath and pacemaker were secured with suture. The pacemaker was then secured with several loops to help prevent pullback. Complications: none Patient tolerated procedure: well Post-procedure vital signs: reviewed and stable
[2017-05-16] MEDS ORDERED: LIDODERM (LIDOCAINE) PATCH 5% TD SCH (09:00)
[2017-05-17 11:15] LABS: HEPATITIS A IGM TC 51813E NON-REACTIVE (NON-REACTIVE); HEPATITIS B CORE IGM TC51854R NON-REACTIVE (NON-REACTIVE)
--- NOTE | 2017-05-22 08:45 | Discharge Summary ---
Discharge Summary Date of Service May 22, 2017. Discharge Summary Admission Date: May 12, 2017 at 18:45 Discharge Date: May 15, 2017 Discharge Disposition: Acute care facility Principal Diagnosis: See Below Immunizations: Have You Had Influenza Vaccine: Unknown History of Tetanus Vaccine?: Unknown History of Pneumococcal: Unknown History of Hepatitis B Vaccine: Unknown Procedures: See Below Consultations: Cardiology, [place] [address] Discharge Instructions Patient Name: BRITNEY URBANO Admit Date: 05/12/17 [facility] Rec: [id number] Att Phy: Cheng Posadas D.O. Acct ID: [id number] Judith Phy: Arya Liriano M.D. Date: 1945 Fam Phy: Arya Liriano M.D. Age: 71 Location: [facility] [place] Sex: F Room/Bed: [facility] CC: Yao Barkley .MD Deandra Anthony J. M.D. Shippert, Brian W., D.O. Discharge Summary Date of Service May 15, 2017. Admission Reason for Admission: Acute Chf Discharge Discharge Diagnosis / Problem: Bradycardia, Cardiac Arrest, Severe Aortic Valve Stenosis Discharge Goals Goal(s): Decrease discomfort, Improve function, Therapeutic intervention Activity Recommendations Activity Level: Bedrest . Additional Information Patient informed of condition: Yes Advance Directives: No DNR: No Level of Care: Skilled Communicable Disease: No Prognosis: Deteriorating Instructions / Follow-Up Instructions / Follow-Up Mrs Britney Urbano is a 71 year old female with CKD, on dialysis, diastolic CHF, hypertension, and history of aortic valve replacement 3 years ago who initially presented to [facility] earlier today with severe shortness of breath. She was recently discharged from our facility after an admission 04/30 to . She was found to have a hospital-acquired pneumonia at that time, received 4 days of IV abx then was switched to PO Levaquin, and was discharged home on room air. During that time she was also bradycardic, and so her metoprolol was stopped. She reports she has recently been wearing 2L of oxygen at home daily, and reports worsening shortness of breath the last 2-3 days. She would require leaning on her for support to walk. She went to [facility] and required 4L of oxygen. She also receives dialsysis Mon/Sat/Fri. She was found to have an acute on chronic CHF exacerbation, given 40mg Lasix IV, and was transferred here for further management of these conditions. Shortness of breath was initially believed to be due to dialysis which the patient underwent on 05/13. The patients shortness of breath improved significantly after dialysis, although on the evening of 05/14 the patient experienced bradycardic arrest with PEA requiring intubation and was subsequently transferred to the ICU. During the afternoon on 05/15, the patient was able to be extubated in the ICU with no acute events and tolerating 4 L on the oxygen mask. In approximately 1748 family alerted the staff that the patient was not breathing. Before that the patient was talked with the family and tried to sit upright on the bed when she immediately became unresponsive. Upon assessment the patient was bradycardic with a heart rate in the low 30s and was given a dose of 1 mg of atropine. The patient was then given 0.5 milligram of Epi and started having shallow respirations. Another dose of 0.5 mg of epi was given and the patient's heart rate increased above 100. She then began having deep breaths and it was decided that she would be then intubated. The patient was clenching her teeth and 80 mg of propofol was drawn. While getting the profile the patient was trying to sit up from the bed, although subsequently we were able to relax the patient. The patient was also getting infusion phenylephrine , dobutamine, and dopamine. A pacer was attempted to be introduced through the patient's right IJ introducer, although only atrial pacing was successful. 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 Neuro: - CAM ICU Negative - Extubated and now alert and oriented, did previously receive Versed and Fentanyl 08/04 but appears to have worn off at this time, remains drowsy - Received 5 doses of Fentanyl this admission with no adverse reactions, taken off of allergy list - Decrease home Ativan to 0.5mg TID - Decrease home Celexa to 20mg (Previously 60mg and high risk for Torsades) CV: - Code Blue:Bradycardic Arrest in PEA - Evaluated by Cardiology this morning - ECHO pending --> Preliminary ready of EF approx 30% (lower than previously) - Holding Metoprolol and Amiodarone at this time - Further evaluate need for pacemaker going forward although along with other comorbidities including ESRD unlikely - Troponin 0.546 today (similar to troponin on presentation) --> Secondary to PEA and chest compressions --> Continue to trend enzymes q8 x 3 - Episode of hypotension overnight corrected with 500 cc bolus - Home Medications: - Aspirin 81mg PO Daily - Plavix 75mg PO Daily - Atorvastatin 20mg PO Daily - Norvasc 10mg PO Daily - Hydralazine 25mg TID Resp: - Extubated and currently on 4L oxygen mask, tolerating it well with no respiratory distress at this time - Bronch performed by Dr. Gruber --> No acute findings, BAL performed - CTA this AM: 1. Technically limited study. No central emboli identified 2. Suspected pulmonary edema with cardiomegaly and trace bilateral pleural effusions 3. Bilateral dependent lower lobe airspace opacities, these could represent either pneumonia or atelectasis. - Rib fractures noted over right ribs 1,4,7 and left 4th rib --> Lidocaine Patch - Pleural Effusion tap by Dr. Jama on 05/15 - 300 cc removed - Cytology and Cultures ordered - pH 7.3 Fluids/Renal: - ESRD: Underwent Hemodialysis today, got 0.5L removed today --> 3 hrs of treatment - Monitor labs closely - Renal US previously negative ID: - No current antibiotics on board - Afebrile, no leukocytosis GI/Nutrition: - IV Pepcid - Regular ADA Diet for tomorrow Heme: - Hgb 10.1 --> 8.5 - Heparin 5000 units TID - No gross bleeding Endocrine: - Accu-Checks per protocol - Lantus 4 units at bedtime - Sliding Scale Insulin - Synthroid 50mcg PO Daily GI PPx - Pepcid DVT PPx - Heparin Current Hospital Diet Patient's current hospital diet: Low Sodium Diet (2gm Na), Diabetes Type 2 Diet Discharge Diet Recommended Diet: AHA Diet (Heart Healthy), Diabetes Type 2 Diet Pending Studies Studies pending at discharge: no Medical Emergencies . Who to Call and When: Medical Emergencies: If at any time you feel your situation is an emergency, please call 911 immediately. . Non-Emergent Contact Non-Emergency issues call your: Primary Care Provider . . "Provider Documentation" section prepared by Yao Barkley. .Resident Physician Supervision Note: I was present with Dr. Barkley during the history and exam. I discussed the case with the resident and agree with the findings and plan as documented in the note. Please see my documentation from the same date. This discharge note was dictated by Dr. Barkley but save to the medical record as discharge instructions. The above text is Dr. Barkley's initial note formatted to a discharge template as recommended by medical records. Documented By: Cheng Posadas Total Time Spent: Greater than 30 minutes This includes examination of the patient, discharge planning, medication reconciliation, and communication with other providers. See progress note of same date. Discharge Instructions Please refer to the electronic Patient Visit Report (Discharge Instructions) for additional information.
[2017-06-12 13:19] LABS: HERPES SIMPLEX VIRUS CULT NOT ISOLATED (NOT ISOLATED)
== END 2017-05-15 21:09 | disposition short-term general hospital (02) | DRG 252 ==
LOC: C.2T 18:45 → ENRESERV 05-14 22:54 → C.MSICU 05-14 23:10
PROVIDERS: ADMIT Family Medicine; ATTEND Family Medicine
PROC: 0W993ZX Drainage of Right Pleural Cavity, Percutaneous Approach, Diagnostic (ICD-10-PCS; principal; 2017-05-14)
PROC: 5A1935Z Respiratory Ventilation, Less than 24 Consecutive Hours (ICD-10-PCS; 2017-05-14)
PROC: 0BH17EZ Insertion of Endotracheal Airway into Trachea, Via Natural or Artificial Opening (ICD-10-PCS; 2017-05-14)
PROC: 05HM3DZ Insertion of Intraluminal Device into Right Internal Jugular Vein, Percutaneous Approach (ICD-10-PCS; 2017-05-15)
PROC: 5A1213Z Performance of Cardiac Pacing, Intermittent (ICD-10-PCS; 2017-05-15)
PROC: 03HY32Z Insertion of Monitoring Device into Upper Artery, Percutaneous Approach (ICD-10-PCS; 2017-05-15)
DX: I50.33 Acute on chronic diastolic (congestive) heart failure (principal); N18.6 End stage renal disease; I46.9 Cardiac arrest, cause unspecified; J96.01 Acute respiratory failure with hypoxia; N25.81 Secondary hyperparathyroidism of renal origin; J90 Pleural effusion, not elsewhere classified; I12.0 Hypertensive chronic kidney disease with stage 5 chronic kidney disease or end stage renal disease; E03.9 Hypothyroidism, unspecified; Z99.2 Dependence on renal dialysis; E11.9 Type 2 diabetes mellitus without complications; Z86.73 Personal history of transient ischemic attack (TIA), and cerebral infarction without residual deficits; F32.9 Major depressive disorder, single episode, unspecified; D63.8 Anemia in other chronic diseases classified elsewhere; J44.9 Chronic obstructive pulmonary disease, unspecified; R00.1 Bradycardia, unspecified; I35.0 Nonrheumatic aortic (valve) stenosis; Z79.82 Long term (current) use of aspirin